=== PATIENT | male | born 1960 | race Caucasian/White ===

== ENCOUNTER 2022-05-04 23:22 | Inpatient (IN) ==
[2022-05-05] MEDS ORDERED: ONDANSETRON INJ 2 MG/ML 2 ML VIAL IV PRN (00:19)
[2022-05-05] MEDS ORDERED: HYDROmorphone INJ 0.5 MG/0.5 ML SYR IV PRN (00:19)
--- NOTE | 2022-05-05 00:21 | History & Physical Report ---
Date of Service May 05, 2022 Assessment & Plan (1) Diverticulitis of intestine with abscess: Plan: Diagnosed via OSH ([facility]) CT A/P. - admit directly to PCU - obtain serial labs including CBC/CMP/Mg/procalcitonin/lactate - obtain blood cultures - we will scan CT A/P into our system - start Zosyn - start maintenance IVFs with LR @150cc/hr - consult surgery - appreciate recs - maintain NPO pending surgical consult (2) Large bowel obstruction: Plan: Diagnosed via OSH ([facility]) CT A/P. ?secondary to recent prostate cx RTx with ?contribution from complicated diverticulitis. - obtain KUB - patient relatively comfortable at this time - will hold on NG tube - surgery consulted as stated above - NPO and maintenance IVFs as stated above - PRN pain regimen: Tylenol/Morphine 2mg/Dilaudid 0.25mg - PRN Zofran for N/V (3) Diarrhea: Plan: Acute exacerbation of chronic problem. Has dealt with daily diarrhea since onset of RTx this summer, but reports worsening of symptoms over last 4 days. Likely 2/2 to diverticulitis. - check c. diff and stool PCR - plan as above (4) Prostate cancer: Plan: Stage IIIA, s/p TURP in 09/2021 and Leuprolide/RTx as of 02/2022. Follows with our cancer center (Dr. Le). (5) Hypertension: Plan: Chronic, normotensive thus far. - continue home Lisinopril Plan FEN/GI: NPO, LR @150cc/hr DVT Prophylaxis: SCDs, hold chemoppx pending surgical evaluation Code Status: full code - *need to discuss with patient Disposition: PCU History of Present Illness Chief Complaint: direct admit for large bowel obstruction with complicated diverticulitis/abscess Primary Care Provider: Vinh Kilgore Salazar is a 61yo male with PMHx significant for prostate cancer (s/p TURP in 09/2021 and completion of Leuprolide/RTx in 02/2022), HTN and obesity who was transferred from [facility] as a direct admit for large bowel obstruction with complicated diverticulitis/abscess. Patient reports onset of RLQ colicky abdominal pain as well as nausea, NB/NB vomiting and diarrhea on 05/01. N/V resolved on 05/02 but diarrhea has been consistent with 6-7 BMs per day, without blood/mucus. Also has had persistent abdominal pain. Denies fever/chills, chest pain, SOB, urinary symptoms or rash. Patient has ~45 pack year smoking history and currently smokes 3/4 ppd. Denies alcohol/drug use. Lives with and is proficient in ADLs/iADLs. In OSH ED the patient was afebrile with HR in low 100s but overall hemodynamically stable on room air. Labs significant for WBC 18.88 (neutrophilic predominance and L shift)Lactate 2.0 --> 1.3, Na 130, K 2.7. CT A/P [facility] report showing likely sigmoid colon diverticulitis with abscess measuring 2.8cm in size. Also with large bowel obstructive pattern and transition point at si gmoid colon. Patient was given IV potassium repletion, 2L NSS boluses, and started on Vanco/Zosyn. Patient had blood cultures drawn at OSH as well. Was then transferred here to be evaluated by our general surgery service given complicated diverticulitis with large bowel obstruction. Of note all records were sent with the patient, in addition to disc with CT A/P. Allergies Allergy/AdvReac Type Severity Reaction Status Date / Time No Known Allergies Allergy Verified 02/27/22 11:17 Home Medications Medication Instructions Recorded Confirmed Type lisinopril 20 mg tablet 20 mg PO DAILY 09/11/21 02/27/22 History acetaminophen 500 mg tablet 1,000 mg PO Q6H PRN 10/30/21 02/27/22 History (Tylenol Extra Strength) lactobacillus combination no.4 3 3,000 mmu cells PO DAILY 10/30/21 02/27/22 History billion cell capsule (Probiotic) leuprolide (3 month) 22.5 mg (3 22.5 mg subcut ONCE Prostate 12/03/21 12/03/21 Rx month) subcutaneous syringe Cancer #1 ea (Tre) calcium carbonate 600 mg-vitamin 1 cap PO DAILY 01/20/22 02/27/22 History D3 10 mcg (400 unit) capsule cholecalciferol (vitamin D3) 50 50 mcg PO DAILY 01/20/22 02/27/22 History mcg (2,000 unit) capsule psyllium husk 3.4 gram/5.4 gram 1 tbsp PO DAILY 01/27/22 02/27/22 History oral powder (Metamucil) leuprolide (3 month) 22.5 mg (3 22.5 mg subcut ONCE Prostate 01/29/22 02/27/22 Rx month) subcutaneous syringe Cancer #1 ea (Tre) Past Med/Surg History Medical History (Updated 05/05/22 @ 02:16 by Ayden Roberts MD) Back pain Chickenpox Colon polyp Surgical History (Updated 10/30/21 @ 10:00 by Yolis Bazzi RN) H/O laminectomy (1986) History of prostate biopsy (09/18/21) Family History (Updated 10/30/21 @ 10:01 by Yolis Bazzi RN) Father Abdominal aortic aneurysm Prostate cancer unsure per patient Mother Parkinson disease Brother Heart disease Brother Hypertension Brother Hypertension Sister Cerebral aneurysm Grandfather (Maternal) Prostate cancer Son No problems noted. Son No problems noted. 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 NAD. Cooperative. HEENT: Atraumatic, normocephalic. Pulm: CTAB A&P. -wheezes, -rales, -rhonchi. Symmetrical chest rise. No increase work of breathing. No respiratory distress. Cardiac: RRR, -mrg. Radial pulses intact and symmetrical. Abdominal: soft, mildly distended mostly in RLQ, with moderate tenderness to palpation of RLQ. No rebound or guarding. NA BS x 4 Skin: warm, dry, no rash Supervising Physician Co-Signing Physician Notes I supervised Alden Roberts MD on this admission. I interviewed and examined the patient independently of him. The plan is as written in the note except for any following changes/exceptions: None 61yo M w/ hx of prostate cancer who presents with large bowel obstruction and diverticulitis vs. mass with 2.8 cm abscess. Doing well on exam overnight, minimal pain. Discussed with surgical attending. PA will see him overnight. For now, NPO, abx, labs, and IV fluids. Resident Activity Tracking Resident Involvement: Resident Care Provided Care Provided: Adult [facility]
[2022-05-05] MEDS ORDERED: PIPERACILLIN/TAZOBACTAM 4.5 GM in DEXTROSE 5% 100 ML IV ONE (01:00)
[2022-05-05] MEDS ORDERED: Patient's HEIGHT &/or WEIGHT Needed STA (02:12)
[2022-05-05 02:48] LABS: Hematocrit (blood only) 31.8 % (40.1-51.0); Mean Corpuscular Hemoglobin 31.1 pg (25.0-34.0); Mean Corpuscular Hgb Conc 34.6 g/dL (32.0-36.0); Mean Corpuscular Volume 89.8 fL (80.0-100.0); Mean Platelet Volume 8.9 fL (9.4-12.4); Platelet Count 437 K/uL (130-400); RDW Coefficient of Variation 13.2 % (11.5-14.5); RDW Standard Deviation 43.4 fL (36.4-46.3); Red Blood Count 3.54 M/uL (4.63-6.08); White Blood Count 16.56 K/ul (4.8-10.8)
--- NOTE | 2022-05-05 03:04 | Billing Data ---
Date of Service May 05, 2022 Coding Level of Care Code 10992 Initial Inpt Care Lvl 3
[2022-05-05 03:05] LABS: Alanine Aminotransferase 24 U/L (7-52); Albumin Globulin Ratio 1.2 (0.9-2); Albumin Level 3.5 gm/dl (3.4-5.0); Alkaline Phosphatase 75 U/L (34-104); Anion Gap 10 (3-11); Aspartate Aminotransferase 14 U/L (13-39); BUN Creatinine Ratio 19.4 (10-20); Bilirubin,Total 1.1 mg/dl (0.2-1.0); Blood Urea Nitrogen 12 mg/dl (6-23); Calcium 8.9 mg/dl (8.5-10.1); Carbon Dioxide 21 mmol/L (21-32); Chloride 101 mmol/L (98-107); Est GFR (African American) 122.4 ml/min; Est GFR (Non-African American) 105.6 ml/min; Glucose 110 mg/dl (70-99(Fasting)); Magnesium 1.7 mg/dl (1.7-2.4); Potassium 3.2 mmol/L (3.5-5.1); Sodium 132 mmol/L (136-145); Total Protein 6.5 gm/dl (6.0-8.3)
[2022-05-05 03:09] LABS: Basophils # (auto) 0.04 K/uL (0-0.2); Basophils % (auto) 0.2 %; Eosinophils # (auto) 0.03 K/uL (0-0.50); Eosinophils % (auto) 0.2 %; Immature Granulocytes # (auto) 0.07 K/uL (0.00-0.02); Immature Granulocytes % (auto) 0.4 %; Lymphocytes # (auto) 0.42 K/uL (1.2-3.4); Lymphocytes % (auto) 2.5 %; Monocytes # (auto) 0.95 K/uL (0.24-0.82); Monocytes % (auto) 5.7 %; Neutrophils # (auto) 15.05 K/uL (1.4-6.5); RBC Morphology Unremarkable
[2022-05-05] MEDS: MoRPHine SULFATE 2 MG/ML CARP IV PRN ×4 (03:18→19:52)
--- NOTE | 2022-05-05 03:38 | Surgery Consultation ---
Date of Consultation May 05, 2022 Assessment & Plan (1) Diverticulitis of intestine with abscess: Patient has been transferred from [facility] on the hospitalist service. We recommend proceeding as follows Implement n.p.o. status Provide IV fluid for hydration Continue broad-spectrum antibiotics. The patient is receiving Zosyn Follow serial labs Provide analgesics Provide antiemetics Discussed with the patient the nature of his problem. At the present time the patient does not appear to have an acute abdomen (peritoneal signs on physical exam are absent) and therefore conservative measures as outlined above will be our initial course of treatment. I did discuss with the patient that ideally we would treat this condition in a conservative manner without surgery as any emergency surgery would likely necessitate a colostomy. We will continue with the plan as outlined above following serial exams and serial labs. Consideration can be given to repeat abdominal imaging if patient fails to improve with conservative measures. Additional recommendations be forthcoming based on his clinical course as it unfolds As above. Patient continues to have suprapubic and left lower quadrant pain. This started last . Abdominal exam is tender but no peritonitis. We certainly are not out of the shultz regarding possible urgent intervention. For now keep him n.p.o. IV fluid and IV antibiotics. We will continue to monitor him closely. History of Present Illness Reason for Consultation: Diverticulitis with abscess Attending Physician: Bernabe Suero MD History of Present Illness This is a 61-year-old male who presented to the emergency department at [facility] secondary to abdominal pain for approximately 2 to 3 days. The patient at the time of my exam noted that the pain was greatest in the lower abdomen which appeared to be in both the left and right lower quadrants. He notes it is worse with movement and somewhat improved with lying still. He has had associated nausea and vomiting. He denies any fevers, shakes, or chills. The patient notes that his most recent bowel movement was today. He is passing some flatus. He notes that he did not have any blood in his stool. With his emesis earlier in the course of his illness he did not report any hematemesis. He no jaclyn that he has never had this problem before and did not seek medical attention immediately because he thought that he merely had a stomach bug. The patient does report having a colonoscopy in the past and to the best of his knowledge there is no significant pathology noted on the study. He does feel that his most recent colonoscopy was approximately 3 years ago. The patient notes that he has not had no prior abdominal surgeries but he does have a history of prostate cancer. He says for this cancer he did receive radiation treatments. At [facility] the patient did have labs and imaging. These records were reviewed. A CT scan of the abdomen and pelvis showed an abnormal appearance of the sigmoid colon. The segment of the colon was obscured by soft tissue like material with a lobulated appearance. Inflammatory changes were noted. Proximal to these changes the colon was dilated and filled with stool and air. No free air was noted. Just adjacent to the abnormal appearance of the sigmoid colon was a loculated collection measuring approximately 2.8 cm in size potentially felt to represent a small abscess. An EKG showed sinus rhythm without changes indicative of acute ischemia. At [facility] the patient also had labs which included a chemistry profile where his BUN and creatinine were noted to be normal. Sodium and potassium were 130 and 2.7 respectively. There is no elevation of patient's LFTs. Lactic acid level was 2.0 which was normal. CBC revealed white blood cell count was 18.8. Hemoglobin and hematocrit were 12.2 and 37.2. Platelet count was 508,000. A COVID test at [place] was negative. Since arrival to [facility] the patient has had labs repeated. His white blood cell count is 16.5. Hemoglobin and hematocrit are 11.0 and 31.8. Platelet count is 437,000. Chemistry profile shows sodium is 132 with a potassium of 3.2. BUN and creatinine are normal. His lactic acid is normal at 0.8. There is a slight elevation of his total bilirubin of 1.1 but his LFTs are otherwise not elevated. Procalcitonin level is 0.59 with is a slight elevation. Since arrival to [facility] the patient has been noted to be afebrile. His pulse ox is currently greater than 90% on room air. His respirations are nonlabored. He is not hypotensive however he is tachycardic with a heart rate in the 120s. At the time of my interview he was resting comfortably in bed in no distress. Allergies Allergy/AdvReac Type Severity Reaction Status Date / Time No Known Allergies Allergy Verified 02/27/22 11:17 Home Medications Medication Instructions Recorded Confirmed Type lisinopril 20 mg tablet 20 mg PO DAILY 09/11/21 02/27/22 History acetaminophen 500 mg tablet 1,000 mg PO Q6H PRN 10/30/21 02/27/22 History (Tylenol Extra Strength) lactobacillus combination no.4 3 3,000 mmu cells PO DAILY 10/30/21 02/27/22 History billion cell capsule (Probiotic) leuprolide (3 month) 22.5 mg (3 22.5 mg subcut ONCE Prostate 12/03/21 12/03/21 Rx month) subcutaneous syringe Cancer #1 ea (Elicaseyd) calcium carbonate 600 mg-vitamin 1 cap PO DAILY 01/20/22 02/27/22 History D3 10 mcg (400 unit) capsule cholecalciferol (vitamin D3) 50 50 mcg PO DAILY 01/20/22 02/27/22 History mcg (2,000 unit) capsule psyllium husk 3.4 gram/5.4 gram 1 tbsp PO DAILY 01/27/22 02/27/22 History oral powder (Metamucil) leuprolide (3 month) 22.5 mg (3 22.5 mg subcut ONCE Prostate 01/29/22 02/27/22 Rx month) subcutaneous syringe Cancer #1 ea (Tre) Patient History Medical History Back pain Chickenpox Colon polyp Surgical History H/O laminectomy (1986) History of prostate biopsy (09/18/21) Family History Father Abdominal aortic aneurysm Prostate cancer unsure per patient Mother Parkinson disease Brother Heart disease Brother Hypertension Brother Hypertension Sister Cerebral aneurysm Grandfather (Maternal) Prostate cancer Son No problems noted. Son No problems noted. Social History Smoking Status: Current every day smoker Tobacco Type: Cigarettes packs per day: 0.7; Cigarettes Per Day: 15; Second Hand Exposure: Yes; Do You Dip or Chew Tobacco: No; Tobacco Cessation Education Requested by Patient: No Hx Alcohol Use: No Hx Substance Use: No Preferred Language: Ethiopian Communication Ability: Effective Visual Impairment: No Limitations Hearing Ability: Normal Packaging Specialist Required: No Beliefs That Will Affect Care: None marital status: Current Living Situation: Spouse current occupational status: employed current occupation: Manufacturing How many Children do You have: 2 Other Information That Helps Us Care for You: No Feels Safe at Home: Yes Safety Concerns: Feels Safe At This Time Childhood Exposure to Second-Hand Smoke: Yes (parents smoked in home) caffeine: Yes (coffee) during the past year weight has: remained stable Dental Care, Regularly: Yes Assistive Devices: None Review of Systems Constitutional: no fever and no chills Eyes: no eye pain Ear, Nose, Mouth, Throat: no ear pain Respiratory: no cough and no dyspnea Cardiovascular: no chest pain Gastrointestinal: + abdominal pain, + nausea and + vomiting; no hematemesis, no diarrhea/loose stools and no blood in stools Genitourinary: no dysuria Musculoskeletal: no back pain Integumentary: no rash Neurologic: no localized weakness Physical Exam Constitutional: well developed and well nourished; no acute distress Eyes: no conjunctival abnormality ENMT: Ears: no hearing impairment and no external ear abnormality Mouth: no oropharynx abnormality Neck: trachea midline Respiratory: normal respiratory effort; no respiratory distress and no labored breathing Cardiovascular: Rate/Rhythm: regular rate and regular rhythm Vessels: dorsalis pedis pulses present and radial pulses present Gastrointestinal (Abdomen): Abdomen is mildly distended. There is pain noted with palpation in the lower abdomen which is greatest in the left lower quadrant. There is no rebound tenderness or guarding. Bowel sounds are hypoactive. Musculoskeletal: No calf tenderness. Feet are warm and nonmottled Skin: no rashes Neurologic: moves all extremities Psychiatric: A+Ox3, euthymic affect Results & Data ([facility]) Vital Signs (Past 12 Hours) Vital Signs Temp Pulse Resp BP Pulse Ox O2 Del Method 05/05/22 03:23 36.9 C 121 H 18 145/110 H 91 Room Air PG Care Time/CCT Total # of Minutes Spent Total Time Spent with Patient: Total time spent is greater than 50% in coordination of care (as documented) at patient's floor/unit and/or counseling patient: Coding Level of Care Code 52960 Inpt Consult Level 5 Diagnoses Diverticulitis of intestine with abscess K57.80
[2022-05-05] MEDS: LACTATED RINGER'S 1,000 ML IV SCH ×4 (03:41→20:58)
[2022-05-05] MEDS ORDERED: POTASSIUM CHLORIDE CRTAB 20 MEQ TABCR PO STA (04:22)
--- NOTE | 2022-05-05 07:06 | Hospitalist Progress Note ---
Date of Service May 05, 2022 Assessment & Plan (1) Diverticulitis of intestine with abscess: Plan: - diagnosed via [facility] CTAP - labs upon admission significant for WBC 16.56 w/ neutrophilic predominance, Hgb 11, Na 132, K 3.2, and procal 0.59 - blood cultures pending - KUB showed severe constipation w/ distended colon (colonic ileus vs. LBO) - continue Zosyn - continue maintenance IVFs with LR @150cc/hr - per surg; continue NPO, ABX, serial labs, analgesic/antiemetic PRN, prefer conservative management to surgical management at this time (2) Ileus due to infection: Plan: - LBO diagnosed via [facility] CTAP. Cause secondary to recent prostate cx radiation therapy vs contribution from complicated diverticulitis? - KUB showed severe constipation w/ distended colon (colonic ileus vs. LBO) - as LBO are not commonly seen as complication from diverticulitis, suspect colonic ileus - NPO and maintenance IVFs as above - PRN pain regimen: Tylenol/Morphine 2mg/Dilaudid 0.25mg - PRN Zofran for N/V - per surg as above - recommend colonoscopy 6-8 after d/c as outpatient, unless obstructive symptoms fail to resolve w/ infection tx, then may need colonoscopy as inpatient (3) Diarrhea: Plan: - Acute on chronic problem - has dealt with daily diarrhea since onset of radiation therapy this summer, but reports worsening of symptoms over last 4 days; likely 2/2 to diverticulitis - c. diff neg and stool PCR pos for EPEC - plan as above (4) Prostate cancer: Plan: - Stage IIIA, s/p TURP in 09/2021 and Leuprolide/radiation therapy as of 02/2022 - Follows with cancer center (Dr. Le) (5) Hypertension: Plan: - Chronic - continue home lisinopril 20 mg daily Plan FEN: NPO, LR @150cc/hr, 60 meq K DVT ppx: SCDs Code: full Dispo: PCU Admission and Anticipated Discharge Date Admission Date: May 05, 2022 Supervising Physician Co-Signing Physician Notes I personally examined the patient and verified all tsang points of history and exam, discussed case, and agree with decision making with Dr Smithbauer feeling about the same, but not worse Vitals noted, in general he is awake and alert pleasant no distress. HEENT normocephalic atraumatic mucous membranes moist. Breathing unlabored no accessory muscle use good effort. Abdomen soft nondistended mild tender no guarding rebound or rigidity Diverticulitis with abscessantibiotics, supportive care, serial exams, time. Appreciate surgical backup, hopefully will do well with conservative care Large bowel obstructionawaiting ability to review films, hopefully just ileus due to infection, discussed with patient is a bit atypical and we will definitely want to ensure symptomatic resolution prior to discharge, as well as follow-up colonoscopy within about 6 to 8 weeks after discharge if symptoms have resolved DVT prophylaxisLovenox given surgery being very unlikely Subjective Pt is a 61 yo male with PMH of prostate cancer (s/p TURP 09/2021 and le uprolide/radiation therapy 02/2022) and HTN presenting via transfer due to acute diverticulitis w/ LBO and 2.8 cm abscess. Pt sitting on the side of the bed when I talked with him. He still has some abdominal pain but better than it was. It is worse when he lays down. Pt endorses continued episodes of diarrhea w/o blood. He denies SOB, chest pain, and nausea/vomiting. Physical Exam Constitutional: NAD. Tachycardic. Eyes: no conjunctival abnormality Respiratory: CTA bilaterally. No rhonchi, wheezing, or crackles. Non labored breathing. Cardiovascular: Regular rhythm, tachycardic. No murmur noted. No LE edema. Gastrointestinal (Abdomen): Soft, tender throughout upon light palpation, +BS. Guarding present through all quadrants. No masses noted. Skin: no rashes, warm and dry Psychiatric: Alert. Mood and affect congruent. Results & Data Results & Data ([facility]) Vital Signs (Past 12 Hours) Vital Signs Temp Pulse Pulse Resp BP Pulse Ox O2 Del Method 05/05/22 02:30 Room Air 05/05/22 03:31 113 H 05/05/22 01:40 38.1 C H 122 H 18 147/102 H 92 Room Air 05/05/22 03:23 36.9 C 121 H 18 145/110 H 91 Room Air Resident Activity Tracking Resident Involvement: Resident Care Provided Care Provided: Adult [facility]
[2022-05-05] MEDS: lisinopril 20 MG TAB PO SCH (08:04)
[2022-05-05] MEDS: PIPERACILLIN/TAZOBACTAM 4.5 GM in DEXTROSE 5% 100 ML IV SCH ×2 (08:04→16:49)
[2022-05-05 09:30] LABS: Adenovirus F 40/41 PCR Not Detected (NotDetected); Astrovirus PCR Not Detected (NotDetected); Cryptosporidium PCR Not Detected (NotDetected); Cyclospora cayetanensis PCR Not Detected (NotDetected); Entamoeba histolytica PCR Not Detected (NotDetected); Enteroaggregative E.coli(EAEC) Not Detected (NotDetected); Enteropathogenic E.coli (EPEC) DETECTED (NotDetected); Enterotoxigenic E.coli (ETEC) Not Detected (NotDetected); Giardia lamblia PCR Not Detected (NotDetected); Norovirus GI/GII PCR Not Detected (NotDetected); Plesiomonas shigelloides PCR Not Detected (NotDetected); Rotavirus A PCR Not Detected (NotDetected); Salmonella PCR Not Detected (NotDetected); Sapovirus PCR Not Detected (NotDetected); Shiga-like Toxin E.coli (STEC) Not Detected (NotDetected); Shigella/Enteroinvasive E.coli Not Detected (NotDetected); Vibrio cholerae PCR Not Detected (NotDetected); Vibrio species PCR Not Detected (NotDetected); Yersinia enterocolitica PCR Not Detected (NotDetected)
[2022-05-05 09:34] LABS: Campylobacter PCR Not Detected (NotDetected)
--- NOTE | 2022-05-05 13:35 | XRay Report ---
KUB CLINICAL HISTORY: Large bowel obstruction. FINDINGS: 3 AP, portable, supine abdominal radiographs are correlated with abdominal CT dated 022. There is severe fecal retention seen in the right colon. The right colon is markedly distended, measuring up to 11 cm in diameter. There is milder distention of the left colon, with minimal gas pre sent in the sigmoid. There is only mild distention of the small bowel loops. No evidence of intraperi toneal free air is seen on the supine images. There are no abnormal abdominal calcifications. The ske letal structures are osteopenic but intact. There is moderate to advanced lumbosacral spondylosis and scoliosis. Metallic implants are noted in the prostate. IMPRESSION: Severe constipation and marked distention of the colon as above. Although this could repr esenting colonic ileus, a distal colonic obstruction is not excluded. Clinical correlation will be es sential. Electronically signed by: Sergio Petty M.D. 05/05/2022 1:33 PM
--- NOTE | 2022-05-05 18:46 | Billing Data ---
Date of Service May 05, 2022 Coding Level of Care Code 75736 Subseq Hosp Care Lvl 3
[2022-05-05] MEDS ORDERED: LACTATED RINGER'S 1,000 ML IV ONE (19:50)
[2022-05-06] MEDS: PIPERACILLIN/TAZOBACTAM 4.5 GM in DEXTROSE 5% 100 ML IV SCH ×4 (00:22→23:18)
[2022-05-06] MEDS: LACTATED RINGER'S 1,000 ML IV SCH ×5 (01:30→21:02)
[2022-05-06] MEDS: MoRPHine SULFATE 2 MG/ML CARP IV PRN ×5 (03:01→23:19)
[2022-05-06 06:29] LABS: Hematocrit (blood only) 30.4 % (40.1-51.0); Hemoglobin 10.4 g/dl (14.0-18.0); Mean Corpuscular Hemoglobin 30.6 pg (25.0-34.0); Mean Corpuscular Hgb Conc 34.2 g/dL (32.0-36.0); Mean Corpuscular Volume 89.4 fL (80.0-100.0); Mean Platelet Volume 9.1 fL (9.4-12.4); Platelet Count 351 K/uL (130-400); RDW Coefficient of Variation 13.3 % (11.5-14.5); RDW Standard Deviation 43.8 fL (36.4-46.3); White Blood Count 11.43 K/ul (4.8-10.8)
[2022-05-06 07:04] LABS: BUN Creatinine Ratio 22.6 (10-20); Calcium 8.8 mg/dl (8.5-10.1); Creatinine Clr Calc Pharmacy 161.6 ml/min; Est GFR (African American) 130.5 ml/min; Est GFR (Non-African American) 112.6 ml/min; Potassium 3.4 mmol/L (3.5-5.1)
[2022-05-06] MEDS ORDERED: POTASSIUM CHLORIDE CRTAB 20 MEQ TABCR PO ONE (07:24)
[2022-05-06] MEDS: lisinopril 20 MG TAB PO SCH (07:33)
--- NOTE | 2022-05-06 07:52 | Hospitalist Progress Note ---
Date of Service May 06, 2022 Assessment & Plan (1) Diverticulitis of intestine with abscess: Plan: - diagnosed via [facility] CTAP - labs upon admission significant for WBC 16.56 w/ neutrophilic predominance, Hgb 11, Na 132, K 3.2, and procal 0.59 - today, WBC trending down - KUB showed severe constipation w/ distended colon (colonic ileus vs. LBO) - blood cultures neg after 24 hr - continue zosyn- day 2 - continue maintenance IVFs with LR 200 mL/hr - per surg; continue NPO, ABX, serial exams, analgesic/antiemetic PRN, recommend repeat CT scan (2) Ileus due to infection: Plan: - LBO diagnosed via [facility] CTAP. Cause secondary to recent prostate cx radiation therapy vs contribution from complicated diverticulitis? - KUB showed severe constipation w/ distended colon (colonic ileus vs. LBO) - as LBO are not commonly seen as complication from diverticulitis, suspect colonic ileus - NPO and maintenance IVFs as above - PRN pain regimen: Tylenol/Morphine 2mg/Dilaudid 0.25mg - PRN Zofran for N/V - per surg as above - recommend colonoscopy 6-8 after d/c as outpatient, unless obstructive symptoms fail to resolve w/ infection tx, then may need colonoscopy as inpatient (3) Diarrhea: Plan: - Acute on chronic problem - has dealt with daily diarrhea since onset of radiation therapy this summer, but reports worsening of symptoms over last 4 days; likely 2/2 to diverticulitis - c. diff neg and stool PCR pos for EPEC - plan as above (4) Prostate cancer: Plan: - Stage IIIA, s/p TURP in 09/2021 and Leuprolide/radiation therapy as of 02/2022 - Follows with cancer center (Dr. Le) (5) Hypertension: Plan: - Chronic - continue home lisinopril 20 mg daily Plan FEN: NPO, LR 200 mL/hr, 40 meq K DVT ppx: lovenox 40 mg daily Code: full Dispo: PCU Admission and Anticipated Discharge Date Admission Date: May 05, 2022 Supervising Physician Co-Signing Physician Notes I personally examined the patient and verified all tsang points of history and exam, discussed case, and agree with decision making with Dr Mullen still feeling about the same, but not worse Vitals noted, in general he is awake and alert pleasant no distress. HEENT normocephalic atraumatic mucous membranes moist. Breathing unlabored no accessory muscle use good effort. Abdomen soft nondistended mild tender no guarding rebound or rigidity Diverticulitis with abscessantibiotics, supportive care, serial exams, time. Appreciate surgical backup, thus far doing well with conservative care. Anticipate repeat CT in about 2 days Large bowel obstructionawaiting ability to review films, hopefully just ileus due to infection, discussed with patient is a bit atypical and we will definitely want to ensure symptomatic resolution prior to discharge, as well as follow-up colonoscopy within about 6 to 8 weeks after discharge if symptoms have resolved, continue to follow clinically for now DVT prophylaxisLovenox, given that a need for emergent surgery is very unlikely Subjective Pt is a 61 yo male with PMH of prostate cancer (s/p TURP 09/2021 and leuprolide/radiation therapy 02/2022) and HTN presenting via transfer due to acute diverticulitis w/ LBO and 2.8 cm abscess. Overnight pt continued to be tachycardic. He was given 1 L bolus of NS and his maintenance was increased to 200 mL/hr. Overall, pt feeling slightly better than previously. He currently rates his pain 6-7/10 but he has not asked for his pain meds yet. He still notes diarrhea w/o blood. No new symptoms of chest pain, SOB, nausea/vomiting or leg pain. Physical Exam Constitutional: NAD. Vitals WNL. Eyes: no conjunctival abnormality Respiratory: CTA bilaterally. No rhonchi, wheezing, or crackles. Non labored breathing. Cardiovascular: Regular rhythm, tachycardic. No murmur noted. No LE edema. Gastrointestinal (Abdomen): Tenderness in all quadrants upon light palpation with more tenderness on of the right sided quadrants. Guarding present. Soft. +BS. No masses noted. Skin: no rashes, warm and dry Psychiatric: Alert. Mood and affect congruent. Results & Data Results & Data ([facility]) Vital Signs (Past 12 Hours) Vital Signs Temp Pulse Pulse Resp BP Pulse Ox Pulse Ox 05/06/22 07:11 36.9 C 118 H 20 143/94 H 91 05/06/22 02:52 36.4 C L 107 H 22 102/71 91 05/06/22 00:19 92 05/05/22 22:44 36.4 C L 108 H 20 103/79 92 05/05/22 20:15 117 H O2 Del Method O2 Del Method 05/06/22 07:11 Room Air 05/06/22 02:52 Room Air 05/06/22 00:19 Room Air 05/05/22 22:44 Room Air 05/05/22 20:15 Resident Activity Tracking Resident Involvement: Resident Care Provided Care Provided: Adult Hospital Medicine
--- NOTE | 2022-05-06 08:13 | Surgery Progress Note ---
Date of Service May 06, 2022 Assessment & Plan (1) Diverticulitis of intestine with abscess: Plan: Afebrile. WBC is decreasing. Pain slightly improved. Would continue n.p.o. and IV antibiotics. If he continues to improve I would recommend repeat CAT scan on . We will continue to follow while he is in the hospital. (2) Large bowel obstruction: (3) Obesity: (4) Hypertension: Admission and Anticipated Discharge Date Admission Date: May 05, 2022 Subjective Patient seen. Admits to some improvement in his symptoms although he still having lower abdominal pain. He had 1 bowel movement. Otherwise no new complaints. Physical Exam Constitutional: WD/WN, vitals as above no acute distress and not ill appearing Eyes: PERRL, conjunctivae normal, anicteric sclerae EOM intact bilaterally ENMT: external ear and nose normal, oropharynx normal Ears: no hearing impairment Neck: trachea midline, no thyromegaly Respiratory: normal respiratory effort; no respiratory distress and does not use accessory muscles Cardiovascular: Sinus tachycardia Gastrointestinal (Abdomen): Soft. Positive suprapubic and left lower quadrant tenderness. Voluntary guarding. Skin: no rashes, warm and dry Psychiatric: Orientation: alert, oriented x 3 and cooperative Results & Data ([facility]) Vital Signs (Past 12 Hours) Vital Signs Temp Pulse Pulse Resp BP Pulse Ox Pulse Ox 05/06/22 07:11 36.9 C 118 H 20 143/94 H 91 05/06/22 02:52 36.4 C L 107 H 22 102/71 91 05/06/22 00:19 92 05/05/22 22:44 36.4 C L 108 H 20 103/79 92 05/05/22 20:15 117 H O2 Del Method O2 Del Method 05/06/22 07:11 Room Air 05/06/22 02:52 Room Air 05/06/22 00:19 Room Air 05/05/22 22:44 Room Air 05/05/22 20:15 PG Care Time/CCT Total # of Minutes Spent Total Time Spent with Patient: Total time spent is greater than 50% in coordination of care (as documented) at patient's floor/unit and/or counseling patient: Coding Level of Care Code 89904 Subseq Hosp Care Lvl 3 Diagnoses Diverticulitis of intestine with abscess K57.80 Large bowel obstruction K56.609 Obesity E66.9 Hypertension I10
[2022-05-06] MEDS: ENOXAPARIN INJ 40 MG/0.4 ML SYR SQ SCH (08:29)
--- NOTE | 2022-05-06 18:01 | Billing Data ---
Date of Service May 06, 2022 Coding Level of Care Code 00748 Subseq Hosp Care Lvl 3
[2022-05-07] MEDS: LACTATED RINGER'S 1,000 ML IV SCH ×4 (01:34→15:08)
[2022-05-07] MEDS: MoRPHine SULFATE 2 MG/ML CARP IV PRN ×2 (06:03→23:13)
[2022-05-07 06:11] LABS: Basophils # (auto) 0.03 K/uL (0-0.2); Basophils % (auto) 0.3 %; Eosinophils # (auto) 0.08 K/uL (0-0.50); Eosinophils % (auto) 0.7 %; Hemoglobin 10.8 g/dl (14.0-18.0); Immature Granulocytes # (auto) 0.06 K/uL (0.00-0.02); Immature Granulocytes % (auto) 0.5 %; Lymphocytes # (auto) 0.44 K/uL (1.2-3.4); Lymphocytes % (auto) 3.8 %; Mean Corpuscular Hemoglobin 30.7 pg (25.0-34.0); Mean Corpuscular Hgb Conc 33.8 g/dL (32.0-36.0); Mean Corpuscular Volume 90.9 fL (80.0-100.0); Mean Platelet Volume 9.1 fL (9.4-12.4); Monocytes # (auto) 0.77 K/uL (0.24-0.82); Monocytes % (auto) 6.6 %; Neutrophils # (auto) 10.23 K/uL (1.4-6.5); Neutrophils % (auto) 88.1 %; Platelet Count 446 K/uL (130-400); RDW Coefficient of Variation 13.3 % (11.5-14.5); RDW Standard Deviation 44.7 fL (36.4-46.3); Red Blood Count 3.52 M/uL (4.63-6.08); White Blood Count 11.61 K/ul (4.8-10.8)
--- NOTE | 2022-05-07 06:18 | Electrocardiogram Report ---
Test Reason : Blood Pressure : / mmHG Vent. Rate : 117 BPM Atrial Rate : 117 BPM P-R Int : 168 ms QRS Dur : 084 ms QT Int : 336 ms P-R-T Axes : 000 005 012 degrees QTc Int : 469 ms Sinus tachycardia Nonspecific T wave abnormality Abnormal ECG No previous ECGs available Confirmed by Avinash Garcia ([id number]) on 05/07/2022 6:18:47 AM Referred By: Bernabe Suero Confirmed By:Avinash Garcia
[2022-05-07 06:34] LABS: BUN Creatinine Ratio 21.3 (10-20); Calcium 8.8 mg/dl (8.5-10.1); Creatinine Clr Calc Pharmacy 140.8 ml/min; Est GFR (African American) 123.2 ml/min; Est GFR (Non-African American) 106.3 ml/min; Potassium 3.2 mmol/L (3.5-5.1)
[2022-05-07] MEDS ORDERED: POTASSIUM CHLORIDE CRTAB 20 MEQ TABCR PO ONE (07:21)
--- NOTE | 2022-05-07 07:27 | Hospitalist Progress Note ---
Date of Service May 07, 2022 Assessment & Plan (1) Diverticulitis of intestine with abscess: Plan: - diagnosed via [facility] CTA - labs upon admission significant for WBC 16.56 w/ neutrophilic predominance, Hgb 11, Na 132, K 3.2, and procal 0.59 - today, WBC trending down/stablized - KUB showed severe constipation w/ distended colon (colonic ileus vs. LBO) - blood cultures neg after 48 hr - continue zosyn- day 3; can consider switch to ceftriaxone and metronidazole - stop maintenance IVFs d/t hypervolemia and diet advancement - per surg; clear liquids, ABX, serial exams, analgesic/antiemetic PRN, repeat CT scan tomorrow (2) Ileus due to infection: Plan: - LBO diagnosed via [facility] CTA. Cause secondary to recent prostate cx radiation therapy vs contribution from complicated diverticulitis? - KUB showed severe constipation w/ distended colon (colonic ileus vs. LBO) - as LBO are not commonly seen as complication from diverticulitis, suspect colonic ileus - NPO and maintenance IVFs as above - PRN pain regimen: Tylenol/Morphine 2mg/Dilaudid 0.25mg - PRN Zofran for N/V - per surg as above - recommend outpatient colonoscopy 6-8 after d/c (3) Diarrhea: Plan: - Acute on chronic problem - has dealt with daily diarrhea since onset of radiation therapy this summer, but reports worsening of symptoms over last 4 days; likely 2/2 to diverticulitis - c. diff neg and stool PCR pos for EPEC - plan as above (4) Prostate cancer: Plan: - Stage IIIA, s/p TURP in 09/2021 and Leuprolide/radiation therapy as of 02/2022 - Follows with cancer center (Dr. Le) (5) Hypertension: Plan: - Chronic - continue home lisinopril 20 mg daily Plan FEN: clear liquids, 60 meq K DVT ppx: lovenox 40 mg daily Code: full Dispo: PCU Admission and Anticipated Discharge Date Admission Date: May 05, 2022 Supervising Physician Co-Signing Physician Notes I personally examined the patient and verified all tsang points of history and exam, discussed case, and agree with decision making with Dr Smithbauer some diarrhea. tolerating a small amount of clears reasonably well Vitals noted, in general he is awake and alert pleasant no distress. HEENT normocephalic atraumatic mucous membranes moist. Breathing unlabored no accessory muscle use good effort. Abdomen soft nondistended mild tender no guarding rebound or rigidity but overall less than yesterday Diverticulitis with abscessantibiotics, supportive care, serial exams, time. Appreciate surgical backup, thus far doing well with conservative care. Anticipate repeat CT tomorrow Large bowel obstructionawaiting ability to review films, hopefully just ileus due to infection, discussed with patient is a bit atypical and we will definitely want to ensure symptomatic resolution prior to discharge, as well as follow-up colonoscopy within about 6 to 8 weeks after discharge if symptoms have resolved, continue to follow clinically for now - reassuring that his bowels are now moving DVT prophylaxisLovenox, given that a need for emergent surgery is very unlikely Subjective Pt is a 61 yo male with PMH of prostate cancer (s/p TURP 09/2021 and leuprolide/radiation therapy 02/2022) and HTN presenting via transfer due to acute diverticulitis w/ LBO and 2.8 cm abscess. Pt feeling alright today. He still has some right sided abdominal pain but he states the left sided pain has improved. He has experienced an increase in diarrhea with 7 episodes since midnight. He denies blood but states it is liquid and dark. Pt denies SOB but does endorse chest "congestion." Physical Exam Constitutional: NAD. Vitals WNL. Eyes: no conjunctival abnormality Respiratory: Slight wheezing heard in upper left lobe. Rhonchi heard in bilateral lung bases. Non labored breathing. Cardiovascular: Regular rhythm, tachycardic. No murmur noted. New bilateral LE edema. Pt wearing compression socks. Gastrointestinal (Abdomen): Soft, tender upon moderate palpation in RUQ. Guarding present throughout abdomen. No masses noted. Skin: no rashes, warm and dry Psychiatric: Alert. Mood and affect congruent. Results & Data Results & Data ([facility]) Vital Signs (Past 12 Hours) Vital Signs Temp Pulse Pulse Resp BP Pulse Ox O2 Del Method 05/07/22 04:13 36.6 C 103 H 16 130/81 92 Room Air 05/06/22 23:46 36.2 C L 119 H 16 124/90 92 Room Air 05/06/22 23:06 108 H 05/06/22 19:47 37.1 C 121 H 16 117/93 90 Room Air Resident Activity Tracking Resident Involvement: Resident Care Provided Care Provided: Adult Hospital Medicine
[2022-05-07] MEDS: POTASSIUM CHLORIDE / WTR 10 MEQ/100 ML PLCT IV SCH ×2 (08:12→09:21)
[2022-05-07] MEDS: PIPERACILLIN/TAZOBACTAM 4.5 GM in DEXTROSE 5% 100 ML IV SCH ×3 (08:12→23:13)
[2022-05-07] MEDS: ENOXAPARIN INJ 40 MG/0.4 ML SYR SQ SCH (08:20)
[2022-05-07] MEDS: lisinopril 20 MG TAB PO SCH (08:21)
--- NOTE | 2022-05-07 10:44 | Surgery Progress Note ---
Date of Service May 07, 2022 Assessment & Plan (1) Diverticulitis of intestine with abscess: Plan: Is he is getting better although it is slow progress. I will let him have some clear liquids today but I warned him and wanted to go very slow. He is afebrile. His WBC is improved from admission. Continue IV antibiotics. I would like to repeat his CT scan tomorrow. Kathya is covering for the holiday. (2) Obesity: Admission and Anticipated Discharge Date Admission Date: May 05, 2022 Subjective Patient seen. He continues to have some lower abdominal pain but is much improved since his admission. He has no new complaints. He would like to try something to drink Physical Exam Constitutional: WD/WN, vitals as above no acute distress and not ill appearing Eyes: PERRL, conjunctivae normal, anicteric sclerae EOM intact bilaterally ENMT: external ear and nose normal, oropharynx normal Ears: no hearing impairment Neck: trachea midline, no thyromegaly Respiratory: normal respiratory effort; no respiratory distress and does not use accessory muscles Gastrointestinal (Abdomen): Soft. Positive suprapubic left lower quadrant and right lower quadrant tenderness. This is improved since his admission. No peritonitis Skin: no rashes, warm and dry Psychiatric: Orientation: alert, oriented x 3 and cooperative Results & Data ([facility]) Vital Signs (Past 12 Hours) Vital Signs Temp Pulse Pulse Resp BP Pulse Ox O2 Del Method 05/07/22 08:00 Room Air 05/07/22 08:31 36.3 C L 115 H 16 139/86 91 Room Air 05/07/22 04:13 36.6 C 103 H 16 130/81 92 Room Air 05/06/22 23:46 36.2 C L 119 H 16 124/90 92 Room Air 05/06/22 23:06 108 H PG Care Time/CCT Total # of Minutes Spent Total Time Spent with Patient: Total time spent is greater than 50% in coordination of care (as documented) at patient's floor/unit and/or counseling patient: Coding Level of Care Code 91695 Subseq Hosp Care Lvl 3 Diagnoses Diverticulitis of intestine with abscess K57.80 Obesity E66.9
--- NOTE | 2022-05-07 19:33 | Billing Data ---
Date of Service May 07, 2022 Coding Level of Care Code 21978 Subseq Hosp Care Lvl 3
[2022-05-08 06:21] LABS: Basophils # (auto) 0.05 K/uL (0-0.2); Basophils % (auto) 0.5 %; Eosinophils # (auto) 0.09 K/uL (0-0.50); Eosinophils % (auto) 0.9 %; Hematocrit (blood only) 31.4 % (40.1-51.0); Hemoglobin 10.7 g/dl (14.0-18.0); Immature Granulocytes # (auto) 0.06 K/uL (0.00-0.02); Immature Granulocytes % (auto) 0.6 %; Lymphocytes # (auto) 0.37 K/uL (1.2-3.4); Lymphocytes % (auto) 3.9 %; Mean Corpuscular Hemoglobin 30.7 pg (25.0-34.0); Mean Corpuscular Hgb Conc 34.1 g/dL (32.0-36.0); Mean Platelet Volume 8.9 fL (9.4-12.4); Monocytes # (auto) 0.87 K/uL (0.24-0.82); Monocytes % (auto) 9.1 %; Neutrophils # (auto) 8.09 K/uL (1.4-6.5); Platelet Count 433 K/uL (130-400); RDW Coefficient of Variation 13.4 % (11.5-14.5); RDW Standard Deviation 44.2 fL (36.4-46.3); Red Blood Count 3.49 M/uL (4.63-6.08); White Blood Count 9.53 K/ul (4.8-10.8)
[2022-05-08 06:54] LABS: BUN Creatinine Ratio 25.5 (10-20); Calcium 8.4 mg/dl (8.5-10.1); Creatinine Clr Calc Pharmacy 190.5 ml/min; Est GFR (African American) 137.1 ml/min; Est GFR (Non-African American) 118.3 ml/min; Potassium 3.5 mmol/L (3.5-5.1)
--- NOTE | 2022-05-08 07:32 | Hospitalist Progress Note ---
Date of Service May 08, 2022 Assessment & Plan (1) Severe sepsis with septic shock: Plan: Severe sepsis 2/2 bowel perforation - 05/[address] scan showed colonic obstruction concerning for obstructing lesion, nodular collections in sigmoid colon concerning for small abscess vs. metastatic nodules, large volume of intraperitoneal free air - emergent exploratory laparotomy was performed which resulted in right hemicolectomy - no significant lesion found in LLQ - pt required significant pressors so pt was intubated and is now in the ICU - plan for washout tomorrow w/ abdominal closure - continue zosyn w/ addition of fluconazole - pt currently on phenylephrine for BP management Diverticulitis w/ abscess diagnosed via [facility] CTAP - labs upon admission significant for WBC 16.56 w/ neutrophilic predominance, Hgb 11, Na 132, K 3.2, and procal 0.59 - WBC trending down/stabilized - KUB showed severe constipation w/ distended colon (colonic ileus vs. LBO) - blood cultures neg after 48 hr - stop maintenance IVFs d/t hypervolemia and diet advancement - current management as above Diarrhea - Acute on chronic problem - has dealt with daily diarrhea since onset of radiation therapy this summer, but reports worsening of symptoms over last 4 days; likely 2/2 to diverticulitis - c. diff neg and stool PCR pos for EPEC - plan as above Prostate cancer - Stage IIIA, s/p TURP in 09/2021 and Leuprolide/radiation therapy as of 02/2022 - Follows with cancer center (Dr. Le) (2) Bowel perforation: (3) Diverticulitis of intestine with abscess: (4) Diarrhea: (5) Prostate cancer: (6) Hypertension: (7) Large bowel obstruction: Plan FEN: NPO, intubated, normosol 75 mL/hr DVT ppx: lovenox 40 mg daily Code: full Dispo: ICU Admission and Anticipated Discharge Date Admission Date: May 05, 2022 Supervising Physician Co-Signing Physician Notes I personally examined the patient and verified all tsang points of history and exam, discussed case, and agree with decision making with Dr. Mullen with the following additions/exceptions: S-Pt seen after surgery and was intubated, sedated, and paralyzed on the vent. Discussed his care with Surgery. Went for bowel resection and washout today after found ot have colon perforation on CT this AM. On pressors. O- Vitals reviewed Gen: [sedated, on vent, intubated] HEENT: ETT in place] CV: [RRR no mgr nl S1S2] Pulm: [CTAB no wcr] Abd: [Hypoactive BS, wound vac in place over open wound midline abdomen, Valle in palce draining dark yellow urine that is clear] Ext: [trace edema, 2+ DP pulses] Skin: [no rashes, warm/dry] Labs and CT images personally reviewed by me A/P-61 yo male here with acute diverticulitis, abscess vs sigmoid mass, and colon distension now with colon perforation s/p emergent colectomy. With sepsis and septic shock post-op. Washed out abdomen, on broad spectrum abx with diflucan, Zosyn. On pressors, intuabted -continue sedation , paralytics, vent management as per ICU -continue pressors and wean off as able to, continue IVFs -continue broad spectrum abx, follow cultures, for repeat washout and colostomy formation, abdominal closure tomorrow -Diarrhea ongoing with EPE. coli-on antibiotics Subjective Pt is a 61 yo male with PMH of prostate cancer (s/p TURP 09/2021 and leuprolide/radiation therapy 02/2022) and HTN presenting via transfer due to acute diverticulitis w/ LBO and 2.8 cm abscess. Pt stable this AM. He is still with right sided abdominal pain. His diarrhea has not let up throughout the night. He still denies chest pain and SOB. He is still having feelings of "chest congestion." He is scheduled for a repeat CT this morning but has not had this done yet. Review of Systems Review of Systems: All systems reviewed & are unremarkable except as noted in HPI & below Physical Exam Constitutional: NAD. Vitals WNL. Eyes: no conjunctival abnormality Respiratory: Wheezing in the left upper lobe, otherwise CTA. Non labored breathing. Cardiovascular: RRR. No murmur noted. Mild LE edema. Pt w/ compression socks on Gastrointestinal (Abdomen): Soft, tender upon palpation of RUQ. Guarding present throughout. No masses noted. Skin: no rashes, warm and dry Psychiatric: Alert. Mood and affect congruent. Results & Data Results & Data ([facility]) Vital Signs (Past 12 Hours) Vital Signs Temp Pulse Pulse Pulse Resp BP Pulse Ox 05/08/22 03:21 36.3 C L 114 H 22 110/89 93 05/07/22 23:15 105 H 05/07/22 23:09 36.8 C 110 H 18 119/80 94 05/07/22 20:00 05/07/22 20:09 124/94 05/07/22 19:32 36.7 C 108 H 18 125/102 H 93 O2 Del Method 05/08/22 03:21 Room Air 05/07/22 23:15 05/07/22 23:09 Room Air 05/07/22 20:00 Room Air 05/07/22 20:09 05/07/22 19:32 Room Air Resident Activity Tracking Resident Involvement: Resident Care Provided Care Provided: Adult Hospital Medicine
[2022-05-08] MEDS: lisinopril 20 MG TAB PO SCH (07:56)
[2022-05-08] MEDS: ENOXAPARIN INJ 40 MG/0.4 ML SYR SQ SCH (07:56)
[2022-05-08] MEDS: PIPERACILLIN/TAZOBACTAM 4.5 GM in DEXTROSE 5% 100 ML IV SCH ×2 (07:57→15:18)
[2022-05-08] MEDS: MoRPHine SULFATE 2 MG/ML CARP IV PRN (08:03)
[2022-05-08] MEDS ORDERED: OPTIRAY 350 100ml IV ONE (09:17)
--- NOTE | 2022-05-08 10:33 | Anesthesiology Consultation ---
Date of Service May 08, 2022 Assessment & Plan Chart Review Chart Review: Acceptable Risk for Surgery Consults Requested none ASA [id number] Proposed Anesthesia Anesthesia Type: General (rsi) Anesthesia Line Insertion: Arterial line (+/-) Risk / Benefits Reviewed With: PT / POA / Parent / Guardian, Accepts Plan and Informed Consent Obtained Additional Comments: zosyn 4.5gm give 05/08/22 0757 duoneb preop History Surgery Operation Date: 05/08/22 11:10 Proposed Procedures p Exploratory Laparotomy - Jace Suero MD Height/Weight Height: 5 ft 6 in Weight: 113.6 kg Allergies Allergy/AdvReac Type Severity Reaction Status Date / Time No Known Allergies Allergy Verified 02/27/22 11:17 Medications Home Medications Medication Instructions Recorded Confirmed Last Taken lisinopril 20 mg tablet 20 mg PO DAILY 09/11/21 02/27/22 Unknown acetaminophen 500 mg tablet 1,000 mg PO Q6H PRN 10/30/21 02/27/22 Unknown (Tylenol Extra Strength) lactobacillus combination no.4 3 3,000 mmu cells PO DAILY 10/30/21 02/27/22 Unknown billion cell capsule (Probiotic) leuprolide (3 month) 22.5 mg (3 22.5 mg subcut ONCE Prostate 12/03/21 12/03/21 Unknown month) subcutaneous syringe Cancer #1 ea (Eligard) calcium carbonate 600 mg-vitamin 1 cap PO DAILY 01/20/22 02/27/22 Unknown D3 10 mcg (400 unit) capsule cholecalciferol (vitamin D3) 50 50 mcg PO DAILY 01/20/22 02/27/22 Unknown mcg (2,000 unit) capsule psyllium husk 3.4 gram/5.4 gram 1 tbsp PO DAILY 01/27/22 02/27/22 Unknown oral powder (Metamucil) leuprolide (3 month) 22.5 mg (3 22.5 mg subcut ONCE Prostate 01/29/22 02/27/22 Unknown month) subcutaneous syringe Cancer #1 ea (Eligard) Active Medications Generic Name Dose Route Start Last Admin Trade Name Freq PRN Reason Stop Dose Admin Enoxaparin Sodium 40 mg 05/06/22 09:00 05/08/22 07:56 Enoxaparin Inj 40 Mg/0.4 Ml Syr SQ 06/05/22 08:59 40 mg QAM KETURAH Administration Piperacillin Sod/Tazobactam 120 mls @ 30 mls/hr 05/05/22 08:00 05/08/22 07:57 Sod 4.5 gm/ Dextrose IV 05/15/22 07:59 30 mls/hr Q8H KETURAH Administration Protocol Lisinopril 20 mg 05/05/22 09:00 05/08/22 07:56 Lisinopril 20 Mg Tab PO 06/04/22 08:59 20 mg QAM KETURAH Administration Morphine Sulfate 2 mg 05/05/22 00:19 05/08/22 08:03 Morphine Sulfate 2 Mg/Ml Carp IV 05/19/22 00:18 2 mg Q4H PRN Administration Moderate Pain NPO Date Last Intake of Fluids: 05/08/22 Time Last Intake of Fluids: 08:00 Date Last Intake of Solids: 05/02/22 Time Last Intake of Solids: 00:00 Past Medical History Medical History Back pain Chickenpox Colon polyp Diverticulitis of intestine with abscess Essential tremor Hypertension Large bowel obstruction Obesity Prostate cancer (09/18/21) s/p XRT Exercise / Class Metabolic Activity II 4-5 Yardwork/Stairs/Walk up hill Past Family History Family History Father Abdominal aortic aneurysm Prostate cancer unsure per patient Mother Parkinson disease Brother Heart disease Brother Hypertension Brother Hypertension Sister Cerebral aneurysm Grandfather (Maternal) Prostate cancer Son No problems noted. Son No problems noted. Past Surgical History Surgical History H/O laminectomy (1986) History of prostate biopsy (09/18/21) Past Anesthesia History No Hx of Anesthesia Complications and No Family Hx of Anesthesia Complications History of PONV No Hx of PONV and No Hx of Motion Sickness Social History Smoking Status: Current every day smoker tobacco type: cigarettes Smoking cigarettes per day: 15 Do You Dip or Chew Tobacco: No Hx Alcohol Use: No Hx Substance Use: No substance use type: does not use Physical Exam Vital Signs Last Vital Signs Temp 36.4 C L 05/08/22 11:17 Pulse 108 H 05/08/22 11:17 Resp 16 05/08/22 11:17 BP 100/70 05/08/22 11:17 Pulse Ox 94 05/08/22 11:17 O2 Del Method 05/08/22 11:17 Constitutional + morbidly obese ENMT Mouth: no TMJ abnormality Thyromental Distance: > or= 3.5 Finger Breadths Mallampati Class: III Neck normal visual inspection, trachea midline, + thick neck and + facial hair; neck extension not limited Respiratory + tachypneic and + audible wheezes Auscultation: + diminished lung sounds and + wheezes Cardiovascular Rate/Rhythm: regular rate and regular rhythm Heart Sounds: no murmur Musculoskeletal Spine: normal cervical ROM Extremities: full ROM of extremities Neurologic moves all extremities Psychiatric Orientation: alert and oriented x 3 Testing Laboratory Results 05/08/22 05:48 05/08/22 05:48 05/05/22 02:28 Aerobic Blood Culture - Preliminary Blood No growth in Aerobic bottle after 48 hours. Anaerobic Blood Culture - Preliminary No growth in Anaerobic bottle after 48 hours. 05/05/22 02:32 Aerobic Blood Culture - Preliminary Blood No growth in Aerobic bottle after 48 hours. Anaerobic Blood Culture - Preliminary No growth in Anaerobic bottle after 48 hours. Electrocardiogram Date: 05/05/22 Findings: + NSST changes and + ST @ (117bpm) Other Testing 05/08/22 CT abd/pelvis Lung bases: The heart is normal in size and without pericardial effusion. The coronary arteries are densely calcified. There is a small hiatal hernia. Segmental atelectasis is seen at both lung bases. There is no airspace consolidation typical for pneumonia. Trace left pleural effusion is noted. Liver: The contrast-enhanced liver is normal and size and contour. The liver demonstrates diffusely diminished attenuation indicating severe hepatic steatosis. There is no intrahepatic biliary ductal dilatation. The hepatic veins and portal veins are patent. Gallbladder: Unremarkable. Spleen: Normal in size and attenuation. Pancreas: Unremarkable. Adrenal glands: Unremarkable. Kidneys: The contrast enhanced kidneys demonstrate cortical atrophy and are without hydronephrosis. The kidneys enhance symmetrically. Scattered subcentimeter cortical hypodensities likely represent cysts but are too small for definitive characterization. Bilateral renal artery aneurysms measure up to 12 mm. Abdominal vasculature: There is mild atherosclerotic calcification of the abdominal aorta. A saccular aneurysm of the infrarenal abdominal aorta seen on image #244 measures up to 2.3 cm. Bowel: There is moderate diverticulosis of the sigmoid colon. Irregular wall thickening and focal narrowing is seen in the sigmoid on image #405. This measures at least 6 cm in length. The upstream colon is significantly distended and filled with stool, with the right colon measuring up to 8.8 cm in diameter. There is wall thickening and inflammation seen around the right colon, and the right colon is favored as a site of perforation. Residual enteric contrast is noted in the right colon. The small bowel loops are normal in caliber and fluid- filled. Mildly thick-walled loops of small bowel are seen in the lower abdomen o n image #351. There are several low-attenuation nodular foci versus tiny collections adjacent to the sigmoid colon. The largest measures 2.5 x 1.4 cm seen on image #389. Additional foci are seen on images of #389 and #394. The appendix is well-visualized and normal. Peritoneum: There is a large volume of intraperitoneal free air. There is a small volume of perisplenic and perihepatic ascites, as well as fluid in the paracolic gutters and upper pelvis. Lymphadenopathy: None. Pelvic viscera: The prostate gland is diminutive and heterogeneous with metallic implants in place. The bladder wall is thickened/trabeculated indicating chronic outlet obstruction. Skeletal structures: The skeletal structures are osteopenic. There is moderate to advanced lumbosacral spondylosis. No lytic or blastic lesions are seen. IMPRESSION: 1. Again seen is evidence of a colonic obstruction at the level of the sigmoid colon. Although this could be related to stricture or diverticular disease, the appearance is more concerning for an obstructing mass lesion. 2. There is a large volume of intraperitoneal free air which is new from 05/04/2022. This indicates visceral perforation, and the significantly distended and abnormal appearing right colon (possible stercoral colitis) is favored as the site of perforation. Given the underlying abnormality, the sigmoid is also a consideration. 3. Low-attenuation nodular foci/collections adjacent sigmoid colon comparison small abscesses from a sigmoid diverticulitis versus metastatic nodules if there is an underlying colonic neoplasm. 4. Mildly thick-walled loops of small bowel in the pelvis are nonspecific and this may be related to regional inflammation. The small bowel loops are normal in caliber and fluid filled. This may represent ileus. 5. Small volume abdominopelvic ascites. This has increased from previous. 6. Trace left pleural effusion. 7. 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 8. Bilateral renal artery aneurysms. 9. Additional findings as above.
--- NOTE | 2022-05-08 10:35 | CT Scan Report ---
CT SCAN OF THE ABDOMEN AND PELVIS WITH IV CONTRAST CLINICAL HISTORY: Follow-up diverticulitis. COMPARISON STUDY: Abdominal CT dated 05/04/2022. PET/CT dated 11/20/2021. TECHNIQUE: Following the IV administration of 85 cc of Optiray 320, CT scan of the abdomen and pelvi s is performed from the lung bases to the proximal femora. Images are reviewed in the axial, sagittal , and coronal planes. IV contrast was administered without complication. A dose lowering technique wa s utilized adhering to the principles of ALARA. The examination is compromised by motion artifact. CT DOSE: 1569.35 mGy.cm FINDINGS: Lung bases: The heart is normal in size and without pericardial effusion. The coronary arteries are d ensely calcified. There is a small hiatal hernia. Segmental atelectasis is seen at both lung bases. T here is no airspace consolidation typical for pneumonia. Trace left pleural effusion is noted. Liver: The contrast-enhanced liver is normal and size and contour. The liver demonstrates diffusely d iminished attenuation indicating severe hepatic steatosis. There is no intrahepatic biliary ductal di latation. The hepatic veins and portal veins are patent. Gallbladder: Unremarkable. Spleen: Normal in size and attenuation. Pancreas: Unremarkable. Adrenal glands: Unremarkable. Kidneys: The contrast enhanced kidneys demonstrate cortical atrophy and are without hydronephrosis. T he kidneys enhance symmetrically. Scattered subcentimeter cortical hypodensities likely represent cys ts but are too small for definitive characterization. Bilateral renal artery aneurysms measure up to 12 mm. Abdominal vasculature: There is mild atherosclerotic calcification of the abdominal aorta. A saccular aneurysm of the infrarenal abdominal aorta seen on image #244 measures up to 2.3 cm. Bowel: There is moderate diverticulosis of the sigmoid colon. Irregular wall thickening and focal jhony rowing is seen in the sigmoid on image #405. This measures at least 6 cm in length. The upstream colo n is significantly distended and filled with stool, with the right colon measuring up to 8.8 cm in di ameter. There is wall thickening and inflammation seen around the right colon, and the right colon is favored as a site of perforation. Residual enteric contrast is noted in the right colon. The small b owel loops are normal in caliber and fluid-filled. Mildly thick-walled loops of small bowel are seen in the lower abdomen on image #351. There are several low-attenuation nodular foci versus tiny collec tions adjacent to the sigmoid colon. The largest measures 2.5 x 1.4 cm seen on image #389. Additional foci are seen on images of #389 and #394. The appendix is well-visualized and normal. Peritoneum: There is a large volume of intraperitoneal free air. There is a small volume of perisplen ic and perihepatic ascites, as well as fluid in the paracolic gutters and upper pelvis. Lymphadenopathy: None. Pelvic viscera: The prostate gland is diminutive and heterogeneous with metallic implants in place. T he bladder wall is thickened/trabeculated indicating chronic outlet obstruction. Skeletal structures: The skeletal structures are osteopenic. There is moderate to advanced lumbosacra l spondylosis. No lytic or blastic lesions are seen. IMPRESSION: 1. Again seen is evidence of a colonic obstruction at the level of the sigmoid colon. Although this c ould be related to stricture or diverticular disease, the appearance is more concerning for an obstru cting mass lesion. 2. There is a large volume of intraperitoneal free air which is new from 05/04/2022. This indicates v isceral perforation, and the significantly distended and abnormal appearing right colon (possible iman rcoral colitis) is favored as the site of perforation. Given the underlying abnormality, the sigmoid is also a consideration. 3. Low-attenuation nodular foci/collections adjacent sigmoid colon comparison small abscesses from a sigmoid diverticulitis versus metastatic nodules if there is an underlying colonic neoplasm. 4. Mildly thick-walled loops of small bowel in the pelvis are nonspecific and this may be related to regional inflammation. The small bowel loops are normal in caliber and fluid filled. This may represe nt ileus. 5. Small volume abdominopelvic ascites. This has increased from previous. 6. Trace left pleural effusion. 7. 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 8. Bilateral renal artery aneurysms. 9. Additional findings as above. Findings were discussed with Dr. Suero from surgery at the time of interpretation. ACT 112: Negative or not required by law. Electronically signed by: Sergio Petty M.D. 05/08/2022 10:33 AM
[2022-05-08] MEDS ORDERED: ATROPINE SULFATE 0.1 MG/ML 10ML SYR IV PRN (10:53)
[2022-05-08] MEDS ORDERED: MEPERIDINE HCL 25 MG/ML CARP/VIAL IV PRN (10:53)
[2022-05-08] MEDS ORDERED: fentaNYL citrate 100 MCG/2 ML VIAL IV PRN ×2 (10:53→14:43)
[2022-05-08] MEDS ORDERED: ePHEDrine sulfate 50 MG/ML AMP IV PRN (10:53)
[2022-05-08] MEDS ORDERED: HYDROmorphone INJ 2 MG/ML SYR/VIAL IV PRN (10:53)
[2022-05-08] MEDS ORDERED: ONDANSETRON INJ 2 MG/ML 2 ML VIAL IV PRN (10:53)
[2022-05-08] MEDS ORDERED: PROPOFOL IV EMULSION 10 MG/ML 20 ML VIAL IV ONE (10:57)
[2022-05-08] MEDS ORDERED: DEXAMETHASONE SOD INJ 4 MG/ML VIAL ONE (10:57)
[2022-05-08] MEDS ORDERED: NEOSTIGMINE METHYLSULFATE 1 MG/ML 10ML VIAL ONE (10:57)
[2022-05-08] MEDS ORDERED: LIDOCAINE 2% 2 ML VIAL/AMP(20MG/ML) INFIL ONE (10:57)
[2022-05-08] MEDS ORDERED: GLYCOPYRROLATE 0.2 MG/ML VIAL ONE ×4 (10:57→10:58)
[2022-05-08] MEDS ORDERED: ONDANSETRON INJ 2 MG/ML 2 ML VIAL ONE (10:57)
[2022-05-08] MEDS ORDERED: SUCCINYLCHOLINE 100MG/5ML SYR IV ONE (10:58)
[2022-05-08] MEDS ORDERED: fentaNYL citrate 100 MCG/2 ML VIAL ONE ×2 (10:58→12:50)
[2022-05-08] MEDS ORDERED: MIDAZOLAM HCL 1 MG/ML 2ML VIAL ONE ×2 (10:58→14:15)
[2022-05-08] MEDS ORDERED: ROCURONIUM BROMIDE 10 MG/ML 5 ML VIAL IV ONE ×3 (11:00→13:58)
--- NOTE | 2022-05-08 11:09 | History & Physical Report ---
Date of Service May 08, 2022 Assessment & Plan (1) Large bowel obstruction: (2) Bowel perforation: Plan 61-year-old gentleman with large bowel obstruction and what appears to be a probable perforation of the right colon. I have discussed with him the need for urgent operation, exploratory laparotomy with washout, possible colon resection, probable ostomy formation. Risks and benefits of this were discussed with the patient. All his questions were answered, he is agreeable to proceed. We will take him to the operating room as soon as possible. Admission and Anticipated Discharge Date Admission Date: May 05, 2022 History of Present Illness Primary Care Provider: Mitzi Dutta, DO I went to see the patient on rounds today. He had just returned from CT scan. He states that after drinking all of the contrast, he has noted a tearing pain in his right side. States the pain is worse than prior. CT scan demonstrates large bowel distention, free bowel perforation, unclear the location of the perforation. Demonstration of what appears to be a sigmoid colon mass. Allergies Allergy/AdvReac Type Severity Reaction Status Date / Time No Known Allergies Allergy Verified 02/27/22 11:17 Home Medications Medication Instructions Recorded Confirmed Type lisinopril 20 mg tablet 20 mg PO DAILY 09/11/21 02/27/22 History acetaminophen 500 mg tablet 1,000 mg PO Q6H PRN 10/30/21 02/27/22 History (Tylenol Extra Strength) lactobacillus combination no.4 3 3,000 mmu cells PO DAILY 10/30/21 02/27/22 History billion cell capsule (Probiotic) leuprolide (3 month) 22.5 mg (3 22.5 mg subcut ONCE Prostate 12/03/21 12/03/21 Rx month) subcutaneous syringe Cancer #1 ea (Tre) calcium carbonate 600 mg-vitamin 1 cap PO DAILY 01/20/22 02/27/22 History D3 10 mcg (400 unit) capsule cholecalciferol (vitamin D3) 50 50 mcg PO DAILY 01/20/22 02/27/22 History mcg (2,000 unit) capsule psyllium husk 3.4 gram/5.4 gram 1 tbsp PO DAILY 01/27/22 02/27/22 History oral powder (Metamucil) leuprolide (3 month) 22.5 mg (3 22.5 mg subcut ONCE Prostate 01/29/22 02/27/22 Rx month) subcutaneous syringe Cancer #1 ea (Tre) Past Med/Surg History Medical History Back pain Chickenpox Colon polyp Diverticulitis of intestine with abscess Essential tremor Hypertension Large bowel obstruction Obesity Prostate cancer (09/18/21) s/p XRT Surgical History H/O laminectomy (1986) History of prostate biopsy (09/18/21) Family History Father Abdominal aortic aneurysm Prostate cancer unsure per patient Mother Parkinson disease Brother Heart disease Brother Hypertension Brother Hypertension Sister Cerebral aneurysm Grandfather (Maternal) Prostate cancer Son No problems noted. Son No problems noted. 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 Beliefs That Will Affect Care: None marital status: Current Living Situation: Spouse current occupational status: employed current occupation: Manufacturing How many Children do You have: 2 Other Information That Helps Us Care for You: No Feels Safe at Home: Yes Safety Concerns: Feels Safe At This Time Childhood Exposure to Second-Hand Smoke: Yes (parents smoked in home) caffeine: Yes (coffee) during the past year weight has: remained stable Dental Care, Regularly: Yes Assistive Devices: None Physical Exam Constitutional: WD/WN, vitals as above Neck: trachea midline, no thyromegaly Respiratory: normal respiratory effort, lungs clear to auscultation Cardiovascular: Rate/Rhythm: regular rhythm and + tachycardic Gastrointestinal (Abdomen): Inspection/Auscultation: abdomen normal to inspection and + abdomen distended Percussion/Palpation: + abdomen tender (RLQ) and + abdomen rigid; no guarding Musculoskeletal: no cyanosis or clubbing, extremities motor strength 5/5 Skin: no rashes, warm and dry Psychiatric: A+Ox3, euthymic affect Results & Data Results & Data ([facility]) Vital Signs (Past 12 Hours) Vital Signs Temp Pulse Pulse Pulse Resp BP Pulse Ox 05/08/22 07:56 05/08/22 07:54 36.5 C 113 H 128/99 94 05/08/22 03:21 36.3 C L 114 H 22 110/89 93 05/07/22 23:15 105 H 05/07/22 23:09 36.8 C 110 H 18 119/80 94 O2 Del Method 05/08/22 07:56 Room Air 05/08/22 07:54 Room Air 05/08/22 03:21 Room Air 05/07/22 23:15 05/07/22 23:09 Room Air Laboratory Results 05/08/22 05/08/22 Range/Units 05:48 05:48 WBC 9.53 (4.8-10.8) K/ul RBC 3.49 L (4.63-6.08) M/uL Hgb 10.7 L (14.0-18.0) g/dl Hct 31.4 L (40.1-51.0) % MCV 90.0 (80.0-100.0) fL MCH 30.7 (25.0-34.0) pg MCHC 34.1 (32.0-36.0) g/dL RDW Std Deviation 44.2 (36.4-46.3) fL RDW Coeff of Tani 13.4 (11.5-14.5) % Plt Count 433 H (130-400) K/uL MPV 8.9 L (9.4-12.4) fL Immature Gran % (Auto) 0.6 % Neut % (Auto) 85.0 % Lymph % (Auto) 3.9 % Catron % (Auto) 9.1 % Eos % (Auto) 0.9 % Baso % (Auto) 0.5 % Neut # (Auto) 8.09 H (1.4-6.5) K/uL Lymph # (Auto) 0.37 L (1.2-3.4) K/uL Catron # (Auto) 0.87 H (0.24-0.82) K/uL Eos # (Auto) 0.09 (0-0.50) K/uL Baso # (Auto) 0.05 (0-0.2) K/uL Immature Gran # (Auto) 0.06 H (0.00-0.02) K/uL Sodium 134 L (136-145) mmol/L Potassium 3.5 (3.5-5.1) mmol/L Chloride 99 (98-107) mmol/L Carbon Dioxide 25 (21-32) mmol/L Anion Gap 10 (3-11) BUN 12 (6-23) mg/dl Creatinine 0.47 L (0.6-1.4) mg/dl Est Cr Clr Drug Dosing 190.5 ml/min Est GFR ( Amer) 137.1 ml/min Est GFR (Non-Af Amer) 118.3 ml/min BUN/Creatinine Ratio 25.5 H (10-20) Glucose 90 (70-99(Fasting)) mg/dl Calcium 8.4 L (8.5-10.1) mg/dl Diagnostic Findings CT SCAN OF THE ABDOMEN AND PELVIS WITH IV CONTRAST CLINICAL HISTORY: Follow-up diverticulitis. COMPARISON STUDY: Abdominal CT dated 05/04/2022. PET/CT dated 11/20/2021. TECHNIQUE: Following the IV administration of 85 cc of Optiray 320, CT scan of the abdomen and pelvis is performed from the lung bases to the proximal femora. Images are reviewed in the axial, sagittal, and coronal planes. IV contrast was administered without complication. A dose lowering technique was utilized adhering to the principles of ALARA. The examination is compromised by motion artifact. CT DOSE: 1569.35 mGy.cm FINDINGS: Lung bases: The heart is normal in size and without pericardial effusion. The coronary arteries are densely calcified. There is a small hiatal hernia. Segmental atelectasis is seen at both lung bases. There is no airspace consolidation typical for pneumonia. Trace left pleural effusion is noted. Liver: The contrast-enhanced liver is normal and size and contour. The liver demonstrates diffusely diminished attenuation indicating severe hepatic steatosis. There is no intrahepatic biliary ductal dilatation. The hepatic veins and portal veins are patent. Gallbladder: Unremarkable. Spleen: Normal in size and attenuation. Pancreas: Unremarkable. Adrenal glands: Unremarkable. Kidneys: The contrast enhanced kidneys demonstrate cortical atrophy and are without hydronephrosis. The kidneys enhance symmetrically. Scattered subcen timeter cortical hypodensities likely represent cysts but are too small for definitive characterization. Bilateral renal artery aneurysms measure up to 12 mm. Abdominal vasculature: There is mild atherosclerotic calcification of the abdominal aorta. A saccular aneurysm of the infrarenal abdominal aorta seen on image #244 measures up to 2.3 cm. Bowel: There is moderate diverticulosis of the sigmoid colon. Irregular wall thickening and focal narrowing is seen in the sigmoid on image #405. This measures at least 6 cm in length. The upstream colon is significantly distended and filled with stool, with the right colon measuring up to 8.8 cm in diameter. There is wall thickening and inflammation seen around the right colon, and the right colon is favored as a site of perforation. Residual enteric contrast is noted in the right colon. The small bowel loops are normal in caliber and fluid- filled. Mildly thick-walled loops of small bowel are seen in the lower abdomen on image #351. There are several low-attenuation nodular foci versus tiny collections adjacent to the sigmoid colon. The largest measures 2.5 x 1.4 cm seen on image #389. Additional foci are seen on images of #389 and #394. The appendix is well-visualized and normal. Peritoneum: There is a large volume of intraperitoneal free air. There is a small volume of perisplenic and perihepatic ascites, as well as fluid in the pa racolic gutters and upper pelvis. Lymphadenopathy: None. Pelvic viscera: The prostate gland is diminutive and heterogeneous with metallic implants in place. The bladder wall is thickened/trabeculated indicating chronic outlet obstruction. Skeletal structures: The skeletal structures are osteopenic. There is moderate to advanced lumbosacral spondylosis. No lytic or blastic lesions are seen. IMPRESSION: 1. Again seen is evidence of a colonic obstruction at the level of the sigmoid colon. Although this could be related to stricture or diverticular disease, the appearance is more concerning for an obstructing mass lesion. 2. There is a large volume of intraperitoneal free air which is new from 05/04/2022. This indicates visceral perforation, and the significantly distended and abnormal appearing right colon (possible stercoral colitis) is favored as the site of perforation. Given the underlying abnormality, the sigmoid is also a consideration. 3. Low-attenuation nodular foci/collections adjacent sigmoid colon comparison small abscesses from a sigmoid diverticulitis versus metastatic nodules if there is an underlying colonic neoplasm. 4. Mildly thick-walled loops of small bowel in the pelvis are nonspecific and this may be related to regional inflammation. The small bowel loops are normal in caliber and fluid filled. This may represent ileus. 5. Small volume abdominopelvic ascites. This has increased from previous. 6. Trace left pleural effusion. 7. 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 8. Bilateral renal artery aneurysms. 9. Additional findings as above. Findings were discussed with Dr. Suero from surgery at the time of interpretation. Code Status & VTE Plan VTE Prophylaxis Plan VTE Prophylaxis will be ordered: Yes
[2022-05-08] MEDS ORDERED: ceFAZolin 330 MG/ML 1 GM VIAL ONE (11:12)
[2022-05-08] MEDS ORDERED: ALBUT/IPRATROP 3MG/0.5MG NEB 3 ML VIAL INH STA (11:42)
[2022-05-08] MEDS ORDERED: PHENYLEPHRINE HCL 10 MG/ML VIAL ONE (13:08)
[2022-05-08] MEDS ORDERED: ALBUMIN HUMAN 5% 12.5 GM/250 ML VIAL IV ONE (13:32)
[2022-05-08] MEDS ORDERED: STAT IV Infusion **Titration per Protocol STA ×4 (13:43→20:27)
[2022-05-08] MEDS ORDERED: PHENYLEPHRINE HCL 20 MG in DEXTROSE 5% 500 ML IV SCH (13:45)
[2022-05-08] MEDS ORDERED: PROPOFOL IV EMULSION 10 MG/ML 100 ML VIAL IV ONE (14:25)
--- NOTE | 2022-05-08 14:38 | Critical Care Consultation ---
Date of Consultation May 08, 2022 Assessment & Plan (1) Bowel perforation: (2) Obesity: (3) Severe sepsis with septic shock: (4) Anemia: (5) Hyponatremia: Plan Impression: 61-year-old male admitted from outside facility with diverticulitis now developing perforated viscus with benjamin stool in the peritoneal cavity requiring laparotomy washout and colon resection. He is in septic shock with need for pressors and an open abdomen. Recommendations: 1. Neurologic: The patient has an open abdomen. We will continue aggressive sedation with propofol, fentanyl and Versed. Continue neuromuscular blockade given open abdomen and septic shock. Plans for return to the OR for washout tomorrow at which point time we could consider extubation. 2. Cardiovascular: Severe sepsis with septic shock: Continue phenylephrine. If pressor needs increase, will transition to norepinephrine. Check random cortisol. The patient appears to be adequately resuscitated currently. Judicious additional fluids given the open abdomen. 3. Pulmonary: Continue mechanical ventilation. Await blood gas. Adjust vent accordingly 4. Renal: Renal function normal. ICU electrolyte replacement protocol. Continue to follow urine output 5. GI: N.p.o. PPI in place. OG tube with low intermittent suction. Plans to return to the OR tomorrow for abdominal washout. 6. Endocrine: Glycemic control per protocol. Await random cortisol 7. ID: Peritonitis secondary to perforated viscus. Continue Zosyn. We will add fluconazole for antifungal coverage. Trend white blood cell count, hemodynamics, and fever curve 8. Heme-onc: Mild anemia: No evidence for acute blood loss. Continue to follow for now. No indication for transfusion Patient is critically ill at this point time with significant possibility of clinical deterioration and or . A total of minutes was spent in e valuation management stabilization of this patient exclusive of procedures. No family immediately available. History of Present Illness Attending Physician: Tram Samuels MD History of Present Illness Asked by general surgery service and anesthesia to assist in evaluation management of this patient status post emergent laparotomy today for perforated viscus. History is obtained from discussion with anesthesia as well as the surgical team and evaluation of the electronic medical record. The patient is unable to provide any history as he is intubated on the ventilator and hemodynamically unstable. The patient is a 61-year-old male who was admitted to the facility 05/05/2022. He was transferred from [facility] for a large bowel obstruction with diverticulitis/abscess formation. The patient initially presented with right lower quadrant abdominal pain nausea and vomiting and diarrhea. He was tachycardic with leukocytosis at the outside facility and CT abdomen pelvis showed sigmoid diverticulitis with an abscess measuring 2.8 cm in size. There appeared to be a transition point in sigmoid colon as well. He was initiated on vancomycin and Zosyn and transferred here. He was evaluated by general surgery. He did not have peritoneal signs per their note on presentation and plan was to proceed with medical management. He was placed on antibiotics and had serial exams performed. Yesterday they noted the patient was making some progress. Plan was to repeat a CT scan today. The CT scan demonstrated free intraperitoneal air and was taken urgently to the OR. He had benjamin stool in the peritoneum with multiple sites of perforation in the right colon. He underwent a emergent hemicolectomy and was left open with plans to pursue a repeat washout tomorrow. During the case he became hypotensive requiring initiation of Esau-Synephrine. An arterial line had been placed by anesthesia. He is received narcotics and neuromuscular paralysis. No additional history is available. Allergies Allergy/AdvReac Type Severity Reaction Status Date / Time No Known Allergies Allergy Verified 02/27/22 11:17 Home Medications Medication Instructions Recorded Confirmed Type lisinopril 20 mg tablet 20 mg PO DAILY 09/11/21 02/27/22 History acetaminophen 500 mg tablet 1,000 mg PO Q6H PRN 10/30/21 02/27/22 History (Tylenol Extra Strength) lactobacillus combination no.4 3 3,000 mmu cells PO DAILY 10/30/21 02/27/22 History billion cell capsule (Probiotic) leuprolide (3 month) 22.5 mg (3 22.5 mg subcut ONCE Prostate 12/03/21 12/03/21 Rx month) subcutaneous syringe Cancer #1 ea (Tre) calcium carbonate 600 mg-vitamin 1 cap PO DAILY 01/20/22 02/27/22 History D3 10 mcg (400 unit) capsule cholecalciferol (vitamin D3) 50 50 mcg PO DAILY 01/20/22 02/27/22 History mcg (2,000 unit) capsule psyllium husk 3.4 gram/5.4 gram 1 tbsp PO DAILY 01/27/22 02/27/22 History oral powder (Metamucil) leuprolide (3 month) 22.5 mg (3 22.5 mg subcut ONCE Prostate 01/29/22 02/27/22 Rx month) subcutaneous syringe Cancer #1 ea (Tre) Patient History Medical History Back pain Chickenpox Colon polyp Diverticulitis of intestine with abscess Essential tremor Hypertension Large bowel obstruction Obesity Prostate cancer (09/18/21) s/p XRT Surgical History H/O laminectomy (1986) History of prostate biopsy (09/18/21) Family History Father Abdominal aortic aneurysm Prostate cancer unsure per patient Mother Parkinson disease Brother Heart disease Brother Hypertension Brother Hypertension Sister Cerebral aneurysm Grandfather (Maternal) Prostate cancer Son No problems noted. Son No problems noted. Social History Smoking Status: Current every day smoker Tobacco Type: Cigarettes packs per day: 0.7; Cigarettes Per Day: 15; Second Hand Exposure: Yes; Do You Dip or Chew Tobacco: No; Tobacco Cessation Education Requested by Patient: No Hx Alcohol Use: No Hx Substance Use: No Preferred Language: Iranian Communication Ability: Effective Visual Impairment: No Limitations Hearing Ability: Normal School Fundraising Director Required: No Beliefs That Will Affect Care: None marital status: Current Living Situation: Spouse current occupational status: employed current occupation: Manufacturing How many Children do You have: 2 Other Information That Helps Us Care for You: No Feels Safe at Home: Yes Safety Concerns: Feels Safe At This Time Childhood Exposure to Second-Hand Smoke: Yes (parents smoked in home) caffeine: Yes (coffee) during the past year weight has: remained stable Dental Care, Regularly: Yes Assistive Devices: None Review of Systems Review of Systems: Unobtainable due to endotracheal tube Physical Exam Constitutional: + morbidly obese and + mechanically ventilated Intubated and sedated Neck: trachea midline, no thyromegaly Respiratory: normal respiratory effort, lungs clear to auscultation Cardiovascular: RRR, no murmur, no edema Gastrointestinal (Abdomen): Open abdomen with wound VAC in place. Bowel sounds absent. Musculoskeletal: Extremities: extremities normal to inspection Skin: no rashes, warm and dry Neurologic: Sedated and paralyzed Lymphatic: no cervical lymphadenopathy Results & Data Results & Data ([place]) Vital Signs (Past 12 Hours) Vital Signs Temp Pulse Pulse Pulse Resp BP Pulse Ox 05/08/22 11:58 104 H 20 93 05/08/22 06:41 112 H 05/08/22 11:17 36.4 C L 108 H 16 100/70 94 05/08/22 07:56 05/08/22 07:54 36.5 C 113 H 128/99 94 05/08/22 03:21 36.3 C L 114 H 22 110/89 93 O2 Del Method 05/08/22 11:58 Room Air 05/08/22 06:41 05/08/22 11:17 Room Air 05/08/22 07:56 Room Air 05/08/22 07:54 Room Air 05/08/22 03:21 Room Air Critical Care Results & Data Vital Signs (Past 12 Hours) Vital Signs Temp Pulse Pulse Pulse Resp BP Pulse Ox 05/08/22 11:58 104 H 20 93 05/08/22 06:41 112 H 05/08/22 11:17 36.4 C L 108 H 16 100/70 94 05/08/22 07:56 05/08/22 07:54 36.5 C 113 H 128/99 94 05/08/22 03:21 36.3 C L 114 H 22 110/89 93 O2 Del Method 05/08/22 11:58 Room Air 05/08/22 06:41 05/08/22 11:17 Room Air 05/08/22 07:56 Room Air 05/08/22 07:54 Room Air 05/08/22 03:21 Room Air Lab & Micro Results (Past 24 Hours) RBC 3.49 M/uL (4.63-6.08) L 05/08/22 WBC 9.53 K/ul (4.8-10.8) 05/08/22 Hgb 10.7 g/dl (14.0-18.0) L 05/08/22 Hct 31.4 % (40.1-51.0) L 05/08/22 MCV 90.0 fL (80.0-100.0) 05/08/22 MCH 30.7 pg (25.0-34.0) 05/08/22 MCHC 34.1 g/dL (32.0-36.0) 05/08/22 RDW Standard Deviation 44.2 fL (36.4-46.3) 05/08/22 RDW Coefficient of Variation 13.4 % (11.5-14.5) 05/08/22 Plt Count 433 K/uL (130-400) H 05/08/22 MPV 8.9 fL (9.4-12.4) L 05/08/22 Neutrophils (%) (Auto) 85.0 % 05/08/22 Lymphocytes (%) (Auto) 3.9 % 05/08/22 Monocytes # (Auto) 0.87 K/uL (0.24-0.82) H 05/08/22 Eosinophils # (Auto) 0.09 K/uL (0-0.50) 05/08/22 Immature Granulocyte % (Auto) 0.6 % 05/08/22 Neutrophils # (Auto) 8.09 K/uL (1.4-6.5) H 05/08/22 Lymphocytes # (Auto) 0.37 K/uL (1.2-3.4) L 05/08/22 Monocytes # (Auto) 0.87 K/uL (0.24-0.82) H 05/08/22 Eosinophils # (Auto) 0.09 K/uL (0-0.50) 05/08/22 Basophils # (Auto) 0.05 K/uL (0-0.2) 05/08/22 Immature Granulocyte # (Auto) 0.06 K/uL (0.00-0.02) H 05/08 Na 134 mmol/L (136-145) L 05/08/22 K 3.5 mmol/L (3.5-5.1) 05/08/22 Cl 99 mmol/L (98-107) 05/08/22 CO2 25 mmol/L (21-32) 05/08/22 Anion Gap 10 (3-11) 05/08/22 BUN 12 mg/dl (6-23) 05/08/22 Creatinine 0.47 mg/dl (0.6-1.4) L 05/08/22 Estimated GFR ( Amer) 137.1 ml/min 05/08/22 Estimated GFR (Non-Af Amer) 118.3 ml/min 05/08/22 BUN/Creatinine Ratio 25.5 (10-20) H 05/08/22 Glu 90 mg/dl (70-99(Fasting)) 05/08/22 Ca 8.4 mg/dl (8.5-10.1) L 05/08/22 Calcium Level 8.4 mg/dl (8.5-10.1) L 05/08/22 05:48 Diagnostic Findings (Past 24 Hours) Abdomen/Pelvis CT 05/08/22 09:00 CT SCAN OF THE ABDOMEN AND PELVIS WITH IV CONTRAST CLINICAL HISTORY: Follow-up diverticulitis. COMPARISON STUDY: Abdominal CT dated 05/04/2022. PET/CT dated 11/20/2021. TECHNIQUE: Following the IV administration of 85 cc of Optiray 320, CT scan of the abdomen and pelvis is performed from the lung bases to the proximal femora. Images are reviewed in the axial, sagittal, and coronal planes. IV contrast was administered without complication. A dose lowering technique was utilized adhering to the principles of ALARA. The examination is compromised by motion artifact. CT DOSE: 1569.35 mGy.cm FINDINGS: Lung bases: The heart is normal in size and without pericardial effusion. The coronary arteries are densely calcified. There is a small hiatal hernia. Segmental atelectasis is seen at both lung bases. There is no airspace consolidation typical for pneumonia. Trace left pleural effusion is noted. Liver: The contrast-enhanced liver is normal and size and contour. The liver demonstrates diffusely diminished attenuation indicating severe hepatic steatosis. There is no intrahepatic biliary ductal dilatation. The hepatic veins and portal veins are patent. Gallbladder: Unremarkable. Spleen: Normal in size and attenuation. Pancreas: Unremarkable. Adrenal glands: Unremarkable. Kidneys: The contrast enhanced kidneys demonstrate cortical atrophy and are without hydronephrosis. The kidneys enhance symmetrically. Scattered subcentimeter cortical hypodensities likely represent cysts but are too small for definitive characterization. Bilateral renal artery aneurysms measure up to 12 mm. Abdominal vasculature: There is mild atherosclerotic calcification of the abdominal aorta. A saccular aneurysm of the infrarenal abdominal aorta seen on image #244 measures up to 2.3 cm. Bowel: There is moderate diverticulosis of the sigmoid colon. Irregular wall thickening and focal narrowing is seen in the sigmoid on image #405. This measures at least 6 cm in length. The upstream colon is significantly distended and filled with stool, with the right colon measuring up to 8.8 cm in diameter. There is wall thickening and inflammation seen around the right colon, and the right colon is favored as a site of perforation. Residual enteric contrast is noted in the right colon. The small bowel loops are normal in caliber and fluid- filled. Mildly thick-walled loops of small bowel are seen in the lower abdomen on image #351. There are several low-attenuation nodular foci versus tiny collections adjacent to the sigmoid colon. The largest measures 2.5 x 1.4 cm seen on image #389. Additional foci are seen on images of #389 and #394. The appendix is well-visualized and normal. Peritoneum: There is a large volume of intraperitoneal free air. There is a small volume of perisplenic and perihepatic ascites, as well as fluid in the paracolic gutters and upper pelvis. Lymphadenopathy: None. Pelvic viscera: The prostate gland is diminutive and heterogeneous with metallic implants in place. The bladder wall is thickened/trabeculated indicating chronic outlet obstruction. Skeletal structures: The skeletal structures are osteopenic. There is moderate to advanced lumbosacral spondylosis. No lytic or blastic lesions are seen. IMPRESSION: 1. Again seen is evidence of a colonic obstruction at the level of the sigmoid colon. Although this could be related to stricture or diverticular disease, the appearance is more concerning for an obstructing mass lesion. 2. There is a large volume of intraperitoneal free air which is new from 05/04/2022. This indicates visceral perforation, and the significantly distended and abnormal appearing right colon (possible stercoral colitis) is favored as the site of perforation. Given the underlying abnormality, the sigmoid is also a consideration. 3. Low-attenuation nodular foci/collections adjacent sigmoid colon comparison small abscesses from a sigmoid diverticulitis versus metastatic nodules if there is an underlying colonic neoplasm. 4. Mildly thick-walled loops of small bowel in the pelvis are nonspecific and this may be related to regional inflammation. The small bowel loops are normal in caliber and fluid filled. This may represent ileus. 5. Small volume abdominopelvic ascites. This has increased from previous. 6. Trace left pleural effusion. 7. 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 8. Bilateral renal artery aneurysms. 9. Additional findings as above. Findings were discussed with Dr. Suero from surgery at the time of interpretation. ACT 112: Negative or not required by law. Electronically signed by: Sergio Petty M.D. 05/08/2022 10:33 AM I & O Totals 24 Hours 05/07/22 05/08/22 05/09/22 06:59 06:59 06:59 Intake Total 5040.001 / 5040.001 2910.000 / 2910.000 120 / 120 Output Total Balance 5039.001 / 5039.001 2901.000 / 2901.000 120 / 120 Cumulative 05/04/22 thru 05/08/22 11:57 Intake Total 05967.834 Output Total 11 Balance 84528.834 RT Ventilator Mngmt (Last Documented) Ventilator Ordered Settings Respiratory Rate 20 05/08/22 11:58 Ventilator - PT Measurements Respiratory Rate 20 Coding Level of Care Code Critical Care 1st 30-74 mins Diagnoses Bowel perforation K63.1 Obesity E66.9 Severe sepsis with septic shock A41.9; R65.21 Anemia D64.9 Hyponatremia E87.1 Time Spent (min) 90
[2022-05-08] MEDS ORDERED: PROPOFOL BOLUS FROM BAG IV PRN (14:43)
[2022-05-08] MEDS ORDERED: STAT IV STA (14:43)
[2022-05-08] MEDS ORDERED: MIDAZOLAM HCL 1 MG/ML 2ML VIAL IV PRN (14:43)
[2022-05-08] MEDS ORDERED: fentaNYL BOLUS from BAG IV PRN (14:43)
[2022-05-08] MEDS: CISATRACURIUM BESYLATE 40 MG in DEXTROSE 5% 80 ML IV SCH ×3 (15:14→22:56)
[2022-05-08] MEDS: NOREPINEPHRINE/D5W 4 MG/250 ML PLCT IV SCH ×4 (15:14→22:57)
[2022-05-08] MEDS: fentaNYL citrate 2,500 MCG/250 ML BAG IV SCH (15:14)
[2022-05-08] MEDS: propofoL 1,000 MG/100 ML VIAL IV SCH ×2 (15:14→22:07)
--- NOTE | 2022-05-08 15:14 | Post Operative Brief Note ---
Immediate Post Op Note v1 Date of Surgery May 08, 2022 Pre & Post Diagnosis Operation Date: 05/08/22 11:10 Pre-Op Diagnosis: Large bowel obstruction, Bowel perforation Post-Op Diagnosis: Large bowel obstruction, Bowel perforation I identified the patient and participated in the time-out.: Yes Procedure Operation Date: 05/08/22 11:10 Actual Procedures p Exploratory Laparotomy, Bowel Resection(Not Applicable) - Jace Suero MD Surgeon Jace Suero MD Bursar None Estimated Blood Loss 50 Findings Consistent with Post-Op Diagnosis Large perforation of the right colon with significant soilage of the abdominal cavity with stool.
[2022-05-08] MEDS: ARTIFICIAL TEARS OP OINT 3.5 GM TUBE OP SCH ×3 (15:15→21:42)
[2022-05-08] MEDS: ICU Protocol for HYPERglycemia SCH ×2 (15:15→17:38)
[2022-05-08] MEDS: NORMOSOL-R 1,000 ML IV SCH (15:15)
--- NOTE | 2022-05-08 15:23 | Operative Report ---
Post Operative Report Pre & Post Diagnosis Operation Date: 05/08/22 11:10 Pre-Op Diagnosis: Large bowel obstruction, Bowel perforation Post-Op Diagnosis: Large bowel obstruction, Bowel perforation I identified the patient and participated in the time-out.: Yes Procedure Operation Date: 05/08/22 11:10 Actual Procedures p Exploratory Laparotomy, Bowel Resection(Not Applicable) - Jace Suero MD Surgeon Jace Suero MD Motor Vehicle Assembly Supervisor None Estimated Blood Loss 50 Findings Consistent with Post-Op Diagnosis Large perforation x2 in the right colon extending up to the hepatic flexure. Significant stool burden within the abdominal cavity. Specimens Right and transverse colon Drains ABThera placed Anesthesia Type General Complications No immediate complications Indications Perforated right colon Description of Procedure Patient was taken to the operating room, placed supine on the operating table. A timeout was performed, perioperative antibiotics were administered, SCD boots were placed. After adequate anesthesia and analgesia were obtained, a Valle catheter was placed, and an A - line was placed. He was prepped and draped in the normal sterile fashion. Midline incision was made and carried down to the level of the fascia. The fascia was entered to the level of the umbilicus and was extended to its fullest. There is a significant amount of murky fluid which was drained. Attention was turned to the right side. The right colon was quite distended, tense, and inflamed. Careful dissection was taken bluntly along the inner surface of the abdominal cavity. Laterally, an abscess cavity was entered, and a significant amount of stool was encountered in this location. The colon appeared to have split along one of the tenia in this location, the opening was approximately 4 cm long. The stool was suctioned. The decision was made to proceed with right colectomy. This was very tedious dissection as there was significant inflammation and scarring. The right colon was mobilized along the white line of Toldt up towards the hepatic flexure, and around the flexure. Care was taken to avoid any injury to the duodenum below the colon. It is again noted that all of the bowel was significantly inflamed. Site was selected on the terminal ileum and this was transected with a FILEMON stapler. Using the LigaSure device, the right colonic mesentery was taken down. The right colic artery was ligated with a suture ligature. A site was selected on the transverse colon distal to the perforation and severe inflammatory change. The colon was transected in this location with the FILEMON stapler. The remainder of the colonic mesentery was taken down with the LigaSure device. A branch of the middle colic artery was ligated. The colon was removed from the field and sent off for specimen. The abdomen was copiously irrigated and suctioned free. Hemostasis was checked and attended to. We turned our attention to the left lower quadrant, where there appeared to be a possible mass on the CT scan. The sigmoid colon was thickened, but there was no mass lesion or perforation in this location. At this point, in conference with anesthesia, the patient was requiring a significant burden of pressors, and was starting to become hypothermic. The decision was made to proceed with damage control operation. An ABThera device was brought onto the field and placed for suction dressing. The patient was transferred intubated and paralyzed to the ICU. Plan for second look, washout, ileostomy and mucous fistula creation, and abdominal closure in 24 to 48 hours. I attest to the content of the Intraoperative Record and any orders documented therein. Any exceptions are noted below.
--- NOTE | 2022-05-08 15:25 | Procedure Note ---
Procedure Note Date of Service May 08, 2022 Note CENTRAL LINE PROCEDURE NOTE: Procedure: Central Line Placement Provider: Jame Norris MD Indication: Central Drug Administration, Poor Venous Access, Multiple Lab Draws Necessary, etc. Anesthesia: 5 mL 1% lidocaine without epinephrine Site: Left subclavian Procedure was emergent. Patient unable to provide consent. He is intubated and in septic shock on pressors. No family immediately available c A time-out was completed verifying correct patient, procedure, site, positioning, and implants(s) or special equipment if applicable. Left neck and shoulder were cleaned using chlorhexidine and a sterile field established. Landmarks were easily identified. The superficial tissue was anesthetized using 5 mL of 1% lidocaine without epinephrine. After adequate anesthetization was achieved, the left subclavian vein was cannulated using an introducer needle on a syringe. Good venous blood return was maintained prior to removal of syringe from introducer needle. Using Seldinger Technique, a guide wire was advanced through the introducer needle without resistance. The introducer needle was removed. A small incision was made in penetrating fashion at the guide wire insertion site utilizing an 11 blade scalpel. The dilator was advanced to the vessel with some resistance. The dilator was exchanged for the triple lumen catheter which was advanced into the vessel with mild resistance. When the catheter was threaded to the hub, we were unable to aspirate from the distal port. It was withdrawn to about 15 cm. At that point time the proximal and distal ports both flushed and allen. I was unable to draw from the mid port. The catheter was sutured in place and a sterile dressing applied. Will await chest x-ray. Nursing was instructed to not use the medial port for now. Estimated blood loss: 5 mL Await chest x-ray. Coding CPT Codes Tubes, Drains, and Vasc Access - Tubes, Drains, and Vasc Access: [id number] Place catheter in vein superior or inferior vena cava ([id number]) [facility] [place] Procedure Codes (Charges) Tubes, Drains, and Vasc Access Procedure 1: Tubes, Drains, and Vasc Access: [id number] Place catheter in vein superior or inferior vena cava
[2022-05-08 15:41] LABS: iSTAT Art Bld Gas pCO2 Correct 42 mmHg (35-46); iSTAT Art Bld Gas pH Corrected 7.339 (7.35-7.45); iSTAT Arterial Blood Gas HCO3 23 meg/L (19-24); iSTAT Arterial Blood Gas pCO2 48 mmHg (35-46); iSTAT Arterial Blood Gas pO2 82 mmHg (80-95); iSTAT Arterial Blood Gas pO2 C 67; iSTAT Carbon Dioxide 25 mmol/L (24-31); iSTAT FiO2 60 %; iSTAT Hematocrit 34 % (42-52); iSTAT Hemoglobin 11.6 g/dl (14.0-18.0); iSTAT Potassium 3.7 mmol/L (3.3-5.0); iSTAT Site Art Line; iSTAT Sodium 134 mmol/L (135-144)
[2022-05-08 15:45] LABS: Albumin Globulin Ratio 1.3 (0.9-2); Albumin Level 2.5 gm/dl (3.4-5.0); Bilirubin,Total 1.2 mg/dl (0.2-1.0); Calcium 7.6 mg/dl (8.5-10.1); Creatinine Clr Calc Pharmacy 223.8 ml/min; Est GFR (African American) 146.5 ml/min; Est GFR (Non-African American) 126.4 ml/min; Potassium 3.9 mmol/L (3.5-5.1); Total Protein 4.5 gm/dl (6.0-8.3)
[2022-05-08] MEDS: FLUCONAZOLE 200 MG/100 ML BAG IV SCH ×2 (15:45→16:26)
--- NOTE | 2022-05-08 15:52 | XRay Report ---
SINGLE VIEW CHEST CLINICAL HISTORY: Intubation. FINDINGS: An AP, portable, semierect chest radiograph is obtained. The examination is degraded by por table technique and apical lordotic positioning. Correlation is made with today's abdominal CT scan. An endotracheal tube has been placed. The tip of the catheter projects approximately 4 cm above the c tobi. An enteric tube has been placed. The tip projects below the diaphragm over the proximal stomac h. A left subclavian central venous catheter is in place. The tip of the catheter projects over the l eft innominate vein. The cardiomediastinal silhouette is unremarkable. There are low lung volumes wit h bibasilar consolidation. Small pleural effusions are suspected. No pneumothorax is seen. The skelet al structures are osteopenic. The bony thorax is grossly intact. IMPRESSION: 1. Line and tube placement as above. No pneumothorax is seen post procedure. 2. Low lung volumes with dependent consolidation. This likely represents atelectasis and clinical cor relation will be required. 3. Suspect small pleural effusions ACT 112: Negative or not required by law. Electronically signed by: Sergio Petty M.D. 05/08/2022 3:50 PM
--- NOTE | 2022-05-08 16:02 | Anesthesiology Progress Note ---
Date of Service May 08, 2022 Anesthesia Post Procedure Vital Signs Vital Signs: Temp Pulse Pulse Pulse Resp BP BP 05/08/22 15:15 33.9 C L 96 H 30 H 142/51 H 05/08/22 15:05 33.8 C L 95 H 30 H 132/74 05/08/22 14:55 33.8 C L 101 H 18 127/76 05/08/22 14:45 33.7 C L 95 H 15 05/08/22 11:58 104 H 20 05/08/22 06:41 112 H 05/08/22 11:17 36.4 C L 108 H 16 100/70 05/08/22 07:56 05/08/22 07:54 36.5 C 113 H 128/99 05/08/22 03:21 36.3 C L 114 H 22 110/89 05/07/22 23:15 105 H 05/07/22 23:09 36.8 C 110 H 18 119/80 05/07/22 20:00 05/07/22 20:09 124/94 05/07/22 19:32 36.7 C 108 H 18 125/102 H Pulse Ox O2 Del Method FiO2 05/08/22 15:15 94 Mechanical Vent 60 05/08/22 15:05 95 Mechanical Vent 60 05/08/22 14:55 98 Mechanical Vent 60 05/08/22 14:45 98 Mechanical Vent 60 05/08/22 11:58 93 Room Air 05/08/22 06:41 05/08/22 11:17 94 Room Air 05/08/22 07:56 Room Air 05/08/22 07:54 94 Room Air 05/08/22 03:21 93 Room Air 05/07/22 23:15 05/07/22 23:09 94 Room Air 05/07/22 20:00 Room Air 05/07/22 20:09 05/07/22 19:32 93 Room Air Transfer of Care Handoff Completed per policy Notes Mental Status: see notes below Nausea / Vomiting: adequately controlled Pain: adequately controlled Airway Patency, RR, SpO2: stable & adequate BP & HR: stable & adequate Hydration State: stable & adequate Anesthetic Complications: no major complications apparent Notes: sedated/Vented to ICU with A line and phenylephrine gtt
[2022-05-08] MEDS: ICU ELECTROLYTE REPLACEMENT PROTOCOL SCH (16:30)
[2022-05-08] MEDS ORDERED: CISATRACURIUM BESYLATE IV SOLN 2 MG/ML 10 ML VIAL IV STA (18:16)
[2022-05-08] MEDS ORDERED: CISATRACURIUM BOLUS FROM BAG IV ONE ×2 (18:30→21:57)
--- NOTE | 2022-05-08 18:55 | Billing Data ---
Date of Service May 08, 2022 Coding Level of Care Code 20372 Subseq Hosp Care Lvl 3
[2022-05-08] MEDS ORDERED: CALCIUM CHLORIDE 10% 1,000 MG in DEXTROSE 5% 50 ML IV STA (20:42)
[2022-05-08] MEDS: VASOPRESSIN 20 UNITS in 0.9 % SODIUM CHLORIDE 100 ML IV SCH (20:43)
[2022-05-08] MEDS ORDERED: NORMOSOL-R 500 ML IV ONE (20:58)
[2022-05-08] MEDS ORDERED: NORMOSOL-R 250 ML IV ONE (20:58)
[2022-05-08] MEDS ORDERED: ALBUMIN 5% 250 ML IV ONE (21:00)
[2022-05-08 22:43] LABS: iSTAT Art Bld Gas pCO2 Correct 45 mmHg (35-46); iSTAT Art Bld Gas pH Corrected 7.319 (7.35-7.45); iSTAT Arterial Blood Gas HCO3 23 meg/L (19-24); iSTAT Arterial Blood Gas pCO2 44 mmHg (35-46); iSTAT Arterial Blood Gas pH 7.32 (7.35-7.45); iSTAT Arterial Blood Gas pO2 118 mmHg (80-95); iSTAT Arterial Blood Gas pO2 C 119; iSTAT Carbon Dioxide 24 mmol/L (24-31); iSTAT FiO2 60 %; iSTAT Hematocrit 34 % (42-52); iSTAT Hemoglobin 11.6 g/dl (14.0-18.0); iSTAT Potassium 3.8 mmol/L (3.3-5.0); iSTAT Site Art Line; iSTAT Sodium 133 mmol/L (135-144)
[2022-05-08 23:04] LABS: BUN Creatinine Ratio 20.6 (10-20); Calcium 7.9 mg/dl (8.5-10.1); Creatinine Clr Calc Pharmacy 142.1 ml/min; Est GFR (African American) 121.6 ml/min; Est GFR (Non-African American) 104.9 ml/min; Potassium 4.1 mmol/L (3.5-5.1)
[2022-05-09] MEDS: PIPERACILLIN/TAZOBACTAM 4.5 GM in DEXTROSE 5% 100 ML IV SCH ×4 (00:09→23:26)
[2022-05-09] MEDS: propofoL 1,000 MG/100 ML VIAL IV SCH ×5 (00:11→21:31)
--- NOTE | 2022-05-09 00:14 | Procedure Note ---
Procedure Note Date of Service May 09, 2022 Note Procedure: Arterial Line Placement with ultrasound guidance - modifier [address] arterial line. APC: Librado RODRIGUEZ ([facility]) Attending: Dr. NORRIS Indication: Monitoring on Pressors Anesthesia: x Lidocaine 1% Consent was not obtained as emergent in the setting of severe sepsis with vasopressor escalation. was updated prior to procedure for need. Left radial yaquelin previously in place failed. Allens test was performed to ensure adequate perfusion. Patients Left wrist was prepped and draped in the usual sterile fashion. Ultrasound guidance was used to aid needle placement. A 20g Arrow arterial line was introduced into the Left radial artery x 1 attempt, catheter was threaded without return of brisk blood, the catheter was backed out until blood was returning, wire was re-introduced and catheter threaded, remained without brisk blood flow, catheter removed noting clotting. Left side was aborted Right radial artery was evaluated. Vidal's test performed and scouted with ultrasound. Site was identified. Under direct ultrasound guidance Catheter was inserted into right radial artery, flash was noted in the chamber, the wire was advanced and catheter threaded, and the needle was removed. No return of blood noted, catheter was slowly withdrawn until blood flow noted, wire was threaded without resistance and catheter was threaded, remained with not blood flow from catheter. Attempts x2. Blood Loss: Minimal Complications: No immediate complications. Procedure aborted at this time Procedural Ultrasound Guidance: Procedure Date: Indication: Hemodynamic monitoring vasopressor use Attending: Dr. Norris Coding CPT Codes Tubes, Drains, and Vasc Access - Tubes, Drains, and Vasc Access: [id number] Insertion Catheter, Artery ([id number]) Tubes, Drains, and Vasc Access - Tubes, Drains, and Vasc Access: [id number] Ultrasound Guidance For Vascular ([id number]) [facility] [place] (Charges) Tubes, Drains, and Vasc Access Procedure 1: Tubes, Drains, and Vasc Access: [id number] Insertion Catheter, Artery Procedure 2: Tubes, Drains, and Vasc Access: [id number] Ultrasound Guidance For Vascular
[2022-05-09] MEDS ORDERED: CISATRACURIUM BOLUS FROM BAG IV ONE (00:31)
[2022-05-09] MEDS: CISATRACURIUM BESYLATE 40 MG in DEXTROSE 5% 80 ML IV SCH ×2 (00:34→02:51)
[2022-05-09] MEDS: Double Conc 32mcg/mL; 16mg in 500mL IV SCH ×4 (00:49→19:45)
[2022-05-09] MEDS: ARTIFICIAL TEARS OP OINT 3.5 GM TUBE OP SCH ×4 (02:06→11:45)
[2022-05-09] MEDS: CISATRACURIUM BESYLATE IV SCH ×6 (02:21→11:58)
[2022-05-09] MEDS: DEXTROSE 5% IV SCH ×6 (02:21→11:58)
[2022-05-09] MEDS: VASOPRESSIN 20 UNITS in 0.9 % SODIUM CHLORIDE 100 ML IV SCH ×3 (03:44→15:15)
[2022-05-09 04:58] LABS: Basophils % (auto) 0.7 %; Hematocrit (blood only) 35.2 % (40.1-51.0); Hemoglobin 11.7 g/dl (14.0-18.0); Immature Granulocytes # (auto) 0.23 K/uL (0.00-0.02); Immature Granulocytes % (auto) 1.5 %; Lymphocytes # (auto) 0.35 K/uL (1.2-3.4); Lymphocytes % (auto) 2.4 %; Mean Corpuscular Hemoglobin 30.7 pg (25.0-34.0); Mean Corpuscular Hgb Conc 33.2 g/dL (32.0-36.0); Mean Corpuscular Volume 92.4 fL (80.0-100.0); Mean Platelet Volume 8.9 fL (9.4-12.4); Monocytes # (auto) 0.69 K/uL (0.24-0.82); Monocytes % (auto) 4.6 %; Neutrophils % (auto) 90.8 %; Nucleated RBC # (auto) 0.02 K/uL (0-0); Nucleated RBC % (auto) 0.1 %; Platelet Count 417 K/uL (130-400); RDW Coefficient of Variation 13.9 % (11.5-14.5); RDW Standard Deviation 47.4 fL (36.4-46.3); Red Blood Count 3.81 M/uL (4.63-6.08); White Blood Count 14.87 K/ul (4.8-10.8)
[2022-05-09 05:06] LABS: Albumin Level 2.5 gm/dl (3.4-5.0); BUN Creatinine Ratio 16.9 (10-20); Bilirubin Direct 0.7 mg/dl (0-0.2); Bilirubin,Total 1.1 mg/dl (0.2-1.0); Calcium 7.8 mg/dl (8.5-10.1); Creatinine Clr Calc Pharmacy 100.6 ml/min; Est GFR (African American) 105.5 ml/min; Magnesium 1.7 mg/dl (1.7-2.4); Phosphorus 5.6 mg/dl (2.5-4.9); Potassium 4.2 mmol/L (3.5-5.1); Total Protein 4.4 gm/dl (6.0-8.3)
[2022-05-09] MEDS: ICU ELECTROLYTE REPLACEMENT PROTOCOL SCH ×2 (05:09→16:20)
[2022-05-09] MEDS: NORMOSOL-R 1,000 ML IV SCH ×2 (05:12→16:53)
[2022-05-09] MEDS: MAGNESIUM SULFATE / D5W 1 GM/100 ML BAG IV SCH ×4 (05:23→13:21)
[2022-05-09] MEDS: ICU Protocol for HYPERglycemia SCH ×3 (07:14→16:20)
--- NOTE | 2022-05-09 07:17 | Surgery Progress Note ---
Date of Service May 09, 2022 Assessment & Plan (1) Severe sepsis with septic shock: (2) Bowel perforation: Plan POD #1 status post exploratory laparotomy with right hemicolectomy. The bowel was left in discontinuity, ABThera open abdomen vacuum dressing was placed due to severe sepsis stemming from fecal peritonitis. Overnight he has been stable on the vent. He is intubated, sedated, paralyzed. He is requiring norepinephrine and vasopressin for blood pressure support. We are currently slowly weaning the norepinephrine. Vent settings have been stable. Airway pressures are normal. We will take him back to the operating room for a washout and possible ileostomy and mucous fistula creation with closure of the abdomen. If he has increasing pressor requirements during the surgery, we will leave him in discontinuity for another day. I have discussed all of this with his , who has agreed to the procedure and has signed consent. All of her questions have been answered. Admission and Anticipated Discharge Date Admission Date: May 05, 2022 Subjective POD #1 status post exploratory laparotomy, extended right hemicolectomy for isabela bernal right colon perforation and fecal peritonitis. ABThera was placed at the time of surgery, and he was left in discontinuity. Overnight, he was required pressors for blood pressure support. Currently he is on Levophed 0.26 and vasopressin 0.04. The pressor requirement is decreasing slowly. He is making adequate urine output and his creatinine is 0.8. He is intubated, sedated, and paralyzed. Physical Exam Physical Exam: Abdomen soft, distended, ABThera VAC dressing in place; suction canister with serosanguineous fluid Results & Data ([facility]) Vital Signs (Past 12 Hours) Vital Signs Temp Pulse Resp BP Pulse Ox O2 Del Method FiO2 05/09/22 06:30 36.3 C L 71 18 117/70 95 Mechanical Vent 60 05/09/22 06:15 36.4 C L 82 18 95/63 L 95 Mechanical Vent 60 05/09/22 06:00 36.4 C L 83 18 90/62 L 94 Mechanical Vent 60 05/09/22 05:45 36.4 C L 82 18 94/60 L 94 Mechanical Vent 60 05/09/22 05:30 36.4 C L 81 18 87/60 L 94 Mechanical Vent 60 05/09/22 05:15 36.4 C L 80 18 85/60 L 94 Mechanical Vent 60 05/09/22 05:00 36.4 C L 81 18 91/66 L 95 Mechanical Vent 60 05/09/22 04:45 36.3 C L 82 18 98/67 L 95 Mechanical Vent 60 05/09/22 04:30 36.4 C L 82 18 89/59 L 95 Mechanical Vent 60 05/09/22 04:15 36.4 C L 80 18 97/68 L 95 Mechanical Vent 60 05/09/22 04:00 36.4 C L 81 18 89/65 L 95 Mechanical Vent 60 05/09/22 04:00 60 05/09/22 03:45 36.4 C L 81 18 88/61 L 94 Mechanical Vent 60 05/09/22 03:30 36.4 C L 79 18 98/61 L 95 Mechanical Vent 60 05/09/22 03:15 36.4 C L 81 18 92/61 L 94 Mechanical Vent 60 05/09/22 03:17 85 18 94 60 05/09/22 03:00 36.4 C L 80 18 105/71 95 Mechanical Vent 60 05/09/22 02:45 36.4 C L 84 18 92/61 L 94 Mechanical Vent 60 05/09/22 02:30 36.4 C L 81 18 92/71 L 94 Mechanical Vent 60 05/09/22 02:15 36.5 C 86 18 87/58 L 94 Mechanical Vent 60 05/09/22 02:00 36.5 C 88 18 83/58 L 94 Mechanical Vent 60 05/09/22 01:45 36.6 C 89 18 82/57 L 94 Mechanical Vent 60 05/09/22 01:30 36.6 C 88 18 87/58 L 94 Mechanical Vent 60 05/09/22 01:15 36.7 C 89 18 90/61 L 94 Mechanical Vent 60 05/09/22 01:00 36.7 C 92 H 18 86/63 L 94 Mechanical Vent 60 05/09/22 00:45 36.8 C 93 H 18 98/65 L 94 Mechanical Vent 60 05/09/22 00:30 36.8 C 93 H 18 103/73 94 Mechanical Vent 60 05/09/22 00:15 36.8 C 89 18 99/68 L 95 Mechanical Vent 60 05/09/22 00:00 36.9 C 92 H 18 110/76 95 Mechanical Vent 60 05/08/22 23:45 36.9 C 92 H 18 120/89 95 Mechanical Vent 60 05/08/22 23:30 36.9 C 84 18 95 Mechanical Vent 60 05/08/22 23:15 37.0 C 86 18 108/75 95 Mechanical Vent 60 05/09/22 00:00 60 05/08/22 23:32 91 H 20 94 60 05/08/22 23:00 37.0 C 86 18 111/79 95 Mechanical Vent 60 05/08/22 22:45 37.1 C 86 18 98/68 L 95 Mechanical Vent 60 05/08/22 22:30 37.2 C 94 H 21 98/68 L 95 Mechanical Vent 60 05/08/22 22:15 37.3 C 94 H 18 86/58 L 95 Mechanical Vent 60 05/08/22 22:00 37.3 C 94 H 18 87/54 L 94 Mechanical Vent 60 05/08/22 21:45 37.3 C 94 H 18 94 Mechanical Vent 60 05/08/22 21:30 37.3 C 91 H 18 94 Mechanical Vent 60 05/08/22 21:15 37.3 C 86 18 95/60 L 95 Mechanical Vent 60 05/08/22 21:00 37.4 C 89 18 81/55 L 94 Mechanical Vent 60 05/08/22 20:45 37.4 C 94 H 18 82/51 L 92 Mechanical Vent 60 05/08/22 20:30 37.5 C 95 H 18 77/47 L 93 Mechanical Vent 60 05/08/22 20:15 37.4 C 101 H 18 84/49 L 91 Mechanical Vent 60 05/08/22 20:00 37.4 C 109 H 18 105/69 94 Mechanical Vent 60 05/08/22 19:48 99 H 18 94 Mechanical Vent 60 05/08/22 19:45 101 H 18 92 Mechanical Vent 60 05/08/22 19:30 98 H 18 93 Mechanical Vent 60 05/08/22 19:15 96 H 16 93 Mechanical Vent 60 05/08/22 19:18 91 H 18 93 60 05/08/22 20:00 Mechanical Vent 60 05/08/22 20:00 60
--- NOTE | 2022-05-09 07:40 | Hospitalist Progress Note ---
Date of Service May 09, 2022 Assessment & Plan (1) Severe sepsis with septic shock: Plan: Severe sepsis 2/2 bowel perforation - 05/[address] scan showed colonic obstruction concerning for obstructing lesion, nodular collections in sigmoid colon concerning for small abscess vs. metastatic nodules, large volume of intraperitoneal free air - 05/08 emergent exploratory laparotomy was performed which resulted in right hemicolectomy - 05/09 pt went for abdominal washout and ileostomy which went well - WBC increased to 14.87 today - continue zosyn (day 6) and fluconazole (day 2) - pt currently on norepinephrine and vasopressin for BP management, continue to wean as able - current vent settings: FiO2 85%, RR 24, PEEP 14; management per ICU Diverticulitis w/ abscess - diagnosed via [facility] CTAP - labs upon admission significant for WBC 16.56 w/ neutrophilic predominance, Hgb 11, Na 132, K 3.2, and procal 0.59 - WBC increased to 14.87; most likely as a stress response - KUB showed severe constipation w/ distended colon (colonic ileus vs. LBO) - original blood cultures from 05/05 neg after 48 hr - current management as above Hyponatremia - mild, mostly mid 130s - today, 131 - continue to monitor Anemia - 09/2021 Hgb 15.0 - upon admission, 11.0 - today, 11.7 - continue to monitor Diarrhea - Acute on chronic problem - has dealt with daily diarrhea since onset of radiation therapy this summer, but reports worsening of symptoms over last 4 days; likely 2/2 to diverticulitis - c. diff neg and stool PCR pos for EPEC - plan as above Prostate cancer - Stage IIIA, s/p TURP in 09/2021 and Leuprolide/radiation therapy as of 02/2022 - Follows with cancer center (Dr. Le) HTN - d/t septic shock and current situation as described above, home lisinopril on hold (2) Bowel perforation: (3) Diverticulitis of intestine with abscess: (4) Diarrhea: (5) Prostate cancer: (6) Hypertension: (7) Large bowel obstruction: Plan FEN: NPO, intubated, normosol 75 mL/hr DVT ppx: lovenox 40 mg daily Code: full Dispo: ICU Admission and Anticipated Discharge Date Admission Date: May 05, 2022 Supervising Physician Co-Signing Physician Notes I personally examined the patient and verified all tsang points of history and exam, discussed case, and agree with decision making with Dr. Mullen with the following additions/exceptions: S-vasopressors titrated up overnight and vasopressin was added onto the Levophed and phenylephrine. Went for repeat surgical abdominal washout with colostomy formation and closure of abdominal wound. Patient seen later in the day postoperatively and appeared comfortable, on paralytics and sedation, remains intubated. O- Vitals reviewed Gen: [sedated, on vent, intubated] HEENT: ETT in place] CV: [RRR no mgr nl S1S2, left subclavian central catheter in place, left dorsalis pedis arterial line in place] Pulm: [CTAB no wcr] Abd: [Hypoactive BS, colostomy in place RLQ with brown liquid stool, dressing in place, Valle in place draining light yellow urine that is clear] Ext: [trace edema, 2+ DP pulses] Skin: [no rashes, warm/dry] Labs reviewed A/P-61 yo male here with acute diverticulitis, abscess vs sigmoid mass, and colon distension now with colon perforation s/p emergent colectomy. Now s/p repeat abdominal washout with colostomy formation and closure of abd wound With sepsis and septic shock post-op. -continue on broad spectrum abx with diflucan, Zosyn. On pressors, intubated -continue sedation , paralytics, vent management as per ICU -continue pressors and wean off as able to, continue IVFs -continue broad spectrum abx, follow cultures, surgery post-op management -Diarrhea ongoing with EPE. coli-on antibiotics Keeping NPO while on pressors Subjective Pt is a 61 yo male with PMH of prostate cancer (s/p TURP 09/2021 and leuprolide/radiation therapy 02/2022) and HTN presenting via transfer due to acute diverticulitis w/ LBO and 2.8 cm abscess. On repeat CT scan, pt found to have bowel perforation and is now s/p right hemicolectomy. Pt intubated and sedated in ICU. Overnight, pt requiring more vasopressors (vasopressin, norepinephrine, and phenylephrine) than previous. Pt went to OR today for abdominal washout and ileostomy placement. A new arterial line was also placed in the right foot. Review of Systems Review of Systems: Unobtainable due to endotracheal tube and Unobtainable due to reduced consciousness Physical Exam Constitutional: NAD. Mechanical ventilation and sedation. Eyes: no conjunctival abnormality Respiratory: CTA bilaterally. No rhonchi, wheezing, or crackles. Cardiovascular: RRR. No murmur noted. No LE edema. Skin: no rashes, warm and dry Results & Data Results & Data ([facility]) Vital Signs (Past 12 Hours) Vital Signs Temp Pulse Resp BP Pulse Ox O2 Del Method FiO2 05/09/22 06:30 36.3 C L 71 18 117/70 95 Mechanical Vent 60 05/09/22 06:15 36.4 C L 82 18 95/63 L 95 Mechanical Vent 60 05/09/22 06:00 36.4 C L 83 18 90/62 L 94 Mechanical Vent 60 05/09/22 05:45 36.4 C L 82 18 94/60 L 94 Mechanical Vent 60 05/09/22 05:30 36.4 C L 81 18 87/60 L 94 Mechanical Vent 60 05/09/22 05:15 36.4 C L 80 18 85/60 L 94 Mechanical Vent 60 05/09/22 05:00 36.4 C L 81 18 91/66 L 95 Mechanical Vent 60 05/09/22 04:45 36.3 C L 82 18 98/67 L 95 Mechanical Vent 60 05/09/22 04:30 36.4 C L 82 18 89/59 L 95 Mechanical Vent 60 05/09/22 04:15 36.4 C L 80 18 97/68 L 95 Mechanical Vent 60 05/09/22 04:00 36.4 C L 81 18 89/65 L 95 Mechanical Vent 60 05/09/22 04:00 60 05/09/22 03:45 36.4 C L 81 18 88/61 L 94 Mechanical Vent 60 05/09/22 03:30 36.4 C L 79 18 98/61 L 95 Mechanical Vent 60 05/09/22 03:15 36.4 C L 81 18 92/61 L 94 Mechanical Vent 60 05/09/22 03:17 85 18 94 60 05/09/22 03:00 36.4 C L 80 18 105/71 95 Mechanical Vent 60 05/09/22 02:45 36.4 C L 84 18 92/61 L 94 Mechanical Vent 60 05/09/22 02:30 36.4 C L 81 18 92/71 L 94 Mechanical Vent 60 05/09/22 02:15 36.5 C 86 18 87/58 L 94 Mechanical Vent 60 05/09/22 02:00 36.5 C 88 18 83/58 L 94 Mechanical Vent 60 05/09/22 01:45 36.6 C 89 18 82/57 L 94 Mechanical Vent 60 05/09/22 01:30 36.6 C 88 18 87/58 L 94 Mechanical Vent 60 05/09/22 01:15 36.7 C 89 18 90/61 L 94 Mechanical Vent 60 05/09/22 01:00 36.7 C 92 H 18 86/63 L 94 Mechanical Vent 60 05/09/22 00:45 36.8 C 93 H 18 98/65 L 94 Mechanical Vent 60 05/09/22 00:30 36.8 C 93 H 18 103/73 94 Mechanical Vent 60 05/09/22 00:15 36.8 C 89 18 99/68 L 95 Mechanical Vent 60 05/09/22 00:00 36.9 C 92 H 18 110/76 95 Mechanical Vent 60 05/08/22 23:45 36.9 C 92 H 18 120/89 95 Mechanical Vent 60 05/08/22 23:30 36.9 C 84 18 95 Mechanical Vent 60 05/08/22 23:15 37.0 C 86 18 108/75 95 Mechanical Vent 60 05/09/22 00:00 60 05/08/22 23:32 91 H 20 94 60 05/08/22 23:00 37.0 C 86 18 111/79 95 Mechanical Vent 60 05/08/22 22:45 37.1 C 86 18 98/68 L 95 Mechanical Vent 60 05/08/22 22:30 37.2 C 94 H 21 98/68 L 95 Mechanical Vent 60 05/08/22 22:15 37.3 C 94 H 18 86/58 L 95 Mechanical Vent 60 05/08/22 22:00 37.3 C 94 H 18 87/54 L 94 Mechanical Vent 60 05/08/22 21:45 37.3 C 94 H 18 94 Mechanical Vent 60 05/08/22 21:30 37.3 C 91 H 18 94 Mechanical Vent 60 05/08/22 21:15 37.3 C 86 18 95/60 L 95 Mechanical Vent 60 05/08/22 21:00 37.4 C 89 18 81/55 L 94 Mechanical Vent 60 05/08/22 20:45 37.4 C 94 H 18 82/51 L 92 Mechanical Vent 60 05/08/22 20:30 37.5 C 95 H 18 77/47 L 93 Mechanical Vent 60 05/08/22 20:15 37.4 C 101 H 18 84/49 L 91 Mechanical Vent 60 05/08/22 20:00 37.4 C 109 H 18 105/69 94 Mechanical Vent 60 05/08/22 19:48 99 H 18 94 Mechanical Vent 60 05/08/22 19:45 101 H 18 92 Mechanical Vent 60 05/08/22 20:00 Mechanical Vent 60 05/08/22 20:00 60 Resident Activity Tracking Resident Involvement: Resident Care Provided Care Provided: Adult [facility] Medicine
[2022-05-09] MEDS ORDERED: MIDAZOLAM HCL 1 MG/ML 2ML VIAL ONE (08:07)
[2022-05-09] MEDS ORDERED: ROCURONIUM BROMIDE 10 MG/ML 5 ML VIAL IV ONE ×4 (08:07→11:03)
--- NOTE | 2022-05-09 09:28 | XRay Report ---
XR chest 1V portable CLINICAL HISTORY: while intubated, evaluate ETT and pulmonary status TECHNIQUE: Single frontal radiograph of the chest was obtained. Comparison: Comparison is made to chest radiograph 05/08/2022 FINDINGS: Lines and tubes are stable. Cardiomegaly is noted. Atelectasis versus scarring is seen in the left mi dlung. There is a small left pleural effusion. IMPRESSION: Small left pleural effusion. No new airspace opacities. ACT 112: Negative or not required by law. Electronically signed by: Akil Villasenor M.D. 05/09/2022 9:27 AM
--- NOTE | 2022-05-09 11:06 | Post Operative Brief Note ---
Immediate Post Op Note v1 Date of Surgery May 09, 2022 Pre & Post Diagnosis Operation Date: 05/08/22 11:10 Pre-Op Diagnosis: Large bowel obstruction, Bowel perforation Post-Op Diagnosis: Large bowel obstruction, Bowel perforation Operation Date: 05/09/22 07:00 Pre-Op Diagnosis: Feculant Peritonitis Post-Op Diagnosis: Feculant Peritonitis I identified the patient and participated in the time-out.: Yes Procedure Operation Date: 05/08/22 11:10 Actual Procedures p Exploratory Laparotomy, Bowel Resection(Not Applicable) - Jace Suero MD Operation Date: 05/09/22 07:00 Actual Procedures p Exploratory Laparotomy, Abdominal Washout and Closure with Ileostomy Creation, Mucous Fistula(Not Applicable) - Jace Suero MD Surgeon Jace Suero MD Deployment Specialist MALCOLM Johnston assisted with tissue retraction, camera op, closure Estimated Blood Loss 10 Findings Consistent with Post-Op Diagnosis Drains Valle Catheter, Candelario-Kincaid Drain and [place] Drain Anesthesia Type General
--- NOTE | 2022-05-09 11:13 | Operative Report ---
Post Operative Report Pre & Post Diagnosis Operation Date: 05/08/22 11:10 Pre-Op Diagnosis: Large bowel obstruction, Bowel perforation Post-Op Diagnosis: Large bowel obstruction, Bowel perforation Operation Date: 05/09/22 07:00 Pre-Op Diagnosis: Feculant Peritonitis Post-Op Diagnosis: Feculant Peritonitis I identified the patient and participated in the time-out.: Yes Procedure Operation Date: 05/08/22 11:10 Actual Procedures p Exploratory Laparotomy, Bowel Resection(Not Applicable) - Jace Suero MD Operation Date: 05/09/22 07:00 Actual Procedures p Exploratory Laparotomy, Abdominal Washout and Closure with Ileostomy Creation, Mucous Fistula(Not Applicable) - Jace Suero MD Surgeon Jace Suero MD Administrative Analyst MALCOLM Johnston assisted with tissue retraction, camera op, closure Estimated Blood Loss 10 Findings Consistent with Post-Op Diagnosis Moderate purulent/feculent fluid throughout the abdomen; small area of necrotic omentum; all bowel viable with no evidence of ischemia at the ileal or transverse colon staple lines Specimens Omentum Drains 19 English round YENY drain x2 Anesthesia Type General Complications No immediate complications Description of Procedure The patient was taken from the ICU to the operating room and was placed on the operative table. A timeout was performed, and general anesthesia was induced. Valle catheter, SCD boots were already in place. He is already on antibiotics. He came from the ICU intubated. The abdomen was prepped and draped in the normal sterile fashion. The ABThera dressing was removed, and the abdomen was explored. Moderate adhesions were broken up with gentle blunt finger dissection. There is a moderate amount of purulent/feculent fluid within the abdominal cavity. This was suctioned. The abdomen was in total irrigated with 8 L of normal saline and Ancef solution. There was an area of omentum that was necrotic, and this was removed with the LigaSure device. The bowel at the staple lines on the ileum and transverse colon were inspected and noted to have good blood supply. Given the patient's hemodynamic status, as well as the findings in the abdomen, the decision was made to proceed with ostomy creation and abdominal closure. 2 drains were placed on either side of the abdomen. The right drain was placed through separate stab incision and placed in the right paracolic gutter. The left drain was looped into the pelvis. They were both 19 English round YENY drains. Incision was made on the right lower quadrant and was carried down to the level of the fascia. The fascia was incised with a cruciate incision, and the terminal ileum was brought out through this incision. A second incision was made in the right upper quadrant in a similar fashion. Again the fascia was incised in a cruciate fashion, and the end of the transverse colon was brought up through this incision. The bowel was secured to the fascia with 3-0 silk suture. We then proceeded with abdominal closure. The fascia was closed with a running #1 PDS suture. This was reinforced with retention bars of #1 nylon suture. We then turned our attention to the ileostomy. This was matured in a Coby fashion with 3-0 Vicryl suture. In a similar fashion, the mucous fistula was created in the upper incision with 3-0 Vicryl suture. Dressings and ostomy appliances were applied. He tolerated the procedure without complication, and was transferred back to the intensive care unit intubated in guarded condition. All instrument, needle, and sponge counts were correct at the end of the case. My fws faculty assistant was necessary throughout the procedure for tissue retraction, possible camera operation, and closure of the wounds. I understand that section 1842(b)(7)(D) of the Social Security act generally prohibits Medicare physician fee schedule payment for the services of assistants at surgery in teaching hospitals when qualified residents are available to furnish such services. I certify that the services for which payment is claimed were medically necessary and that no qualified resident was available to perform the services. I further understand that these services are subject to postpayment review by the Medicare carrier. I attest to the content of the Intraoperative Record and any orders documented therein. Any exceptions are noted below.
--- NOTE | 2022-05-09 11:24 | Critical Care Progress Note ---
Date of Service May 09, 2022 Assessment & Plan (1) Bowel perforation: (2) Obesity: (3) Severe sepsis with septic shock: (4) Anemia: (5) Hyponatremia: Plan Impression: 61-year-old male admitted from outside facility with diverticulitis now developing perforated viscus with benjamin stool in the peritoneal cavity requiring laparotomy washout and colon resection. He is in septic shock with need for pressors and an open abdomen. 24-hour events: The patient was taken for emergent surgery yesterday. He had a colonic resection return to the ICU intubated sedated on pressors with an open belly. He became more septic overnight requiring initiation of additional vasopressor agents. His vent settings were stable. He was taken back to the OR today for abdominal washout closure and ileostomy placement which he tolerated well. He returns to the ICU with improving hemodynamics and vasopressin has been weaned off. The patient did lose his arterial line last night. Multiple attempts were made to replace it. It was also attempted to be replaced in the OR without success. Recommendations: 1. Neurologic: Discontinue neuromuscular blockade. Continue sedation with propofol and as needed fentanyl. Patient is hemodynamically unstable so does not qualify for vent liberation as of yet. 2. Cardiovascular: Severe sepsis with septic shock: Now on norepinephrine and vasopressin. Wean as tolerated. Random cortisol was normal. Arterial line was replaced in the right foot 3. Pulmonary: Continue mechanical ventilation. Increased respiratory rate for elevated CO2. Now with significant acute lung injury. PF ratio 131. Increased PEEP to 14 and titrate based on [facility] protocol. Peak and plateau pressures are acceptable. Decrease tidal volume to 6 cc/kg ideal body weight (400 mL) and augment respiratory rate to 24. Follow-up blood gas. Patient likely has sleep disordered breathing and when extubated, use of noninvasive positive pressure ventilation (CPAP or BiPAP) may be beneficial. Outpatient polysomnography may also be warranted. 4. Renal: Renal function normal. ICU electrolyte replacement protocol. Continue to follow urine output. Blood gas this morning showed metabolic and re spiratory acidosis. Replace calcium 5. GI: N.p.o. PPI in place. OG tube with low intermittent suction. Abdomen now closed. Follow drain output. No sign of abdominal compartment syndrome 6. Endocrine: Glycemic control per protocol. Random cortisol was normal. 7. ID: Peritonitis secondary to perforated viscus. Day #6 Zosyn. Day #2 fluconazole White count up today. Remains afebrile. Procalcitonin yesterday elevated at 0.63 8. Heme-onc: Mild anemia: Stable. Continue to follow for now. No indication for transfusion Patient is critically ill at this point time with significant possibility of clinical deterioration and or . A total of 65 minutes was spent in evaluation management stabilization of this patient exclusive of procedures. Discussed with bedside critical care nurse as well as spouse at bedside. Admission and Anticipated Discharge Date Admission Date: May 05, 2022 Subjective Patient is intubated sedated and paralyzed. Review of Systems Review of Systems: Unobtainable due to endotracheal tube Physical Exam Constitutional: + morbidly obese and + mechanically ventilated Neck: trachea midline, no thyromegaly Respiratory: normal respiratory effort, lungs clear to auscultation Cardiovascular: RRR, no murmur, no edema Musculoskeletal: Extremities: extremities normal to inspection Skin: no rashes, warm and dry Lymphatic: no cervical lymphadenopathy Results & Data Results & Data ([facility]) Vital Signs (Past 12 Hours) Vital Signs Temp Pulse Resp BP Pulse Ox O2 Del Method FiO2 05/09/22 11:10 57 L 18 92 05/09/22 11:05 18 92 05/09/22 11:00 63 18 87 L 05/09/22 11:00 170/90 H 05/09/22 10:55 67 18 89 L 05/09/22 10:53 88 18 172/126 H 89 L Mechanical Vent 100 05/09/22 10:50 82 18 90 60 05/09/22 07:37 128/96 05/09/22 07:30 35.9 C L 80 18 94 05/09/22 07:30 98/63 L 05/09/22 07:16 102/64 05/09/22 07:16 36.1 C L 83 16 93 05/09/22 07:00 36.1 C L 81 18 94 05/09/22 07:00 94/58 L 05/09/22 06:46 36.1 C L 82 16 94 05/09/22 06:46 93/59 L 05/09/22 07:45 60 05/09/22 07:45 Mechanical Vent 05/09/22 06:30 36.3 C L 71 18 117/70 95 Mechanical Vent 60 05/09/22 06:15 36.4 C L 82 18 95/63 L 95 Mechanical Vent 60 05/09/22 06:00 36.4 C L 83 18 90/62 L 94 Mechanical Vent 60 05/09/22 05:45 36.4 C L 82 18 94/60 L 94 Mechanical Vent 60 05/09/22 05:30 36.4 C L 81 18 87/60 L 94 Mechanical Vent 60 05/09/22 05:15 36.4 C L 80 18 85/60 L 94 Mechanical Vent 60 05/09/22 05:00 36.4 C L 81 18 91/66 L 95 Mechanical Vent 60 05/09/22 04:45 36.3 C L 82 18 98/67 L 95 Mechanical Vent 60 05/09/22 04:30 36.4 C L 82 18 89/59 L 95 Mechanical Vent 60 05/09/22 04:15 36.4 C L 80 18 97/68 L 95 Mechanical Vent 60 05/09/22 04:00 36.4 C L 81 18 89/65 L 95 Mechanical Vent 60 05/09/22 04:00 60 05/09/22 03:45 36.4 C L 81 18 88/61 L 94 Mechanical Vent 60 05/09/22 03:30 36.4 C L 79 18 98/61 L 95 Mechanical Vent 60 05/09/22 03:15 36.4 C L 81 18 92/61 L 94 Mechanical Vent 60 05/09/22 03:17 85 18 94 60 05/09/22 03:00 36.4 C L 80 18 105/71 95 Mechanical Vent 60 05/09/22 02:45 36.4 C L 84 18 92/61 L 94 Mechanical Vent 60 05/09/22 02:30 36.4 C L 81 18 92/71 L 94 Mechanical Vent 60 05/09/22 02:15 36.5 C 86 18 87/58 L 94 Mechanical Vent 60 05/09/22 02:00 36.5 C 88 18 83/58 L 94 Mechanical Vent 60 05/09/22 01:45 36.6 C 89 18 82/57 L 94 Mechanical Vent 60 05/09/22 01:30 36.6 C 88 18 87/58 L 94 Mechanical Vent 60 05/09/22 01:15 36.7 C 89 18 90/61 L 94 Mechanical Vent 60 05/09/22 01:00 36.7 C 92 H 18 86/63 L 94 Mechanical Vent 60 05/09/22 00:45 36.8 C 93 H 18 98/65 L 94 Mechanical Vent 60 05/09/22 00:30 36.8 C 93 H 18 103/73 94 Mechanical Vent 60 05/09/22 00:15 36.8 C 89 18 99/68 L 95 Mechanical Vent 60 05/09/22 00:00 36.9 C 92 H 18 110/76 95 Mechanical Vent 60 05/08/22 23:45 36.9 C 92 H 18 120/89 95 Mechanical Vent 60 05/08/22 23:30 36.9 C 84 18 95 Mechanical Vent 60 05/08/22 23:15 37.0 C 86 18 108/75 95 Mechanical Vent 60 05/09/22 00:00 60 05/08/22 23:32 91 H 20 94 60 Critical Care Results & Data Vital Signs (Past 12 Hours) Vital Signs Temp Pulse Resp BP Pulse Ox O2 Del Method FiO2 05/09/22 11:10 57 L 18 92 05/09/22 11:05 18 92 05/09/22 11:00 63 18 87 L 05/09/22 11:00 170/90 H 05/09/22 10:55 67 18 89 L 05/09/22 10:53 88 18 172/126 H 89 L Mechanical Vent 100 05/09/22 10:50 82 18 90 60 05/09/22 07:37 128/96 05/09/22 07:30 35.9 C L 80 18 94 05/09/22 07:30 98/63 L 05/09/22 07:16 102/64 05/09/22 07:16 36.1 C L 83 16 93 05/09/22 07:00 36.1 C L 81 18 94 05/09/22 07:00 94/58 L 05/09/22 06:46 36.1 C L 82 16 94 05/09/22 06:46 93/59 L 05/09/22 07:45 60 05/09/22 07:45 Mechanical Vent 05/09/22 06:30 36.3 C L 71 18 117/70 95 Mechanical Vent 60 05/09/22 06:15 36.4 C L 82 18 95/63 L 95 Mechanical Vent 60 05/09/22 06:00 36.4 C L 83 18 90/62 L 94 Mechanical Vent 60 05/09/22 05:45 36.4 C L 82 18 94/60 L 94 Mechanical Vent 60 05/09/22 05:30 36.4 C L 81 18 87/60 L 94 Mechanical Vent 60 05/09/22 05:15 36.4 C L 80 18 85/60 L 94 Mechanical Vent 60 05/09/22 05:00 36.4 C L 81 18 91/66 L 95 Mechanical Vent 60 05/09/22 04:45 36.3 C L 82 18 98/67 L 95 Mechanical Vent 60 05/09/22 04:30 36.4 C L 82 18 89/59 L 95 Mechanical Vent 60 05/09/22 04:15 36.4 C L 80 18 97/68 L 95 Mechanical Vent 60 05/09/22 04:00 36.4 C L 81 18 89/65 L 95 Mechanical Vent 60 05/09/22 04:00 60 05/09/22 03:45 36.4 C L 81 18 88/61 L 94 Mechanical Vent 60 05/09/22 03:30 36.4 C L 79 18 98/61 L 95 Mechanical Vent 60 05/09/22 03:15 36.4 C L 81 18 92/61 L 94 Mechanical Vent 60 05/09/22 03:17 85 18 94 60 05/09/22 03:00 36.4 C L 80 18 105/71 95 Mechanical Vent 60 05/09/22 02:45 36.4 C L 84 18 92/61 L 94 Mechanical Vent 60 05/09/22 02:30 36.4 C L 81 18 92/71 L 94 Mechanical Vent 60 05/09/22 02:15 36.5 C 86 18 87/58 L 94 Mechanical Vent 60 05/09/22 02:00 36.5 C 88 18 83/58 L 94 Mechanical Vent 60 05/09/22 01:45 36.6 C 89 18 82/57 L 94 Mechanical Vent 60 05/09/22 01:30 36.6 C 88 18 87/58 L 94 Mechanical Vent 60 05/09/22 01:15 36.7 C 89 18 90/61 L 94 Mechanical Vent 60 05/09/22 01:00 36.7 C 92 H 18 86/63 L 94 Mechanical Vent 60 05/09/22 00:45 36.8 C 93 H 18 98/65 L 94 Mechanical Vent 60 05/09/22 00:30 36.8 C 93 H 18 103/73 94 Mechanical Vent 60 05/09/22 00:15 36.8 C 89 18 99/68 L 95 Mechanical Vent 60 05/09/22 00:00 36.9 C 92 H 18 110/76 95 Mechanical Vent 60 05/08/22 23:45 36.9 C 92 H 18 120/89 95 Mechanical Vent 60 05/08/22 23:30 36.9 C 84 18 95 Mechanical Vent 60 05/09/22 00:00 60 05/08/22 23:32 91 H 20 94 60 Lab & Micro Results (Past 24 Hours) RBC 3.81 M/uL (4.63-6.08) L 05/09/22 WBC 14.87 K/ul (4.8-10.8) H 05/09/22 Hgb 11.7 g/dl (14.0-18.0) L 05/09/22 Hct 35.2 % (40.1-51.0) L 05/09/22 MCV 92.4 fL (80.0-100.0) 05/09/22 MCH 30.7 pg (25.0-34.0) 05/09/22 MCHC 33.2 g/dL (32.0-36.0) 05/09/22 RDW Standard Deviation 47.4 fL (36.4-46.3) H 05/09/22 RDW Coefficient of Variation 13.9 % (11.5-14.5) 05/09/22 Plt Count 417 K/uL (130-400) H 05/09/22 MPV 8.9 fL (9.4-12.4) L 05/09/22 Nucleated Red Blood Cells % (auto) 0.1 % 05/09 Nucleated RBC Absolute Count (auto) 0.02 K/uL (0-0) H 04/16 11/03 Neutrophils (%) (Auto) 90.8 % 05/09/22 Lymphocytes (%) (Auto) 2.4 % 05/09/22 Monocytes # (Auto) 0.69 K/uL (0.24-0.82) 05/09/22 Eosinophils # (Auto) 0.00 K/uL (0-0.50) 05/09/22 Immature Granulocyte % (Auto) 1.5 % 05/09/22 Neutrophils # (Auto) 13.50 K/uL (1.4-6.5) H 05/09/22 Lymphocytes # (Auto) 0.35 K/uL (1.2-3.4) L 05/09/22 Monocytes # (Auto) 0.69 K/uL (0.24-0.82) 05/09/22 Eosinophils # (Auto) 0.00 K/uL (0-0.50) 05/09/22 Basophils # (Auto) 0.10 K/uL (0-0.2) 05/09/22 Immature Granulocyte # (Auto) 0.23 K/uL (0.00-0.02) H 05/09 Na 131 mmol/L (136-145) L 05/09/22 K 4.2 mmol/L (3.5-5.1) 05/09/22 Cl 99 mmol/L (98-107) 05/09/22 CO2 24 mmol/L (21-32) 05/09/22 Anion Gap 8 (3-11) 05/09/22 BUN 15 mg/dl (6-23) 05/09/22 Creatinine 0.89 mg/dl (0.6-1.4) 05/09/22 Estimated GFR ( Amer) 105.5 ml/min 05/09/22 Estimated GFR (Non-Af Amer) 91.0 ml/min 05/09/22 BUN/Creatinine Ratio 16.9 (10-20) 05/09/22 Glu 177 mg/dl (70-99(Fasting)) H 05/09/22 Ca 7.8 mg/dl (8.5-10.1) L 05/09/22 Phosphorus Level 5.6 mg/dl (2.5-4.9) H 05/09/22 Total Bilirubin 1.1 mg/dl (0.2-1.0) H 05/09/22 Direct Bilirubin 0.7 mg/dl (0-0.2) H 05/09/22 AST 15 U/L (13-39) 05/09/22 ALT 20 U/L (7-52) 05/09/22 Alkaline Phosphatase 56 U/L (34-104) 05/09/22 TP 4.4 gm/dl (6.0-8.3) L 05/09/22 Albumin 2.5 gm/dl (3.4-5.0) L 05/09/22 Globulin 2.0 gm/dl (2.5-4.0) L 05/08/22 Albumin/Globulin Ratio 1.3 (0.9-2) 05/08/22 Mg 1.7 mg/dl (1.7-2.4) 05/09/22 04:18 Calcium Level 7.8 mg/dl (8.5-10.1) L 05/09/22 04:18 Vidal Test NA 05/08/22 22:30 Diagnostic Findings (Past 24 Hours) Chest X-Ray 05/08/22 15:24 SINGLE VIEW CHEST CLINICAL HISTORY: Intubation. FINDINGS: An AP, portable, semierect chest radiograph is obtained. The examination is degraded by portable technique and apical lordotic positioning. Correlation is made with today's abdominal CT scan. An endotracheal tube has been placed. The tip of the catheter projects approximately 4 cm above the flynn. An enteric tube has been placed. The tip projects below the diaphragm over the proximal stomach. A left subclavian central venous catheter is in place. The tip of the catheter projects over the left innominate vein. The cardiomediastinal silhouette is unremarkable. There are low lung volumes with bibasilar consolidation. Small pleural effusions are suspected. No pneumothorax is seen. The skeletal structures are osteopenic. The bony thorax is grossly intact. IMPRESSION: 1. Line and tube placement as above. No pneumothorax is seen post procedure. 2. Low lung volumes with dependent consolidation. This likely represents atelectasis and clinical correlation will be required. 3. Suspect small pleural effusions ACT 112: Negative or not required by law. Electronically signed by: Sergio Petty M.D. 05/08/2022 3:50 PM Chest X-Ray 05/09/22 05:00 XR chest 1V portable CLINICAL HISTORY: while intubated, evaluate ETT and pulmonary status TECHNIQUE: Single frontal radiograph of the chest was obtained. Comparison: Comparison is made to chest radiograph 05/08/2022 FINDINGS: Lines and tubes are stable. Cardiomegaly is noted. Atelectasis versus scarring is seen in the left midlung. There is a small left pleural effusion. IMPRESSION: Small left pleural effusion. No new airspace opacities. ACT 112: Negative or not required by law. Electronically signed by: Akil Villasenor M.D. 05/09/2022 9:27 AM I & O Totals 24 Hours 05/08/22 05/09/22 05/10/22 06:59 06:59 06:59 Intake Total 2910.000 / 2910.000 8678.818 / 8678.818 788.747 / 788.747 Output Total 2195 / 2195 30 / 30 Balance 2901.000 / 2901.000 6483.818 / 6483.818 758.747 / 758.747 Cumulative 05/04/22 23:20 thru 05/09/22 09:48 Intake Total 87869.399 Output Total 2236 Balance 75988.399 RT Ventilator Mngmt (Last Documented) Ventilator Ordered Settings Ventilator Support Mode Assist Control 05/09/22 10:50 Respiratory Rate 18 05/09/22 11:10 Ventilator Tidal Volume 450 05/09/22 10:50 Setting Minute Ventilation 8.1 05/09/22 10:50 Positive End Expiratory 5 05/09/22 10:50 Pressure Fraction of Inspired Oxygen 100 05/09/22 10:53 Peak Inspiratory Flow 36 05/08/22 14:45 Machine Comment Increased to 70% post-op 05/09/22 10:50 Ventilator - PT Measurements Respiratory Rate 18 Exhaled Tidal Volume 450 Minute Ventilation 8.1 Peak Inspiratory Airway 19 Pressure Plateau Pressure 16 Respiratory Cycle Inspiratory: 1:2.3 Expiratory Ratio Inspiratory Phase Time 0.80 End-Tidal CO2 33 Static Lung Compliance 40.91 Dynamic Lung Compliance 32.14 Normal Static Lung Compliance 47.00 Patient Measurements Comment Patient prepared for OR at this time, Coding Level of Care Code Critical Care 1st 30-74 mins Diagnoses Bowel perforation K63.1 Obesity E66.9 Severe sepsis with septic shock A41.9; R65.21 Anemia D64.9 Hyponatremia E87.1 Time Spent (min) 65
--- NOTE | 2022-05-09 11:42 | Anesthesiology Progress Note ---
Date of Service May 09, 2022 Anesthesia Post Procedure Vital Signs Vital Signs: Temp Pulse Pulse Pulse Resp BP BP 05/09/22 11:25 35.6 C L 90 18 05/09/22 11:20 35.6 C L 84 18 05/09/22 11:20 100/65 05/09/22 11:15 74 18 05/09/22 11:15 168/93 H 05/09/22 11:14 71 18 05/09/22 11:14 173/101 H 05/09/22 11:11 58 L 21 186/89 H 05/09/22 11:11 186/89 H 05/09/22 11:10 57 L 18 05/09/22 11:05 18 05/09/22 11:00 63 18 05/09/22 11:00 170/90 H 05/09/22 10:55 67 18 05/09/22 10:53 88 18 172/126 H 05/09/22 10:50 82 18 05/09/22 07:37 128/96 05/09/22 07:30 35.9 C L 80 18 05/09/22 07:30 98/63 L 05/09/22 07:16 102/64 05/09/22 07:16 36.1 C L 83 16 05/09/22 07:00 36.1 C L 81 18 05/09/22 07:00 94/58 L 05/09/22 06:46 36.1 C L 82 16 05/09/22 06:46 93/59 L 05/09/22 07:45 05/09/22 07:45 05/09/22 06:30 36.3 C L 71 18 117/70 05/09/22 06:15 36.4 C L 82 18 95/63 L 05/09/22 06:00 36.4 C L 83 18 90/62 L 05/09/22 05:45 36.4 C L 82 18 94/60 L 05/09/22 05:30 36.4 C L 81 18 87/60 L 05/09/22 05:15 36.4 C L 80 18 85/60 L 05/09/22 05:00 36.4 C L 81 18 91/66 L 05/09/22 04:45 36.3 C L 82 18 98/67 L 05/09/22 04:30 36.4 C L 82 18 89/59 L 05/09/22 04:15 36.4 C L 80 18 97/68 L 05/09/22 04:00 36.4 C L 81 18 89/65 L 05/09/22 04:00 05/09/22 03:45 36.4 C L 81 18 88/61 L 05/09/22 03:30 36.4 C L 79 18 98/61 L 05/09/22 03:15 36.4 C L 81 18 92/61 L 05/09/22 03:17 85 18 05/09/22 03:00 36.4 C L 80 18 105/71 05/09/22 02:45 36.4 C L 84 18 92/61 L 05/09/22 02:30 36.4 C L 81 18 92/71 L 05/09/22 02:15 36.5 C 86 18 87/58 L 05/09/22 02:00 36.5 C 88 18 83/58 L 05/09/22 01:45 36.6 C 89 18 82/57 L 05/09/22 01:30 36.6 C 88 18 87/58 L 05/09/22 01:15 36.7 C 89 18 90/61 L 05/09/22 01:00 36.7 C 92 H 18 86/63 L 05/09/22 00:45 36.8 C 93 H 18 98/65 L 05/09/22 00:30 36.8 C 93 H 18 103/73 05/09/22 00:15 36.8 C 89 18 99/68 L 05/09/22 00:00 36.9 C 92 H 18 110/76 05/08/22 23:45 36.9 C 92 H 18 120/89 05/08/22 23:30 36.9 C 84 18 05/08/22 23:15 37.0 C 86 18 108/75 05/09/22 00:00 05/08/22 23:32 91 H 20 05/08/22 23:00 37.0 C 86 18 111/79 05/08/22 22:45 37.1 C 86 18 98/68 L 05/08/22 22:30 37.2 C 94 H 21 98/68 L 05/08/22 22:15 37.3 C 94 H 18 86/58 L 05/08/22 22:00 37.3 C 94 H 18 87/54 L 05/08/22 21:45 37.3 C 94 H 18 05/08/22 21:30 37.3 C 91 H 18 05/08/22 21:15 37.3 C 86 18 95/60 L 05/08/22 21:00 37.4 C 89 18 81/55 L 05/08/22 20:45 37.4 C 94 H 18 82/51 L 05/08/22 20:30 37.5 C 95 H 18 77/47 L 05/08/22 20:15 37.4 C 101 H 18 84/49 L 05/08/22 20:00 37.4 C 109 H 18 105/69 05/08/22 19:48 99 H 18 05/08/22 19:45 101 H 18 05/08/22 19:30 98 H 18 05/08/22 19:15 96 H 16 05/08/22 19:00 88 18 115/74 05/08/22 19:18 91 H 18 05/08/22 20:00 05/08/22 20:00 05/08/22 18:00 35.0 C L 88 16 05/08/22 18:00 120/76 05/08/22 17:50 34.9 C L 85 18 05/08/22 17:40 34.8 C L 83 18 05/08/22 17:30 34.7 C L 85 16 05/08/22 17:00 34.5 C L 90 16 05/08/22 17:00 113/73 05/08/22 16:30 34.3 C L 86 16 05/08/22 16:01 100/80 05/08/22 16:01 34.1 C L 87 18 05/08/22 16:00 34.1 C L 87 16 05/08/22 15:30 34.0 C L 101 H 16 05/08/22 15:30 132/91 05/08/22 15:00 33.8 C L 101 H 18 05/08/22 14:45 89 17 05/08/22 16:00 05/08/22 16:00 05/08/22 14:45 100 H 19 05/08/22 15:15 33.9 C L 96 H 30 H 142/51 H 05/08/22 15:05 33.8 C L 95 H 30 H 132/74 05/08/22 14:55 33.8 C L 101 H 18 127/76 05/08/22 14:45 33.7 C L 95 H 15 05/08/22 11:58 104 H 20 Pulse Ox O2 Del Method FiO2 05/09/22 11:25 93 05/09/22 11:20 95 05/09/22 11:20 05/09/22 11:15 94 05/09/22 11:15 05/09/22 11:14 93 05/09/22 11:14 05/09/22 11:11 92 Mechanical Vent 100 05/09/22 11:11 05/09/22 11:10 92 05/09/22 11:05 92 05/09/22 11:00 87 L 05/09/22 11:00 05/09/22 10:55 89 L 05/09/22 10:53 89 L Mechanical Vent 100 05/09/22 10:50 90 60 05/09/22 07:37 05/09/22 07:30 94 05/09/22 07:30 05/09/22 07:16 05/09/22 07:16 93 05/09/22 07:00 94 05/09/22 07:00 05/09/22 06:46 94 05/09/22 06:46 05/09/22 07:45 60 05/09/22 07:45 Mechanical Vent 05/09/22 06:30 95 Mechanical Vent 60 05/09/22 06:15 95 Mechanical Vent 60 05/09/22 06:00 94 Mechanical Vent 60 05/09/22 05:45 94 Mechanical Vent 60 05/09/22 05:30 94 Mechanical Vent 60 05/09/22 05:15 94 Mechanical Vent 60 05/09/22 05:00 95 Mechanical Vent 60 05/09/22 04:45 95 Mechanical Vent 60 05/09/22 04:30 95 Mechanical Vent 60 05/09/22 04:15 95 Mechanical Vent 60 05/09/22 04:00 95 Mechanical Vent 60 05/09/22 04:00 60 05/09/22 03:45 94 Mechanical Vent 60 05/09/22 03:30 95 Mechanical Vent 60 05/09/22 03:15 94 Mechanical Vent 60 05/09/22 03:17 94 60 05/09/22 03:00 95 Mechanical Vent 60 05/09/22 02:45 94 Mechanical Vent 60 05/09/22 02:30 94 Mechanical Vent 60 05/09/22 02:15 94 Mechanical Vent 60 05/09/22 02:00 94 Mechanical Vent 60 05/09/22 01:45 94 Mechanical Vent 60 05/09/22 01:30 94 Mechanical Vent 60 05/09/22 01:15 94 Mechanical Vent 60 05/09/22 01:00 94 Mechanical Vent 60 05/09/22 00:45 94 Mechanical Vent 60 05/09/22 00:30 94 Mechanical Vent 60 05/09/22 00:15 95 Mechanical Vent 60 05/09/22 00:00 95 Mechanical Vent 60 05/08/22 23:45 95 Mechanical Vent 60 05/08/22 23:30 95 Mechanical Vent 60 05/08/22 23:15 95 Mechanical Vent 60 05/09/22 00:00 60 05/08/22 23:32 94 60 05/08/22 23:00 95 Mechanical Vent 60 05/08/22 22:45 95 Mechanical Vent 60 05/08/22 22:30 95 Mechanical Vent 60 05/08/22 22:15 95 Mechanical Vent 60 05/08/22 22:00 94 Mechanical Vent 60 05/08/22 21:45 94 Mechanical Vent 60 05/08/22 21:30 94 Mechanical Vent 60 05/08/22 21:15 95 Mechanical Vent 60 05/08/22 21:00 94 Mechanical Vent 60 05/08/22 20:45 92 Mechanical Vent 60 05/08/22 20:30 93 Mechanical Vent 60 05/08/22 20:15 91 Mechanical Vent 60 05/08/22 20:00 94 Mechanical Vent 60 05/08/22 19:48 94 Mechanical Vent 60 05/08/22 19:45 92 Mechanical Vent 60 05/08/22 19:30 93 Mechanical Vent 60 05/08/22 19:15 93 Mechanical Vent 60 05/08/22 19:00 93 Mechanical Vent 60 05/08/22 19:18 93 60 05/08/22 20:00 Mechanical Vent 60 05/08/22 20:00 60 05/08/22 18:00 93 05/08/22 18:00 05/08/22 17:50 93 05/08/22 17:40 92 05/08/22 17:30 93 05/08/22 17:00 93 05/08/22 17:00 05/08/22 16:30 96 05/08/22 16:01 05/08/22 16:01 05/08/22 16:00 95 05/08/22 15:30 94 05/08/22 15:30 05/08/22 15:00 96 05/08/22 14:45 05/08/22 16:00 Mechanical Vent 60 05/08/22 16:00 60 05/08/22 14:45 95 60 05/08/22 15:15 94 Mechanical Vent 60 05/08/22 15:05 95 Mechanical Vent 60 05/08/22 14:55 98 Mechanical Vent 60 05/08/22 14:45 98 Mechanical Vent 60 05/08/22 11:58 93 Room Air Transfer of Care Handoff Completed per policy Notes Mental Status: see notes below Nausea / Vomiting: adequately controlled Pain: adequately controlled Airway Patency, RR, SpO2: stable & adequate BP & HR: stable & adequate Hydration State: stable & adequate Anesthetic Complications: no major complications apparent Notes: sedated/Vented to ICU with vaso and norepi
--- NOTE | 2022-05-09 12:53 | Procedure Note ---
Procedure Note Date of Service May 09, 2022 Note ARTERIAL LINE PROCEDURE NOTE: Procedure: Arterial Line Placement Provider: Jame Norris MD Indication: Monitoring on Pressors Anesthesia: None Verbal consent was obtained from the patient's at the bedside. The patient is intubated sedated and on the ventilator and unable to provide consent A time-out was completed verifying correct patient, procedure, site, positioning, and implant(s) or special equipment if applicable. Patient had undergone multiple attempts in the bilateral radial arteries as well as a right femoral attempt. All of these were unsuccessful. Decision was then made to proceed with a dorsalis pedis right arterial line placement. Patient's right foot was prepped and draped in the usual sterile fashion. Ultrasound guidance was used to aid needle placement. A 20g Arrow arterial line was introduced into the right dorsalis pedis artery. Catheter was threaded, and the needle was removed with appropriate blood return. Good waveform was observed. The patient tolerated the procedure well. Biopatch was applied and the line was secured using a Tegaderm and silk tape. Blood Loss: Minimal Complications: None Coding CPT Codes Tubes, Drains, and Vasc Access - Tubes, Drains, and Vasc Access: [id number] Insertion Catheter, Artery ([id number]) [facility] Procedure Codes (Charges) Tubes, Drains, and Vasc Access Procedure 1: Tubes, Drains, and Vasc Access: [id number] Insertion Catheter, Artery
[2022-05-09] MEDS: ENOXAPARIN INJ 40 MG/0.4 ML SYR SQ SCH (13:20)
[2022-05-09 14:31] LABS: Base Excess ABG -3.8 mEq/L (-9-1.8); HCO3 ABG 23 mmol/L (19-24); Oxygen Saturation ABG 96.5 % (90-95); PCO2 ABG 48 mmHg (35-46); PO2 ABG 75 mmHg (80-95); pH ABG 7.29 (7.35-7.45)
[2022-05-09 14:47] LABS: Allen Test Pos (Pos)
[2022-05-09] MEDS: FLUCONAZOLE 200 MG/100 ML BAG IV SCH ×2 (15:19→16:38)
[2022-05-09] MEDS: fentaNYL citrate 2,500 MCG/250 ML BAG IV SCH (15:37)
[2022-05-09] MEDS ORDERED: GLUCAGON FOR INJ 1 MG VIAL SQ PRN (15:55)
[2022-05-09] MEDS ORDERED: DEXTROSE 50% 50 ML SYRINGE IV PRN (15:55)
[2022-05-09] MEDS: INSULIN ASPART PER UNIT SC SCH (16:39)
--- NOTE | 2022-05-09 18:57 | Billing Data ---
Date of Service May 09, 2022 Coding Level of Care Code 52876 Initial Inpt Care Lvl 3
[2022-05-10] MEDS: INSULIN ASPART PER UNIT SC SCH ×4 (00:16→15:47)
[2022-05-10] MEDS: VASOPRESSIN 20 UNITS in 0.9 % SODIUM CHLORIDE 100 ML IV SCH ×4 (00:29→17:36)
[2022-05-10 03:39] LABS: Hemoglobin 9.3 g/dl (14.0-18.0); Mean Corpuscular Hemoglobin 31.2 pg (25.0-34.0); Mean Corpuscular Hgb Conc 34.4 g/dL (32.0-36.0); Mean Corpuscular Volume 90.6 fL (80.0-100.0); Mean Platelet Volume 9.6 fL (9.4-12.4); Nucleated RBC # (auto) 0.04 K/uL (0-0); Nucleated RBC % (auto) 0.2 %; Platelet Count 325 K/uL (130-400); RDW Standard Deviation 46.4 fL (36.4-46.3); Red Blood Count 2.98 M/uL (4.63-6.08); White Blood Count 17.41 K/ul (4.8-10.8)
[2022-05-10 04:01] LABS: iSTAT Art Bld Gas pCO2 Correct 38 mmHg (35-46); iSTAT Art Bld Gas pH Corrected 7.392 (7.35-7.45); iSTAT Arterial Blood Gas HCO3 23 meg/L (19-24); iSTAT Arterial Blood Gas pCO2 37 mmHg (35-46); iSTAT Arterial Blood Gas pO2 60 mmHg (80-95); iSTAT Arterial Blood Gas pO2 C 62; iSTAT Carbon Dioxide 24 mmol/L (24-31); iSTAT FiO2 60 %; iSTAT Hematocrit 28 % (42-52); iSTAT Hemoglobin 9.5 g/dl (14.0-18.0); iSTAT Potassium 3.5 mmol/L (3.3-5.0); iSTAT Site Art Line; iSTAT Sodium 130 mmol/L (135-144)
[2022-05-10 04:05] LABS: Alanine Aminotransferase 11 U/L (7-52); Albumin Level 1.8 gm/dl (3.4-5.0); Alkaline Phosphatase 46 U/L (34-104); Anion Gap 6 (3-11); Aspartate Aminotransferase 13 U/L (13-39); BUN Creatinine Ratio 26.3 (10-20); Bilirubin,Total 0.9 mg/dl (0.2-1.0); Blood Urea Nitrogen 15 mg/dl (6-23); Calcium 6.1 mg/dl (8.5-10.1); Carbon Dioxide 21 mmol/L (21-32); Chloride 103 mmol/L (98-107); Creatinine Clr Calc Pharmacy 161.6 ml/min; Est GFR (African American) 126.7 ml/min; Est GFR (Non-African American) 109.3 ml/min; Glucose 142 mg/dl (70-99(Fasting)); Magnesium 2.1 mg/dl (1.7-2.4); Phosphorus 2.8 mg/dl (2.5-4.9); Potassium 3.6 mmol/L (3.5-5.1); Sodium 130 mmol/L (136-145); Total Protein 3.5 gm/dl (6.0-8.3)
[2022-05-10 04:06] LABS: Basophils # (auto) 0.09 K/uL (0-0.2); Basophils % (auto) 0.5 %; Echinocytes 2+; Eosinophils # (auto) 0.04 K/uL (0-0.50); Eosinophils % (auto) 0.2 %; Immature Granulocytes % (auto) 2.9 %; Lymphocytes # (auto) 0.44 K/uL (1.2-3.4); Lymphocytes % (auto) 2.5 %; Monocytes # (auto) 0.95 K/uL (0.24-0.82); Monocytes % (auto) 5.5 %; Neutrophils # (auto) 15.39 K/uL (1.4-6.5); Neutrophils % (auto) 88.4 %; Polychromasia 1+; Toxic Vacuolation 1+
[2022-05-10] MEDS: propofoL 1,000 MG/100 ML VIAL IV SCH ×5 (04:12→21:33)
[2022-05-10] MEDS: ICU ELECTROLYTE REPLACEMENT PROTOCOL SCH ×2 (05:05→15:47)
[2022-05-10] MEDS: Double Conc 32mcg/mL; 16mg in 500mL IV SCH ×5 (05:09→19:01)
[2022-05-10] MEDS: POTASSIUM CHLORIDE / WTR 20 MEQ/100 ML PLCT IV SCH ×2 (05:38→07:48)
[2022-05-10] MEDS: NORMOSOL-R 1,000 ML IV SCH (05:41)
[2022-05-10] MEDS ORDERED: STAT IV STA (06:07)
[2022-05-10] MEDS ORDERED: CALCIUM GLUCONATE 10% 2,000 MG in DEXTROSE 5% 50 ML IV ONE (06:15)
--- NOTE | 2022-05-10 06:53 | XRay Report ---
SINGLE VIEW CHEST CLINICAL HISTORY: Intubation. FINDINGS: An AP, portable, upright chest radiograph is compared to study dated 05/09/2022. Number degraded A left subclavian central venous catheter, endotracheal tube, and an enteric tube are unchanged in position. The heart is top normal for projection. There is mild pulmonary vascular mary estion. There are low lung volumes. There are layering pleural effusions, left larger than right with dependent consolidation there No pneumothorax is seen. The bony thorax is grossly intact. IMPRESSION: 1. Stable lines and tubes. 2. There is mild fluid overload/pulmonary vascular congestion. 3. Layering pleural effusions, left larger than right with dependent consolidation. ACT 112: Negative or not required by law. Electronically signed by: Sergio Petty M.D. 05/10/2022 6:51 AM
--- NOTE | 2022-05-10 07:04 | Hospitalist Progress Note ---
Date of Service May 10, 2022 Assessment & Plan (1) Severe sepsis with septic shock: Plan: Severe sepsis 2/2 bowel perforation - 05/[address] scan showed colonic obstruction concerning for obstructing lesion, nodular collections in sigmoid colon concerning for small abscess vs. metastatic nodules, large volume of intraperitoneal free air - 05/08 emergent exploratory laparotomy was performed which resulted in right hemicolectomy - 05/09 pt went for abdominal washout and ileostomy which went well - WBC increased to 17.41 today - continue zosyn (day 7) and fluconazole (day 3) - pt currently on norepinephrine and vasopressin for BP management, continue to wean as able - vent settings: management per ICU Diverticulitis w/ abscess - diagnosed via [facility] CTAP - labs upon admission significant for WBC 16.56 w/ neutrophilic predominance, Hgb 11, Na 132, K 3.2, and procal 0.59 - WBC increased to 17.41, still afebrile; most likely as a stress response - KUB showed severe constipation w/ distended colon (colonic ileus vs. LBO) - original blood cultures from 05/05 neg after 48 hr - current management as above Hyponatremia - mild, mostly mid 130s - today, 131 - continue to monitor Anemia - 09/2021 Hgb 15.0 - upon admission, 11.0 - today, 9.3 - continue to monitor Diarrhea - Acute on chronic problem - has dealt with daily diarrhea since onset of radiation therapy this summer, but reports worsening of symptoms over last 4 days; likely 2/2 to diverticulitis - c. diff neg and stool PCR pos for EPEC - plan as above Prostate cancer - Stage IIIA, s/p TURP in 09/2021 and Leuprolide/radiation therapy as of 02/2022 - Follows with cancer center (Dr. Le) HTN - d/t septic shock and current situation as described above, home lisinopril on hold (2) Bowel perforation: (3) Diverticulitis of intestine with abscess: (4) Diarrhea: (5) Prostate cancer: (6) Hypertension: (7) Large bowel obstruction: Plan FEN: NPO, intubated, normosol 75 mL/hr DVT ppx: lovenox 40 mg daily Code: full Dispo: ICU Admission and Anticipated Discharge Date Admission Date: May 05, 2022 Supervising Physician Co-Signing Physician Notes I personally examined the patient and verified all tsang points of history and exam, discussed case, and agree with decision making with Dr Lucas No meaningful HPI review of systems. Intubated on ventilator. Vitals noted, in general he is sedated on the ventilator. Appears to be resting comfortably with normal chest rise and fall. No rashes pallor or icterus. A/P-61 yo male here with acute diverticulitis, abscess vs sigmoid mass, and colon distension now with colon perforation s/p emergent colectomy. Now s/p repeat abdominal washout with colostomy formation and closure of abd wound With sepsis and septic shock post-op. -continue on broad spectrum abx with diflucan, Zosyn. On pressors, intubated -continue sedation , paralytics, vent management as per ICU -continue pressors and wean off as able to, continue IVFs -continue broad spectrum abx, follow cultures, surgery post-op management -Diarrhea ongoing with EPE. coli-on antibiotics -Otherwise as above, appreciate ICU management Rina Kilgore is a 61 y/o male who presents with PMH of prostate cancer (s/p TURP 09/2021 and leuprolide/radiation therapy 02/2022) and HTN presenting via transfer due to acute diverticulitis w/ LBO and 2.8 cm abscess. On repeat CT scan, pt found to have bowel perforation and is now s/p right hemicolectomy. Patient underwent abdominal washout and ileostomy placement on 05/09. Pt intubated and sedated in ICU. Pt on two vasopressors (vasopressin, norepinephrine). Today subclavian line was removed and a new right internal jugular line was placed. Review of Systems Review of Systems: Unobtainable due to endotracheal tube and Unobtainable due to reduced consciousness Physical Exam Constitutional: + mechanically ventilated sedated Respiratory: normal respiratory effort, lungs clear to auscultation Cardiovascular: RRR, no murmur, no edema Gastrointestinal (Abdomen): ileostomy in place Results & Data Results & Data ([facility]) Vital Signs (Past 12 Hours) Vital Signs Temp Pulse Resp BP Pulse Ox O2 Del Method FiO2 05/10/22 04:00 37.5 C 74 26 H 05/10/22 04:00 104/60 05/10/22 03:30 108/72 05/10/22 03:30 37.5 C 77 26 H 05/10/22 03:00 37.5 C 73 26 H 05/10/22 03:00 93/68 L 05/10/22 02:48 132/78 05/10/22 02:48 37.5 C 77 26 H 93 05/10/22 04:00 60 05/10/22 02:30 37.5 C 75 26 H 05/10/22 02:30 96/63 L 05/10/22 02:00 37.5 C 75 26 H 05/10/22 02:00 110/63 05/10/22 01:30 37.5 C 72 26 H 91 05/10/22 01:30 96/63 L 05/10/22 01:00 37.5 C 77 26 H 91 05/10/22 01:00 95/58 L 05/10/22 02:20 77 26 H 92 60 05/10/22 00:30 89/58 L 05/10/22 00:30 37.5 C 80 26 H 90 05/10/22 00:00 37.5 C 84 26 H 84 L 05/10/22 00:00 93/57 L 05/09/22 23:30 100/58 L 05/09/22 23:30 37.5 C 82 28 H 91 05/09/22 23:00 37.5 C 78 23 96 05/09/22 23:00 98/57 L 05/09/22 22:33 37.5 C 78 23 96 05/09/22 22:33 126/91 05/09/22 22:30 97/57 L 05/09/22 22:30 37.5 C 78 23 96 05/10/22 00:00 80 05/10/22 00:05 60 05/09/22 23:11 79 26 H 97 50 05/09/22 22:00 37.5 C 77 23 98 05/09/22 22:00 97/59 L 05/09/22 21:30 99/60 L 05/09/22 21:30 37.5 C 77 23 96 05/09/22 21:00 37.4 C 78 23 92 05/09/22 21:00 103/61 05/09/22 20:30 90/59 L 05/09/22 20:30 37.4 C 80 23 97 05/09/22 20:22 77 26 H 94 60 05/09/22 20:06 37.3 C 78 23 98 05/09/22 20:00 37.3 C 79 23 93 05/09/22 20:00 93/60 L 05/09/22 20:00 Mechanical Vent 05/09/22 20:00 60 Resident Activity Tracking Resident Involvement: Resident Care Provided Care Provided: Adult Hospital Medicine
[2022-05-10] MEDS: PIPERACILLIN/TAZOBACTAM 4.5 GM in DEXTROSE 5% 100 ML IV SCH ×3 (07:48→23:19)
[2022-05-10] MEDS: ENOXAPARIN INJ 40 MG/0.4 ML SYR SQ SCH (08:02)
[2022-05-10] MEDS ORDERED: CALCIUM CHLORIDE 10% 1,000 MG in DEXTROSE 5% 50 ML IV ONE (10:15)
[2022-05-10] MEDS: ALBUMIN 25% 100 mL 25 GM/100 ML VIAL IV SCH ×2 (10:22→11:20)
[2022-05-10] MEDS: fentaNYL citrate 2,500 MCG/250 ML BAG IV SCH ×3 (10:22→11:54)
--- NOTE | 2022-05-10 10:35 | Procedure Note ---
Procedure Note Date of Service May 10, 2022 Note CENTRAL LINE PROCEDURE NOTE: Procedure: Central Line Placement Provider: Jame Norris MD Indication: Central Drug Administration, Poor Venous Access, Multiple Lab Draws Necessary, etc. Anesthesia: 5 cc lidocaine 1% Site: Left internal jugular Procedure was emergent. No family immediately available. The patient was intubated sedated and on vasoactive medications with previous central line having infiltrated. Was urgently required A time-out was completed verifying correct patient, procedure, site, positioning, and implants(s) or special equipment if applicable. Patients left neck was cleansed and draped in the typical sterile fashion using Chloraprep. The Internal Jugular Vein and Carotid Artery were identified using ultrasound. The superficial tissue was anesthetized using 5 mL of 1% lidocaine without epinephrine under direct visualization with the ultrasound. After adequate anesthetization was achieved, the Internal Jugular vein was cannulated under direct ultrasound guidance using an introducer needle on a syringe. Good venous blood return was maintained prior to removal of syringe from introducer needle. Using Seldinger Technique, a guide wire was advanced through the introducer needle without resistance. The introducer needle was removed and ultrasound images were obtained of the guide wire within the Internal Jugular Vein and saved to the patients medical record. A small incision was made in penetrating fashion at the guide wire insertion site utilizing an 11 blade scalpel. The dilator was advanced to the vessel without resistance. The dilator was exchanged for the triple lumen catheter which was advanced into the vessel without resistance. The guide wire was removed intact from the catheter without issue. Claves were placed on each catheter tip with confirmation of good blood flow fro m each lumen. Each port was easily flushed with sterile saline. The catheter was placed at the hub and sutured in place. BioPatch was applied to the catheter and a sterile Tegaderm dressing was applied over the catheter with careful attention to sterility. Patient tolerated procedure well. No immediate complications were met. Post procedure x-ray pending Coding CPT Codes Tubes, Drains, and Vasc Access - Tubes, Drains, and Vasc Access: [id number] Place catheter in vein superior or inferior vena cava ([id number]) Tubes, Drains, and Vasc Access - Tubes, Drains, and Vasc Access: [id number] Ultrasound Guidance For Vascular ([id number]) [facility] [place] Procedure Codes (Charges) Tubes, Drains, and Vasc Access Procedure 1: Tubes, Drains, and Vasc Access: [id number] Place catheter in vein superior or inferior vena cava Procedure 2: Tubes, Drains, and Vasc Access: [id number] Ultrasound Guidance For Vascular
--- NOTE | 2022-05-10 10:44 | Critical Care Progress Note ---
Date of Service May 10, 2022 Assessment & Plan (1) Bowel perforation: (2) Obesity: (3) Severe sepsis with septic shock: (4) Anemia: (5) Hyponatremia: Plan Impression: 61-year-old male admitted from outside facility with diverticulitis now developing perforated viscus with benjamin stool in the peritoneal cavity requiring laparotomy washout and colon resection. He is in septic shock with need for pressors and an open abdomen. 24-hour events: Patient remains in severe septic shock on pressors. It appears that his subclavian central line may have migrated out and pressors may have extravasated. Recommendations: 1. Neurologic: Discontinue neuromuscular blockade. Continue sedation with propofol and as needed fentanyl. Patient is hemodynamically unstable so does not qualify for vent liberation as of yet. 2. Cardiovascular: Severe sepsis with septic shock: Continue norepinephrine and vasopressin. Wean as tolerated. Random cortisol was normal. Albumin support and replace calcium. The subclavian line appears to have migrated out with infiltration/extravasation of pressors. Initiate topical nitroglycerin per protocol. The subclavian line was removed and a new right internal jugular line was placed. There appears to be potentially a stenosis as the line was deflected out of the superior vena cava up into the brachiocephalic vein on the right. The line is acceptable to use. 3. Pulmonary: Continue mechanical ventilation. Current vent settings assist- control 26/400/10/0 0.6. P/F ratio 100. Plateau pressures acceptable at 20. Compliance remains poor. Chest x-ray demonstrated probable left-sided effusion. Hold on thoracentesis for now unless suspicion for infection or compromised respiratory status. Patient likely has sleep disordered breathing and when extubated, use of noninvasive positive pressure ventilation (CPAP or BiPAP) may be beneficial. Outpatient polysomnography may also be warranted. 4. Renal: Renal function normal. ICU electrolyte replacement protocol. Continue to follow urine output. Blood gases acceptable 5. GI: N.p.o. PPI in place. OG tube with low intermittent suction. Abdomen now closed. Follow drain output. No sign of abdominal compartment syndrome. No significant output from the ostomy. Given high-dose pressors and ileus, will hold on initiation of nutritional support. If bowel function fails to resume in the next 3 to 5 days, may consider parenteral nutrition 6. Endocrine: Glycemic control per protocol. Random cortisol was normal. 7. ID: Peritonitis secondary to perforated viscus. Day #12/26 Zosyn. Day #08/22 fluconazole White count up today. Remains afebrile. 8. Heme-onc: Mild anemia: Stable. Continue to follow for now. No indication for transfusion Patient is critically ill at this point time with significant possibility of clinical deterioration and or . A total of 50 minutes was spent in evaluation management stabilization of this patient exclusive of procedures. Discussed with bedside critical care nurse at bedside. Admission and Anticipated Discharge Date Admission Date: May 05, 2022 Subjective Intubated sedated Review of Systems Review of Systems: Unobtainable due to endotracheal tube Physical Exam Constitutional: + morbidly obese and + mechanically ventilated Neck: trachea midline, no thyromegaly There is an ecchymotic dusky region superior to the central venous catheter in the subclavian position likely secondary to extravasation. Does not massimo appropriately Respiratory: normal respiratory effort, lungs clear to auscultation Cardiovascular: RRR, no murmur, no edema Musculoskeletal: Extremities: extremities normal to inspection Skin: no rashes, warm and dry Lymphatic: no cervical lymphadenopathy Results & Data Results & Data ([facility]) Vital Signs (Past 12 Hours) Vital Signs Temp Pulse Resp BP Pulse Ox O2 Del Method FiO2 05/10/22 08:50 75 26 H 91 60 05/10/22 08:30 99/66 L 05/10/22 08:30 37.4 C 77 27 H 91 05/10/22 08:00 37.4 C 80 28 H 92 Mechanical Vent 60 05/10/22 08:00 60 05/10/22 08:00 Mechanical Vent 60 05/10/22 07:30 94/66 L 05/10/22 07:30 37.3 C 75 05/10/22 07:00 37.3 C 71 23 05/10/22 07:00 93/66 L 05/10/22 06:30 108/55 L 05/10/22 06:30 37.3 C 73 24 05/10/22 06:00 37.4 C 75 28 H 05/10/22 06:00 103/58 L 05/10/22 04:00 37.5 C 74 26 H 05/10/22 04:00 104/60 05/10/22 03:30 108/72 05/10/22 03:30 37.5 C 77 26 H 05/10/22 03:00 37.5 C 73 26 H 05/10/22 03:00 93/68 L 05/10/22 02:48 132/78 05/10/22 02:48 37.5 C 77 26 H 93 05/10/22 04:00 60 05/10/22 02:30 37.5 C 75 26 H 05/10/22 02:30 96/63 L 05/10/22 02:00 37.5 C 75 26 H 05/10/22 02:00 110/63 05/10/22 01:30 37.5 C 72 26 H 91 05/10/22 01:30 96/63 L 05/10/22 01:00 37.5 C 77 26 H 91 05/10/22 01:00 95/58 L 05/10/22 02:20 77 26 H 92 60 05/10/22 00:30 89/58 L 05/10/22 00:30 37.5 C 80 26 H 90 05/10/22 00:00 37.5 C 84 26 H 84 L 05/10/22 00:00 93/57 L 05/09/22 23:30 100/58 L 05/09/22 23:30 37.5 C 82 28 H 91 05/09/22 23:00 37.5 C 78 23 96 05/09/22 23:00 98/57 L 05/10/22 00:00 80 05/10/22 00:05 60 05/09/22 23:11 79 26 H 97 50 Critical Care Results & Data Vital Signs (Past 12 Hours) Vital Signs Temp Pulse Resp BP Pulse Ox O2 Del Method FiO2 05/10/22 08:50 75 26 H 91 60 05/10/22 08:30 99/66 L 05/10/22 08:30 37.4 C 77 27 H 91 05/10/22 08:00 37.4 C 80 28 H 92 Mechanical Vent 60 05/10/22 08:00 60 05/10/22 08:00 Mechanical Vent 60 05/10/22 07:30 94/66 L 05/10/22 07:30 37.3 C 75 05/10/22 07:00 37.3 C 71 23 05/10/22 07:00 93/66 L 05/10/22 06:30 108/55 L 05/10/22 06:30 37.3 C 73 24 05/10/22 06:00 37.4 C 75 28 H 05/10/22 06:00 103/58 L 05/10/22 04:00 37.5 C 74 26 H 05/10/22 04:00 104/60 05/10/22 03:30 108/72 05/10/22 03:30 37.5 C 77 26 H 05/10/22 03:00 37.5 C 73 26 H 05/10/22 03:00 93/68 L 05/10/22 02:48 132/78 05/10/22 02:48 37.5 C 77 26 H 93 05/10/22 04:00 60 05/10/22 02:30 37.5 C 75 26 H 05/10/22 02:30 96/63 L 05/10/22 02:00 37.5 C 75 26 H 05/10/22 02:00 110/63 05/10/22 01:30 37.5 C 72 26 H 91 05/10/22 01:30 96/63 L 05/10/22 01:00 37.5 C 77 26 H 91 05/10/22 01:00 95/58 L 05/10/22 02:20 77 26 H 92 60 05/10/22 00:30 89/58 L 05/10/22 00:30 37.5 C 80 26 H 90 05/10/22 00:00 37.5 C 84 26 H 84 L 05/10/22 00:00 93/57 L 05/09/22 23:30 100/58 L 05/09/22 23:30 37.5 C 82 28 H 91 05/09/22 23:00 37.5 C 78 23 96 05/09/22 23:00 98/57 L 05/10/22 00:00 80 05/10/22 00:05 60 05/09/22 23:11 79 26 H 97 50 Lab & Micro Results (Past 24 Hours) RBC 2.98 M/uL (4.63-6.08) L 05/10/22 WBC 17.41 K/ul (4.8-10.8) H 05/10/22 Hgb 9.3 g/dl (14.0-18.0) L 05/10/22 Hct 27.0 % (40.1-51.0) L 05/10/22 MCV 90.6 fL (80.0-100.0) 05/10/22 MCH 31.2 pg (25.0-34.0) 05/10/22 MCHC 34.4 g/dL (32.0-36.0) 05/10/22 RDW Standard Deviation 46.4 fL (36.4-46.3) H 05/10/22 RDW Coefficient of Variation 14.0 % (11.5-14.5) 05/10/22 Plt Count 325 K/uL (130-400) 05/10/22 MPV 9.6 fL (9.4-12.4) 05/10/22 Nucleated Red Blood Cells % (auto) 0.2 % 05/10 Nucleated RBC Absolute Count (auto) 0.04 K/uL (0-0) H 04/16 12/04 Neutrophils (%) (Auto) 88.4 % 05/10/22 Lymphocytes (%) (Auto) 2.5 % 05/10/22 Monocytes # (Auto) 0.95 K/uL (0.24-0.82) H 05/10/22 Eosinophils # (Auto) 0.04 K/uL (0-0.50) 05/10/22 Immature Granulocyte % (Auto) 2.9 % 05/10/22 Neutrophils # (Auto) 15.39 K/uL (1.4-6.5) H 05/10/22 Lymphocytes # (Auto) 0.44 K/uL (1.2-3.4) L 05/10/22 Monocytes # (Auto) 0.95 K/uL (0.24-0.82) H 05/10/22 Eosinophils # (Auto) 0.04 K/uL (0-0.50) 05/10/22 Basophils # (Auto) 0.09 K/uL (0-0.2) 05/10/22 Immature Granulocyte # (Auto) 0.50 K/uL (0.00-0.02) H 05/10 Polychromasia 1+ 05/10/22 Echinocytes 2+ 05/10/22 Toxic Vacuolation 1+ 05/10/22 Na 130 mmol/L (136-145) L 05/10/22 K 3.6 mmol/L (3.5-5.1) 05/10/22 Cl 103 mmol/L (98-107) 05/10/22 CO2 21 mmol/L (21-32) 05/10/22 Anion Gap 6 (3-11) 05/10/22 BUN 15 mg/dl (6-23) 05/10/22 Creatinine 0.57 mg/dl (0.6-1.4) L 05/10/22 Estimated GFR ( Amer) 126.7 ml/min 05/10/22 Estimated GFR (Non-Af Amer) 109.3 ml/min 05/10/22 BUN/Creatinine Ratio 26.3 (10-20) H 05/10/22 Glu 142 mg/dl (70-99(Fasting)) H 05/10/22 Ca 6.1 mg/dl (8.5-10.1) L 05/10/22 Phosphorus Level 2.8 mg/dl (2.5-4.9) 05/10/22 Total Bilirubin 0.9 mg/dl (0.2-1.0) 05/10/22 Direct Bilirubin TNP 05/10/22 AST 13 U/L (13-39) 05/10/22 ALT 11 U/L (7-52) 05/10/22 Alkaline Phosphatase 46 U/L (34-104) 05/10/22 TP 3.5 gm/dl (6.0-8.3) L 05/10/22 Albumin 1.8 gm/dl (3.4-5.0) L 05/10/22 Mg 2.1 mg/dl (1.7-2.4) 05/10/22 03:29 Calcium Level 6.1 mg/dl (8.5-10.1) L 05/10/22 03:29 Arterial Blood pH 7.29 (7.35-7.45) L 05/09/22 14:16 Arterial Blood Partial Pressure CO2 48 mmHg (35-46) H 05/09/22 14:16 Arterial Blood Partial Pressure O2 75 mmHg (80-95) L 05/09/22 1 4:16 Arterial Blood HCO3 23 mmol/L (19-24) 05/09/22 14:16 Arterial Blood Base Excess -3.8 mEq/L (-9-1.8) 05/09/22 14:16 Arterial Blood Oxygen Saturation 96.5 % (90-95) H 05/09/22 14:1 6 Blood Gas Oxygen Given 85% 05/09/22 14:16 Vidal Test NA 05/10/22 03:47 Microbiology 05/05/22 02:32 Aerobic Blood Culture - Final Blood No growth in Aerobic bottle after 5 days. Anaerobic Blood Culture - Final No growth in Anaerobic bottle after 5 days. 05/05/22 02:28 Aerobic Blood Culture - Final Blood No growth in Aerobic bottle after 5 days. Anaerobic Blood Culture - Final No growth in Anaerobic bottle after 5 days. Diagnostic Findings (Past 24 Hours) Chest X-Ray 05/10/22 05:00 SINGLE VIEW CHEST CLINICAL HISTORY: Intubation. FINDINGS: An AP, portable, upright chest radiograph is compared to study dated 05/09/2022. Number degraded A left subclavian central venous catheter, endotracheal tube, and an enteric tube are unchanged in position. The heart is top normal for projection. There is mild pulmonary vascular congestion. There are low lung volumes. There are layering pleural effusions, left larger than right with dependent consolidation there No pneumothorax is seen. The bony thorax is grossly intact. IMPRESSION: 1. Stable lines and tubes. 2. There is mild fluid overload/pulmonary vascular congestion. 3. Layering pleural effusions, left larger than right with dependent consolidation. ACT 112: Negative or not required by law. Electronically signed by: Sergio Petty M.D. 05/10/2022 6:51 AM I & O Totals 24 Hours 05/09/22 05/10/22 05/11/22 06:59 06:59 06:59 Intake Total 8678.818 / 8678.818 5771.047 / 5771.047 651.200 / 651.200 Output Total 2195 / 2195 1655 / 1655 100 / 100 Balance 6483.818 / 6483.818 4116.047 / 4116.047 551.200 / 551.200 Cumulative 05/04/22 23:20 thru 05/10/22 09:23 Intake Total 55045.899 Output Total 3961 Balance 29146.899 RT Ventilator Mngmt (Last Documented) Ventilator Ordered Settings Ventilator Support Mode Assist Control 05/10/22 08:50 Respiratory Rate 26 05/10/22 08:50 Ventilator Tidal Volume 400 05/10/22 08:50 Setting Minute Ventilation 10.4 05/10/22 08:50 Positive End Expiratory 10 05/10/22 08:50 Pressure Fraction of Inspired Oxygen 60 05/10/22 08:50 Peak Inspiratory Flow 36 05/08/22 14:45 Machine Comment increased by nursing due to low 05/10/22 02:20 SpO2 into the mid eighties Ventilator - PT Measurements Respiratory Rate 26 Exhaled Tidal Volume 401 Minute Ventilation 10.4 Peak Inspiratory Airway 21 Pressure Plateau Pressure 20 Respiratory Cycle Inspiratory: 1:1.3 Expiratory Ratio Inspiratory Phase Time 1.0 End-Tidal CO2 29 Static Lung Compliance 40.10 Dynamic Lung Compliance 36.45 Normal Static Lung Compliance 48.00 Patient Measurements Comment Changes made post-ABG by [employer] Net Coding Level of Care Code Critical Care 1st 30-74 mins Diagnoses Bowel perforation K63.1 Obesity E66.9 Severe sepsis with septic shock A41.9; R65.21 Anemia D64.9 Hyponatremia E87.1
--- NOTE | 2022-05-10 10:45 | XRay Report ---
SINGLE VIEW CHEST CLINICAL HISTORY: Respiratory failure. FINDINGS: 2 AP, portable, supine chest radiographs are compared to study performed earlier the same d ay 05/10/2022. The examination is degraded by portable technique and patient rotation. A left subclav naheed central venous catheter has been removed. A left internal jugular central venous catheter has bee n placed. The tip crosses midline and projects over the right subclavian vein. The endotracheal and e nteric tubes are unchanged in position. The heart is top normal for projection. There is mild pulmona ry vascular congestion. There are low lung volumes. There are layering pleural effusions, left larger than right with dependent consolidation there No pneumothorax is seen. The bony thorax is grossly in tact. IMPRESSION: 1. A left internal jugular central venous catheter has been placed. The tip of the catheter crosses m idline and projects over the right subclavian vein. Repositioning is indicated. 2. The left subclavian central venous catheter has been removed. 3. There is mild fluid overload/pulmonary vascular congestion. 4. Layering pleural effusions, left larger than right with dependent consolidation. ACT 112: Negative or not required by law. Electronically signed by: Sergio Petty M.D. 05/10/2022 10:43 AM
[2022-05-10] MEDS: NITROGLYCERIN 2% OINTMENT 30GM TUBE EXT SCH ×2 (10:55→15:53)
--- NOTE | 2022-05-10 12:56 | Surgery Progress Note ---
Date of Service May 10, 2022 Assessment & Plan (1) Bowel perforation: Plan: POD#1 exlap with ileostomy and MF -on pressors -intubated -stable -making urine -labs OK Admission and Anticipated Discharge Date Admission Date: May 05, 2022 Subjective intubated and sedated Review of Systems Constitutional: no fever Physical Exam Constitutional: WD/WN, vitals as above Neck: trachea midline Respiratory: Auscultation: + diminished lung sounds Cardiovascular: Rate/Rhythm: + tachycardic Gastrointestinal (Abdomen): Inspection/Auscultation: abdomen normal to inspection, + abdomen distended and normal bowel sounds Percussion/Palpation: abdomen soft ileostomy beginning to work mucous fistula OK Musculoskeletal: Head/Neck/Chest: normocephalic and head atraumatic Results & Data ([facility]) Vital Signs (Past 12 Hours) Vital Signs Temp Pulse Resp BP Pulse Ox O2 Del Method FiO2 05/10/22 11:31 60 05/10/22 11:00 37.4 C 77 26 H 91 05/10/22 10:00 37.5 C 73 26 H 91 05/10/22 10:00 99/70 L 05/10/22 09:30 37.4 C 74 26 H 91 05/10/22 09:30 94/61 L 05/10/22 09:00 37.4 C 74 26 H 92 05/10/22 09:00 90/69 L 05/10/22 08:50 75 26 H 91 60 05/10/22 08:30 99/66 L 05/10/22 08:30 37.4 C 77 27 H 91 05/10/22 08:00 37.4 C 80 28 H 92 Mechanical Vent 60 05/10/22 08:00 60 05/10/22 08:00 Mechanical Vent 60 05/10/22 07:30 94/66 L 05/10/22 07:30 37.3 C 75 05/10/22 07:00 37.3 C 71 23 05/10/22 07:00 93/66 L 05/10/22 06:30 108/55 L 05/10/22 06:30 37.3 C 73 24 05/10/22 06:00 37.4 C 75 28 H 05/10/22 06:00 103/58 L 05/10/22 04:00 37.5 C 74 26 H 05/10/22 04:00 104/60 05/10/22 03:30 108/72 05/10/22 03:30 37.5 C 77 26 H 05/10/22 03:00 37.5 C 73 26 H 05/10/22 03:00 93/68 L 05/10/22 02:48 132/78 05/10/22 02:48 37.5 C 77 26 H 93 05/10/22 04:00 60 05/10/22 02:30 37.5 C 75 26 H 05/10/22 02:30 96/63 L 05/10/22 02:00 37.5 C 75 26 H 05/10/22 02:00 110/63 05/10/22 01:30 37.5 C 72 26 H 91 05/10/22 01:30 96/63 L 05/10/22 01:00 37.5 C 77 26 H 91 05/10/22 01:00 95/58 L 05/10/22 02:20 77 26 H 92 60
[2022-05-10] MEDS: FLUCONAZOLE 200 MG/100 ML BAG IV SCH ×2 (15:47→17:35)
--- NOTE | 2022-05-10 18:12 | Billing Data ---
Date of Service May 10, 2022 Coding Level of Care Code 59916 Subseq Hosp Care Lvl 1
[2022-05-11] MEDS: INSULIN ASPART PER UNIT SC SCH ×4 (00:04→15:59)
[2022-05-11] MEDS: fentaNYL citrate 2,500 MCG/250 ML BAG IV SCH ×2 (01:31→15:59)
[2022-05-11] MEDS: VASOPRESSIN 20 UNITS in 0.9 % SODIUM CHLORIDE 100 ML IV SCH ×3 (01:34→15:42)
[2022-05-11] MEDS: propofoL 1,000 MG/100 ML VIAL IV SCH ×4 (03:00→20:13)
[2022-05-11 04:57] LABS: Hematocrit (blood only) 21.9 % (40.1-51.0); Hemoglobin 7.5 g/dl (14.0-18.0); Mean Corpuscular Hemoglobin 30.7 pg (25.0-34.0); Mean Corpuscular Hgb Conc 34.2 g/dL (32.0-36.0); Mean Corpuscular Volume 89.8 fL (80.0-100.0); Mean Platelet Volume 9.3 fL (9.4-12.4); Nucleated RBC # (auto) 0.03 K/uL (0-0); Nucleated RBC % (auto) 0.3 %; Platelet Count 229 K/uL (130-400); RDW Coefficient of Variation 14.1 % (11.5-14.5); RDW Standard Deviation 46.1 fL (36.4-46.3); Red Blood Count 2.44 M/uL (4.63-6.08); White Blood Count 11.61 K/ul (4.8-10.8)
[2022-05-11 04:58] LABS: Basophils # (auto) 0.03 K/uL (0-0.2); Basophils % (auto) 0.3 %; Eosinophils # (auto) 0.04 K/uL (0-0.50); Eosinophils % (auto) 0.3 %; Immature Granulocytes # (auto) 0.56 K/uL (0.00-0.02); Immature Granulocytes % (auto) 4.8 %; Lymphocytes # (auto) 0.33 K/uL (1.2-3.4); Lymphocytes % (auto) 2.8 %; Monocytes # (auto) 0.53 K/uL (0.24-0.82); Monocytes % (auto) 4.6 %; Neutrophils # (auto) 10.12 K/uL (1.4-6.5); Neutrophils % (auto) 87.2 %; Toxic Granulation 1+
[2022-05-11 05:00] LABS: Albumin Level 2.4 gm/dl (3.4-5.0); BUN Creatinine Ratio 30.9 (10-20); Bilirubin,Total 1.4 mg/dl (0.2-1.0); Calcium 7.7 mg/dl (8.5-10.1); Creatinine Clr Calc Pharmacy 167.5 ml/min; Est GFR (African American) 128.5 ml/min; Est GFR (Non-African American) 110.9 ml/min; Magnesium 2.1 mg/dl (1.7-2.4); Potassium 3.6 mmol/L (3.5-5.1); Total Protein 4.5 gm/dl (6.0-8.3)
[2022-05-11] MEDS ORDERED: SODIUM PHOSPHATE 3 MMOL/1 ML INFUSION IV STA (05:35)
[2022-05-11] MEDS ORDERED: SODIUM PHOSPHATE 15 MMOL in SODIUM CHLORIDE 0.9% 250 ML IV ONE (06:00)
[2022-05-11] MEDS: POTASSIUM CHLORIDE / WTR 20 MEQ/100 ML PLCT IV SCH ×2 (06:00→07:47)
[2022-05-11 06:31] LABS: iSTAT Arterial Blood Gas HCO3 27 meg/L (19-24); iSTAT Arterial Blood Gas pCO2 41 mmHg (35-46); iSTAT Arterial Blood Gas pH 7.43 (7.35-7.45); iSTAT Arterial Blood Gas pO2 63 mmHg (80-95); iSTAT Carbon Dioxide 28 mmol/L (24-31); iSTAT FiO2 60 %; iSTAT Site Art Line
--- NOTE | 2022-05-11 06:52 | Hospitalist Progress Note ---
Date of Service May 11, 2022 Assessment & Plan (1) Severe sepsis with septic shock: Plan: Severe sepsis 2/2 bowel perforation - 05/[address] scan showed colonic obstruction concerning for obstructing lesion, nodular collections in sigmoid colon concerning for small abscess vs. metastatic nodules, large volume of intraperitoneal free air - 05/08 emergent exploratory laparotomy was performed which resulted in right hemicolectomy - 05/09 pt went for abdominal washout and ileostomy which went well - WBC 11.61 today - continue zosyn (day 8) and fluconazole (day 4) - pt currently on norepinephrine for BP management, continue to wean as able - vent settings: management per ICU Diverticulitis w/ abscess - diagnosed via [facility] CTAP - labs upon admission significant for WBC 16.56 w/ neutrophilic predominance, Hgb 11, Na 132, K 3.2, and procal 0.59 - WBC increased to 17.41, still afebrile; most likely as a stress response - KUB showed severe constipation w/ distended colon (colonic ileus vs. LBO) - original blood cultures from 05/05 neg after 48 hr - current management as above Hyponatremia - mild, mostly mid 130s - today, 127 - continue to monitor Anemia - 09/2021 Hgb 15.0 - upon admission, 11.0 - today, 7.5 - continue to monitor Diarrhea - Acute on chronic problem - has dealt with daily diarrhea since onset of radiation therapy this summer, but reports worsening of symptoms over last 4 days; likely 2/2 to diverticulitis - c. diff neg and stool PCR pos for EPEC - plan as above Prostate cancer - Stage IIIA, s/p TURP in 09/2021 and Leuprolide/radiation therapy as of 02/2022 - Follows with cancer center (Dr. Le) HTN - d/t septic shock and current situation as described above, home lisinopril on hold (2) Bowel perforation: (3) Diverticulitis of intestine with abscess: (4) Diarrhea: (5) Prostate cancer: (6) Hypertension: (7) Large bowel obstruction: Plan FEN: NPO, intubated, normosol 75 mL/hr DVT ppx: lovenox 40 mg daily Code: full Dispo: ICU Admission and Anticipated Discharge Date Admission Date: May 05, 2022 Supervising Physician Co-Signing Physician Notes I personally examined the patient and verified all tsang points of history and exam, discussed case, and agree with decision making with Dr Lucas No meaningful HPI review of systems. Still intubated on ventilator. Vitals noted, in general he is sedated on the ventilator. Appears to be resting comfortably with normal chest rise and fall. No rashes pallor or icterus. A/P-61 yo male here with acute diverticulitis, abscess vs sigmoid mass, and colon distension now with colon perforation s/p emergent colectomy. Now s/p repeat abdominal washout with colostomy formation and closure of abd wound With sepsis and septic shock post-op. -continue on broad spectrum abx with diflucan, Zosyn. On pressors, intubated -continue sedation , paralytics, vent management as per ICU -continue critical care management -continue broad spectrum abx, follow cultures, surgery post-op management -Diarrhea ongoing with EPE. coli-on antibiotics -Otherwise as above, appreciate ICU management Subjective Jame is a 61 y/o male who presents with PMH of prostate cancer (s/p TURP 09/2021 and leuprolide/radiation therapy 02/2022) and HTN presenting via transfer due to acute diverticulitis w/ LBO and 2.8 cm abscess. On repeat CT scan, pt found to have bowel perforation and is now s/p right hemicolectomy. Patient underwent abdominal washout and ileostomy placement on 05/09. Pt seen and examined at bedside, is intubated and sedated in ICU. Per ICU, patient currently decreasing norepinephrine and off vasopressin now. Review of Systems Review of Systems: Unobtainable due to endotracheal tube and Unobtainable due to reduced consciousness Physical Exam Constitutional: + mechanically ventilated Respiratory: normal respiratory effort, lungs clear to auscultation Cardiovascular: RRR, no murmur, no edema Gastrointestinal (Abdomen): bandages covering surgical incision site, ostomy in place Skin: no rashes, warm and dry Results & Data Results & Data ([facility]) Vital Signs (Past 12 Hours) Vital Signs Temp Pulse Resp BP Pulse Ox O2 Del Method FiO2 05/11/22 04:00 36.2 C L 86 26 H 91 05/11/22 04:00 93/62 L 05/11/22 03:30 36.3 C L 86 26 H 91 05/11/22 03:30 89/60 L 05/11/22 03:00 36.4 C L 86 26 H 91 05/11/22 03:00 88/55 L 05/11/22 02:30 36.5 C 85 26 H 92 05/11/22 02:30 83/54 L 05/11/22 04:03 36.9 C 05/11/22 03:05 85 26 H 91 70 05/11/22 02:00 85 28 H 89 L 05/11/22 02:00 84/54 L 05/11/22 01:32 93 H 26 H 81 L 05/11/22 01:32 104/58 L 05/11/22 01:00 81 26 H 91 05/11/22 01:00 91/55 L 05/11/22 00:00 80 26 H 90 05/11/22 00:00 104/65 05/10/22 23:30 84 26 H 90 05/10/22 23:30 106/65 05/10/22 23:10 84 26 H 91 55 05/10/22 23:33 88 05/10/22 23:00 85 26 H 91 05/10/22 22:00 77 26 H 91 05/10/22 21:33 122/68 05/10/22 21:33 85 26 H 91 05/10/22 22:55 37.4 C 05/10/22 21:00 69 26 H 91 05/10/22 20:00 75 26 H 92 05/10/22 20:00 118/72 05/10/22 19:00 71 26 H 89 L 05/10/22 20:00 60 05/10/22 19:52 67 27 H 92 60 05/10/22 19:37 36.9 C 05/10/22 19:13 Mechanical Vent 60 Resident Activity Tracking Resident Involvement: Resident Care Provided Care Provided: Adult [facility]
[2022-05-11] MEDS: ICU ELECTROLYTE REPLACEMENT PROTOCOL SCH ×2 (06:55→15:45)
[2022-05-11] MEDS ORDERED: POTASSIUM CHLORIDE / WTR 20 MEQ/100 ML PLCT IV ONE (07:30)
[2022-05-11] MEDS: PIPERACILLIN/TAZOBACTAM 4.5 GM in DEXTROSE 5% 100 ML IV SCH ×2 (08:53→15:41)
[2022-05-11] MEDS: Double Conc 32mcg/mL; 16mg in 500mL IV SCH ×2 (08:53→20:36)
[2022-05-11] MEDS: PANTOprazole 40 MG in SYRINGE 0 ML IV SCH ×2 (08:55→20:14)
[2022-05-11] MEDS: ENOXAPARIN INJ 40 MG/0.4 ML SYR SQ SCH (09:12)
--- NOTE | 2022-05-11 09:19 | XRay Report ---
XR chest 1V portable HISTORY: 61 years-old Male while intubated eval line and tube/pulm stauts acute respiratory failure COMPARISON: Chest radiograph 05/10/2022 TECHNIQUE: AP view of the chest FINDINGS: Cardiac silhouette is enlarged. Endotracheal tube overlies the midline, 3.5 cm superior to the flynn . Enteric tube courses into the stomach. Left IJ central venous catheter is noted with distal tip crop specialist ssing the midline projected superiorly over the region of the right subclavian vein. Mild right hemid iaphragmatic elevation with right basilar opacities and small layering pleural effusions. Pulmonary v ascular congestion. IMPRESSION: 1. Lines and tubes as above with unchanged positioning of the left IJ central venous catheter with th e distal tip in the expected location of the right subclavian vein. 2. Cardiomegaly with pulmonary vascular congestion. 3. Small pleural effusions with bibasilar opacities. ACT 112: Negative or not required by law. The above report was generated using voice recognition software. It may contain grammatical, syntax o r spelling errors. Electronically signed by: Olaf Koo M.D. 05/11/2022 9:17 AM
--- NOTE | 2022-05-11 10:00 | Critical Care Progress Note ---
Date of Service May 11, 2022 Assessment & Plan (1) Bowel perforation: (2) Obesity: (3) Severe sepsis with septic shock: (4) Anemia: (5) Hyponatremia: Plan Impression: 61-year-old male admitted from outside facility with diverticulitis now developing perforated viscus with benjamin stool in the peritoneal cavity requiring laparotomy washout and colon resection. He is in septic shock with need for pressors and an open abdomen. 24-hour events: Central line replaced. Received topical nitro for possible pressor extravasation. Able to wean pressors significantly. Oxygenation improved. Recommendations: 1. Neurologic: Currently sedated with propofol and as needed fentanyl. Sedation break to assess neurologically but not ready for ventilator liberation as of yet. Check triglycerides 2. Cardiovascular: Severe sepsis with septic shock: Coming down on norepinephrine and vasopressin now off. Random cortisol was normal. 3. Pulmonary: Continue mechanical ventilation. Current vent settings assist-co ntrol 26/400/10/0.5. P/F ratio 126, improved from yesterday. Plateau pressures acceptable at 20. Compliance remains poor. Chest x-ray demonstrated probable left-sided effusion. Attempt diuresis. May consider thoracentesis in the future if effusion increases in size. Try and get I's and O's on the negative side. Patient likely has sleep disordered breathing and when extubated, use of noninvasive positive pressure ventilation (CPAP or BiPAP) may be beneficial. Outpatient polysomnography may also be warranted. 4. Renal: Renal function normal. ICU electrolyte replacement protocol. Con tinue to follow urine output. Blood gases acceptable. Hyponatremic this morning. Continue to follow. Continue replace calcium. 5. GI: Is having ostomy input at this point time. We will consult nutrition for initiation of trophic tube feeds. 6. Endocrine: Glycemic control per protocol. Random cortisol was normal. 7. ID: Peritonitis secondary to perforated viscus. Day #01/26 Zosyn. Day #09/22 fluconazole White count up today. Remains afebrile. 8. Heme-onc: Slight decrease in hemoglobin hematocrit this morning. No signs of bleeding. Continue to follow. Okay to continue DVT prophylaxis at this point time. Patient is critically ill at this point time with significant possibility of clinical deterioration and or . A total of 45 minutes was spent in evaluation management stabilization of this patient exclusive of procedures. Discussed with bedside critical care nurse at bedside.. Family not yet available Admission and Anticipated Discharge Date Admission Date: May 05, 2022 Subjective Intubated and sedated Review of Systems Review of Systems: Unobtainable due to endotracheal tube Physical Exam Constitutional: + morbidly obese and + mechanically ventilated Neck: trachea midline, no thyromegaly Respiratory: normal respiratory effort, lungs clear to auscultation Cardiovascular: RRR, no murmur, no edema Musculoskeletal: Extremities: extremities normal to inspection Skin: no rashes, warm and dry Lymphatic: no cervical lymphadenopathy Results & Data Results & Data ([place]) Vital Signs (Past 12 Hours) Vital Signs Temp Pulse Resp BP Pulse Ox FiO2 05/11/22 07:55 82 26 H 91 60 05/11/22 04:00 36.2 C L 86 26 H 91 05/11/22 04:00 93/62 L 05/11/22 03:30 36.3 C L 86 26 H 91 05/11/22 03:30 89/60 L 05/11/22 03:00 36.4 C L 86 26 H 91 05/11/22 03:00 88/55 L 05/11/22 02:30 36.5 C 85 26 H 92 05/11/22 02:30 83/54 L 05/11/22 04:03 36.9 C 05/11/22 03:05 85 26 H 91 70 05/11/22 02:00 85 28 H 89 L 05/11/22 02:00 84/54 L 05/11/22 01:32 93 H 26 H 81 L 05/11/22 01:32 104/58 L 05/11/22 01:00 81 26 H 91 05/11/22 01:00 91/55 L 05/11/22 00:00 80 26 H 90 05/11/22 00:00 104/65 05/10/22 23:30 84 26 H 90 05/10/22 23:30 106/65 05/10/22 23:10 84 26 H 91 55 05/10/22 23:33 88 05/10/22 23:00 85 26 H 91 05/10/22 22:00 77 26 H 91 05/10/22 22:55 37.4 C Critical Care Results & Data Vital Signs (Past 12 Hours) Vital Signs Temp Pulse Resp BP Pulse Ox FiO2 05/11/22 07:55 82 26 H 91 60 05/11/22 04:00 36.2 C L 86 26 H 91 05/11/22 04:00 93/62 L 05/11/22 03:30 36.3 C L 86 26 H 91 05/11/22 03:30 89/60 L 05/11/22 03:00 36.4 C L 86 26 H 91 05/11/22 03:00 88/55 L 05/11/22 02:30 36.5 C 85 26 H 92 05/11/22 02:30 83/54 L 05/11/22 04:03 36.9 C 05/11/22 03:05 85 26 H 91 70 05/11/22 02:00 85 28 H 89 L 05/11/22 02:00 84/54 L 05/11/22 01:32 93 H 26 H 81 L 05/11/22 01:32 104/58 L 05/11/22 01:00 81 26 H 91 05/11/22 01:00 91/55 L 05/11/22 00:00 80 26 H 90 05/11/22 00:00 104/65 05/10/22 23:30 84 26 H 90 05/10/22 23:30 106/65 05/10/22 23:10 84 26 H 91 55 05/10/22 23:33 88 05/10/22 23:00 85 26 H 91 05/10/22 22:00 77 26 H 91 05/10/22 22:55 37.4 C Lab & Micro Results (Past 24 Hours) RBC 2.44 M/uL (4.63-6.08) L 05/11/22 WBC 11.61 K/ul (4.8-10.8) H 05/11/22 Hgb 7.5 g/dl (14.0-18.0) L 05/11/22 Hct 21.9 % (40.1-51.0) L 05/11/22 MCV 89.8 fL (80.0-100.0) 05/11/22 MCH 30.7 pg (25.0-34.0) 05/11/22 MCHC 34.2 g/dL (32.0-36.0) 05/11/22 RDW Standard Deviation 46.1 fL (36.4-46.3) 05/11/22 RDW Coefficient of Variation 14.1 % (11.5-14.5) 05/11/22 Plt Count 229 K/uL (130-400) 05/11/22 MPV 9.3 fL (9.4-12.4) L 05/11/22 Nucleated Red Blood Cells % (auto) 0.3 % 05/11 Nucleated RBC Absolute Count (auto) 0.03 K/uL (0-0) H 04/16 01/03 Neutrophils (%) (Auto) 87.2 % 05/11/22 Lymphocytes (%) (Auto) 2.8 % 05/11/22 Monocytes # (Auto) 0.53 K/uL (0.24-0.82) 05/11/22 Eosinophils # (Auto) 0.04 K/uL (0-0.50) 05/11/22 Immature Granulocyte % (Auto) 4.8 % 05/11/22 Neutrophils # (Auto) 10.12 K/uL (1.4-6.5) H 05/11/22 Lymphocytes # (Auto) 0.33 K/uL (1.2-3.4) L 05/11/22 Monocytes # (Auto) 0.53 K/uL (0.24-0.82) 05/11/22 Eosinophils # (Auto) 0.04 K/uL (0-0.50) 05/11/22 Basophils # (Auto) 0.03 K/uL (0-0.2) 05/11/22 Immature Granulocyte # (Auto) 0.56 K/uL (0.00-0.02) H 05/11 Toxic Granulation 1+ 05/11/22 Na 127 mmol/L (136-145) L 05/11/22 K 3.6 mmol/L (3.5-5.1) 05/11/22 Cl 95 mmol/L (98-107) L 05/11/22 CO2 27 mmol/L (21-32) 05/11/22 Anion Gap 5 (3-11) 05/11/22 BUN 17 mg/dl (6-23) 05/11/22 Creatinine 0.55 mg/dl (0.6-1.4) L 05/11/22 Estimated GFR ( Amer) 128.5 ml/min 05/11/22 Estimated GFR (Non-Af Amer) 110.9 ml/min 05/11/22 BUN/Creatinine Ratio 30.9 (10-20) H 05/11/22 Glu 108 mg/dl (70-99(Fasting)) H 05/11/22 Ca 7.7 mg/dl (8.5-10.1) L 05/11/22 Phosphorus Level 2.0 mg/dl (2.5-4.9) L 05/11/22 Total Bilirubin 1.4 mg/dl (0.2-1.0) H 05/11/22 Direct Bilirubin 1.0 mg/dl (0-0.2) H 05/11/22 AST 12 U/L (13-39) L 05/11/22 ALT 9 U/L (7-52) 05/11/22 Alkaline Phosphatase 56 U/L (34-104) 05/11/22 TP 4.5 gm/dl (6.0-8.3) L 05/11/22 Albumin 2.4 gm/dl (3.4-5.0) L 05/11/22 Mg 2.1 mg/dl (1.7-2.4) 05/11/22 04:21 Calcium Level 7.7 mg/dl (8.5-10.1) L 05/11/22 04:21 Vidal Test NA 05/11/22 06:15 Microbiology 05/05/22 02:32 Aerobic Blood Culture - Final Blood No growth in Aerobic bottle after 5 days. Anaerobic Blood Culture - Final No growth in Anaerobic bottle after 5 days. 05/05/22 02:28 Aerobic Blood Culture - Final Blood No growth in Aerobic bottle after 5 days. Anaerobic Blood Culture - Final No growth in Anaerobic bottle after 5 days. Diagnostic Findings (Past 24 Hours) Chest X-Ray 05/10/22 10:19 SINGLE VIEW CHEST CLINICAL HISTORY: Respiratory failure. FINDINGS: 2 AP, portable, supine chest radiographs are compared to study performed earlier the same day 05/10/2022. The examination is degraded by portable technique and patient rotation. A left subclavian central venous catheter has been removed. A left internal jugular central venous catheter has been placed. The tip crosses midline and projects over the right subclavian vein. The endotracheal and enteric tubes are unchanged in position. The heart is top normal for projection. There is mild pulmonary vascular congestion. There are low lung volumes. There are layering pleural effusions, left larger than right with dependent consolidation there No pneumothorax is seen. The bony thorax is grossly intact. IMPRESSION: 1. A left internal jugular central venous catheter has been placed. The tip of the catheter crosses midline and projects over the right subclavian vein. Repositioning is indicated. 2. The left subclavian central venous catheter has been removed. 3. There is mild fluid overload/pulmonary vascular congestion. 4. Layering pleural effusions, left larger than right with dependent c onsolidation. ACT 112: Negative or not required by law. Electronically signed by: Sergio Petty M.D. 05/10/2022 10:43 AM Chest X-Ray 05/11/22 07:15 XR chest 1V portable HISTORY: 61 years-old Male while intubated eval line and tube/pulm stauts acute respiratory failure COMPARISON: Chest radiograph 05/10/2022 TECHNIQUE: AP view of the chest FINDINGS: Cardiac silhouette is enlarged. Endotracheal tube overlies the midline, 3.5 cm superior to the flynn. Enteric tube courses into the stomach. Left IJ central venous catheter is noted with distal tip crossing the midline projected superiorly over the region of the right subclavian vein. Mild right hemidiaphragmatic elevation with right basilar opacities and small layering pleural effusions. Pulmonary vascular congestion. IMPRESSION: 1. Lines and tubes as above with unchanged positioning of the left IJ central venous catheter with the distal tip in the expected location of the right subclavian vein. 2. Cardiomegaly with pulmonary vascular congestion. 3. Small pleural effusions with bibasilar opacities. ACT 112: Negative or not required by law. The above report was generated using voice recognition software. It may contain grammatical, syntax or spelling errors. Electronically signed by: Olaf Koo M.D. 05/11/2022 9:17 AM I & O Totals 24 Hours 05/10/22 05/11/22 05/12/22 06:59 06:59 06:59 Intake Total 5771.047 / 5771.047 3649.388 / 3649.388 199.733 / 199.733 Output Total 1655 / 1655 2322 / 2322 Balance 4116.047 / 4116.047 1327.388 / 1327.388 199.733 / 199.733 Cumulative 05/04/22 23:20 thru 05/11/22 08:52 Intake Total 17434.820 Output Total 6183 Balance 57277.820 RT Ventilator Mngmt (Last Documented) Ventilator Ordered Settings Ventilator Support Mode Assist Control 05/11/22 07 :55 Respiratory Rate 26 05/11/22 07:55 Ventilator Tidal Volume 40 05/11/22 07:55 Setting Minute Ventilation 10.4 05/11/22 07:55 Positive End Expiratory 1 05/11/22 07:55 Pressure Fraction of Inspired Oxygen 60 05/11/22 07:55 Peak Inspiratory Flow 36 05/08/22 14:45 Machine Comment found on above settings by RN for 05/11/22 03:05 desat Ventilator - PT Measurements Respiratory Rate 26 Exhaled Tidal Volume 400 Minute Ventilation 10.4 Peak Inspiratory Airway 25 Pressure Plateau Pressure 22 Respiratory Cycle Inspiratory: 1:1.3 Expiratory Ratio Inspiratory Phase Time 1 End-Tidal CO2 30 Static Lung Compliance 19.05 Dynamic Lung Compliance 16.67 Normal Static Lung Compliance 45.00 Patient Measurements Comment Changes made post-ABG by [employer] Net Coding Level of Care Code Critical Care 1st 30-74 mins Diagnoses Bowel perforation K63.1 Obesity E66.9 Severe sepsis with septic shock A41.9; R65.21 Anemia D64.9 Hyponatremia E87.1
[2022-05-11] MEDS ORDERED: CALCIUM CHLORIDE 10% 1,000 MG in DEXTROSE 5% 50 ML IV ONE (10:15)
[2022-05-11] MEDS: FUROSEMIDE INJ 20 MG/2 ML VIAL IV SCH (10:40)
[2022-05-11] MEDS ORDERED: TUBE FEEDING WATER FLUSH GT SCH (12:00)
--- NOTE | 2022-05-11 13:14 | Surgery Progress Note ---
Date of Service May 11, 2022 Assessment & Plan (1) Bowel perforation: Plan: management per ICU team agree with nutrition guarded condition Admission and Anticipated Discharge Date Admission Date: May 05, 2022 Subjective pressors almost weaned still intubated Review of Systems Constitutional: no fever Physical Exam Constitutional: + mechanically ventilated Respiratory: Auscultation: + diminished lung sounds Cardiovascular: Rate/Rhythm: + tachycardic Gastrointestinal (Abdomen): Inspection/Auscultation: + abdomen distended and normal bowel sounds Percussion/Palpation: + abdomen tender ostomy working mucous fistula a little purple but viable passing residual stool via rectum Results & Data ([facility]) Vital Signs (Past 12 Hours) Vital Signs Temp Pulse Resp BP Pulse Ox O2 Del Method FiO2 05/11/22 12:00 92 H 26 H 94 05/11/22 12:00 84/51 L 05/11/22 11:00 91 H 26 H 93 05/11/22 11:00 91/55 L 05/11/22 10:00 86 26 H 95 05/11/22 10:00 104/64 05/11/22 09:21 89/59 L 05/11/22 09:21 79 26 H 93 05/11/22 09:00 78 26 H 94 05/11/22 09:00 87/63 L 05/11/22 08:30 80 26 H 93 05/11/22 08:30 84/60 L 05/11/22 08:00 81 26 H 89 L 05/11/22 08:00 86/56 L 05/11/22 07:30 116/74 05/11/22 07:30 91 H 23 91 05/11/22 07:28 87 26 H 90 05/11/22 07:28 90/57 L 05/11/22 07:00 81 26 H 91 05/11/22 07:00 88/58 L 05/11/22 12:00 50 05/11/22 08:00 36.5 C 05/11/22 08:00 60 05/11/22 08:00 Mechanical Vent 60 05/11/22 11:21 93 H 26 H 93 50 05/11/22 07:55 82 26 H 91 60 05/11/22 04:00 36.2 C L 86 26 H 91 05/11/22 04:00 93/62 L 05/11/22 03:30 36.3 C L 86 26 H 91 05/11/22 03:30 89/60 L 05/11/22 03:00 36.4 C L 86 26 H 91 05/11/22 03:00 88/55 L 05/11/22 02:30 36.5 C 85 26 H 92 05/11/22 02:30 83/54 L 05/11/22 04:03 36.9 C 05/11/22 03:05 85 26 H 91 70 05/11/22 02:00 85 28 H 89 L 05/11/22 02:00 84/54 L 05/11/22 01:32 93 H 26 H 81 L 05/11/22 01:32 104/58 L
[2022-05-11] MEDS: TUBE FEEDING WATER FLUSH GT SCH ×3 (14:02→20:13)
[2022-05-11] MEDS: PEPTAMEN 1.5 CAL 1,000 ML BAG NG SCH (14:02)
[2022-05-11] MEDS: FLUCONAZOLE 200 MG/100 ML BAG IV SCH ×2 (15:21→17:21)
[2022-05-11] MEDS ORDERED: STAT IV Infusion **Titration per Protocol STA (17:02)
[2022-05-11] MEDS ORDERED: PROPOFOL BOLUS FROM BAG IV PRN (17:02)
--- NOTE | 2022-05-11 18:19 | Billing Data ---
Date of Service May 11, 2022 Coding Level of Care Code 92848 Subseq Hosp Care Lvl 1
[2022-05-12] MEDS: PIPERACILLIN/TAZOBACTAM 4.5 GM in DEXTROSE 5% 100 ML IV SCH ×3 (00:20→15:45)
[2022-05-12] MEDS: INSULIN ASPART PER UNIT SC SCH ×4 (00:26→15:46)
--- NOTE | 2022-05-12 01:32 | Procedure Note ---
Procedure Note Date of Service May 12, 2022 Note Procedure: Arterial Line Placement with direct ultrasound visualization Date: APC: Librado RODRIGUEZ ([facility] Attending: Dr. Norris Indication: Monitoring on Pressors, failure of pedal arterial line, Blood sampling Ventilator management Anesthesia: x Lidocaine 1% Consent implied as emergent with vasopressor use and shock Allens test was performed to ensure adequate perfusion. Patients RIGHT wrist was prepped and draped in the usual sterile fashion. Ultrasound guidance was used to aid needle placement. A 20g Arrow arterial line was introduced into the Right Radial artery with return of brisk pulsatile blood, the wire was advanced without resistance. The catheter was then threaded, and the needle was removed with appropriate blood return. Good waveform was observed. The patient tolerated the procedure well. Line was secured with suture. A sterile dressing was applied Blood Loss: Minimal Complications: None Attempts x2 Procedural Ultrasound Guidance: Direct Ultrasound guidance used to geomagnetist vessel and direct visualization Procedure Date: Indication: Arterial line placement Artery Identified: YES Complications: NONE Patient tolerated procedure: WELL Coding CPT Codes Tubes, Drains, and Vasc Access - Tubes, Drains, and Vasc Access: [id number] Insertion Catheter, Artery ([id number]) Tubes, Drains, and Vasc Access - Tubes, Drains, and Vasc Access: [id number] Ultrasound Guidance For Vascular ([id number]) [facility] [place] Procedure Codes (Charges) Tubes, Drains, and Vasc Access Procedure 1: Tubes, Drains, and Vasc Access: [id number] Insertion Catheter, Artery Procedure 2: Tubes, Drains, and Vasc Access: [id number] Ultrasound Guidance For Vascular
[2022-05-12] MEDS: propofoL 1,000 MG/100 ML VIAL IV SCH ×3 (02:00→15:47)
[2022-05-12] MEDS: VASOPRESSIN 20 UNITS in 0.9 % SODIUM CHLORIDE 100 ML IV SCH ×2 (02:48→07:56)
[2022-05-12] MEDS: TUBE FEEDING WATER FLUSH GT SCH ×6 (02:51→20:38)
[2022-05-12] MEDS: Double Conc 32mcg/mL; 16mg in 500mL IV SCH (03:17)
[2022-05-12 04:37] LABS: Hematocrit (blood only) 21.4 % (40.1-51.0); Hemoglobin 7.2 g/dl (14.0-18.0); Mean Corpuscular Hemoglobin 30.9 pg (25.0-34.0); Mean Corpuscular Hgb Conc 33.6 g/dL (32.0-36.0); Mean Corpuscular Volume 91.8 fL (80.0-100.0); Mean Platelet Volume 9.2 fL (9.4-12.4); Nucleated RBC # (auto) 0.03 K/uL (0-0); Nucleated RBC % (auto) 0.3 %; Platelet Count 185 K/uL (130-400); RDW Coefficient of Variation 14.5 % (11.5-14.5); RDW Standard Deviation 48.4 fL (36.4-46.3); Red Blood Count 2.33 M/uL (4.63-6.08); White Blood Count 10.93 K/ul (4.8-10.8)
[2022-05-12 04:59] LABS: Basophils # (auto) 0.03 K/uL (0-0.2); Basophils % (auto) 0.3 %; Eosinophils # (auto) 0.03 K/uL (0-0.50); Eosinophils % (auto) 0.3 %; Hypochromasia Present; Immature Granulocytes # (auto) 0.69 K/uL (0.00-0.02); Immature Granulocytes % (auto) 6.3 %; Lymphocytes # (auto) 0.25 K/uL (1.2-3.4); Lymphocytes % (auto) 2.3 %; Monocytes # (auto) 0.37 K/uL (0.24-0.82); Monocytes % (auto) 3.4 %; Neutrophils # (auto) 9.56 K/uL (1.4-6.5); Neutrophils % (auto) 87.4 %; Polychromasia 1+
[2022-05-12 05:16] LABS: Albumin Level 2.2 gm/dl (3.4-5.0); BUN Creatinine Ratio 23.5 (10-20); Bilirubin Direct 1.1 mg/dl (0-0.2); Bilirubin,Total 1.6 mg/dl (0.2-1.0); Calcium 8.1 mg/dl (8.5-10.1); Creatinine Clr Calc Pharmacy 180.6 ml/min; Est GFR (African American) 132.6 ml/min; Est GFR (Non-African American) 114.4 ml/min; Potassium 3.2 mmol/L (3.5-5.1); Total Protein 4.3 gm/dl (6.0-8.3)
[2022-05-12] MEDS ORDERED: POTASSIUM CHLORIDE 20 MEQ/15 ML UDC PO STA (06:03)
[2022-05-12] MEDS ORDERED: Nursing to Pharmacy Communication SCH (06:15)
[2022-05-12 06:27] LABS: Magnesium 2.1 mg/dl (1.7-2.4); Phosphorus 2.4 mg/dl (2.5-4.9)
[2022-05-12] MEDS: ICU ELECTROLYTE REPLACEMENT PROTOCOL SCH ×2 (06:33→15:46)
[2022-05-12] MEDS ORDERED: SODIUM PHOSPHATE 3 MMOL/1 ML INFUSION IV STA (06:35)
[2022-05-12] MEDS: fentaNYL citrate 2,500 MCG/250 ML BAG IV SCH ×6 (06:38→20:43)
[2022-05-12] MEDS: POTASSIUM CHLORIDE 20 MEQ/15 ML UDC NG SCH ×2 (06:39→11:09)
[2022-05-12 06:44] LABS: iSTAT Allen Test Fail; iSTAT Arterial Blood Gas HCO3 28 meg/L (19-24); iSTAT Arterial Blood Gas pCO2 38 mmHg (35-46); iSTAT Arterial Blood Gas pH 7.47 (7.35-7.45); iSTAT Arterial Blood Gas pO2 41 mmHg (80-95); iSTAT Carbon Dioxide 29 mmol/L (24-31); iSTAT FiO2 40 %; iSTAT Site R Brachial
[2022-05-12] MEDS ORDERED: SODIUM PHOSPHATE 9 MMOL in SODIUM CHLORIDE 0.9% 250 ML IV ONE (07:00)
--- NOTE | 2022-05-12 07:45 | Critical Care Progress Note ---
Date of Service May 12, 2022 Assessment & Plan (1) Bowel perforation: (2) Obesity: (3) Severe sepsis with septic shock: (4) Anemia: (5) Hyponatremia: Plan Impression: 61-year-old male admitted from outside facility with diverticulitis now developing perforated viscus with benjamin stool in the peritoneal cavity requiring laparotomy washout and colon resection. He is in septic shock with need for pressors and an open abdomen. 24-hour events: Has been off vasopressors. Minimal ventilator support Recommendations: Neurologic: CAM ICU: Negative Sedated with propofol and fentanyl Cardiovascular: -- S/p septic shock Has been off vasopressor support Continue to monitor MAP Random cortisol was normal. Pulmonary: -- VDRF Continue with vent support Daily SBT trials Renal: Monitor BUNs/creatinine ICU electrolyte replacement protocol. GI: --Elevated T bili Could be secondary to antibiotic Zosyn Continue to monitor Continue with tube feeds Endocrine: Glycemic control per protocol. Random cortisol was normal. ID: -- Peritonitis secondary to perforated viscus. Complete the course of Zosyn for total of 10 days Continue with Diflucan for total of 7 days Heme-onc: -- Normocytic anemia Gradual drop in hemoglobin Continue monitor H&H Transfuse if hemoglobin is less than 7 --Prophylaxis VTE: Lovenox on hold GI: Pantoprazole twice daily Lines: Left IJ Diet: Tube feeds Plan: In/out: -4.5 L, urine output 6630, +21 L since coming to the hospital AB.47/58/4 1 on PEEP of 5, 40%. I think this is VBG/mixed venous rather than ABG Hypokalemia and hypomagnesemia being replaced Continue with Zosyn for total of 10 days. Patient has been on Diflucan prophylactically given the patient had significant GI surgery. There has been no fungal culture obtained. Would complete the course of Diflucan for 7 days and then discontinue it. T bili is going up a little bit could be from Zosyn. Continue to monitor Case was discussed with patient's was at bedside. I will give a trial of pressure support later today. Continue to wean off sedation as much as possible. I have personally spent 44 minutes of critical care time in the direct management of this patient. This is a life/limb threatening event. This includes time spent evaluating patient, direct bedside care, chart review, placing orders, interpretation of diagnostic studies, discussion with consultants, patient, and family members, as well as other required patient management activities. This time is exclusive of all separately billable procedures, and teaching time and separate from and in addition to any other critical care service time. Please note the above document was generated using voice recognition software. It may contain grammatical, syntax or spelling errors. Admission and Anticipated Discharge Date Admission Date: May 05, 2022 Subjective Patient seen and examined at bedside. No acute distress, no adverse events ove rnight. Patient was on 150 of fentanyl, 25 propofol at time of examination He did open his eyes but did not follow any commands Has been afebrile. Was on minimal vent settings at the time of examination Review of Systems Review of Systems: All systems reviewed & are unremarkable except as noted in Subjective Physical Exam Physical Exam: Constitutional: No acute distress HEENT: EOMI, PERRLA Respiratory system: Decreased air entry bilaterally, no wheeze, rhonchi, positive crackles bilateral lower lobes CVS: S1-S2 positive, no murmurs or gallops Abdomen: Soft, nontender, nondistended, positive bowel sounds x4, positive colostomy Extremities: +2 pulses bilaterally radialis/ dorsalis pedis, no cyanosis, +1 pitting edema bilaterally Neuro: Awake alert oriented x3 Psych: Normal mood and affect G/U: Positive Valle Skin: no rashes, warm and dry Lymphatic: no cervical or axillary lymphadenopathy Results & Data Results & Data ([facility]) Vital Signs (Past 12 Hours) Vital Signs Temp Pulse Resp BP Pulse Ox O2 Del Method FiO2 05/12/22 06:00 92 H 26 H 93 05/12/22 06:00 105/62 05/12/22 05:54 92 H 26 H 05/12/22 05:54 105/63 05/12/22 05:00 86 20 96 05/12/22 05:00 86/48 L 05/12/22 04:00 90/51 L 05/12/22 04:00 36.6 C 05/12/22 04:00 84 26 H 90/51 L 95 Mechanical Vent 05/12/22 04:00 40 05/12/22 02:55 81 26 H 94 40 05/12/22 03:00 82 26 H 96 05/12/22 03:00 91/54 L 05/12/22 02:00 82 23 93 05/12/22 02:00 86/49 L 05/12/22 01:00 80 26 H 93 05/12/22 01:00 95/54 L 05/12/22 00:00 81 7 L 93 05/12/22 00:00 98/53 L 05/11/22 23:58 97/56 L 05/11/22 23:58 83 20 93 05/11/22 23:52 100/53 L 05/11/22 23:52 82 26 H 92 05/11/22 23:00 82 26 H 94 05/11/22 23:00 99/53 L 05/11/22 22:00 76 18 93 05/11/22 22:00 93/49 L 05/11/22 21:40 92/52 L 05/11/22 21:40 73 26 H 94 05/11/22 21:00 75 15 94 05/11/22 21:00 90/53 L 05/11/22 20:50 80 23 94 05/11/22 20:50 93/52 L 05/12/22 00:00 40 05/12/22 00:00 81 05/11/22 22:42 85 26 H 93 40 05/11/22 20:00 40 05/11/22 20:00 84 26 H 95 05/11/22 20:00 94/48 L Laboratory Results 05/12/22 04:14 05/12/22 04:14 Coding Level of Care Code Critical Care 1st 30-74 mins Diagnoses Bowel perforation K63.1 Obesity E66.9 Severe sepsis with septic shock A41.9; R65.21 Anemia D64.9 Hyponatremia E87.1 Time Spent (min) 44
[2022-05-12] MEDS: ENOXAPARIN INJ 40 MG/0.4 ML SYR SQ SCH (07:55)
[2022-05-12] MEDS: PANTOprazole 40 MG in SYRINGE 0 ML IV SCH ×2 (07:56→20:38)
[2022-05-12] MEDS: FUROSEMIDE INJ 20 MG/2 ML VIAL IV SCH (07:56)
--- NOTE | 2022-05-12 08:06 | Hospitalist Progress Note ---
Date of Service May 12, 2022 Assessment & Plan (1) Severe sepsis with septic shock: Plan: Severe sepsis 2/2 bowel perforation - 05/[address] scan showed colonic obstruction concerning for obstructing lesion, nodular collections in sigmoid colon concerning for small abscess vs. metastatic nodules, large volume of intraperitoneal free air - 05/08 emergent exploratory laparotomy was performed which resulted in right hemicolectomy - 05/09 pt went for abdominal washout and ileostomy which went well - WBC 10.93 today - continue zosyn (day 8) of a total of 10 and fluconazole (day 4) for a total of 7 days - pt is off of vasopressors - vent settings: management per ICU Diverticulitis w/ abscess - diagnosed via [facility] CTAP - labs upon admission significant for WBC 16.56 w/ neutrophilic predominance - KUB showed severe constipation w/ distended colon (colonic ileus vs. LBO) - original blood cultures from 05/05 neg after 48 hr - current management as above Hyponatremia - mild, mostly mid 130s - today, 139 - continue to monitor Anemia - 09/2021 Hgb 15.0 - upon admission, 11.0 - today, 7.2 - continue to monitor Diarrhea - Acute on chronic problem - has dealt with daily diarrhea since onset of radiation therapy this summer, but reports worsening of symptoms over last 4 days; likely 2/2 to diverticulitis - c. diff neg and stool PCR pos for EPEC - plan as above Prostate cancer - Stage IIIA, s/p TURP in 09/2021 and Leuprolide/radiation therapy as of 02/2022 - Follows with cancer center (Dr. Le) HTN - d/t septic shock and current situation as described above, home lisinopril on hold (2) Bowel perforation: (3) Diverticulitis of intestine with abscess: (4) Diarrhea: (5) Prostate cancer: (6) Hypertension: (7) Large bowel obstruction: Plan FEN: NPO, intubated, normosol 75 mL/hr DVT ppx: lovenox 40 mg daily Code: full Dispo: ICU Admission and Anticipated Discharge Date Admission Date: May 05, 2022 Supervising Physician Co-Signing Physician Notes Attending attestation Pt seen and examined in concert with Dr. Berumen. In agreement with the documented findings as noted in the resident documentation with any exceptions or additions as noted here. Patient endeavoring to interact as sedation weans but remains confused, unable to follow commands consistently. On examination, S1/S2 tachy no MCG. Rhonchi c/w ventilation. Stoma in place, +ve bowel sounds, no significant TTP VS, nursing notes, intensive care notes reviewed. Severe sepsis in the setting of bowel perforation 2/2 diverticulitis w/ abscess s/p surgical repair - ICU, on vent support, pressor support - weaning pressure support as tolerated and sedation today. Continue IV abx for likely prolonged course. Pain control with fentanyl, morphine. Titrate based on response, agitation. Follow up cultures. Trend CBC. Acute on chronic anemia - likely ACD with blood loss postoperative - trend daily, transfuse at 7. Electrolyte abnormalities - Hyponatremia resolved, Hypokalemia to be managed per ICU protocol. Else see resident documentation as noted. Rina Kilgore is a 61 y/o male who presents with PMH of prostate cancer (s/p TURP 09/2021 and leuprolide/radiation therapy 02/2022) and HTN presenting via transfer due to acute diverticulitis w/ LBO and 2.8 cm abscess. On repeat CT scan, pt found to have bowel perforation and is now s/p right hemicolectomy. Patient underwent abdominal washout and ileostomy placement on 05/09. Pt seen and examined at bedside, is intubated in ICU. Alert and response. Per ICU, off vasopressors, minimal ventilator support. Review of Systems Review of Systems: As per HPI Physical Exam Constitutional: + mechanically ventilated Respiratory: normal respiratory effort, lungs clear to auscultation Cardiovascular: RRR, no murmur, no edema Gastrointestinal (Abdomen): bandages covering surgical incision site, ostomy in place Skin: no rashes, warm and dry Results & Data Results & Data ([facility]) Vital Signs (Past 12 Hours) Vital Signs Temp Pulse Resp BP Pulse Ox O2 Del Method FiO2 05/12/22 06:00 92 H 26 H 93 05/12/22 06:00 105/62 05/12/22 05:54 92 H 26 H 05/12/22 05:54 105/63 05/12/22 05:00 86 20 96 05/12/22 05:00 86/48 L 05/12/22 04:00 90/51 L 05/12/22 04:00 36.6 C 05/12/22 04:00 84 26 H 90/51 L 95 Mechanical Vent 05/12/22 04:00 40 05/12/22 02:55 81 26 H 94 40 05/12/22 03:00 82 26 H 96 05/12/22 03:00 91/54 L 05/12/22 02:00 82 23 93 05/12/22 02:00 86/49 L 05/12/22 01:00 80 26 H 93 05/12/22 01:00 95/54 L 05/12/22 00:00 81 7 L 93 05/12/22 00:00 98/53 L 05/11/22 23:58 97/56 L 05/11/22 23:58 83 20 93 05/11/22 23:52 100/53 L 05/11/22 23:52 82 26 H 92 05/11/22 23:00 82 26 H 94 05/11/22 23:00 99/53 L 05/11/22 22:00 76 18 93 05/11/22 22:00 93/49 L 05/11/22 21:40 92/52 L 05/11/22 21:40 73 26 H 94 05/11/22 21:00 75 15 94 05/11/22 21:00 90/53 L 05/11/22 20:50 80 23 94 05/11/22 20:50 93/52 L 05/12/22 00:00 40 05/12/22 00:00 81 05/11/22 22:42 85 26 H 93 40 Resident Activity Tracking Resident Involvement: Resident Care Provided Care Provided: Adult Hospital Medicine
--- NOTE | 2022-05-12 10:27 | XRay Report ---
XR chest 1V portable CLINICAL HISTORY: Evaluate lines and tubes. Pulmonary status. COMPARISON STUDY: Chest radiograph May 11, 2022. FINDINGS: Tip of endotracheal tube is 1.7 cm above the flynn. Tip of nasogastric tube is at least wi thin the body of the stomach. The tip of the left internal jugular central line is unchanged in posit ion and projects over the expected location of the right subclavian vein. There is no pneumothorax. S mall bilateral pleural effusions with bibasilar opacities persist. Lung volumes are diminished. This is unchanged. Cardiomediastinal silhouette is stable. Pulmonary vascular congestion is unchanged. IMPRESSION: 1. Satisfactory positioning of the endotracheal tube. Unchanged position of the left internal jugular central line with tip projecting over the right subclavian vein. 2. No change in appearance of the chest. Small bilateral pleural effusions with associated bibasilar opacities. Pulmonary vascular congestion. ACT 112: Negative or not required by law. Electronically signed by: Cody Da Silva M.D. 05/12/2022 10:25 AM
[2022-05-12] MEDS: PEPTAMEN 1.5 CAL 1,000 ML BAG NG SCH (11:05)
[2022-05-12 12:42] LABS: Hematocrit (blood only) 22.6 % (40.1-51.0); Hemoglobin 7.4 g/dl (14.0-18.0)
[2022-05-12] MEDS: FLUCONAZOLE 200 MG/100 ML BAG IV SCH ×2 (15:45→17:00)
--- NOTE | 2022-05-12 15:58 | Surgery Progress Note ---
Date of Service May 12, 2022 Assessment & Plan (1) Bowel perforation: Plan: POD#4 exploratory laparotomy with washout and right hemicolectomy POD#3 exploratory laparotomy, washout, ileostomy and mucus fistula creation possible off vent tomorrow continue tube feeds guarded condition Admission and Anticipated Discharge Date Admission Date: May 05, 2022 Subjective POD#4 exploratory laparotomy with washout and right hemicolectomy POD#3 exploratory laparotomy, washout, ileostomy and mucus fistula creation mechanical ventilation - now on CPAP off pressors diuresing with lasix no fevers Physical Exam Constitutional: WD/WN, vitals as above + mechanically ventilated Neck: trachea midline Cardiovascular: Rate/Rhythm: + tachycardic Gastrointestinal (Abdomen): Inspection/Auscultation: + abdomen distended Percussion/Palpation: + abdomen tender and abdomen soft Results & Data ([facility]) Vital Signs (Past 12 Hours) Vital Signs Temp Pulse Resp BP Pulse Ox O2 Del Method FiO2 05/12/22 15:00 102 H 14 93 05/12/22 15:00 110/62 05/12/22 14:00 99 H 12 94 05/12/22 14:00 107/66 05/12/22 13:53 111/69 05/12/22 13:53 99 H 12 94 05/12/22 13:00 96 H 12 111/69 95 05/12/22 12:00 89 21 105/63 91 05/12/22 11:30 90 20 94 05/12/22 11:30 104/63 05/12/22 11:00 90 21 93 05/12/22 11:00 97/61 L 05/12/22 12:00 36.9 C 05/12/22 12:00 40 05/12/22 11:35 90 23 93 40 05/12/22 10:00 91 H 19 94 05/12/22 10:00 104/59 L 05/12/22 09:30 105/64 05/12/22 09:30 87 22 96 05/12/22 08:00 36.9 C 05/12/22 08:00 40 05/12/22 08:00 Mechanical Vent 40 05/12/22 09:00 89 20 96 05/12/22 09:00 108/67 05/12/22 08:30 103/68 05/12/22 08:30 84 26 H 96 05/12/22 08:06 87 26 H 97 05/12/22 08:06 100/59 L 05/12/22 08:00 85 26 H 96 05/12/22 08:00 88/62 L 05/12/22 07:00 92 H 26 H 91 05/12/22 07:50 85 26 H 96 40 05/12/22 06:00 92 H 26 H 93 05/12/22 06:00 105/62 05/12/22 05:54 92 H 26 H 05/12/22 05:54 105/63 05/12/22 05:00 86 20 96 05/12/22 05:00 86/48 L 05/12/22 04:00 90/51 L 05/12/22 04:00 36.6 C 05/12/22 04:00 84 26 H 90/51 L 95 Mechanical Vent 05/12/22 04:00 40
--- NOTE | 2022-05-12 16:25 | Electrocardiogram Report ---
Test Reason : Blood Pressure : / mmHG Vent. Rate : 088 BPM Atrial Rate : 088 BPM P-R Int : 154 ms QRS Dur : 092 ms QT Int : 362 ms P-R-T Axes : 027 018 011 degrees QTc Int : 438 ms Normal sinus rhythm Low voltage QRS Nonspecific T wave abnormality Abnormal ECG When compared with ECG of 05-MAY-2022 02:17, No significant change was found Confirmed by Nas Martinez ([id number]) on 05/12/2022 4:25:22 PM Referred By: Bernabe Suero Confirmed By:Gumaro Martinez
[2022-05-13] MEDS: INSULIN ASPART PER UNIT SC SCH ×5 (00:41→23:14)
[2022-05-13] MEDS: PIPERACILLIN/TAZOBACTAM 4.5 GM in DEXTROSE 5% 100 ML IV SCH ×4 (00:41→23:10)
[2022-05-13] MEDS: propofoL 1,000 MG/100 ML VIAL IV SCH ×2 (00:42→10:49)
[2022-05-13] MEDS: TUBE FEEDING WATER FLUSH GT SCH ×3 (00:42→08:27)
[2022-05-13 04:18] LABS: Hematocrit (blood only) 21.4 % (40.1-51.0); Hemoglobin 7.2 g/dl (14.0-18.0); Mean Corpuscular Hemoglobin 30.5 pg (25.0-34.0); Mean Corpuscular Hgb Conc 33.6 g/dL (32.0-36.0); Mean Corpuscular Volume 90.7 fL (80.0-100.0); Mean Platelet Volume 9.5 fL (9.4-12.4); Nucleated RBC # (auto) 0.02 K/uL (0-0); Nucleated RBC % (auto) 0.2 %; Platelet Count 185 K/uL (130-400); RDW Coefficient of Variation 14.8 % (11.5-14.5); RDW Standard Deviation 48.7 fL (36.4-46.3); Red Blood Count 2.36 M/uL (4.63-6.08); White Blood Count 11.08 K/ul (4.8-10.8)
[2022-05-13 04:59] LABS: Albumin Level 2.1 gm/dl (3.4-5.0); BUN Creatinine Ratio 22.9 (10-20); Bilirubin Direct 1.1 mg/dl (0-0.2); Bilirubin,Total 1.6 mg/dl (0.2-1.0); Calcium 7.7 mg/dl (8.5-10.1); Creatinine Clr Calc Pharmacy 188.1 ml/min; Est GFR (African American) 135.9 ml/min; Est GFR (Non-African American) 117.3 ml/min; Potassium 3.2 mmol/L (3.5-5.1); Total Protein 4.5 gm/dl (6.0-8.3)
[2022-05-13] MEDS: ICU ELECTROLYTE REPLACEMENT PROTOCOL SCH ×2 (05:33→17:20)
[2022-05-13] MEDS: POTASSIUM CHLORIDE 20 MEQ/15 ML UDC NG SCH ×2 (05:35→08:32)
--- NOTE | 2022-05-13 06:42 | Hospitalist Progress Note ---
Date of Service May 13, 2022 Assessment & Plan (1) Severe sepsis with septic shock: Plan: Severe sepsis 2/2 bowel perforation - 05/[address] scan showed colonic obstruction concerning for obstructing lesion, nodular collections in sigmoid colon concerning for small abscess vs. metastatic nodules, large volume of intraperitoneal free air - 05/08 emergent exploratory laparotomy was performed which resulted in right hemicolectomy - 05/09 pt went for abdominal washout and ileostomy which went well - WBC 11.08 today - continue zosyn (day 9) of a total of 10 and fluconazole (day 5) for a total of 7 days - pt is off of vasopressors - was extubated this morning and on 3L NC this afternoon with SPO2 in the mid 90s Diverticulitis w/ abscess - diagnosed via [facility] CTA - labs upon admission significant for WBC 16.56 w/ neutrophilic predominance - KUB showed severe constipation w/ distended colon (colonic ileus vs. LBO) - original blood cultures from 05/05 neg after 48 hr - current management as above Hyponatremia - mild, mostly mid 130s - today, 142 - resolved Anemia - 09/2021 Hgb 15.0 - upon admission, 11.0 - today, 7.2; stable from yesterday - continue to monitor, transfuse below 7 Diarrhea - Acute on chronic problem - has dealt with daily diarrhea since onset of radiation therapy this summer, but reports worsening of symptoms over last 4 days; likely 2/2 to diverticulitis - c. diff neg and stool PCR pos for EPEC - plan as above Prostate cancer - Stage IIIA, s/p TURP in 09/2021 and Leuprolide/radiation therapy as of 02/2022 - Follows with cancer center (Dr. Le) HTN - d/t septic shock and current situation as described above, home lisinopril on hold (2) Bowel perforation: (3) Diverticulitis of intestine with abscess: (4) Diarrhea: (5) Prostate cancer: (6) Hypertension: (7) Large bowel obstruction: Plan FEN: NPO, intubated, normosol 75 mL/hr DVT ppx: lovenox 40 mg daily Code: full Dispo: ICU Admission and Anticipated Discharge Date Admission Date: May 05, 2022 Supervising Physician Co-Signing Physician Notes Attending attestation Pt seen and examined in concert with Dr. Berumen. In agreement with the documented findings as noted in the resident documentation with any exceptions or additions as noted here. Patient resting in bed off ventilation and with minimal somnolence. Reports pain well controlled at present, no significant distress w/ breathing. On examination, S1/S2 tachy no MCG. No appreciable adventitious sounds. Stoma in place, +ve bowel sounds, no significant TTP VS, nursing notes, intensive care notes reviewed. Severe sepsis in the setting of bowel perforation 2/2 diverticulitis w/ abscess s/p surgical repair - ICU - Continue IV abx therapy. Pain control with fentanyl, morphine. Follow up cultures. Trend CBC. Acute on chronic anemia - likely ACD with blood loss postoperative - trend jae ly, transfuse at 7. Electrolyte abnormalities - Hyponatremia resolved, Hypokalemia to be managed per ICU protocol. Else see resident documentation as noted. Rina Kilgore is a 61 y/o male who presents with PMH of prostate cancer (s/p TURP 09/2021 and leuprolide/radiation therapy 02/2022) and HTN presenting via transfer due to acute diverticulitis w/ LBO and 2.8 cm abscess. On repeat CT scan, pt found to have bowel perforation and is now s/p right hemicolectomy. Patient underwent abdominal washout and ileostomy placement on 05/09. Pt seen and examined at bedside. Alert and response, able to talk. States his pain is well managed. Was extubated this morning. Review of Systems Review of Systems: As per HPI Physical Exam Constitutional: well developed; not ill appearing Respiratory: normal respiratory effort, lungs clear to auscultation Cardiovascular: RRR, no murmur, no edema Gastrointestinal (Abdomen): Inspection/Auscultation: normal bowel sounds osteomy in place Skin: no rashes, warm and dry Results & Data Results & Data ([facility]) Vital Signs (Past 12 Hours) Vital Signs Temp Pulse Resp BP Pulse Ox O2 Del Method FiO2 05/13/22 04:00 92 H 20 95 05/13/22 04:00 101/61 05/13/22 03:00 92 H 21 95 05/13/22 03:00 102/62 05/13/22 02:00 89 20 96 05/13/22 02:00 106/66 05/13/22 04:00 40 05/13/22 03:23 94 H 24 96 40 05/13/22 01:00 95 H 20 95 05/13/22 01:00 97/63 L 05/13/22 00:00 97 H 19 95 05/13/22 00:00 37 C 104/65 05/12/22 23:01 126/82 05/12/22 23:01 114 H 21 89 L 05/12/22 23:00 125 H 15 86 L 05/12/22 22:00 97 H 20 93 05/12/22 22:00 112/64 05/12/22 21:00 95 H 20 94 05/12/22 21:00 101/62 05/12/22 20:00 94 H 21 95 05/12/22 20:00 37.1 C 109/65 05/12/22 19:00 93 H 19 95 05/12/22 19:00 105/61 05/12/22 23:20 94 H 23 96 40 05/13/22 00:00 40 05/12/22 20:01 93 H 22 96 40 05/12/22 20:00 Mechanical Vent 05/12/22 20:00 40
--- NOTE | 2022-05-13 07:37 | Surgery Progress Note ---
Date of Service May 13, 2022 Assessment & Plan (1) Bowel perforation: Plan: POD#5 exploratory laparotomy with washout and right hemicolectomy POD#4 exploratory laparotomy, washout, ileostomy and mucus fistula creation will attempt to remove from ventilator today continue tube feeds management per ICU team Admission and Anticipated Discharge Date Admission Date: May 05, 2022 Subjective off pressors minimal vent settings tube feeds at 30 per hour ostomy working YENY drains serous drainage Physical Exam Physical Exam: no acute distress, mechanically ventilated abdomen slightly distended, incision without erythema, nicky and Kodi drain in place; retention bars in place ostomy pink and viable, liquid in ostomy bag; mucous fistula viable YENY drains with minimal serous output Results & Data ([facility]) Vital Signs (Past 12 Hours) Vital Signs Temp Pulse Resp BP Pulse Ox O2 Del Method FiO2 05/13/22 07:18 111 H 24 93 40 05/13/22 04:00 92 H 20 95 05/13/22 04:00 101/61 05/13/22 03:00 92 H 21 95 05/13/22 03:00 102/62 05/13/22 02:00 89 20 96 05/13/22 02:00 106/66 05/13/22 04:00 40 05/13/22 03:23 94 H 24 96 40 05/13/22 01:00 95 H 20 95 05/13/22 01:00 97/63 L 05/13/22 00:00 97 H 19 95 05/13/22 00:00 37 C 104/65 05/12/22 23:01 126/82 05/12/22 23:01 114 H 21 89 L 05/12/22 23:00 125 H 15 86 L 05/12/22 22:00 97 H 20 93 05/12/22 22:00 112/64 05/12/22 21:00 95 H 20 94 05/12/22 21:00 101/62 05/12/22 20:00 94 H 21 95 05/12/22 20:00 37.1 C 109/65 05/12/22 23:20 94 H 23 96 40 05/13/22 00:00 40 05/12/22 20:01 93 H 22 96 40 05/12/22 20:00 Mechanical Vent 05/12/22 20:00 40
[2022-05-13] MEDS: POTASSIUM CHLORIDE / WTR 20 MEQ/100 ML PLCT IV SCH ×2 (08:29→10:38)
[2022-05-13] MEDS: ENOXAPARIN INJ 40 MG/0.4 ML SYR SQ SCH (08:30)
[2022-05-13] MEDS: PANTOprazole 40 MG in SYRINGE 0 ML IV SCH ×2 (08:30→19:43)
[2022-05-13] MEDS: FUROSEMIDE INJ 20 MG/2 ML VIAL IV SCH (08:31)
[2022-05-13 08:38] LABS: Basophils # (auto) 0.03 K/uL (0-0.2); Basophils % (auto) 0.3 %; Dohle Bodies 1+; Eosinophils % (auto) 0.9 %; Hypochromasia Present; Immature Granulocytes # (auto) 0.76 K/uL (0.00-0.02); Immature Granulocytes % (auto) 6.9 %; Lymphocytes # (auto) 0.35 K/uL (1.2-3.4); Lymphocytes % (auto) 3.2 %; Monocytes # (auto) 0.42 K/uL (0.24-0.82); Monocytes % (auto) 3.8 %; Neutrophils # (auto) 9.42 K/uL (1.4-6.5); Neutrophils % (auto) 84.9 %; Target Cells 1+; Toxic Granulation 1+
--- NOTE | 2022-05-13 09:02 | XRay Report ---
XR chest 1V portable HISTORY: 61 years-old Male while intubated eval line and tube/pulm stauts acute respiratory failure COMPARISON: Chest radiograph 05/12/2022 TECHNIQUE: Semierect AP view of the chest FINDINGS: Endotracheal tube overlies the midline, 2.6 cm superior to the flynn. Unchanged positioning of the l eft internal jugular central venous catheter with distal tip projected over the right subclavian vein . Enteric tube distal tip overlies the mid gastric body. Lungs are mildly hypoinflated. No pneumothorax. Pulmonary vascular congestion with mild interstitial coarsening. Small pleural effusions with persistent bibasilar consolidation. Degenerative changes of the shoulders and spine. IMPRESSION: 1. Lines and tubes as above. 2. Cardiomegaly with vascular congestion and interstitial coarsening suggestive of pulmonary edema. 3. Unchanged small pleural effusions with persistent bibasilar densities. ACT 112: Negative or not required by law. The above report was generated using voice recognition software. It may contain grammatical, syntax o r spelling errors. Electronically signed by: Olaf Koo M.D. 05/13/2022 9:00 AM
--- NOTE | 2022-05-13 09:30 | Critical Care Progress Note ---
Date of Service May 13, 2022 Assessment & Plan (1) Bowel perforation: (2) Obesity: (3) Severe sepsis with septic shock: (4) Anemia: (5) Hyponatremia: Plan Impression: 61-year-old male admitted from outside facility with diverticulitis now developing perforated viscus with benjamin stool in the peritoneal cavity requiring laparotomy washout and colon resection. He is in septic shock with need for pressors and an open abdomen. Recommendations: Neurologic: CAM ICU: Negative Sedated with propofol and fentanyl Cardiovascular: -- S/p septic shock Has been off vasopressor support Continue to monitor MAP Random cortisol was normal. Pulmonary: -- VDRF Continue with vent support Daily SBT trials Renal: Monitor BUNs/creatinine ICU electrolyte replacement protocol. GI: --Elevated T bili Could be secondary to antibiotic Zosyn Continue to monitor Continue with tube feeds Endocrine: Glycemic control per protocol. Random cortisol was normal. ID: -- Peritonitis secondary to perforated viscus. Complete the course of Zosyn for total of 10 days Continue with Diflucan for total of 7 days Heme-onc: -- Normocytic anemia Gradual drop in hemoglobin Continue monitor H&H Transfuse if hemoglobin is less than 7 --Prophylaxis VTE: Lovenox GI: Pantoprazole twice daily Lines: Left IJ, positive Valle Diet: Tube feeds Plan: In/out: - 4 L, urine output 6.2 L, +17 L since coming to the hospital Hypokalemia being replaced H&H has been stable. Continue to monitor. Transfuse if it is less than 7 Continue with Zosyn for a total of 10 days Complete the course of Diflucan for total 7 days. Trial of extubation to BiPAP today I have personally spent 38 minutes of critical care time in the direct management of this patient. This is a life/limb threatening event. This includes time spent evaluating patient, direct bedside care, chart review, placing orders, interpretation of diagnostic studies, discussion with consultants, patient, and family members, as well as other required patient management activities. This time is exclusive of all separately billable procedures, and teaching time and separate from and in addition to any other critical care service time. Please note the above document was generated using voice recognition software. It may contain grammatical, syntax or spelling errors. Admission and Anticipated Discharge Date Admission Date: May 05, 2022 Subjective Patient seen and examined at bedside. No acute distress, no adverse events overnight. Patient was on pressure support 5/5 the time of examination with respiratory rate 21 and tidal volumes in the 700s. He was following commands. Complain of mild headache No nausea or vomiting No chest pain Review of Systems Review of Systems: All systems reviewed & are unremarkable except as noted in Subjective Physical Exam Physical Exam: Constitutional: No acute distress HEENT: EOMI, PERRLA Respiratory system: Decreased air entry bilaterally, no wheeze, rhonchi, positive crackles bilateral lower lobes CVS: S1-S2 positive, no murmurs or gallops Abdomen: Soft, nontender, nondistended, positive bowel sounds x4, positive colostomy Extremities: +2 pulses bilaterally radialis/ dorsalis pedis, no cyanosis, +1 pit ting edema bilaterally Neuro: Awake alert oriented x3 Psych: Normal mood and affect G/U: Positive Valle Skin: no rashes, warm and dry Lymphatic: no cervical or axillary lymphadenopathy Results & Data Results & Data ([facility]) Vital Signs (Past 12 Hours) Vital Signs Temp Pulse Resp BP Pulse Ox FiO2 05/13/22 08:09 110 H 22 94 30 05/13/22 07:18 111 H 24 93 40 05/13/22 04:00 92 H 20 95 05/13/22 04:00 101/61 05/13/22 03:00 92 H 21 95 05/13/22 03:00 102/62 05/13/22 02:00 89 20 96 05/13/22 02:00 106/66 05/13/22 04:00 40 05/13/22 03:23 94 H 24 96 40 05/13/22 01:00 95 H 20 95 05/13/22 01:00 97/63 L 05/13/22 00:00 97 H 19 95 05/13/22 00:00 37 C 104/65 05/12/22 23:01 126/82 05/12/22 23:01 114 H 21 89 L 05/12/22 23:00 125 H 15 86 L 05/12/22 22:00 97 H 20 93 05/12/22 22:00 112/64 05/12/22 23:20 94 H 23 96 40 05/13/22 00:00 40 Laboratory Results 05/13/22 04:02 05/13/22 04:02 Coding Level of Care Code Critical Care 1st 30-74 mins Diagnoses Bowel perforation K63.1 Obesity E66.9 Severe sepsis with septic shock A41.9; R65.21 Anemia D64.9 Hyponatremia E87.1 Time Spent (min) 38
[2022-05-13] MEDS: D5W AND 1/2NSS 1,000 ML IV SCH ×2 (10:40→23:13)
[2022-05-13 15:26] LABS: BUN Creatinine Ratio 20.4 (10-20); Calcium 7.8 mg/dl (8.5-10.1); Creatinine Clr Calc Pharmacy 182.6 ml/min; Est GFR (African American) 134.8 ml/min; Est GFR (Non-African American) 116.3 ml/min; Magnesium 1.8 mg/dl (1.7-2.4); Phosphorus 2.9 mg/dl (2.5-4.9); Potassium 3.4 mmol/L (3.5-5.1)
[2022-05-13] MEDS: FLUCONAZOLE 200 MG/100 ML BAG IV SCH ×2 (17:19→18:06)
[2022-05-13] MEDS: MAGNESIUM SULFATE / D5W 1 GM/100 ML BAG IV SCH ×2 (17:20→19:41)
[2022-05-13] MEDS: POTASSIUM CHLORIDE / WTR 10 MEQ/100 ML PLCT IV SCH ×3 (17:20→19:41)
[2022-05-13] MEDS ORDERED: ICU ELECTROLYTE REPLACEMENT PROTOCOL SCH (18:00)
[2022-05-14] MEDS: ICU ELECTROLYTE REPLACEMENT PROTOCOL SCH ×2 (04:54→18:06)
[2022-05-14] MEDS ORDERED: POTASSIUM CHLORIDE / WTR 10 MEQ/100 ML PLCT IV SCH (05:00)
[2022-05-14] MEDS ORDERED: MAGNESIUM SULFATE / D5W 1 GM/100 ML BAG IV SCH (05:00)
[2022-05-14 05:15] LABS: Hematocrit (blood only) 21.7 % (40.1-51.0); Hemoglobin 7.4 g/dl (14.0-18.0); Mean Corpuscular Hemoglobin 30.1 pg (25.0-34.0); Mean Corpuscular Hgb Conc 34.1 g/dL (32.0-36.0); Mean Corpuscular Volume 88.2 fL (80.0-100.0); Nucleated RBC # (auto) 0.03 K/uL (0-0); Nucleated RBC % (auto) 0.3 %; Platelet Count 226 K/uL (130-400); RDW Coefficient of Variation 14.7 % (11.5-14.5); RDW Standard Deviation 47.7 fL (36.4-46.3); Red Blood Count 2.46 M/uL (4.63-6.08); White Blood Count 9.89 K/ul (4.8-10.8)
[2022-05-14 05:38] LABS: Albumin Level 2.2 gm/dl (3.4-5.0); BUN Creatinine Ratio 21.7 (10-20); Bilirubin Direct 0.9 mg/dl (0-0.2); Bilirubin,Total 1.5 mg/dl (0.2-1.0); Calcium 7.5 mg/dl (8.5-10.1); Creatinine Clr Calc Pharmacy 194.5 ml/min; Est GFR (African American) 138.3 ml/min; Est GFR (Non-African American) 119.4 ml/min; Phosphorus 2.6 mg/dl (2.5-4.9); Potassium 3.2 mmol/L (3.5-5.1); Total Protein 4.7 gm/dl (6.0-8.3)
[2022-05-14 05:53] LABS: Basophils # (auto) 0.04 K/uL (0-0.2); Basophils % (auto) 0.4 %; Eosinophils # (auto) 0.09 K/uL (0-0.50); Eosinophils % (auto) 0.9 %; Immature Granulocytes % (auto) 8.1 %; Lymphocytes # (auto) 0.31 K/uL (1.2-3.4); Lymphocytes % (auto) 3.1 %; Monocytes # (auto) 0.49 K/uL (0.24-0.82); Neutrophils # (auto) 8.16 K/uL (1.4-6.5); Neutrophils % (auto) 82.5 %; RBC Morphology Unremarkable
[2022-05-14] MEDS: INSULIN ASPART PER UNIT SC SCH ×3 (05:59→18:08)
[2022-05-14] MEDS: MAGNESIUM SULFATE / D5W 1 GM/100 ML BAG IV SCH ×2 (06:24→07:39)
[2022-05-14] MEDS: POTASSIUM CHLORIDE / WTR 10 MEQ/100 ML PLCT IV SCH ×4 (06:24→10:32)
--- NOTE | 2022-05-14 07:01 | Hospitalist Progress Note ---
Date of Service May 14, 2022 Assessment & Plan (1) Severe sepsis with septic shock: Plan: Severe sepsis 2/2 bowel perforation - 05/[address] scan showed colonic obstruction concerning for obstructing lesion, nodular collections in sigmoid colon concerning for small abscess vs. metastatic nodules, large volume of intraperitoneal free air - 05/08 emergent exploratory laparotomy was performed which resulted in right hemicolectomy - 05/09 pt went for abdominal washout and ileostomy which went well - WBC 11.08 today - continue zosyn (day 9) of a total of 10 and fluconazole (day 5) for a total of 7 days - pt is off of vasopressors - was extubated this morning and currently stable on bipap Diverticulitis w/ abscess - diagnosed via [facility] CTAP - labs upon admission significant for WBC 16.56 w/ neutrophilic predominance - KUB showed severe constipation w/ distended colon (colonic ileus vs. LBO) - original blood cultures from 05/05 neg after 48 hr - current management as above Hyponatremia - mild, mostly mid 130s - today, 142 - resolved Anemia - 09/2021 Hgb 15.0 - upon admission, 11.0 - today, 7.2; stable from yesterday - continue to monitor, transfuse below 7 Diarrhea - Acute on chronic problem - has dealt with daily diarrhea since onset of radiation therapy this summer, but reports worsening of symptoms over last 4 days; likely 2/2 to diverticulitis - c. diff neg and stool PCR pos for EPEC - plan as above Prostate cancer - Stage IIIA, s/p TURP in 09/2021 and Leuprolide/radiation therapy as of 02/2022 - Follows with cancer center (Dr. Le) HTN - d/t septic shock and current situation as described above, home lisinopril on hold (2) Bowel perforation: (3) Diverticulitis of intestine with abscess: (4) Diarrhea: (5) Prostate cancer: (6) Hypertension: (7) Large bowel obstruction: Plan FEN: NPO, intubated, normosol 75 mL/hr DVT ppx: lovenox 40 mg daily Code: full Dispo: ICU Admission and Anticipated Discharge Date Admission Date: May 05, 2022 Supervising Physician Co-Signing Physician Notes Attending attestation Pt seen and examined in concert with Dr. Berumen. In agreement with the documented findings as noted in the resident documentation with any exceptions or additions as noted here. Ongoing aching abdominal pain well controlled on present medication regimen. Tolerating BIPAP without complaint. On examination, S1/S2 tachy no MCG. Diffuse rhonchi on bipap. Stoma in place, +ve bowel sounds, no significant TTP VS, nursing notes, intensive care notes reviewed. Severe sepsis in the setting of bowel perforation 2/2 diverticulitis w/ abscess s/p surgical repair - ICU - Continue IV abx therapy. Pain control with fentanyl, IV morphine. Trend CBC. Acute on chronic anemia - likely ACD with blood loss postoperative - trend daily, transfuse at 7. Electrolyte abnormalities - Hyponatremia resolved, Hypokalemia to be managed per ICU protocol. Else see resident documentation as noted. Rina Kilgore is a 61 y/o male who presents with PMH of prostate cancer (s/p TURP 09/2021 and leuprolide/radiation therapy 02/2022) and HTN presenting via transfer due to acute diverticulitis w/ LBO and 2.8 cm abscess. On repeat CT scan, pt found to have bowel perforation and is now s/p right hemicolectomy. Patient underwent abdominal washout and ileostomy placement on 05/09. Pt seen at bedside, Alert, responsive and communicative. States he is in any pain. Review of Systems Review of Systems: As per HPI Physical Exam 2 Constitutional: well developed and + mechanically ventilated; not ill appearing Respiratory: normal respiratory effort, lungs clear to auscultation Cardiovascular: RRR, no murmur, no edema Gastrointestinal (Abdomen): Inspection/Auscultation: normal bowel sounds Skin: no rashes, warm and dry Results & Data Results & Data ([facility]) Vital Signs (Past 12 Hours) Vital Signs Pulse Resp BP Pulse Ox O2 Del Method O2 Flow Rate FiO2 05/14/22 06:00 97 H 23 91 05/14/22 06:00 136/85 05/14/22 05:00 97 H 22 93 05/14/22 05:00 127/82 05/14/22 04:00 97 H 21 93 05/14/22 04:00 134/86 05/14/22 03:00 99 H 22 93 05/14/22 03:00 129/86 05/14/22 02:00 99 H 22 92 05/14/22 02:00 132/81 05/14/22 01:00 102 H 23 92 05/14/22 01:00 127/84 05/14/22 00:00 103 H 22 92 05/14/22 00:00 142/83 H 05/14/22 03:40 93 H 23 96 30 05/13/22 23:22 102 H 24 91 30 05/13/22 23:00 102 H 25 H 91 05/13/22 23:00 126/79 05/13/22 22:00 102 H 26 H 91 05/13/22 22:00 122/78 05/13/22 21:00 103 H 24 90 05/13/22 21:00 133/79 05/13/22 20:00 101 H 23 91 05/13/22 20:00 124/78 05/13/22 19:00 100 H 21 91 05/13/22 19:00 124/82 05/13/22 20:00 Nasal Cannula 3
--- NOTE | 2022-05-14 08:24 | XRay Report ---
XR chest 1V portable HISTORY: Status post extubation. while intubated eval line and tube/pulm stauts COMPARISON: Chest 05/13/2022. FINDINGS: There are low lung volumes. No pneumothorax. The heart remains mildly enlarged. Bibasilar d ensities/small bilateral pleural effusions persist. Interval improvement in the pulmonary vascular co ngestions. The lines and tubes appeared removed. IMPRESSION: 1. Interval removal of the lines/tubes. 2. Interval improvement in the pulmonary vascular congestion. 3. Small bilateral pleural effusions/densities persist. ACT 112: Negative or not required by law. Electronically signed by: Austin Rodriguez M.D. 05/14/2022 8:22 AM
[2022-05-14] MEDS: PIPERACILLIN/TAZOBACTAM 4.5 GM in DEXTROSE 5% 100 ML IV SCH ×2 (08:29→15:47)
[2022-05-14] MEDS: ENOXAPARIN INJ 40 MG/0.4 ML SYR SQ SCH (08:30)
[2022-05-14] MEDS: FUROSEMIDE INJ 20 MG/2 ML VIAL IV SCH (08:30)
--- NOTE | 2022-05-14 09:16 | Critical Care Progress Note ---
Date of Service May 14, 2022 Assessment & Plan (1) Bowel perforation: (2) Obesity: (3) Severe sepsis with septic shock: (4) Anemia: (5) Hyponatremia: Plan Impression: 61-year-old male admitted from outside facility with diverticulitis now developing perforated viscus with benjamin stool in the peritoneal cavity requiring laparotomy washout and colon resection. He is in septic shock with need for pressors and an open abdomen. Recommendations: Neurologic: CAM ICU: Negative Cardiovascular: -- S/p septic shock Has been off vasopressor support Continue to monitor MAP Random cortisol was normal. Pulmonary: -- S/p VDRF Continue with vent support Extubated 05/13/2022 --Acute hypoxic respiratory failure Multifactorial Bilateral dependent atelectasis Pulmonary vascular congestion Renal: Monitor BUNs/creatinine ICU electrolyte replacement protocol. GI: --Elevated T bili --> trending down Could be secondary to antibiotic Zosyn Continue to monitor Continue with tube feeds Endocrine: Glycemic control per protocol. Random cortisol was normal. ID: -- Peritonitis secondary to perforated viscus. Complete the course of Zosyn for total of 10 days Continue with Diflucan for total of 7 days Heme-onc: -- Normocytic anemia Gradual drop in hemoglobin Continue monitor H&H Transfuse if hemoglobin is less than 7 --Prophylaxis VTE: Lovenox GI: Pantoprazole twice daily Lines: Peripheral Diet: N.p.o. Plan: In/out: - 2.2 L, urine output 3.2 L, +15 L since coming to the hospital Hypokalemia being replaced H&H has been stable. Continue to monitor. Transfuse if it is less than 7 Continue with Zosyn for a total of 10 days Complete the course of Diflucan for total 7 days. Patient will need aggressive suctioning Incentive spirometry to be added today PT OT along with swallow eval Patient hemodynamically stable to be downgrade to medical floor Please note the above document was generated using voice recognition software. It may contain grammatical, syntax or spelling errors.Any formal questions or concerns about the content, text or information contained within the body of this dictation should be directly addressed to the provider for clarification. Admission and Anticipated Discharge Date Admission Date: May 05, 2022 Subjective Patient seen and examined at bedside. No acute distress, no adverse events overnight Patient tolerated BiPAP overnight Denies any headache today No nausea or vomiting Does complain of mild chest discomfort. He does have cough but is not able to bring it up Review of Systems Review of Systems: All systems reviewed & are unremarkable except as noted in Subjective Physical Exam Physical Exam: Constitutional: No acute distress HEENT: EOMI, PERRLA Respiratory system: Decreased air entry bilaterally, no wheeze, rhonchi, positive crackles bilateral lower lobes CVS: S1-S2 positive, no murmurs or gallops Abdomen: Soft, nontender, nondistended, positive bowel sounds x4, positive colostomy Extremities: +2 pulses bilaterally radialis/ dorsalis pedis, no cyanosis, +1 pitting edema bilaterally Neuro: Awake alert oriented x3 Psych: Normal mood and affect G/U: Positive Valle Skin: no rashes, warm and dry Lymphatic: no cervical or axillary lymphadenopathy Results & Data Results & Data ([facility]) Vital Signs (Past 12 Hours) Vital Signs Pulse Resp BP Pulse Ox FiO2 05/14/22 06:00 97 H 23 91 05/14/22 06:00 136/85 05/14/22 05:00 97 H 22 93 05/14/22 05:00 127/82 05/14/22 04:00 97 H 21 93 05/14/22 04:00 134/86 05/14/22 03:00 99 H 22 93 05/14/22 03:00 129/86 05/14/22 02:00 99 H 22 92 05/14/22 02:00 132/81 05/14/22 01:00 102 H 23 92 05/14/22 01:00 127/84 05/14/22 00:00 103 H 22 92 05/14/22 00:00 142/83 H 05/14/22 03:40 93 H 23 96 30 05/13/22 23:22 102 H 24 91 30 05/13/22 23:00 102 H 25 H 91 05/13/22 23:00 126/79 05/13/22 22:00 102 H 26 H 91 05/13/22 22:00 122/78 Laboratory Results 05/14/22 04:41 05/14/22 04:41 Coding Level of Care Code 58844 Subseq Hosp Care Lvl 3 Diagnoses Bowel perforation K63.1 Obesity E66.9 Severe sepsis with septic shock A41.9; R65.21 Anemia D64.9 Hyponatremia E87.1
--- NOTE | 2022-05-14 10:05 | Surgery Progress Note ---
Date of Service May 14, 2022 Assessment & Plan (1) Bowel perforation: Plan: POD#6 exploratory laparotomy with washout and right hemicolectomy POD#5 exploratory laparotomy, washout, ileostomy and mucus fistula creation off ventilator possible OOB to chair continue abx; continue drains other management per ICU team Admission and Anticipated Discharge Date Admission Date: May 05, 2022 Subjective Patient seen and examined at bedside. No acute distress, no adverse events overnight Patient tolerated BiPAP overnight some pain no nausea/vomiting Physical Exam Physical Exam: no acute distress, on BIPAP abdomen slightly distended, incision without erythema, nicky and [place] drain in place; retention bars in place ostomy pink and viable, liquid in ostomy bag; mucous fistula viable YENY drains with minimal serous output Results & Data ([facility]) Vital Signs (Past 12 Hours) Vital Signs Pulse Resp BP Pulse Ox FiO2 05/14/22 06:00 97 H 23 91 05/14/22 06:00 136/85 05/14/22 05:00 97 H 22 93 05/14/22 05:00 127/82 05/14/22 04:00 97 H 21 93 05/14/22 04:00 134/86 05/14/22 03:00 99 H 22 93 05/14/22 03:00 129/86 05/14/22 02:00 99 H 22 92 05/14/22 02:00 132/81 05/14/22 01:00 102 H 23 92 05/14/22 01:00 127/84 05/14/22 00:00 103 H 22 92 05/14/22 00:00 142/83 H 05/14/22 03:40 93 H 23 96 30 05/13/22 23:22 102 H 24 91 30 05/13/22 23:00 102 H 25 H 91 05/13/22 23:00 126/79
[2022-05-14] MEDS: PANTOprazole 40 MG in SYRINGE 0 ML IV SCH ×2 (10:31→20:40)
[2022-05-14 10:57] LABS: iSTAT Allen Test Pass; iSTAT Art Bld Gas pCO2 Correct 32 mmHg (35-46); iSTAT Arterial Blood Gas HCO3 28 meg/L (19-24); iSTAT Arterial Blood Gas pCO2 33 mmHg (35-46); iSTAT Arterial Blood Gas pH 7.54 (7.35-7.45); iSTAT Arterial Blood Gas pO2 67 mmHg (80-95); iSTAT Arterial Blood Gas pO2 C 67; iSTAT Carbon Dioxide 29 mmol/L (24-31); iSTAT Hematocrit 20 % (42-52); iSTAT Hemoglobin 6.8 g/dl (14.0-18.0); iSTAT Potassium 3.2 mmol/L (3.3-5.0); iSTAT Site R Radial; iSTAT Sodium 136 mmol/L (135-144)
[2022-05-14] MEDS: POTASSIUM CHLORIDE 40 MEQ in D5W AND 1/2NSS 1,000 ML IV SCH (11:04)
[2022-05-14] MEDS ORDERED: POTASSIUM PHOSPHATE 30 MMOL in SODIUM CHLORIDE 0.9% 500 ML IV ONE (11:30)
[2022-05-14] MEDS: FLUCONAZOLE 200 MG/100 ML BAG IV SCH ×2 (15:48→18:04)
[2022-05-15] MEDS: PIPERACILLIN/TAZOBACTAM 4.5 GM in DEXTROSE 5% 100 ML IV SCH
[2022-05-15] MEDS: POTASSIUM CHLORIDE 40 MEQ in D5W AND 1/2NSS 1,000 ML IV SCH (00:16)
[2022-05-15 05:47] LABS: BUN Creatinine Ratio 21.3 (10-20); Calcium 7.6 mg/dl (8.5-10.1); Creatinine Clr Calc Pharmacy 191.3 ml/min; Est GFR (African American) 137.1 ml/min; Est GFR (Non-African American) 118.3 ml/min; Phosphorus 2.6 mg/dl (2.5-4.9); Potassium 3.5 mmol/L (3.5-5.1)
[2022-05-15] MEDS: ICU ELECTROLYTE REPLACEMENT PROTOCOL SCH (05:56)
[2022-05-15] MEDS: INSULIN ASPART PER UNIT SC SCH ×5 (06:00→20:59)
[2022-05-15 06:13] LABS: Hematocrit (blood only) 22.4 % (40.1-51.0); Hemoglobin 7.7 g/dl (14.0-18.0); Mean Corpuscular Hemoglobin 30.2 pg (25.0-34.0); Mean Corpuscular Hgb Conc 34.4 g/dL (32.0-36.0); Mean Corpuscular Volume 87.8 fL (80.0-100.0); Nucleated RBC # (auto) 0.02 K/uL (0-0); Nucleated RBC % (auto) 0.2 %; Platelet Count 314 K/uL (130-400); RDW Coefficient of Variation 14.8 % (11.5-14.5); RDW Standard Deviation 47.8 fL (36.4-46.3); Red Blood Count 2.55 M/uL (4.63-6.08); White Blood Count 10.03 K/ul (4.8-10.8)
[2022-05-15] MEDS: MAGNESIUM SULFATE / D5W 1 GM/100 ML BAG IV SCH ×2 (06:14→09:02)
[2022-05-15] MEDS: POTASSIUM CHLORIDE / WTR 10 MEQ/100 ML PLCT IV SCH ×4 (06:14→10:11)
--- NOTE | 2022-05-15 06:45 | Hospitalist Progress Note ---
Date of Service May 15, 2022 Assessment & Plan (1) Severe sepsis with septic shock: Plan: Severe sepsis 2/2 bowel perforation - 05/[address] scan showed colonic obstruction concerning for obstructing lesion, nodular collections in sigmoid colon concerning for small abscess vs. metastatic nodules, large volume of intraperitoneal free air - 05/08 emergent exploratory laparotomy was performed which resulted in right hemicolectomy - 05/09 pt went for abdominal washout and ileostomy which went well - completed 10 day dose of Zosyn, and 7 day course of Diflucan Diverticulitis w/ abscess - diagnosed via [facility] CTAP - labs upon admission significant for WBC 16.56 w/ neutrophilic predominance - KUB showed severe constipation w/ distended colon (colonic ileus vs. LBO) - original blood cultures from 05/05 neg after 48 hr - current management as above - currently stable on 3L NC, has been able to get out of bed and sit in cahir - consider d/c ritter if able to tolerate - up 14L since admission, lasix 40mg po daily Hyponatremia - mild, mostly mid 130s - today, 142 - resolved Hypokalemia - K= 3.5 - continuing to trend and replete Anemia - 09/2021 Hgb 15.0 - upon admission, 11.0 - today, 7.7; stable from yesterday - continue to monitor, transfuse below 7 Diarrhea - Acute on chronic problem - has dealt with daily diarrhea since onset of radiation therapy this summer, but reports worsening of symptoms over last 4 days; likely 2/2 to diverticulitis - c. diff neg and stool PCR pos for EPEC - plan as above Prostate cancer - Stage IIIA, s/p TURP in 09/2021 and Leuprolide/radiation therapy as of 02/2022 - Follows with cancer center (Dr. Le) HTN - d/t septic shock and current situation as described above, home lisinopril on hold (2) Bowel perforation: (3) Diverticulitis of intestine with abscess: (4) Diarrhea: (5) Prostate cancer: (6) Hypertension: (7) Large bowel obstruction: Plan DVT ppx: lovenox 40 mg daily Code: full Admission and Anticipated Discharge Date Admission Date: May 05, 2022 Supervising Physician Co-Signing Physician Notes Attending attestation Pt seen and examined in concert with Dr. Berumen. In agreement with the documented findings as noted in the resident documentation with any exceptions or additions as noted here. Aching abdominal pain well controlled on present medication regimen. Shortness of breath is well controlled on 2-3L O2, had occasional BIPAP w/ sleep. On examination, S1/S2 tachy no MCG. Decreased breath sounds throughout without adventitious sounds. Stoma in place, +ve bowel sounds, no significant TTP VS, nursing notes, labs reviewed. Severe sepsis in the setting of bowel perforation 2/2 diverticulitis w/ abscess s/p surgical repair - telemetry boarding in ICU - Completed Abx therapy, last day of antifungal therapy. Pain control with APAP, IV morphine PRN and doing well. Acute on chronic anemia - likely ACD with blood loss postoperative - trend daily, transfuse at 7. Electrolyte abnormalities - Hyponatremia resolved, Hypokalemia repleted, trend B MP Else see resident documentation as noted. Rina Kilgore is a 61 y/o male who presents with PMH of prostate cancer (s/p TURP 09/2021 and leuprolide/radiation therapy 02/2022) and HTN presenting via transfer due to acute diverticulitis w/ LBO and 2.8 cm abscess. On repeat CT scan, pt found to have bowel perforation and is now s/p right hemicolectomy. Patient underwent abdominal washout and ileostomy placement on 05/09. Pt doing well today. Alert and responsive without any complaints. States his pain is well controlled. Was able to sit in chair this afternoon. Review of Systems Review of Systems: As per HPI Physical Exam Constitutional: well developed; not ill appearing Respiratory: normal respiratory effort, lungs clear to auscultation Cardiovascular: RRR, no murmur, no edema Gastrointestinal (Abdomen): Inspection/Auscultation: normal bowel sounds ostomy in place Skin: no rashes, warm and dry Results & Data Results & Data ([facility]) Vital Signs (Past 12 Hours) Vital Signs Temp Pulse Resp BP Pulse Ox O2 Del Method O2 Flow Rate 05/15/22 04:00 36.9 C 05/15/22 00:00 36.9 C 05/15/22 04:00 92 H 24 94 05/15/22 04:00 139/97 05/15/22 03:00 96 H 27 H 94 05/15/22 03:00 150/101 H 05/15/22 02:00 89 23 94 05/15/22 02:00 138/96 05/15/22 01:00 93 H 24 94 05/15/22 01:00 146/99 H 05/15/22 00:00 93 H 23 94 05/15/22 00:00 146/99 H 05/14/22 23:00 94 H 25 H 93 05/14/22 23:00 146/101 H 05/14/22 22:00 90 23 93 05/14/22 22:00 144/95 H 05/15/22 02:57 91 H 25 H 95 05/15/22 00:00 89 05/14/22 22:57 94 H 21 90 05/14/22 20:00 Nasal Cannula 3 05/14/22 21:00 90 24 93 05/14/22 21:00 146/93 H 05/14/22 20:00 92 H 24 93 05/14/22 20:00 142/93 H 05/14/22 19:00 91 H 28 H 94 05/14/22 19:00 142/93 H 05/14/22 20:00 36.8 C FiO2 05/15/22 04:00 05/15/22 00:00 05/15/22 04:00 05/15/22 04:00 05/15/22 03:00 05/15/22 03:00 05/15/22 02:00 05/15/22 02:00 05/15/22 01:00 05/15/22 01:00 05/15/22 00:00 05/15/22 00:00 05/14/22 23:00 05/14/22 23:00 05/14/22 22:00 05/14/22 22:00 05/15/22 02:57 30 05/15/22 00:00 05/14/22 22:57 30 05/14/22 20:00 05/14/22 21:00 05/14/22 21:00 05/14/22 20:00 05/14/22 20:00 05/14/22 19:00 05/14/22 19:00 05/14/22 20:00 Resident Activity Tracking Resident Involvement: Resident Care Provided Care Provided: Adult Hospital Medicine
[2022-05-15 07:10] LABS: Basophils # (auto) 0.05 K/uL (0-0.2); Basophils % (auto) 0.5 %; Eosinophils # (auto) 0.08 K/uL (0-0.50); Eosinophils % (auto) 0.8 %; Lymphocytes # (auto) 0.37 K/uL (1.2-3.4); Lymphocytes % (auto) 3.7 %; Monocytes # (auto) 0.51 K/uL (0.24-0.82); Monocytes % (auto) 5.1 %; Neutrophils # (auto) 8.32 K/uL (1.4-6.5); Neutrophils % (auto) 82.9 %; RBC Morphology Unremarkable
--- NOTE | 2022-05-15 08:50 | Surgery Progress Note ---
Date of Service May 15, 2022 Assessment & Plan (1) Bowel perforation: Plan: POD#7 exploratory laparotomy with washout and right hemicolectomy POD#6 exploratory laparotomy, washout, ileostomy and mucus fistula creation OOB to chair; PT/OT continue abx; continue drains advance diet as tolerated Admission and Anticipated Discharge Date Admission Date: May 05, 2022 Subjective doing fairly well this morning. Denies nausea vomiting. Denies fevers. Pain is adequately controlled. Physical Exam Physical Exam: no acute distress, on NC; A&Ox3 abdomen slightly distended, incision without erythema, nicky and Kodi drain in place; retention bars in place ostomy pink and viable, liquid in ostomy bag; mucous fistula viable YENY drains with minimal serous output Results & Data ([facility]) Vital Signs (Past 12 Hours) Vital Signs Temp Pulse Resp BP Pulse Ox FiO2 05/15/22 04:00 36.9 C 05/15/22 00:00 36.9 C 05/15/22 04:00 92 H 24 94 05/15/22 04:00 139/97 05/15/22 03:00 96 H 27 H 94 05/15/22 03:00 150/101 H 05/15/22 02:00 89 23 94 05/15/22 02:00 138/96 05/15/22 01:00 93 H 24 94 05/15/22 01:00 146/99 H 05/15/22 00:00 93 H 23 94 05/15/22 00:00 146/99 H 05/14/22 23:00 94 H 25 H 93 05/14/22 23:00 146/101 H 05/14/22 22:00 90 23 93 05/14/22 22:00 144/95 H 05/15/22 02:57 91 H 25 H 95 30 05/15/22 00:00 89 05/14/22 22:57 94 H 21 90 30 05/14/22 21:00 90 24 93 05/14/22 21:00 146/93 H Laboratory Results 05/15/22 05/15/22 05/14/22 Range/Units 04:35 04:35 23:53 WBC 10.03 (4.8-10.8) K/ul RBC 2.55 L (4.63-6.08) M/uL Hgb 7.7 L (14.0-18.0) g/dl POC Hgb (14.0-18.0) g/dl Hct 22.4 L (40.1-51.0) % POC Hct (42-52) % MCV 87.8 (80.0-100.0) fL MCH 30.2 (25.0-34.0) pg MCHC 34.4 (32.0-36.0) g/dL RDW Std Deviation 47.8 H (36.4-46.3) fL RDW Coeff of Tani 14.8 H (11.5-14.5) % Plt Count 314 (130-400) K/uL MPV 10.0 (9.4-12.4) fL Immature Gran % (Auto) 7.0 % Neut % (Auto) 82.9 % Lymph % (Auto) 3.7 % Panola % (Auto) 5.1 % Eos % (Auto) 0.8 % Baso % (Auto) 0.5 % Neut # (Auto) 8.32 H (1.4-6.5) K/uL Lymph # (Auto) 0.37 L (1.2-3.4) K/uL Panola # (Auto) 0.51 (0.24-0.82) K/uL Eos # (Auto) 0.08 (0-0.50) K/uL Baso # (Auto) 0.05 (0-0.2) K/uL Immature Gran # (Auto) 0.70 H (0.00-0.02) K/uL Absolute Nucleated RBC 0.02 H (0-0) K/uL Nucleated RBC % (auto) 0.2 % RBC Morphology Unremarkable Sample Site POC pH (7.35-7.45) POC pCO2 (35-46) mmHg POC pO2 (80-95) mmHg POC HCO3 (19-24) alonzo/L POC Total CO2 (24-31) mmol/L POC Base Excess (-9-1.8) alonzo/L ABG pH (Temp Correct) (7.35-7.45) ABG pCO2 (Temp Corrct (35-46) mmHg POC ABG pO2 at Pt Temp POC ABG O2 Sat (90-95) % Vidal Test O2 Delivery Device POC Sodium (135-144) mmol/L Sodium 138 (136-145) mmol/L POC Potassium (3.3-5.0) mmol/L Potassium 3.5 (3.5-5.1) mmol/L Chloride 106 (98-107) mmol/L Carbon Dioxide 25 (21-32) mmol/L Anion Gap 7 (3-11) BUN 10 (6-23) mg/dl Creatinine 0.47 L (0.6-1.4) mg/dl Est Cr Clr Drug Dosing 191.3 ml/min Est GFR ( Amer) 137.1 ml/min Est GFR (Non-Af Amer) 118.3 ml/min BUN/Creatinine Ratio 21.3 H (10-20) Glucose 107 H (70-99(Fasting)) mg/dl POC Glucose 116 H (70-99) mg/dl Calcium 7.6 L (8.5-10.1) mg/dl Phosphorus 2.6 (2.5-4.9) mg/dl Magnesium 2.0 (1.7-2.4) mg/dl 05/14/22 05/14/22 05/14/22 Range/Units 18:07 11:28 10:42 WBC (4.8-10.8) K/ul RBC (4.63-6.08) M/uL Hgb (14.0-18.0) g/dl POC Hgb 6.8 L* (14.0-18.0) g/dl Hct (40.1-51.0) % POC Hct 20 L* (42-52) % MCV (80.0-100.0) fL MCH (25.0-34.0) pg MCHC (32.0-36.0) g/dL RDW Std Deviation (36.4-46.3) fL RDW Coeff of Tani (11.5-14.5) % Plt Count (130-400) K/uL MPV (9.4-12.4) fL Immature Gran % (Auto) % Neut % (Auto) % Lymph % (Auto) % Panola % (Auto) % Eos % (Auto) % Baso % (Auto) % Neut # (Auto) (1.4-6.5) K/uL Lymph # (Auto) (1.2-3.4) K/uL Panola # (Auto) (0.24-0.82) K/uL Eos # (Auto) (0-0.50) K/uL Baso # (Auto) (0-0.2) K/uL Immature Gran # (Auto) (0.00-0.02) K/uL Absolute Nucleated RBC (0-0) K/uL Nucleated RBC % (auto) % RBC Morphology Sample Site R Radial POC pH 7.54 H* (7.35-7.45) POC pCO2 33 L (35-46) mmHg POC pO2 67 L (80-95) mmHg POC HCO3 28 H (19-24) alonzo/L POC Total CO2 29 (24-31) mmol/L POC Base Excess 5.0 H (-9-1.8) alonzo/L ABG pH (Temp Correct) 7.540 H* (7.35-7.45) ABG pCO2 (Temp Corrct 32 L (35-46) mmHg POC ABG pO2 at Pt Temp 67 POC ABG O2 Sat 95.0 (90-95) % Vidal Test Pass O2 Delivery Device Cannula POC Sodium 136 (135-144) mmol/L Sodium (136-145) mmol/L POC Potassium 3.2 L (3.3-5.0) mmol/L Potassium (3.5-5.1) mmol/L Chloride (98-107) mmol/L Carbon Dioxide (21-32) mmol/L Anion Gap (3-11) BUN (6-23) mg/dl Creatinine (0.6-1.4) mg/dl Est Cr Clr Drug Dosing ml/min Est GFR ( Amer) ml/min Est GFR (Non-Af Amer) ml/min BUN/Creatinine Ratio (10-20) Glucose (70-99(Fasting)) mg/dl POC Glucose 122 H 124 H (70-99) mg/dl Calcium (8.5-10.1) mg/dl Phosphorus (2.5-4.9) mg/dl Magnesium (1.7-2.4) mg/dl
[2022-05-15] MEDS: ENOXAPARIN INJ 40 MG/0.4 ML SYR SQ SCH (09:04)
[2022-05-15] MEDS: PANTOprazole 40 MG in SYRINGE 0 ML IV SCH (09:04)
[2022-05-15] MEDS: FUROSEMIDE INJ 20 MG/2 ML VIAL IV SCH (09:04)
--- NOTE | 2022-05-15 09:21 | Critical Care Progress Note ---
Date of Service May 15, 2022 Assessment & Plan (1) Bowel perforation: (2) Obesity: (3) Severe sepsis with septic shock: (4) Anemia: (5) Hyponatremia: Plan Impression: 61-year-old male admitted from outside facility with diverticulitis now developing perforated viscus with benjamin stool in the peritoneal cavity requiring laparotomy washout and colon resection. He is in septic shock with need for pressors and an open abdomen. Recommendations: Neurologic: CAM ICU: Negative Cardiovascular: -- S/p septic shock Has been off vasopressor support Continue to monitor MAP Random cortisol was normal. Pulmonary: -- S/p VDRF Continue with vent support Extubated 05/13/2022 --Acute hypoxic respiratory failure Multifactorial Bilateral dependent atelectasis Pulmonary vascular congestion Renal: Monitor BUNs/creatinine ICU electrolyte replacement protocol. GI: --Elevated T bili --> trending down Could be secondary to antibiotic Zosyn Continue to monitor Continue with tube feeds Endocrine: Glycemic control per protocol. Random cortisol was normal. ID: -- Peritonitis secondary to perforated viscus. Complete the course of Zosyn for total of 10 days Completed Diflucan for total of 7 days Heme-onc: -- Normocytic anemia Gradual drop in hemoglobin Continue monitor H&H Transfuse if hemoglobin is less than 7 --Prophylaxis VTE: Lovenox GI: Pantoprazole twice daily --> changed to once a day 05/15/22 Lines: Peripheral Diet: N.p.o. Plan: In/out: -324 mL, urine output 2775, +14 L since coming to the hospital Hypokalemia being replaced Recommend patient to be on BiPAP nightly and as needed shortness of breath Out of bed to chair PT OT Can discontinue Valle later today Can DC IV fluids if the patient is able to tolerate diet Patient hemodynamically stable to be downgrade to medical floor Please note the above document was generated using voice recognition software. It may contain grammatical, syntax or spelling errors.Any formal questions or concerns about the content, text or information contained within the body of this dictation should be directly addressed to the provider for clarification. Admission and Anticipated Discharge Date Admission Date: May 05, 2022 Subjective Patient seen and examined at bedside. No acute distress, no adverse events overnight. Patient was nasal cannula saturating 93% Was more alert today compared to yesterday Answering all questions appropriately. Denied any headache, no nausea, no vomiting He did a swallow eval and passed the swallow eval today. Denies any headache No abdominal pain Review of Systems Review of Systems: All systems reviewed & are unremarkable except as noted in Subjective Physical Exam Physical Exam: Constitutional: No acute distress HEENT: EOMI, PERRLA Respiratory system: Decreased air entry bilaterally, no wheeze, rhonchi, positive crackles bilateral lower lobes CVS: S1-S2 positive, no murmurs or gallops Abdomen: Soft, nontender, nondistended, positive bowel sounds x4, positive colostomy Extremities: +2 pulses bilaterally radialis/ dorsalis pedis, no cyanosis, +1 pitting edema bilaterally Neuro: Awake alert oriented x3 Psych: Normal mood and affect G/U: Positive Valle Skin: no rashes, warm and dry Lymphatic: no cervical or axillary lymphadenopathy Results & Data Results & Data ([facility]) Vital Signs (Past 12 Hours) Vital Signs Temp Pulse Resp BP Pulse Ox FiO2 05/15/22 04:00 36.9 C 05/15/22 00:00 36.9 C 05/15/22 04:00 92 H 24 94 05/15/22 04:00 139/97 05/15/22 03:00 96 H 27 H 94 05/15/22 03:00 150/101 H 05/15/22 02:00 89 23 94 05/15/22 02:00 138/96 05/15/22 01:00 93 H 24 94 05/15/22 01:00 146/99 H 05/15/22 00:00 93 H 23 94 05/15/22 00:00 146/99 H 05/14/22 23:00 94 H 25 H 93 05/14/22 23:00 146/101 H 05/14/22 22:00 90 23 93 05/14/22 22:00 144/95 H 05/15/22 02:57 91 H 25 H 95 30 05/15/22 00:00 89 05/14/22 22:57 94 H 21 90 30 Laboratory Results 05/15/22 04:35 05/15/22 04:35 Coding Level of Care Code 72927 Subseq Hosp Care Lvl 3 Diagnoses Bowel perforation K63.1 Obesity E66.9 Severe sepsis with septic shock A41.9; R65.21 Anemia D64.9 Hyponatremia E87.1
[2022-05-16 05:23] LABS: Basophils # (auto) 0.03 K/uL (0-0.2); Basophils % (auto) 0.3 %; Eosinophils # (auto) 0.05 K/uL (0-0.50); Eosinophils % (auto) 0.5 %; Hematocrit (blood only) 22.5 % (40.1-51.0); Hemoglobin 7.6 g/dl (14.0-18.0); Immature Granulocytes # (auto) 0.47 K/uL (0.00-0.02); Immature Granulocytes % (auto) 4.4 %; Lymphocytes # (auto) 0.39 K/uL (1.2-3.4); Lymphocytes % (auto) 3.7 %; Mean Corpuscular Hemoglobin 30.3 pg (25.0-34.0); Mean Corpuscular Hgb Conc 33.8 g/dL (32.0-36.0); Mean Corpuscular Volume 89.6 fL (80.0-100.0); Mean Platelet Volume 9.9 fL (9.4-12.4); Monocytes # (auto) 0.52 K/uL (0.24-0.82); Monocytes % (auto) 4.9 %; Neutrophils # (auto) 9.17 K/uL (1.4-6.5); Neutrophils % (auto) 86.2 %; Nucleated RBC # (auto) 0.02 K/uL (0-0); Nucleated RBC % (auto) 0.2 %; Platelet Count 354 K/uL (130-400); RDW Coefficient of Variation 14.6 % (11.5-14.5); RDW Standard Deviation 47.8 fL (36.4-46.3); Red Blood Count 2.51 M/uL (4.63-6.08); White Blood Count 10.63 K/ul (4.8-10.8)
[2022-05-16 05:39] LABS: Calcium 7.7 mg/dl (8.5-10.1); Creatinine Clr Calc Pharmacy 208.3 ml/min; Est GFR (African American) 140.9 ml/min; Est GFR (Non-African American) 121.6 ml/min; Phosphorus 2.8 mg/dl (2.5-4.9); Potassium 3.2 mmol/L (3.5-5.1)
--- NOTE | 2022-05-16 06:54 | Hospitalist Progress Note ---
Date of Service May 16, 2022 Assessment & Plan (1) Severe sepsis with septic shock: Plan: Severe sepsis 2/2 bowel perforation - CT scan showed colonic obstruction concerning for obstructing lesion, nodular collections in sigmoid colon concerning for small abscess vs. metastatic nodules, large volume of intraperitoneal free air - emergent exploratory laparotomy was performed which resulted in right hemicolectomy; post op day 8 - The next day pt went for abdominal washout and ileostomy; post-op day 7 - Was mechanically ventilated for 5 days and needed vasopressor support; has since been able to ween off both - completed 10 day dose of Zosyn, and 7 day course of Diflucan - currently stable on room air. Will switch BiPap order to prn overnight, as pt has been having a lot of trouble sleeping. Could try oxygen supplementation if SPO2 drops overnight, prior to starting BiPap. - consider d/c ritter if able to tolerate in the next day or 2, PT/OT Diverticulitis w/ abscess - diagnosed via [facility] CT[facility] - labs upon admission significant for WBC 16.56 w/ neutrophilic predominance on admission-> leukocytosis has since resolved - KUB showed severe constipation w/ distended colon (colonic ileus vs. LBO) - original blood cultures from 05/05 neg after 48 hr - current management as above; completed course of antibiotics Increased Volume Status - up 14L since admission, lasix 40mg po daily Hyponatremia - mild, mostly mid 130s - today, 142 - resolved Hypokalemia - K= 3.2 05/16; replated - continuing to trend and replete Anemia - 09/2021 Hgb 15.0 - upon admission, 11.0 - today, 7.6; stable from yesterday - continue to monitor, transfuse below 7 Prostate cancer - Stage IIIA, s/p TURP in 09/2021 and Leuprolide/radiation therapy as of 02/2022 - Follows with cancer center (Dr. Le) HTN - d/t septic shock and current situation as described above, home lisinopril on hold - Blood pressures have been elevated over the past day; could consider restarting once hemodynamically stable (2) Bowel perforation: (3) Diverticulitis of intestine with abscess: (4) Diarrhea: (5) Prostate cancer: (6) Hypertension: (7) Large bowel obstruction: Plan DVT ppx: lovenox 40 mg daily Code: full Admission and Anticipated Discharge Date Admission Date: May 05, 2022 Supervising Physician Co-Signing Physician Notes Attending Attestation I also saw the patient with the resident physician and confirmed tsang portion of the history and physical examination. Agree with the impression and plan as noted in resident documentation and as summarized below. Exam 139/97, 85, 18, 36.6, 96% on nasal cannula 2 L/min He is pleasant alert. No complaints at the time of our exam Heart regular rate and rhythm Lungs clear in the apices, nonlabored respirations Stoma in place, looks to be leaking however Data White blood cell count 10.63, hemoglobin 7.6, platelet count 354 Sodium 139, potassium 3.2, BUN 11, creatinine 0.44 Impression and plan Severe sepsis in the setting of bowel perforation 2/2 diverticulitis w/ abscess s/p surgical repair Will have nursing/ostomy team evaluate his site Respiratory status improving, will hold off on BiPAP this evening and see how he does on room air Surgical consult appreciated Will leave Ritter in for today, if resolve the ostomy site issues, consider pulling Ritter tomorrow Acute on chronic anemia likely ACD with blood loss postoperative Trend Electrolyte abnormalities Replete potassium Trend BMP Additional per resident documentation Rina Kilgore is a 61 y/o male who presents with PMH of prostate cancer (s/p TURP 09/2021 and leuprolide/radiation therapy 02/2022) and HTN presenting via transfer due to acute diverticulitis w/ LBO and 2.8 cm abscess. On repeat CT scan, pt found to have bowel perforation and is now s/p right hemicolectomy. Patient underwent abdominal washout and ileostomy placement on 05/09. Pt doing well today. Alert and responsive without any complaints. States his pain is well controlled. Has been able to get up with PT/OT Review of Systems Review of Systems: As per HPI Physical Exam Constitutional: well developed; not ill appearing ENMT: external ear and nose normal, oropharynx normal Neck: trachea midline, no thyromegaly Respiratory: normal respiratory effort, lungs clear to auscultation Cardiovascular: RRR, no murmur, no edema Gastrointestinal (Abdomen): normal bowel sounds, soft, nontender, no hepatosplenomegaly Inspection/Auscultation: normal bowel sounds osteomy in place Skin: no rashes, warm and dry Results & Data Results & Data ([facility]) Vital Signs (Past 12 Hours) Vital Signs Temp Pulse Resp BP Pulse Ox O2 Del Method O2 Flow Rate 05/16/22 04:01 161/85 H 05/16/22 04:01 90 30 H 93 05/16/22 04:00 96 H 35 H 93 05/16/22 02:00 85 27 H 94 05/16/22 00:00 85 25 H 94 05/16/22 00:00 134/87 05/16/22 00:00 84 05/15/22 23:00 37 C 85 24 149/100 H 96 05/15/22 22:00 86 24 97 05/15/22 21:26 90 24 95 05/15/22 21:00 97 H 27 H 95 05/15/22 20:29 36.9 C 149/100 H 05/15/22 20:29 110 H 30 H 95 05/15/22 20:00 111 H 28 H 94 05/15/22 19:00 109 H 28 H 93 05/15/22 20:00 Nasal Cannula 2 FiO2 05/16/22 04:01 05/16/22 04:01 05/16/22 04:00 05/16/22 02:00 05/16/22 00:00 05/16/22 00:00 05/16/22 00:00 05/15/22 23:00 05/15/22 22:00 05/15/22 21:26 30 05/15/22 21:00 05/15/22 20:29 05/15/22 20:29 05/15/22 20:00 05/15/22 19:00 05/15/22 20:00 Resident Activity Tracking Resident Involvement: Resident Care Provided Care Provided: Adult Hospital Medicine
[2022-05-16 07:06] LABS: RBC Morphology Unremarkable
[2022-05-16] MEDS: INSULIN ASPART PER UNIT SC SCH ×4 (08:13→20:51)
--- NOTE | 2022-05-16 09:22 | Surgery Progress Note ---
Date of Service May 16, 2022 Assessment & Plan (1) Bowel perforation: Plan: POD#8 exploratory laparotomy with washout and right hemicolectomy POD#7 exploratory laparotomy, washout, ileostomy and mucus fistula creation OOB to chair; PT/OT we will remove Harpster drain as well as left YENY drain advanced diet as tolerated Admission and Anticipated Discharge Date Admission Date: May 05, 2022 Subjective feeling well this am; Tolerating clear liquid diet; no nausea vomiting; no fevers overnight Physical Exam Physical Exam: no acute distress, on NC; A&Ox3 abdomen slightly distended, incision without erythema, nicky and Kodi drain in place; retention bars in place ostomy pink and viable, liquid in ostomy bag; mucous fistula viable YENY drains with minimal serous output Results & Data ([facility]) Vital Signs (Past 12 Hours) Vital Signs Temp Pulse Resp BP Pulse Ox FiO2 05/16/22 04:01 161/85 H 05/16/22 04:01 90 30 H 93 05/16/22 04:00 96 H 35 H 93 05/16/22 02:00 85 27 H 94 05/16/22 00:00 85 25 H 94 05/16/22 00:00 134/87 05/16/22 00:00 84 05/15/22 23:00 37 C 85 24 149/100 H 96 05/15/22 22:00 86 24 97 05/15/22 21:26 90 24 95 30
[2022-05-16] MEDS: PANTOprazole 40 MG TAB PO SCH (09:59)
[2022-05-16] MEDS: FUROSEMIDE 40 MG TAB PO SCH (09:59)
[2022-05-16] MEDS: ENOXAPARIN INJ 40 MG/0.4 ML SYR SQ SCH (09:59)
[2022-05-16] MEDS ORDERED: POTASSIUM CHLORIDE CRTAB 20 MEQ TABCR PO ONE (11:16)
[2022-05-16] MEDS ORDERED: oxyCODONE/ACETAMINOPHEN 5mg/325mg TAB PO PRN (14:22)
[2022-05-16] MEDS: oxyCODONE/ACETAMINOPHEN 5mg/325mg TAB PO PRN (20:10)
[2022-05-17] MEDS: oxyCODONE/ACETAMINOPHEN 5mg/325mg TAB PO PRN ×3 (00:54→20:37)
[2022-05-17 06:10] LABS: Basophils # (auto) 0.03 K/uL (0-0.2); Basophils % (auto) 0.2 %; Eosinophils # (auto) 0.03 K/uL (0-0.50); Eosinophils % (auto) 0.2 %; Hematocrit (blood only) 23.2 % (40.1-51.0); Hemoglobin 7.8 g/dl (14.0-18.0); Immature Granulocytes # (auto) 0.26 K/uL (0.00-0.02); Lymphocytes # (auto) 0.42 K/uL (1.2-3.4); Lymphocytes % (auto) 3.3 %; Mean Corpuscular Hemoglobin 29.9 pg (25.0-34.0); Mean Corpuscular Hgb Conc 33.6 g/dL (32.0-36.0); Mean Corpuscular Volume 88.9 fL (80.0-100.0); Mean Platelet Volume 9.8 fL (9.4-12.4); Monocytes # (auto) 0.57 K/uL (0.24-0.82); Monocytes % (auto) 4.4 %; Neutrophils # (auto) 11.51 K/uL (1.4-6.5); Neutrophils % (auto) 89.9 %; Nucleated RBC # (auto) 0.02 K/uL (0-0); Nucleated RBC % (auto) 0.2 %; Platelet Count 428 K/uL (130-400); RDW Coefficient of Variation 14.8 % (11.5-14.5); RDW Standard Deviation 47.7 fL (36.4-46.3); Red Blood Count 2.61 M/uL (4.63-6.08); White Blood Count 12.82 K/ul (4.8-10.8)
[2022-05-17 06:34] LABS: BUN Creatinine Ratio 21.3 (10-20); Calcium 7.8 mg/dl (8.5-10.1); Creatinine Clr Calc Pharmacy 181.6 ml/min; Est GFR (African American) 137.1 ml/min; Est GFR (Non-African American) 118.3 ml/min; Magnesium 1.9 mg/dl (1.7-2.4); Phosphorus 2.9 mg/dl (2.5-4.9)
[2022-05-17] MEDS ORDERED: POTASSIUM CHLORIDE CRTAB 20 MEQ TABCR PO STA (06:50)
[2022-05-17 06:52] LABS: RBC Morphology Unremarkable
--- NOTE | 2022-05-17 06:52 | Hospitalist Progress Note ---
Date of Service May 17, 2022 Assessment & Plan (1) Severe sepsis with septic shock: Plan: SVT s/p adenosine conversion to SR - SVT this afternoon with rate in 170s/180s convert to sinus rhythm with 1 6mg dose adenosine - He was asymptomatic and hemodynamically stable during the episode - Received 5mg Lopressor, and will be started on 25mg metoprolol tartrate BID - K= 3.1 on stat labs, repleted; will check again at 20:00 - CXR: with prominence of pulmonary vasculature - Repeat EKG in morning; may have had some lateral ischemia on EKG taken during SVT run-> consider cardiology consult Severe sepsis 2/2 bowel perforation - CT scan showed colonic obstruction concerning for obstructing lesion, nodular collections in sigmoid colon concerning for small abscess vs. metastatic nodules, large volume of intraperitoneal free air - emergent exploratory laparotomy was performed which resulted in right hemicolectomy; post op day 8 - The next day pt went for abdominal washout and ileostomy; post-op day 7 - Was mechanically ventilated for 5 days and needed vasopressor support; has since been able to ween off both - completed 10 day dose of Zosyn, and 7 day course of Diflucan - currently stable on room air. Will switch BiPap order to prn overnight, as pt has been having a lot of trouble sleeping. Could try oxygen supplementation if SPO2 drops overnight, prior to starting BiPap. - consider d/c ritter if able to tolerate in the next day or 2, PT/OT Diverticulitis w/ abscess - diagnosed via [facility] CTAP - labs upon admission significant for WBC 16.56 w/ neutrophilic predominance on admission-> leukocytosis has since resolved - KUB showed severe constipation w/ distended colon (colonic ileus vs. LBO) - original blood cultures from 05/05 neg after 48 hr - current management as above; completed course of antibiotics Increased Volume Status - will continue Lasix 20mg po daily - Negative 2000ml over the past 24 hours Hyponatremia - mild, mostly mid 130s - today, 142 - resolved Hypokalemia - Continues to be hypokalemic - Will add 20meq BID standing Anemia - 09/2021 Hgb 15.0 - upon admission, 11.0 - today, 7.6; stable from yesterday - continue to monitor, transfuse below 7 Prostate cancer - Stage IIIA, s/p TURP in 09/2021 and Leuprolide/radiation therapy as of 02/2022 - Follows with cancer center (Dr. Le) HTN - d/t septic shock and current situation as described above, home lisinopril on hold - Blood pressures have been elevated over the past day; could consider restarting once hemodynamically stable (2) Bowel perforation: (3) Diverticulitis of intestine with abscess: (4) Diarrhea: (5) Prostate cancer: (6) Hypertension: (7) Large bowel obstruction: (8) SVT (supraventricular tachycardia): Plan DVT ppx: lovenox 40 mg daily Code: full Admission and Anticipated Discharge Date Admission Date: May 05, 2022 Supervising Physician Co-Signing Physician Notes Attending Attestation I also saw the patient with the resident physician and confirmed tsang portion of the history and physical examination. Agree with the impression and plan as noted in resident documentation and as summarized below. This morning, the patient is without complaints. He slept overnight without the BiPAP -nasal oxygen at 2 L/min-without hypoxia. Gross afternoon, he did flip into SVT -at the time, he was presently asymptomatic. No chest pain or shortness of breath and did not seem bothered by his fast heart rate. He was hemodynamically stable with blood pressures greater than 100 systolic. He was given adenosine 6 mg IV push with conversion to a sinus tachycardia around 100-110 bpm. He was then medicated with 6 mg IV metoprolol x1, and Toprol tartrate 25 mg p.o. Stat labs ordered for BMP; portable chest x-ray. Exam 102/88, 111, 18, 36.6, 92% nasal cannula 2 L/min (post adenosine) He has no complaints. He is alert. Heart regular rate and rhythm Lungs clear in the apices, nonlabored respirations Data WBC 12.2, hemoglobin 7.8 Sodium 136, potassium 3.1, BUN 10, creatinine 0.57 Impression and plan Supraventricular tachycardia, status post adenosine conversion to sinus rhythm Metoprolol 6 mg IV x1, the Toprol tartrate 25 mg p.o. twice daily Replete potassium and recheck BMP this evening Repeat EKG in a.m. He may have had some rate related lateral ischemia during his episode of SVT Beta-hayden as noted above Consider cardiology consultation Severe sepsis in the setting of bowel perforation 2/2 diverticulitis w/ abscess s/p surgical repair 7 did well overnight without BiPAP Surgical consult appreciated Will leave Ritter in for today, if resolve the ostomy site issues, consider pulling Ritter tomorrow Acute on chronic anemia likely ACD with blood loss postoperative Trend Electrolyte abnormalities Replete potassium Trend BMP Additional per resident documentation Rina Kilgore is a 61 y/o male who presents with PMH of prostate cancer (s/p TURP 09/2021 and leuprolide/radiation therapy 02/2022) and HTN presenting via tra nsfer due to acute diverticulitis w/ LBO and 2.8 cm abscess. On repeat CT scan, pt found to have bowel perforation and is now s/p right hemicolectomy. Patient underwent abdominal washout and ileostomy placement on 05/09. Pt seen at bedside this morning and doing well. Appetite is good, good ostomy output. No complainants this morning, says his pain is well controlled. Good SPO2 overnight without BiPAP. Review of Systems Review of Systems: As per HPI Physical Exam Constitutional: well developed; not ill appearing ENMT: external ear and nose normal, oropharynx normal Neck: trachea midline, no thyromegaly Respiratory: normal respiratory effort, lungs clear to auscultation Cardiovascular: RRR, no murmur, no edema Gastrointestinal (Abdomen): normal bowel sounds, soft, nontender, no hepatosplenomegaly Inspection/Auscultation: normal bowel sounds Ostomy in place; clean and dry Skin: erythema left shoulder Results & Data Results & Data ([facility]) Vital Signs (Past 12 Hours) Vital Signs Temp Pulse Pulse Resp BP BP Pulse Ox 05/17/22 04:29 37 C 90 28 H 121/92 95 05/16/22 20:00 05/17/22 00:00 90 05/16/22 23:26 36.8 C 86 29 H 150/93 H 92 05/16/22 19:56 37.1 C 96 H 20 144/83 H 93 O2 Del Method O2 Flow Rate 05/17/22 04:29 Nasal Cannula 2 05/16/22 20:00 Nasal Cannula 2 05/17/22 00:00 05/16/22 23:26 Room Air 05/16/22 19:56 Nasal Cannula 2 Resident Activity Tracking Resident Involvement: Resident Care Provided Care Provided: Adult [facility] Medicine
[2022-05-17] MEDS: INSULIN ASPART PER UNIT SC SCH ×4 (08:20→20:39)
[2022-05-17] MEDS: FUROSEMIDE 40 MG TAB PO SCH (08:22)
[2022-05-17] MEDS: PANTOprazole 40 MG TAB PO SCH (08:22)
--- NOTE | 2022-05-17 10:13 | Surgery Progress Note ---
Date of Service May 17, 2022 Assessment & Plan (1) Bowel perforation: Plan: slow progress con't diet and ambulation Present on Admission?: Yes Admission and Anticipated Discharge Date Admission Date: May 05, 2022 Subjective POD # 8 ex lap with ileostomy and mucous fistula taking po well some ambulation ostomy working Review of Systems Constitutional: no fever and no chills Respiratory: no cough and no dyspnea Cardiovascular: no chest pain Gastrointestinal: + abdominal pain; no nausea and no vomiting Genitourinary: no dysuria Physical Exam Constitutional: WD/WN, vitals as above Neck: trachea midline Respiratory: normal respiratory effort, lungs clear to auscultation Cardiovascular: RRR, no murmur, no edema Gastrointestinal (Abdomen): Inspection/Auscultation: normal bowel sounds; abdomen not distended Percussion/Palpation: + abdomen tender (mild) and abdomen soft; no guarding and abdomen not rigid ostomy pink janae working MF with some grayish slough but viable at this point Musculoskeletal: Head/Neck/Chest: normocephalic and head atraumatic Results & Data ([facility]) Vital Signs (Past 12 Hours) Vital Signs Temp Pulse Pulse Resp BP BP Pulse Ox 05/17/22 09:47 05/17/22 08:00 94 H 05/17/22 07:46 37 C 95 H 20 142/99 H 95 05/17/22 04:29 37 C 90 28 H 121/92 95 05/17/22 00:00 90 05/16/22 23:26 36.8 C 86 29 H 150/93 H 92 O2 Del Method O2 Flow Rate 05/17/22 09:47 Nasal Cannula 2 05/17/22 08:00 05/17/22 07:46 Nasal Cannula 2 05/17/22 04:29 Nasal Cannula 2 05/17/22 00:00 05/16/22 23:26 Room Air
[2022-05-17] MEDS: ENOXAPARIN INJ 40 MG/0.4 ML SYR SQ SCH (10:18)
[2022-05-17] MEDS ORDERED: ADENOSINE IV SOLN 3 MG/ML 2 ML VIAL IV ONE (13:02)
[2022-05-17] MEDS ORDERED: METOPROLOL TARTRATE 1 MG/ML VIAL IV ONE (13:02)
[2022-05-17] MEDS ORDERED: METOPROLOL TARTRATE 1 MG/ML VIAL IV STA (13:13)
[2022-05-17] MEDS ORDERED: METOPROLOL TARTRATE 25 MG TAB PO ONE (13:20)
[2022-05-17] MEDS ORDERED: POTASSIUM CHLORIDE CRTAB 20 MEQ TABCR PO ONE (13:30)
[2022-05-17 13:53] LABS: BUN Creatinine Ratio 17.5 (10-20); Creatinine Clr Calc Pharmacy 149.7 ml/min; Est GFR (African American) 126.7 ml/min; Est GFR (Non-African American) 109.3 ml/min; Potassium 3.1 mmol/L (3.5-5.1)
--- NOTE | 2022-05-17 14:16 | XRay Report ---
SINGLE VIEW CHEST CLINICAL HISTORY: Fluid overload. FINDINGS: An AP, portable, upright chest radiograph is compared to study dated 05/14/2022. The cardio mediastinal silhouette is top normal for projection. There is prominence of the pulmonary vasculature . There are low lung volumes with bibasilar atelectasis. No large pleural effusion or pneumothorax is seen. The bony thorax is grossly intact. IMPRESSION: 1. There is prominence of the pulmonary vasculature which could represent fluid overload. 2. Low lung volumes and bibasilar atelectasis. ACT 112: Negative or not required by law. Electronically signed by: Sergio Petty M.D. 05/17/2022 2:14 PM
[2022-05-17] MEDS: POTASSIUM CHLORIDE / WTR 10 MEQ/100 ML PLCT IV SCH ×4 (14:47→17:58)
--- NOTE | 2022-05-17 14:54 | Electrocardiogram Report ---
Test Reason : Blood Pressure : / mmHG Vent. Rate : 172 BPM Atrial Rate : 055 BPM P-R Int : 000 ms QRS Dur : 084 ms QT Int : 286 ms P-R-T Axes : 000 018 058 degrees QTc Int : 483 ms Poor data quality, interpretation may be adversely affected Supraventricular tachycardia Marked ST abnormality, possible lateral subendocardial injury Abnormal ECG When compared with ECG of 12-MAY-2022 11:20, Significant changes have occurred Confirmed by Quentin Bell ([id number]) on 05/17/2022 2:54:37 PM Referred By: Bernabe Suero Confirmed By:Quentin Bell
--- NOTE | 2022-05-17 14:57 | Electrocardiogram Report ---
Test Reason : Blood Pressure : / mmHG Vent. Rate : 114 BPM Atrial Rate : 114 BPM P-R Int : 136 ms QRS Dur : 086 ms QT Int : 334 ms P-R-T Axes : 018 011 029 degrees QTc Int : 460 ms Sinus tachycardia Otherwise normal ECG When compared with ECG of 17-MAY-2022 12:55, (unconfirmed) Vent. rate has decreased BY [address] no longer depressed in Anterolateral leads Nonspecific T wave abnormality, improved in Inferior leads Confirmed by Quentin Bell ([id number]) on 05/17/2022 2:57:02 PM Referred By: Bernabe Suero Confirmed By:Quentin Bell
[2022-05-17] MEDS ORDERED: POTASSIUM CHLORIDE CRTAB 20 MEQ TABCR PO SCH (18:30)
[2022-05-17 20:32] LABS: BUN Creatinine Ratio 23.8 (10-20); Calcium 7.9 mg/dl (8.5-10.1); Creatinine Clr Calc Pharmacy 203.2 ml/min; Est GFR (African American) 143.6 ml/min; Est GFR (Non-African American) 123.9 ml/min; Potassium 3.5 mmol/L (3.5-5.1)
[2022-05-17] MEDS: METOPROLOL TARTRATE 25 MG TAB PO SCH (20:36)
[2022-05-18] MEDS: oxyCODONE/ACETAMINOPHEN 5mg/325mg TAB PO PRN ×2 (02:11→05:45)
--- NOTE | 2022-05-18 06:44 | Hospitalist Progress Note ---
Date of Service May 18, 2022 Assessment & Plan (1) Severe sepsis with septic shock: Plan: SVT s/p adenosine conversion to SR - SVT this afternoon with rate in 170s/180s convert to sinus rhythm with 1 6mg dose adenosine. No further episodes on telemetry. - He was asymptomatic and hemodynamically stable during the episode - Received 5mg Lopressor, and will be started on 25mg metoprolol tartrate BID; will increased to 50mg BID - CXR: with prominence of pulmonary vasculature - Repeat EKG in morning; NSR with HR= 84, no signs of ischemia - some lateral ischemia on EKG taken during SVT run->will consult cardiology - Lipid panel with ASCVD= 12-16%; total cholesterol= 141, LDL= 87, LDL= 87 Severe sepsis 2/2 bowel perforation - CT scan showed colonic obstruction concerning for obstructing lesion, nodular collections in sigmoid colon concerning for small abscess vs. metastatic nodules, large volume of intraperitoneal free air - emergent exploratory laparotomy was performed which resulted in right hemicolectomy; post op day 8 - The next day pt went for abdominal washout and ileostomy; post-op day 7 - Was mechanically ventilated for 5 days and needed vasopressor support; has since been able to ween off both - completed 10 day dose of Zosyn, and 7 day course of Diflucan - currently stable on room air. Doing well overnight without Bipap - consider d/c ritter if able to tolerate this afternoon, PT/OT Diverticulitis w/ abscess - diagnosed via [facility] CTAP - labs upon admission significant for WBC 16.56 w/ neutrophilic predominance on admission-> leukocytosis has since resolved - KUB showed severe constipation w/ distended colon (colonic ileus vs. LBO) - original blood cultures from 05/05 neg after 48 hr - current management as above; completed course of antibiotics Increased Volume Status - will continue Lasix 20mg po daily - Negative 1800mL over the past 24 hours Hyponatremia - resolved Hypokalemia - Continues to be hypokalemic - Will add 20meq BID standing = K= 3.0, this morning -> repleted Anemia - 09/2021 Hgb 15.0 - upon admission, 11.0 - toda= 7.9; stable from yesterday - continue to monitor, transfuse below 7 Prostate cancer - Stage IIIA, s/p TURP in 09/2021 and Leuprolide/radiation therapy as of 02/2022 - Follows with cancer center (Dr. Le) HTN - d/t septic shock and current situation as described above, home lisinopril on hold - Blood pressures have been elevated over the past day; could consider restarting once hemodynamically stable (2) Bowel perforation: (3) Diverticulitis of intestine with abscess: (4) Diarrhea: (5) Prostate cancer: (6) Hypertension: (7) Large bowel obstruction: (8) SVT (supraventricular tachycardia): Plan DVT ppx: lovenox 40 mg daily Code: full Admission and Anticipated Discharge Date Admission Date: May 05, 2022 Supervising Physician Co-Signing Physician Notes Attending Attestation I also saw the patient with the resident physician and confirmed tsang portion of the history and physical examination. I agree with the impression and plan as noted in resident documentation and as summarized below. There is some reported confusion earlier today, but upon my examination midmorning he was alert and oriented. He had no complaints. As noted previously, he did have an episode of SVT yesterday which broke with adenosine 6 mg IV push. He has had no recurrent tachydysrhythmias since then. He is tolerating beta-hayden without any bradycardia nor hypotension. During his run of SVT, he did have some lateral ST depression. We talked today about his pre-illness exertional level; it sounds as if he was able to do a fair amount of exertion (mowing grass, brushing sidewalk, pharmacy order entry technician) without chest pain or shortness of breath. Does not sound as if he had any previous cardiac work-up. Exam 144/77, 94, 18, 36.7, 96% room air He has no complaints. He is alert. Heart regular rate and rhythm Lungs clear in the apices, nonlabored respirations Data WBC 12.58, hemoglobin 7.9, platelet count 503 Sodium 138, potassium 3.0, BUN 9, creatinine 0.42 Lipid profile shows triglycerides 175, cholesterol 141, LDL 87, HDL 19 Impression and plan Supraventricular tachycardia, status post adenosine conversion to sinus rhythm Increase Toprol tartrate to 50 mg p.o. twice daily Replete potassium He may have had some rate related lateral ischemia during his episode of SVT Beta-hayden as noted above Consider cardiology consultation Lipid profile as noted above, I suspect they are falsely depressed secondary to his acute illness I think he is nearing euvolemia, so will decrease Lasix to 20 mg p.o. daily Severe sepsis in the setting of bowel perforation 2/2 diverticulitis w/ abscess s/p surgical repair He did well overnight without BiPAP Surgical consult appreciated Consider pulling Ritter later this afternoon Acute on chronic anemia Low but stable Trend Electrolyte abnormalities Replete potassium Trend BMP Additional per resident documentation Rina Kilgore is a 61 y/o male who presents with PMH of prostate cancer (s/p TURP 09/2021 and leuprolide/radiation therapy 02/2022) and HTN presenting via transfer due to acute diverticulitis w/ LBO and 2.8 cm abscess. On repeat CT scan, pt found to have bowel perforation and is now s/p right hemicolectomy. Patient underwent abdominal washout and ileostomy placement on 05/09. Pt seen at bedside this morning and doing well. Was a little confused this morning and overnight per nursing. Mentation was been improving throughout the day. Good ostomy output. No complainants this morning, says his pain is well controlled. Review of Systems Review of Systems: As per HPI Physical Exam Physical Exam: Constitutional: well-appearing, no acute distress HEENT: NCAT, no conjunctival injection CV: regular rhythm, no murmur appreciated, extremities well-perfused, no LE edema Resp: CTABL, no wheezes/rales/rhonchi appreciated, no increased work of breathing GI: soft, nondistended, nontender, BS normoactive, ostomy in place MSK: no gross deformities appreciated Skin: warm, dry, no rash appreciated Neuro: alert, oriented, no focal neurologic deficit appreciated Results & Data Results & Data ([facility]) Vital Signs (Past 12 Hours) Vital Signs Temp Pulse Pulse Resp BP Pulse Ox O2 Del Method 05/17/22 20:00 Nasal Cannula 05/18/22 00:00 83 05/18/22 03:47 36.6 C 86 18 140/94 94 Nasal Cannula 05/17/22 23:04 36.6 C 79 18 134/84 97 Nasal Cannula 05/17/22 19:35 36.9 C 89 18 125/86 97 Nasal Cannula O2 Flow Rate 05/17/22 20:00 2 05/18/22 00:00 05/18/22 03:47 2 05/17/22 23:04 2 05/17/22 19:35 2
[2022-05-18 07:19] LABS: Basophils # (auto) 0.05 K/uL (0-0.2); Basophils % (auto) 0.4 %; Eosinophils # (auto) 0.07 K/uL (0-0.50); Eosinophils % (auto) 0.6 %; Hemoglobin 7.9 g/dl (14.0-18.0); Immature Granulocytes # (auto) 0.17 K/uL (0.00-0.02); Immature Granulocytes % (auto) 1.4 %; Lymphocytes # (auto) 0.46 K/uL (1.2-3.4); Lymphocytes % (auto) 3.7 %; Mean Corpuscular Hemoglobin 29.7 pg (25.0-34.0); Mean Corpuscular Hgb Conc 32.9 g/dL (32.0-36.0); Mean Corpuscular Volume 90.2 fL (80.0-100.0); Mean Platelet Volume 9.6 fL (9.4-12.4); Monocytes # (auto) 0.51 K/uL (0.24-0.82); Monocytes % (auto) 4.1 %; Neutrophils # (auto) 11.32 K/uL (1.4-6.5); Neutrophils % (auto) 89.8 %; Platelet Count 503 K/uL (130-400); RDW Coefficient of Variation 15.1 % (11.5-14.5); RDW Standard Deviation 49.3 fL (36.4-46.3); Red Blood Count 2.66 M/uL (4.63-6.08); White Blood Count 12.58 K/ul (4.8-10.8)
[2022-05-18 07:51] LABS: BUN Creatinine Ratio 21.4 (10-20); Chol HDL Ratio 7.4 (0-5); Creatinine Clr Calc Pharmacy 201.4 ml/min; Est GFR (African American) 143.6 ml/min; Est GFR (Non-African American) 123.9 ml/min; Magnesium 1.8 mg/dl (1.7-2.4); Phosphorus 2.4 mg/dl (2.5-4.9)
--- NOTE | 2022-05-18 07:51 | Surgery Progress Note ---
Date of Service May 18, 2022 Assessment & Plan (1) Diverticulitis of intestine with abscess: Plan: slow progress taking liquids well ambulate Admission and Anticipated Discharge Date Admission Date: May 05, 2022 Subjective sleepy no complaints ostomy working Review of Systems Constitutional: no fever and no chills Respiratory: no dyspnea Cardiovascular: no chest pain Gastrointestinal: + abdominal pain; no nausea and no vomiting Genitourinary: no dysuria Integumentary: no rash Neurologic: + generalized weakness; no localized weakness Psychiatric: no behavioral changes Physical Exam Constitutional: WD/WN, vitals as above Eyes: PERRL, conjunctivae normal, anicteric sclerae ENMT: external ear and nose normal, oropharynx normal Neck: trachea midline Respiratory: normal respiratory effort, lungs clear to auscultation Cardiovascular: RRR, no murmur, no edema Gastrointestinal (Abdomen): Inspection/Auscultation: abdomen normal to inspection and normal bowel sounds; abdomen not distended Percussion/Palpation: abdomen soft; abdomen nontender, no guarding and abdomen not rigid ostomy pink and patent MF sloughing but viable Musculoskeletal: Head/Neck/Chest: normocephalic and head atraumatic Results & Data ([facility]) Vital Signs (Past 12 Hours) Vital Signs Temp Pulse Pulse Resp BP Pulse Ox O2 Del Method 05/18/22 07:39 36.6 C 85 18 144/87 H 98 Nasal Cannula 05/17/22 20:00 Nasal Cannula 05/18/22 00:00 83 05/18/22 03:47 36.6 C 86 18 140/94 94 Nasal Cannula 05/17/22 23:04 36.6 C 79 18 134/84 97 Nasal Cannula O2 Flow Rate 05/18/22 07:39 2 05/17/22 20:00 2 05/18/22 00:00 05/18/22 03:47 2 05/17/22 23:04 2
[2022-05-18 07:56] LABS: Polychromasia 1+
[2022-05-18] MEDS: INSULIN ASPART PER UNIT SC SCH ×4 (08:25→20:09)
[2022-05-18] MEDS: ENOXAPARIN INJ 40 MG/0.4 ML SYR SQ SCH (08:33)
[2022-05-18] MEDS: POTASSIUM CHLORIDE CRTAB 20 MEQ TABCR PO SCH ×2 (08:34→20:08)
[2022-05-18] MEDS: METOPROLOL TARTRATE 25 MG TAB PO SCH (08:34)
[2022-05-18] MEDS: FUROSEMIDE 20 MG TAB PO SCH (08:34)
[2022-05-18] MEDS: PANTOprazole 40 MG TAB PO SCH (08:34)
--- NOTE | 2022-05-18 11:24 | Electrocardiogram Report ---
Test Reason : Blood Pressure : / mmHG Vent. Rate : 084 BPM Atrial Rate : 084 BPM P-R Int : 158 ms QRS Dur : 086 ms QT Int : 380 ms P-R-T Axes : 058 030 043 degrees QTc Int : 449 ms Normal sinus rhythm Normal ECG When compared with ECG of 17-MAY-2022 13:13, No significant change was found Confirmed by Quentin Bell ([id number]) on 05/18/2022 11:23:52 AM Referred By: Bernabe Suero Confirmed By:Quentin Bell
[2022-05-18] MEDS ORDERED: POTASSIUM CHLORIDE CRTAB 20 MEQ TABCR PO ONE (14:05)
[2022-05-18] MEDS: METOPROLOL TARTRATE 50 MG TAB PO SCH (20:07)
--- NOTE | 2022-05-19 06:45 | Hospitalist Progress Note ---
Date of Service May 19, 2022 Assessment & Plan (1) Severe sepsis with septic shock: Plan: SVT s/p adenosine conversion to SR - SVT this afternoon with rate in 170s/180s convert to sinus rhythm with 1 6mg dose adenosine. No further episodes on telemetry. - He was asymptomatic and hemodynamically stable during the episode - Received 5mg Lopressor, and will be started on 25mg metoprolol tartrate BID; will increased to 50mg BID - CXR: with prominence of pulmonary vasculature - Repeat EKG in morning; NSR with HR= 84, no signs of ischemia - some lateral ischemia on EKG taken during SVT run->will consult cardiology - Lipid panel with ASCVD= 12-16%; total cholesterol= 141, LDL= 87, LDL= 87 Severe sepsis 2/2 bowel perforation - CT scan showed colonic obstruction concerning for obstructing lesion, nodular collections in sigmoid colon concerning for small abscess vs. metastatic nodules, large volume of intraperitoneal free air - emergent exploratory laparotomy was performed which resulted in right hemicolectomy; post op day 8 - The next day pt went for abdominal washout and ileostomy; post-op day 7 - Was mechanically ventilated for 5 days and needed vasopressor support; has since been able to ween off both - completed 10 day dose of Zosyn, and 7 day course of Diflucan - Surgery following; can advance diet to full liquids and remove YENY drain - currently stable on room air - plan to remove ritter today, PT/OT -> plan for SNF pending placement Diverticulitis w/ abscess - diagnosed via [facility] CTAP - labs upon admission significant for WBC 16.56 w/ neutrophilic predominance on admission-> leukocytosis has since resolved - KUB showed severe constipation w/ distended colon (colonic ileus vs. LBO) - original blood cultures from 05/05 neg after 48 hr - current management as above; completed course of antibiotics Increased Volume Status - will continue Lasix 20mg po daily; not on lasix on home and euvolemic on exam will d/c - Negative 2350mL over the past 24 hours Hyponatremia - resolved Hypokalemia - Continues to be hypokalemic - Will add 20meq BID standing = K= 3.0, this morning -> repleted Anemia - 09/2021 Hgb 15.0 - upon admission, 11.0 - today= 7.6; stable from yesterday - continue to monitor, transfuse below 7 Prostate cancer - Stage IIIA, s/p TURP in 09/2021 and Leuprolide/radiation therapy as of 02/2022 - Follows with cancer center (Dr. Le) HTN - d/t septic shock and current situation as described above, home lisinopril on hold - Blood pressures have been elevated over the past day; could consider restarting once hemodynamically stable (2) Bowel perforation: (3) Diverticulitis of intestine with abscess: (4) Diarrhea: (5) Prostate cancer: (6) Hypertension: (7) Large bowel obstruction: (8) SVT (supraventricular tachycardia): Plan DVT ppx: lovenox 40 mg daily Code: full Admission and Anticipated Discharge Date Admission Date: May 05, 2022 Supervising Physician Co-Signing Physician Notes I personally examined the patient and verified all tsang points of history and exam, discussed case, and agree with decision making with Dr Berumen. Feeling okay overall. notes he is a bit confused. She seems fairly familiar with delirium. Plan for dispo to rehab Vitals noted, in general he is awake pleasant no distress. HEENT normocephalic atraumatic mucous membranes moist. Breathing unlabored no accessory muscle use good effort. Skin shows no rashes no pallor or icterus. Neuro without focal deficits. Supraventricular tachycardia, status post adenosine conversion to sinus rhythm Replace potassium, continue beta-hayden. Appreciate cardiology inputagree stress as an outpatient makes a lot of sense. Stable at the present time Severe sepsis in the setting of bowel perforation 2/2 diverticulitis w/ abscess s/p surgical repair Showing good progress of improvement Acute on chronic anemia Low but stable Trend periodically Electrolyte abnormalities Replete potassium ongoing Trend BMP periodically Additional per resident documentation Rina Kilgore is a 61 y/o male who presents with PMH of prostate cancer (s/p TURP 09/2021 and leuprolide/radiation therapy 02/2022) and HTN presenting via transfer due to acute diverticulitis w/ LBO and 2.8 cm abscess. On repeat CT scan, pt found to have bowel perforation and is now s/p right hemicolectomy. Patient underwent abdominal washout and ileostomy placement. He is doing well this morning. Alert and orientated. No complaints. States he was able to get up and sit in the chair for a period yesterday, but has not been able to get up and walk around much. Denies chest pain, dyspnea, abdominal pain. Continues to have good output from ostomy. Still has ritter in place. Review of Systems Review of Systems: As per HPI Physical Exam Physical Exam: Constitutional: well-appearing, no acute distress HEENT: NCAT, no conjunctival injection CV: regular rhythm, no murmur appreciated, extremities well-perfused, no LE edema Resp: CTABL, no wheezes/rales/rhonchi appreciated, no increased work of breathing GI: soft, nondistended, nontender, BS normoactive, ostomy in place MSK: no gross deformities appreciated Skin: warm, dry, no rash appreciated Neuro: alert, oriented, no focal neurologic deficit appreciated Results & Data Results & Data ([facility]) Vital Signs (Past 12 Hours) Vital Signs Temp Pulse Pulse Resp BP Pulse Ox O2 Del Method 05/19/22 03:14 36.8 C 78 18 129/88 93 Room Air 05/19/22 00:55 88 05/18/22 23:53 92 H 05/18/22 22:54 36.7 C 80 18 136/90 93 Room Air 05/18/22 20:42 Room Air 05/18/22 19:52 37.0 C 93 H 18 143/94 H 93 Room Air Resident Activity Tracking Resident Involvement: Resident Care Provided Care Provided: Adult Hospital Medicine
[2022-05-19 06:54] LABS: Basophils # (auto) 0.04 K/uL (0-0.2); Basophils % (auto) 0.4 %; Eosinophils # (auto) 0.09 K/uL (0-0.50); Eosinophils % (auto) 0.8 %; Hematocrit (blood only) 22.6 % (40.1-51.0); Hemoglobin 7.6 g/dl (14.0-18.0); Immature Granulocytes # (auto) 0.12 K/uL (0.00-0.02); Immature Granulocytes % (auto) 1.1 %; Lymphocytes # (auto) 0.49 K/uL (1.2-3.4); Lymphocytes % (auto) 4.4 %; Mean Corpuscular Hemoglobin 29.9 pg (25.0-34.0); Mean Corpuscular Hgb Conc 33.6 g/dL (32.0-36.0); Mean Platelet Volume 9.7 fL (9.4-12.4); Monocytes # (auto) 0.51 K/uL (0.24-0.82); Monocytes % (auto) 4.6 %; Neutrophils # (auto) 9.79 K/uL (1.4-6.5); Neutrophils % (auto) 88.7 %; Platelet Count 496 K/uL (130-400); Red Blood Count 2.54 M/uL (4.63-6.08); White Blood Count 11.04 K/ul (4.8-10.8)
[2022-05-19 07:17] LABS: Anion Gap 5 (3-11); BUN Creatinine Ratio 23.5 (10-20); Blood Urea Nitrogen 8 mg/dl (6-23); Carbon Dioxide 27 mmol/L (21-32); Chloride 106 mmol/L (98-107); Creatinine Clr Calc Pharmacy 247.7 ml/min; Est GFR (African American) > 150.0 ml/min; Est GFR (Non-African American) 135.2 ml/min; Glucose 91 mg/dl (70-99(Fasting)); Magnesium 1.8 mg/dl (1.7-2.4); Phosphorus 2.7 mg/dl (2.5-4.9); Sodium 138 mmol/L (136-145)
[2022-05-19 07:25] LABS: RBC Morphology Unremarkable
--- NOTE | 2022-05-19 08:46 | Surgery Progress Note ---
Date of Service May 19, 2022 Assessment & Plan (1) Diverticulitis of intestine with abscess: Plan: slow progress taking liquids well Advance diet to full liquids Remove YENY drain ambulate Admission and Anticipated Discharge Date Admission Date: May 05, 2022 Subjective Doing well. Tolerating clear liquids. Denies pain. Ostomy working. No nausea or vomiting. Physical Exam Physical Exam: no acute distress, on NC; A&Ox3 abdomen slightly distended, incision without erythema, nicky in place; retention bars in place ostomy pink and viable, liquid in ostomy bag; mucous fistula viable YENY drain with minimal serous output Results & Data ([facility]) Vital Signs (Past 12 Hours) Vital Signs Temp Pulse Pulse Resp BP BP Pulse Ox 05/19/22 08:00 36.8 C 91 H 18 161/90 H 96 05/19/22 03:14 36.8 C 78 18 129/88 93 05/19/22 00:55 88 05/18/22 23:53 92 H 05/18/22 22:54 36.7 C 80 18 136/90 93 O2 Del Method 05/19/22 08:00 Room Air 05/19/22 03:14 Room Air 05/19/22 00:55 05/18/22 23:53 05/18/22 22:54 Room Air Laboratory Results 05/19/22 05/19/22 05/19/22 Range/Units 07:25 06:01 06:01 WBC 11.04 H (4.8-10.8) K/ul RBC 2.54 L (4.63-6.08) M/uL Hgb 7.6 L (14.0-18.0) g/dl Hct 22.6 L (40.1-51.0) % MCV 89.0 (80.0-100.0) fL MCH 29.9 (25.0-34.0) pg MCHC 33.6 (32.0-36.0) g/dL RDW Std Deviation 49.0 H (36.4-46.3) fL RDW Coeff of Tani 15.0 H (11.5-14.5) % Plt Count 496 H (130-400) K/uL MPV 9.7 (9.4-12.4) fL Immature Gran % (Auto) 1.1 % Neut % (Auto) 88.7 % Lymph % (Auto) 4.4 % Sharkey % (Auto) 4.6 % Eos % (Auto) 0.8 % Baso % (Auto) 0.4 % Neut # (Auto) 9.79 H (1.4-6.5) K/uL Lymph # (Auto) 0.49 L (1.2-3.4) K/uL Sharkey # (Auto) 0.51 (0.24-0.82) K/uL Eos # (Auto) 0.09 (0-0.50) K/uL Baso # (Auto) 0.04 (0-0.2) K/uL Immature Gran # (Auto) 0.12 H (0.00-0.02) K/uL RBC Morphology Unremarkable Sodium 138 (136-145) mmol/L Potassium 3.0 L (3.5-5.1) mmol/L Chloride 106 (98-107) mmol/L Carbon Dioxide 27 (21-32) mmol/L Anion Gap 5 (3-11) BUN 8 (6-23) mg/dl Creatinine 0.34 L (0.6-1.4) mg/dl Est Cr Clr Drug Dosing 247.7 ml/min Est GFR ( Amer) > 150.0 ml/min Est GFR (Non-Af Amer) 135.2 ml/min BUN/Creatinine Ratio 23.5 H (10-20) Glucose 91 (70-99(Fasting)) mg/dl POC Glucose 93 (70-99) mg/dl Calcium 8.0 L (8.5-10.1) mg/dl Phosphorus 2.7 (2.5-4.9) mg/dl Magnesium 1.8 (1.7-2.4) mg/dl 05/18/22 05/18/22 05/18/22 Range/Units 20:00 16:24 11:24 WBC (4.8-10.8) K/ul RBC (4.63-6.08) M/uL Hgb (14.0-18.0) g/dl Hct (40.1-51.0) % MCV (80.0-100.0) fL MCH (25.0-34.0) pg MCHC (32.0-36.0) g/dL RDW Std Deviation (36.4-46.3) fL RDW Coeff of Tani (11.5-14.5) % Plt Count (130-400) K/uL MPV (9.4-12.4) fL Immature Gran % (Auto) % Neut % (Auto) % Lymph % (Auto) % Sharkey % (Auto) % Eos % (Auto) % Baso % (Auto) % Neut # (Auto) (1.4-6.5) K/uL Lymph # (Auto) (1.2-3.4) K/uL Sharkey # (Auto) (0.24-0.82) K/uL Eos # (Auto) (0-0.50) K/uL Baso # (Auto) (0-0.2) K/uL Immature Gran # (Auto) (0.00-0.02) K/uL RBC Morphology Sodium (136-145) mmol/L Potassium (3.5-5.1) mmol/L Chloride (98-107) mmol/L Carbon Dioxide (21-32) mmol/L Anion Gap (3-11) BUN (6-23) mg/dl Creatinine (0.6-1.4) mg/dl Est Cr Clr Drug Dosing ml/min Est GFR ( Amer) ml/min Est GFR (Non-Af Amer) ml/min BUN/Creatinine Ratio (10-20) Glucose (70-99(Fasting)) mg/dl POC Glucose 126 H 107 H 96 (70-99) mg/dl Calcium (8.5-10.1) mg/dl Phosphorus (2.5-4.9) mg/dl Magnesium (1.7-2.4) mg/dl
[2022-05-19] MEDS: FUROSEMIDE 20 MG TAB PO SCH (09:13)
[2022-05-19] MEDS: PANTOprazole 40 MG TAB PO SCH (09:13)
[2022-05-19] MEDS: METOPROLOL TARTRATE 50 MG TAB PO SCH ×2 (09:13→20:13)
[2022-05-19] MEDS: POTASSIUM CHLORIDE / WTR 10 MEQ/100 ML PLCT IV SCH ×4 (09:13→13:20)
[2022-05-19] MEDS: ENOXAPARIN INJ 40 MG/0.4 ML SYR SQ SCH (09:14)
[2022-05-19] MEDS: POTASSIUM CHLORIDE CRTAB 20 MEQ TABCR PO SCH ×2 (09:30→20:13)
[2022-05-19] MEDS: INSULIN ASPART PER UNIT SC SCH ×4 (09:51→20:44)
--- NOTE | 2022-05-19 12:31 | Cardiology Consultation ---
Date of Consultation May 19, 2022 Assessment & Plan (1) SVT (supraventricular tachycardia): -no prior history according to the patient's report. -arrhythmia was completely asymptomatic according to the patient. -broke easily with 1 dose of intravenous adenosine. -lateral ST depression noted on ECG during the event. -he has never experienced exertional angina pectoris. -realizing his family history of early coronary disease, consider an outpatient stress test. (2) Hypertension: -adequate control on current regimen. History of Present Illness Attending Physician: Juliocesar Summers DO History of Present Illness Mr. Lincoln is a 61-year-old male admitted on May 05 with a diverticular abscess and large bowel obstruction. The patient has had a stormy course since that time. However, he did develop an episode supraventricular tachycardia on May 17, therefore, this consultation was ordered. The patient was in his usual state of health until the day of presentation. He was seen in the emergency room at [facility] and transferred to our institution with a diverticular abscess and large bowel obstruction. Unfortunately, he perforated his bowel on May 08 and required an urgent bowel resection. He was taken back to the operating room the following day for an abdominal washout, closure, and placement of an ileostomy. He required a prolonged stay in the ICU because of sepsis and required intravenous pressors and a ventilator. He was eventually transferred to the telemetry unit. On the 17 of May, he developed an episode of an SVT which successfully converted to sinus rhythm with the use of adenosine 6 mg IV. The patient was asymptomatic during that episode. He has never had a diagnosis of a paroxysmal SVT. He has never had a cardiac event. When healthy, the patient is vigorous on daily basis both at and work. He has never experienced exertional chest pain or limiting dyspnea. He further denies syncope, presyncope, PND, orthopnea, palpitations, lower extremity edema, and claudication. Currently, patient is resting comfortably in bed without complaints. Past medical and surgical history 1. Hypertension 2. Essential tremor 3. Colonic polyps 4. Prostate carcinoma-September 2021 5. TURP-September 2021 6. Radiation therapy 7. Lumbar laminectomy Social history and lives with his in [place]. Works at the [employer]. Smokes 3/4 pack of cigarettes daily No alcohol Family history Father at 63 from the abdominal aneurysm Mother at 60 from a carcinoma A brother at 54 from an PA Review of systems A 10 review systems was undertaken and negative except that described above. Allergies Allergy/AdvReac Type Severity Reaction Status Date / Time No Known Allergies Allergy Verified 02/27/22 11:17 Home Medications Medication Instructions Recorded Confirmed Type lisinopril 20 mg tablet 20 mg PO DAILY 09/11/21 02/27/22 History acetaminophen 500 mg tablet 1,000 mg PO Q6H PRN 10/30/21 02/27/22 History (Tylenol Extra Strength) lactobacillus combination no.4 3 3,000 mmu cells PO DAILY 10/30/21 02/27/22 History billion cell capsule (Probiotic) leuprolide (3 month) 22.5 mg (3 22.5 mg subcut ONCE Prostate 12/03/21 12/03/21 Rx month) subcutaneous syringe Cancer #1 ea (Eligard) calcium carbonate 600 mg-vitamin 1 cap PO DAILY 01/20/22 02/27/22 History D3 10 mcg (400 unit) capsule cholecalciferol (vitamin D3) 50 50 mcg PO DAILY 01/20/22 02/27/22 History mcg (2,000 unit) capsule psyllium husk 3.4 gram/5.4 gram 1 tbsp PO DAILY 01/27/22 02/27/22 History oral powder (Metamucil) leuprolide (3 month) 22.5 mg (3 22.5 mg subcut ONCE Prostate 01/29/22 02/27/22 Rx month) subcutaneous syringe Cancer #1 ea (Eligard) Patient History Medical History Back pain Chickenpox Colon polyp Diverticulitis of intestine with abscess Essential tremor Hypertension Large bowel obstruction Obesity Prostate cancer (09/18/21) s/p XRT Surgical History H/O laminectomy (1986) History of prostate biopsy (09/18/21) Family History Father Abdominal aortic aneurysm Prostate cancer unsure per patient Mother Parkinson disease Brother Heart disease Brother Hypertension Brother Hypertension Sister Cerebral aneurysm Grandfather (Maternal) Prostate cancer Son No problems noted. Son No problems noted. Social History Smoking Status: Current every day smoker Tobacco Type: Cigarettes packs per day: 0.7; Cigarettes Per Day: 15; Second Hand Exposure: Yes; Do You Dip or Chew Tobacco: No; Tobacco Cessation Education Requested by Patient: No Hx Alcohol Use: No Hx Substance Use: No Preferred Language: Ecuadorean Communication Ability: Effective Visual Impairment: No Limitations Hearing Ability: Normal General Purchasing Agent Required: No Beliefs That Will Affect Care: None marital status: Current Living Situation: Spouse current occupational status: employed current occupation: Manufacturing How many Children do You have: 2 Other Information That Helps Us Care for You: No Feels Safe at Home: Yes Safety Concerns: Feels Safe At This Time Childhood Exposure to Second-Hand Smoke: Yes (parents smoked in home) caffeine: Yes (coffee) during the past year weight has: remained stable Dental Care, Regularly: Yes Assistive Devices: None Physical Exam Physical Exam: In general this is a mildly obese white male in no acute distress. HEENT exam is negative. Neck is supple with full carotid upstrokes. No carotid bruits. Jugular is pressure is flat 90. There is no thyromegaly. Cardiovascular exam reveals a regular rhythm with normal S1-S2. Heart sounds are distant. No obvious murmurs. Lungs are clear without rales, rhonchi or wheezes. Abdomen is soft. Extremities reveal intact radial artery pulses bilaterally. There is no peripheral edema. Results & Data ([facility]) Vital Signs (Past 12 Hours) Vital Signs Temp Pulse Pulse Resp BP BP BP 05/19/22 11:14 36.8 C 105 H 18 126/84 05/19/22 08:00 05/19/22 08:00 83 05/19/22 08:00 36.8 C 91 H 18 161/90 H 05/19/22 03:14 36.8 C 78 18 129/88 05/19/22 00:55 88 Pulse Ox O2 Del Method 05/19/22 11:14 95 Room Air 05/19/22 08:00 Room Air 05/19/22 08:00 05/19/22 08:00 96 Room Air 05/19/22 03:14 93 Room Air 05/19/22 00:55 Laboratory Results CBC notes hemoglobin of 7.6, hematocrit 22.6, white count 11.04, and platelet count [id number]. Electrolytes note a sodium of 138, potassium 3.0, chloride 106, bicarb 27, BUN 8, creatinine 0.34, magnesium 1.8, phosphorus 2.7, and calcium low at 8.0. Diagnostic Findings EKG on May 18 notes sinus rhythm without abnormalities. EKG on May 17 noted an SVT at 170 beats per minute. There was evidence of lateral ST depression. PG Care Time/CCT Total # of Minutes Spent Total Time Spent with Patient: Total time spent is greater than 50% in coordination of care (as documented) at patient's floor/unit and/or counseling patient: Coding Level of Care Code 65762 Office/OBS Consult Lvl 4 Diagnoses SVT (supraventricular tachycardia) I47.1 Hypertension I10
[2022-05-19] MEDS: ACETAMINOPHEN 500 MG TAB PO PRN (18:13)
--- NOTE | 2022-05-19 18:55 | Billing Data ---
Date of Service May 19, 2022 Coding Level of Care Code 21782 Subseq Hosp Care Lvl 3
--- NOTE | 2022-05-20 06:39 | Hospitalist Progress Note ---
Date of Service May 20, 2022 Assessment & Plan (1) Severe sepsis with septic shock: Plan: SVT s/p adenosine conversion to SR - SVT 05/18 with rate in 170s/180s convert to sinus rhythm with 1 6mg dose adenosine. No further episodes on telemetry. - He was asymptomatic and hemodynamically stable during the episode - Continue metoprolol tartrate 50mg BID - Repeat EKG morning after event; NSR with HR= 84, no signs of ischemia - some lateral ischemia on EKG taken during SVT run->cardiology recommend f/u and possible stress test as OP - Lipid panel with ASCVD= 12-16%; total cholesterol= 141, LDL= 87, LDL= 87 -> consider stating statin and repeat lipid panel after acute illness Severe sepsis 2/2 bowel perforation - CT scan showed colonic obstruction concerning for obstructing lesion, nodular collections in sigmoid colon concerning for small abscess vs. metastatic nodules, large volume of intraperitoneal free air - emergent exploratory laparotomy was performed which resulted in right hemicolectomy; post op day 8 - The next day pt went for abdominal washout and ileostomy; post-op day 7 - Was mechanically ventilated for 5 days and needed vasopressor support; has since been able to ween off both - completed 10 day dose of Zosyn, and 7 day course of Diflucan - Surgery following; can advance diet to full liquids; YENY drain removed yesterday - currently stable on room air -PT/OT -> plan for SNF pending placement; medical stable waiting for bed Diverticulitis w/ abscess - diagnosed via [facility] CTAP - labs upon admission significant for WBC 16.56 w/ neutrophilic predominance on admission-> leukocytosis has since resolved - KUB showed severe constipation w/ distended colon (colonic ileus vs. LBO) - original blood cultures from 05/05 neg after 48 hr - current management as above; completed course of antibiotics Hyponatremia - resolved Hypokalemia - Continues to be hypokalemic - Continue 20meq BID standing = K= 3.1, this morning -> repleted Anemia - 09/2021 Hgb 15.0 - upon admission, 11.0 - continues to remain stable between 7.5-8 Prostate cancer - Stage IIIA, s/p TURP in 09/2021 and Leuprolide/radiation therapy as of 02/2022 - Follows with cancer center (Dr. Le) HTN - d/t septic shock and current situation as described above, home lisinopril on hold - Blood pressures have been elevated over the past day; could consider restarting once hemodynamically stable (2) Bowel perforation: (3) Diverticulitis of intestine with abscess: (4) Diarrhea: (5) Prostate cancer: (6) Hypertension: (7) Large bowel obstruction: (8) SVT (supraventricular tachycardia): Plan DVT ppx: lovenox 40 mg daily Code: full Admission and Anticipated Discharge Date Admission Date: May 05, 2022 Supervising Physician Co-Signing Physician Notes I personally examined the patient and verified all tsang points of history and exam, discussed case, and agree with decision making with Dr Berumen. Feeling okay overall. no significant abdominal pain. no trouble breathing. Vitals noted, in general he is awake pleasant no distress. HEENT normocephalic atraumatic mucous membranes moist. Breathing unlabored no accessory muscle use good effort. Skin shows no rashes no pallor or icterus. Neuro without focal deficits. Supraventricular tachycardia, status post adenosine conversion to sinus rhythm Replace potassium, continue beta-hayden. Appreciate cardiology inputanup schneidertanvir as an outpatient in near future; currently stable Severe sepsis in the setting of bowel perforation 2/2 diverticulitis w/ abscess s/p surgical repair Showing good progress/improvement Acute on chronic anemia Low but stable Trend periodically Electrolyte abnormalities continue to replete K Trend BMP periodically Additional per resident documentation Rina Kilgore is a 61 y/o male who presents with PMH of prostate cancer (s/p TURP 09/2021 and leuprolide/radiation therapy 02/2022) and HTN presenting via transfer due to acute diverticulitis w/ LBO and 2.8 cm abscess. On repeat CT scan, pt found to have bowel perforation and is now s/p right hemicolectomy. Patient underwent abdominal washout and ileostomy placement. Doing well today without complaints. Denies abdominal pain. chest pain, dyspnea, cough. Had Valle catheter and surgical drain removed yesterday. Review of Systems Review of Systems: As per HPI Physical Exam Physical Exam: Constitutional: well-appearing, no acute distress HEENT: NCAT, no conjunctival injection CV: regular rhythm, no murmur appreciated, extremities well-perfused, no LE edema Resp: CTABL, no wheezes/rales/rhonchi appreciated, no increased work of breathing GI: soft, nondistended, nontender, BS normoactive, ostomy in place MSK: no gross deformities appreciated Skin: warm, dry, no rash appreciated Neuro: alert, oriented, no focal neurologic deficit appreciated Results & Data Results & Data ([facility]) Vital Signs (Past 12 Hours) Vital Signs Temp Pulse Pulse Resp BP BP Pulse Ox 05/20/22 03:07 36.7 C 84 18 139/90 96 05/20/22 00:00 82 05/19/22 23:24 36.7 C 83 18 142/97 H 96 05/19/22 21:54 05/19/22 19:16 36.9 C 81 18 125/93 94 O2 Del Method 05/20/22 03:07 Room Air 05/20/22 00:00 05/19/22 23:24 Room Air 05/19/22 21:54 Room Air 05/19/22 19:16 Room Air Resident Activity Tracking Resident Involvement: Resident Care Provided Care Provided: Adult Hospital Medicine
[2022-05-20 08:07] LABS: Hematocrit (blood only) 24.1 % (40.1-51.0); Mean Corpuscular Hemoglobin 29.6 pg (25.0-34.0); Mean Corpuscular Hgb Conc 33.2 g/dL (32.0-36.0); Mean Corpuscular Volume 89.3 fL (80.0-100.0); Mean Platelet Volume 9.3 fL (9.4-12.4); Platelet Count 486 K/uL (130-400); RDW Coefficient of Variation 14.8 % (11.5-14.5); RDW Standard Deviation 47.8 fL (36.4-46.3); White Blood Count 11.14 K/ul (4.8-10.8)
[2022-05-20 08:28] LABS: Anion Gap 8 (3-11); BUN Creatinine Ratio 24.3 (10-20); Basophils # (auto) 0.04 K/uL (0-0.2); Basophils % (auto) 0.4 %; Blood Urea Nitrogen 9 mg/dl (6-23); Calcium 8.3 mg/dl (8.5-10.1); Carbon Dioxide 25 mmol/L (21-32); Chloride 104 mmol/L (98-107); Creatinine Clr Calc Pharmacy 227.4 ml/min; Eosinophils # (auto) 0.07 K/uL (0-0.50); Eosinophils % (auto) 0.6 %; Est GFR (African American) > 150.0 ml/min; Est GFR (Non-African American) 130.5 ml/min; Glucose 88 mg/dl (70-99(Fasting)); Immature Granulocytes % (auto) 0.9 %; Lymphocytes # (auto) 0.47 K/uL (1.2-3.4); Lymphocytes % (auto) 4.2 %; Magnesium 1.8 mg/dl (1.7-2.4); Monocytes # (auto) 0.41 K/uL (0.24-0.82); Monocytes % (auto) 3.7 %; Neutrophils # (auto) 10.05 K/uL (1.4-6.5); Neutrophils % (auto) 90.2 %; Phosphorus 2.9 mg/dl (2.5-4.9); Potassium 3.1 mmol/L (3.5-5.1); Sodium 137 mmol/L (136-145)
[2022-05-20] MEDS: INSULIN ASPART PER UNIT SC SCH ×4 (08:51→21:05)
[2022-05-20] MEDS: ENOXAPARIN INJ 40 MG/0.4 ML SYR SQ SCH (08:51)
[2022-05-20] MEDS: PANTOprazole 40 MG TAB PO SCH (08:52)
[2022-05-20] MEDS: METOPROLOL TARTRATE 50 MG TAB PO SCH ×2 (08:52→21:38)
[2022-05-20] MEDS: POTASSIUM CHLORIDE CRTAB 20 MEQ TABCR PO SCH ×2 (08:55→21:38)
[2022-05-20] MEDS ORDERED: POTASSIUM CHLORIDE CRTAB 20 MEQ TABCR PO ONE (09:15)
--- NOTE | 2022-05-20 09:24 | Surgery Progress Note ---
Date of Service May 20, 2022 Assessment & Plan (1) Diverticulitis of intestine with abscess: Plan: POD # 12 s/p ex lap , right colon resection with washout POD # 11 s/p abdominal washout with ileostomy and mucous fistula formation -afebrile, vss - leukocytosis stable at 11k - no postop pain - ostomy functioning - urinary incontinence since ritter removed yesterday Plan: Okay to advance diet as tolerated to soft diet pain management as needed continue current medical management continue PT/OT while inpatient case management on board potassium being replaced will remove nicky today, keep retention bars/suture in place. If wound opens , may need wound vac Discussed with Dr. Suero who agrees with above. Admission and Anticipated Discharge Date Admission Date: May 05, 2022 Subjective Feeling good not having any pain, not requiring any pain medication tolerating full liquids would like crackers and peanut butter urinating but having incontinence, no burning ostomy working Physical Exam Constitutional: comfortable and + overweight; no acute distress and not ill appearing sitting up in chair Neck: normal visual inspection and trachea midline Respiratory: normal respiratory effort; no respiratory distress and no labored breathing Gastrointestinal (Abdomen): Inspection/Auscultation: abdomen normal to inspection and + abdominal surgical incision (clean/dry/intact with retention bars intact, nicky present); abdomen not distended Percussion/Palpation: abdomen soft; abdomen nontender, no guarding and abdomen not rigid RLQ ileostomy with moderate liquid stool connected to ritter bag to gravity, mucous fistula viable with some fibrinous slough. Prior right blayne drain site with fibrinous slough Skin: no rashes, warm and dry Results & Data ([facility]) Vital Signs (Past 12 Hours) Vital Signs Temp Pulse Pulse Resp BP BP BP 05/20/22 07:16 36.5 C 88 17 138/86 05/20/22 03:07 36.7 C 84 18 139/90 05/20/22 00:00 82 05/19/22 23:24 36.7 C 83 18 142/97 H 05/19/22 21:54 Pulse Ox O2 Del Method 05/20/22 07:16 95 Room Air 05/20/22 03:07 96 Room Air 05/20/22 00:00 05/19/22 23:24 96 Room Air 05/19/22 21:54 Room Air Laboratory Results 05/20/22 05/20/22 05/20/22 Range/Units 07:52 07:52 07:17 WBC 11.14 H (4.8-10.8) K/ul RBC 2.70 L (4.63-6.08) M/uL Hgb 8.0 L (14.0-18.0) g/dl Hct 24.1 L (40.1-51.0) % MCV 89.3 (80.0-100.0) fL MCH 29.6 (25.0-34.0) pg MCHC 33.2 (32.0-36.0) g/dL RDW Std Deviation 47.8 H (36.4-46.3) fL RDW Coeff of Tani 14.8 H (11.5-14.5) % Plt Count 486 H (130-400) K/uL MPV 9.3 L (9.4-12.4) fL Immature Gran % (Auto) 0.9 % Neut % (Auto) 90.2 % Lymph % (Auto) 4.2 % Deuel % (Auto) 3.7 % Eos % (Auto) 0.6 % Baso % (Auto) 0.4 % Neut # (Auto) 10.05 H (1.4-6.5) K/uL Lymph # (Auto) 0.47 L (1.2-3.4) K/uL Deuel # (Auto) 0.41 (0.24-0.82) K/uL Eos # (Auto) 0.07 (0-0.50) K/uL Baso # (Auto) 0.04 (0-0.2) K/uL Immature Gran # (Auto) 0.10 H (0.00-0.02) K/uL Sodium 137 (136-145) mmol/L Potassium 3.1 L (3.5-5.1) mmol/L Chloride 104 (98-107) mmol/L Carbon Dioxide 25 (21-32) mmol/L Anion Gap 8 (3-11) BUN 9 (6-23) mg/dl Creatinine 0.37 L (0.6-1.4) mg/dl Est Cr Clr Drug Dosing 227.4 ml/min Est GFR ( Amer) > 150.0 ml/min Est GFR (Non-Af Amer) 130.5 ml/min BUN/Creatinine Ratio 24.3 H (10-20) Glucose 88 (70-99(Fasting)) mg/dl POC Glucose 94 (70-99) mg/dl Calcium 8.3 L (8.5-10.1) mg/dl Phosphorus 2.9 (2.5-4.9) mg/dl Magnesium 1.8 (1.7-2.4) mg/dl 05/19/22 05/19/22 05/19/22 Range/Units 20:10 16:19 11:13 WBC (4.8-10.8) K/ul RBC (4.63-6.08) M/uL Hgb (14.0-18.0) g/dl Hct (40.1-51.0) % MCV (80.0-100.0) fL MCH (25.0-34.0) pg MCHC (32.0-36.0) g/dL RDW Std Deviation (36.4-46.3) fL RDW Coeff of Tani (11.5-14.5) % Plt Count (130-400) K/uL MPV (9.4-12.4) fL Immature Gran % (Auto) % Neut % (Auto) % Lymph % (Auto) % Deuel % (Auto) % Eos % (Auto) % Baso % (Auto) % Neut # (Auto) (1.4-6.5) K/uL Lymph # (Auto) (1.2-3.4) K/uL Deuel # (Auto) (0.24-0.82) K/uL Eos # (Auto) (0-0.50) K/uL Baso # (Auto) (0-0.2) K/uL Immature Gran # (Auto) (0.00-0.02) K/uL Sodium (136-145) mmol/L Potassium (3.5-5.1) mmol/L Chloride (98-107) mmol/L Carbon Dioxide (21-32) mmol/L Anion Gap (3-11) BUN (6-23) mg/dl Creatinine (0.6-1.4) mg/dl Est Cr Clr Drug Dosing ml/min Est GFR ( Amer) ml/min Est GFR (Non-Af Amer) ml/min BUN/Creatinine Ratio (10-20) Glucose (70-99(Fasting)) mg/dl POC Glucose 104 H 115 H 103 H (70-99) mg/dl Calcium (8.5-10.1) mg/dl Phosphorus (2.5-4.9) mg/dl Magnesium (1.7-2.4) mg/dl
--- NOTE | 2022-05-20 18:39 | Billing Data ---
Date of Service May 20, 2022 Coding Level of Care Code 95333 Subseq Hosp Care Lvl 2
[2022-05-21] MEDS: ACETAMINOPHEN 500 MG TAB PO PRN (00:46)
--- NOTE | 2022-05-21 06:43 | Hospitalist Progress Note ---
Date of Service May 21, 2022 Assessment & Plan (1) Severe sepsis with septic shock: Plan: SVT s/p adenosine conversion to SR - SVT 05/18 with rate in 170s/180s convert to sinus rhythm with 1 6mg dose adenosine. No further episodes on telemetry. - He was asymptomatic and hemodynamically stable during the episode - Continue metoprolol tartrate 50mg BID - Repeat EKG morning after event; NSR with HR= 84, no signs of ischemia - some lateral ischemia on EKG taken during SVT run->cardiology recommend f/u and possible stress test as OP - Lipid panel with ASCVD= 12-16%; total cholesterol= 141, LDL= 87, LDL= 87 -> consider stating statin and repeat lipid panel after acute illness Severe sepsis 2/2 bowel perforation - CT scan showed colonic obstruction concerning for obstructing lesion, nodular collections in sigmoid colon concerning for small abscess vs. metastatic nodules, large volume of intraperitoneal free air - emergent exploratory laparotomy was performed which resulted in right hemicolectomy; post op day 8 - The next day pt went for abdominal washout and ileostomy; post-op day 7 - Was mechanically ventilated for 5 days and needed vasopressor support; has since been able to ween off both - completed 10 day dose of Zosyn, and 7 day course of Diflucan - Surgery following; can advance diet to full liquids; YENY drain removed yesterday - currently stable on room air -PT/OT -> plan for acute rehab pending placement; medical stable waiting for bed Diverticulitis w/ abscess - diagnosed via [facility] CTAP - labs upon admission significant for WBC 16.56 w/ neutrophilic predominance on admission-> leukocytosis has since resolved - KUB showed severe constipation w/ distended colon (colonic ileus vs. LBO) - original blood cultures from 05/05 neg after 48 hr - current management as above; completed course of antibiotics Hyponatremia - resolved Hypokalemia - Continues to be hypokalemic - Continue 20meq BID standing - Will check labs every other day Anemia - 09/2021 Hgb 15.0 - upon admission, 11.0 - continues to remain stable between 7.5-8 Prostate cancer - Stage IIIA, s/p TURP in 09/2021 and Leuprolide/radiation therapy as of 02/2022 - Follows with cancer center (Dr. Le) HTN - d/t septic shock and current situation as described above, home lisinopril on hold - Blood pressures have been elevated over the past day; could consider restarting once hemodynamically stable (2) Bowel perforation: (3) Diverticulitis of intestine with abscess: (4) Diarrhea: (5) Prostate cancer: (6) Hypertension: (7) Large bowel obstruction: (8) SVT (supraventricular tachycardia): Plan DVT ppx: lovenox 40 mg daily Code: full Admission and Anticipated Discharge Date Admission Date: May 05, 2022 Supervising Physician Co-Signing Physician Notes I personally examined the patient and verified all tsang points of history and exam, discussed case, and agree with decision making with Dr Berumen. No complaints, just waiting on rehab. Vitals noted, in general he is awake pleasant no distress. HEENT normocephalic atraumatic mucous membranes moist. Breathing unlabored no accessory muscle use good effort. Skin shows no rashes no pallor or icterus. Neuro without focal deficits. Supraventricular tachycardia, status post adenosine conversion to sinus rhythm Replaced potassium, continue beta-hayden. Appreciate cardiology inputagree stress as an outpatient in near future; currently stable Severe sepsis in the setting of bowel perforation 2/2 diverticulitis w/ abscess s/p surgical repair Showing good progress/improvement overall and stable for rehab Acute on chronic anemia Low but stable Trend periodically Electrolyte abnormalities continue to replete K as needed Trend BMP periodically Additional per resident documentation Subjective Pt is doing well this morning. Was up and sitting in chair. No complaints this morning. Plan for acute rehab pending placement. Denies chest pain, dyspnea, abdominal pain. Good osteotomy output. Review of Systems Review of Systems: As per HPI Physical Exam Physical Exam: Constitutional: well-appearing, no acute distress HEENT: NCAT, no conjunctival injection CV: regular rhythm, no murmur appreciated, extremities well-perfused, no LE edema Resp: CTABL, no wheezes/rales/rhonchi appreciated, no increased work of breathing GI: soft, nondistended, nontender, BS normoactive, ostomy in place MSK: no gross deformities appreciated Skin: warm, dry, no rash appreciated Neuro: alert, oriented, no focal neurologic deficit appreciated Results & Data Results & Data ([facility]) Vital Signs (Past 12 Hours) Vital Signs Temp Pulse Pulse Resp BP BP Pulse Ox 05/21/22 03:24 36.6 C 90 18 129/92 95 05/21/22 00:19 102 H 05/20/22 23:02 05/20/22 22:58 36.6 C 97 H 18 112/91 94 05/20/22 19:09 37 C 107 H 18 127/91 95 O2 Del Method 05/21/22 03:24 Room Air 05/21/22 00:19 05/20/22 23:02 Room Air 05/20/22 22:58 Room Air 05/20/22 19:09 Room Air Resident Activity Tracking Resident Involvement: Resident Care Provided Care Provided: Adult Hospital Medicine
[2022-05-21] MEDS: INSULIN ASPART PER UNIT SC SCH ×4 (07:36→20:15)
[2022-05-21] MEDS: ENOXAPARIN INJ 40 MG/0.4 ML SYR SQ SCH (08:49)
[2022-05-21] MEDS: PANTOprazole 40 MG TAB PO SCH (08:49)
[2022-05-21] MEDS: POTASSIUM CHLORIDE CRTAB 20 MEQ TABCR PO SCH ×2 (08:49→20:28)
[2022-05-21] MEDS: METOPROLOL TARTRATE 50 MG TAB PO SCH ×2 (08:49→20:28)
--- NOTE | 2022-05-21 11:30 | Surgery Progress Note ---
Date of Service May 21, 2022 Assessment & Plan (1) Diverticulitis of intestine with abscess: Plan: POD # 13 s/p ex lap , right colon resection with washout POD # 12 s/p abdominal washout with ileostomy and mucous fistula formation -afebrile, vss - no postop pain - ostomy functioning Plan: Okay to advance diet as tolerated to soft diet pain management as needed continue current medical management continue PT/OT while inpatient case management on board Discussed with Dr. Suero who agrees with above. Admission and Anticipated Discharge Date Admission Date: May 05, 2022 Subjective feeling good tolerating diet yesterday, coffee this morning nicky were removed by nurse yesterday, retention sutures still in place ostomy still functioning Physical Exam Constitutional: WD/WN, vitals as above + obese; no acute distress and not ill appearing Neck: normal visual inspection and trachea midline Respiratory: normal respiratory effort; no respiratory distress and no labored breathing Gastrointestinal (Abdomen): Inspection/Auscultation: abdomen normal to inspection and + abdominal surgical incision (intact, nicky removed, retention sutures still in place); abdomen not distended Percussion/Palpation: abdomen soft; abdomen nontender, no guarding and abdomen not rigid RLQ ilstomy with liquid stool output incision intact , nicky removed, superior and inferior openings with fibrinous tissue present Skin: no rashes, warm and dry Psychiatric: Orientation: alert and oriented x 3 Results & Data ([facility]) Vital Signs (Past 12 Hours) Vital Signs Temp Pulse Pulse Resp BP Pulse Ox O2 Del Method 05/21/22 07:00 61 05/21/22 03:24 36.6 C 90 18 129/92 95 Room Air 05/21/22 00:19 102 H Laboratory Results 05/21/22 05/21/22 05/20/22 Range/Units 11:06 07:19 20:04 POC Glucose 109 H 108 H 117 H (70-99) mg/dl 05/20/22 05/20/22 Range/Units 16:24 11:27 POC Glucose 95 116 H (70-99) mg/dl
--- NOTE | 2022-05-21 17:34 | Billing Data ---
Date of Service May 21, 2022 Coding Level of Care Code 70483 Subseq Hosp Care Lvl 2
--- NOTE | 2022-05-22 06:36 | Hospitalist Progress Note ---
Date of Service May 22, 2022 Assessment & Plan (1) Severe sepsis with septic shock: Plan: SVT s/p adenosine conversion to SR - SVT 05/18 with rate in 170s/180s convert to sinus rhythm with 1 6mg dose adenosine. No further episodes on telemetry. - He was asymptomatic and hemodynamically stable during the episode - Continue metoprolol tartrate 50mg BID - Repeat EKG morning after event; NSR with HR= 84, no signs of ischemia - some lateral ischemia on EKG taken during SVT run->cardiology recommend f/u and possible stress test as OP - Lipid panel with ASCVD= 12-16%; total cholesterol= 141, LDL= 87, LDL= 87 -> consider stating statin and repeat lipid panel after acute illness Severe sepsis 2/2 bowel perforation - CT scan showed colonic obstruction concerning for obstructing lesion, nodular collections in sigmoid colon concerning for small abscess vs. metastatic nodules, large volume of intraperitoneal free air - emergent exploratory laparotomy was performed which resulted in right hemicolectomy; post op day 8 - The next day pt went for abdominal washout and ileostomy; post-op day 7 - Was mechanically ventilated for 5 days and needed vasopressor support; has since been able to ween off both - completed 10 day dose of Zosyn, and 7 day course of Diflucan - Surgery following; can advance diet to full liquids; YENY drain removed - currently stable on room air -PT/OT -> plan for acute rehab pending placement; medical stable waiting for bed Diverticulitis w/ abscess - diagnosed via [facility] CTAP - labs upon admission significant for WBC 16.56 w/ neutrophilic predominance on admission-> leukocytosis has since resolved - KUB showed severe constipation w/ distended colon (colonic ileus vs. LBO) - original blood cultures from 05/05 neg after 48 hr - current management as above; completed course of antibiotics Hyponatremia - resolved Hypokalemia - Continues to be hypokalemic - Continue 20meq BID standing. 3.2 this morning; repleted - Will check labs every other day Anemia - 09/2021 Hgb 15.0 - upon admission, 11.0 - continues to remain stable between 7.5-8 Prostate cancer - Stage IIIA, s/p TURP in 09/2021 and Leuprolide/radiation therapy as of 02/2022 - Follows with cancer center (Dr. Le) HTN - d/t septic shock and current situation as described above, home lisinopril on hold - Blood pressures have been elevated over the past day; could consider restarting once hemodynamically stable (2) Bowel perforation: (3) Diverticulitis of intestine with abscess: (4) Diarrhea: (5) Prostate cancer: (6) Hypertension: (7) Large bowel obstruction: (8) SVT (supraventricular tachycardia): Plan DVT ppx: lovenox 40 mg daily Code: full Admission and Anticipated Discharge Date Admission Date: May 05, 2022 Supervising Physician Co-Signing Physician Notes I personally examined the patient and verified all tsang points of history and exam, discussed case, and agree with decision making with Dr Berumen. No new issues or problems. Still waiting on rehab.. Vitals noted, in general he is awake pleasant no distress. HEENT normocephalic atraumatic mucous membranes moist. Breathing unlabored no accessory muscle use good effort. Skin shows no rashes no pallor or icterus. Neuro without focal deficits. Abdomen with healing wounds and a little bit of mucoid discharge. Supraventricular tachycardia, status post adenosine conversion to sinus rhythm Replace potassium ongoing, continue beta-hayden. Appreciate cardiology inputagree stress as an outpatient in near future; currently stable Severe sepsis in the setting of bowel perforation 2/2 diverticulitis w/ abscess s/p surgical repair Showing good progress/improvement overall and stable for rehab Acute on chronic anemia Low but stable Trend periodically Electrolyte abnormalities continue to replete K as needed Trend BMP periodically Additional per resident documentation Subjective Doing well this morning. Was sitting in chair eating breakfast when I saw him this morning. No complaints. Denies chest pain, dyspnea, abdominal pain. Appetite is good, good ostomy output. Review of Systems Review of Systems: As per HPI Physical Exam Physical Exam: Constitutional: well-appearing, no acute distress HEENT: NCAT, no conjunctival injection CV: regular rhythm, no murmur appreciated, extremities well-perfused, no LE edema Resp: CTABL, no wheezes/rales/rhonchi appreciated, no increased work of breathing GI: soft, nondistended, nontender, BS normoactive, ostomy in place MSK: no gross deformities appreciated Skin: warm, dry, no rash appreciated Neuro: alert, oriented, no focal neurologic deficit appreciated Results & Data Results & Data ([facility]) Vital Signs (Past 12 Hours) Vital Signs Temp Pulse Pulse Resp BP BP BP 05/22/22 03:20 36.5 C 88 18 113/74 05/22/22 00:00 99 H 05/21/22 23:00 36.6 C 86 18 111/73 05/21/22 20:55 05/21/22 19:14 36.6 C 99 H 18 119/74 Pulse Ox O2 Del Method 05/22/22 03:20 96 Room Air 05/22/22 00:00 05/21/22 23:00 95 Room Air 05/21/22 20:55 Room Air 05/21/22 19:14 95 Room Air Resident Activity Tracking Resident Involvement: Resident Care Provided Care Provided: Adult Hospital Medicine
[2022-05-22 07:07] LABS: Basophils # (auto) 0.02 K/uL (0-0.2); Basophils % (auto) 0.3 %; Eosinophils # (auto) 0.06 K/uL (0-0.50); Eosinophils % (auto) 0.8 %; Hematocrit (blood only) 23.8 % (40.1-51.0); Hemoglobin 7.9 g/dl (14.0-18.0); Immature Granulocytes # (auto) 0.06 K/uL (0.00-0.02); Immature Granulocytes % (auto) 0.8 %; Lymphocytes # (auto) 0.41 K/uL (1.2-3.4); Lymphocytes % (auto) 5.2 %; Mean Corpuscular Hemoglobin 29.6 pg (25.0-34.0); Mean Corpuscular Hgb Conc 33.2 g/dL (32.0-36.0); Mean Corpuscular Volume 89.1 fL (80.0-100.0); Mean Platelet Volume 9.5 fL (9.4-12.4); Monocytes # (auto) 0.53 K/uL (0.24-0.82); Monocytes % (auto) 6.7 %; Neutrophils # (auto) 6.84 K/uL (1.4-6.5); Neutrophils % (auto) 86.2 %; Platelet Count 370 K/uL (130-400); RDW Coefficient of Variation 14.7 % (11.5-14.5); RDW Standard Deviation 47.9 fL (36.4-46.3); Red Blood Count 2.67 M/uL (4.63-6.08); White Blood Count 7.92 K/ul (4.8-10.8)
[2022-05-22 07:33] LABS: Polychromasia 1+
[2022-05-22 07:41] LABS: Albumin Globulin Ratio 0.9 (0.9-2); Albumin Level 2.8 gm/dl (3.4-5.0); Bilirubin,Total 0.6 mg/dl (0.2-1.0); Calcium 8.4 mg/dl (8.5-10.1); Creatinine Clr Calc Pharmacy 205.2 ml/min; Est GFR (Non-African American) 125.1 ml/min; Globulin 3.2 gm/dl (2.5-4.0); Potassium 3.2 mmol/L (3.5-5.1)
[2022-05-22] MEDS: INSULIN ASPART PER UNIT SC SCH ×4 (07:53→20:14)
[2022-05-22] MEDS: METOPROLOL TARTRATE 50 MG TAB PO SCH ×2 (09:15→21:12)
[2022-05-22] MEDS: POTASSIUM CHLORIDE CRTAB 20 MEQ TABCR PO SCH ×2 (09:15→21:12)
[2022-05-22] MEDS: ENOXAPARIN INJ 40 MG/0.4 ML SYR SQ SCH (09:15)
[2022-05-22] MEDS: PANTOprazole 40 MG TAB PO SCH (09:15)
[2022-05-22] MEDS ORDERED: POTASSIUM CHLORIDE CRTAB 20 MEQ TABCR PO ONE (13:11)
--- NOTE | 2022-05-22 15:32 | Surgery Progress Note ---
Date of Service May 22, 2022 Assessment & Plan (1) Diverticulitis of intestine with abscess: Plan: POD # 14 s/p ex lap , right colon resection with washout POD # 13 s/p abdominal washout with ileostomy and mucous fistula formation -afebrile, vss - no postop pain - ostomy functioning Plan: continue diet as tolerated pain management as needed continue current medical management continue PT/OT while inpatient awaiting placement Admission and Anticipated Discharge Date Admission Date: May 05, 2022 Subjective doing well; tolerating diet; awaiting placement Physical Exam Physical Exam: no acute distress, on NC; A&Ox3 abdomen slightly distended, incision without erythema, nicky in place; retention bars in place ostomy pink and viable, liquid in ostomy bag; mucous fistula viable Results & Data ([facility]) Vital Signs (Past 12 Hours) Vital Signs Temp Pulse Pulse Resp BP BP Pulse Ox 05/22/22 15:16 36.5 C 89 18 128/82 96 05/22/22 11:13 36.8 C 87 22 120/75 97 05/22/22 07:50 36.8 C 98 H 20 134/84 97 05/22/22 07:19 91 H O2 Del Method 05/22/22 15:16 Room Air 05/22/22 11:13 Room Air 05/22/22 07:50 Room Air 05/22/22 07:19
--- NOTE | 2022-05-22 16:31 | Billing Data ---
Date of Service May 22, 2022 Coding Level of Care Code 31779 Subseq Hosp Care Lvl 2
[2022-05-23] MEDS: PANTOprazole 40 MG TAB PO SCH (07:44)
[2022-05-23] MEDS: ENOXAPARIN INJ 40 MG/0.4 ML SYR SQ SCH (07:44)
[2022-05-23] MEDS: POTASSIUM CHLORIDE CRTAB 20 MEQ TABCR PO SCH (07:46)
[2022-05-23] MEDS: METOPROLOL TARTRATE 50 MG TAB PO SCH (07:47)
--- NOTE | 2022-05-23 07:49 | Hospitalist Progress Note ---
Date of Service May 23, 2022 Assessment & Plan (1) Severe sepsis with septic shock: Plan: SVT s/p adenosine conversion to SR - SVT 05/18 with rate in 170s/180s convert to sinus rhythm with 1 6mg dose adenosine. No further episodes on telemetry. - He was asymptomatic and hemodynamically stable during the episode - Continue metoprolol tartrate 50mg BID - Repeat EKG morning after event; NSR with HR= 84, no signs of ischemia - some lateral ischemia on EKG taken during SVT run->cardiology recommend f/u and possible stress test as OP - Lipid panel with ASCVD= 12-16%; total cholesterol= 141, LDL= 87, LDL= 87 -> consider stating statin and repeat lipid panel after acute illness Severe sepsis 2/2 bowel perforation - CT scan showed colonic obstruction concerning for obstructing lesion, nodular collections in sigmoid colon concerning for small abscess vs. metastatic nodules, large volume of intraperitoneal free air - emergent exploratory laparotomy was performed which resulted in right hemicolectomy; post op day 8 - The next day pt went for abdominal washout and ileostomy; post-op day 7 - Was mechanically ventilated for 5 days and needed vasopressor support; has since been able to ween off both - completed 10 day dose of Zosyn, and 7 day course of Diflucan - Surgery following; can advance diet to full liquids; YENY drain removed - currently stable on room air -PT/OT -> plan for acute rehab pending placement; medical stable waiting for bed Diverticulitis w/ abscess - diagnosed via [facility] CTAP - labs upon admission significant for WBC 16.56 w/ neutrophilic predominance on admission-> leukocytosis has since resolved - KUB showed severe constipation w/ distended colon (colonic ileus vs. LBO) - original blood cultures from 05/05 neg after 48 hr - current management as above; completed course of antibiotics Hyponatremia - resolved Hypokalemia - Continues to be hypokalemic - Continue 20meq BID standing. 3.2 this morning; repleted - Will check labs every other day Anemia - 09/2021 Hgb 15.0 - upon admission, 11.0 - continues to remain stable between 7.5-8 Prostate cancer - Stage IIIA, s/p TURP in 09/2021 and Leuprolide/radiation therapy as of 02/2022 - Follows with cancer center (Dr. Le) HTN - d/t septic shock and current situation as described above, home lisinopril on hold - Blood pressures have been elevated over the past day; could consider restarting once hemodynamically stable (2) Bowel perforation: (3) Diverticulitis of intestine with abscess: (4) Diarrhea: (5) Prostate cancer: (6) Hypertension: (7) Large bowel obstruction: (8) SVT (supraventricular tachycardia): Plan DVT ppx: lovenox 40 mg daily Code: full Admission and Anticipated Discharge Date Admission Date: May 05, 2022 Review of Systems Review of Systems: As per HPI Physical Exam Physical Exam: Constitutional: well-appearing, no acute distress HEENT: NCAT, no conjunctival injection CV: regular rhythm, no murmur appreciated, extremities well-perfused, no LE edema Resp: CTABL, no wheezes/rales/rhonchi appreciated, no increased work of breathing GI: soft, nondistended, nontender, BS normoactive, ostomy in place MSK: no gross deformities appreciated Skin: warm, dry, no rash appreciated Neuro: alert, oriented, no focal neurologic deficit appreciated Results & Data Results & Data ([facility]) Vital Signs (Past 12 Hours) Vital Signs Temp Pulse Pulse Resp BP BP Pulse Ox 05/23/22 07:29 36.8 C 76 16 100/59 L 97 05/22/22 22:40 05/22/22 22:37 36.8 C 100 H 18 116/78 96 05/22/22 20:00 05/22/22 21:11 91 H 118/71 O2 Del Method 05/23/22 07:29 Room Air 05/22/22 22:40 Room Air 05/22/22 22:37 Room Air 05/22/22 20:00 Room Air 05/22/22 21:11
[2022-05-23] MEDS: INSULIN ASPART PER UNIT SC SCH ×2 (09:03→13:26)
--- NOTE | 2022-05-23 11:21 | Surgery Progress Note ---
Date of Service May 23, 2022 Assessment & Plan (1) Diverticulitis of intestine with abscess: Plan: POD # 15 s/p ex lap , right colon resection with washout POD # 14 s/p abdominal washout with ileostomy and mucous fistula formation -afebrile, vss - no postop pain - ostomy functioning Plan: continue diet as tolerated pain management as needed continue current medical management continue PT/OT while inpatient awaiting placement Will schedule for follow-up with Dr. Suero for next Thursday, retention sutures to stay in place until follow-up. [facility] surgery covering peripherally over weekend Admission and Anticipated Discharge Date Admission Date: May 05, 2022 Subjective feeling good tolerated full liquids for breakfast, unable to tolerate ensure due to taste no nausea or vomiting no abdominal pain ostomy still functioning awaiting placement to encompass Physical Exam Constitutional: + obese, + frail appearing, cooperative and comfortable; no acute distress and not ill appearing Neck: normal visual inspection and trachea midline Respiratory: normal respiratory effort; no respiratory distress and no labored breathing Gastrointestinal (Abdomen): Inspection/Auscultation: abdomen normal to inspection and + abdominal surgical incision (clean,dry, intact, retention sutures intact); abdomen not distended Percussion/Palpation: abdomen soft; abdomen nontender, no guarding and abdomen not rigid RLQ ileostomy functioning Mucous fistula viable fibrinous tissue at superior and inferior aspect of incision Skin: no rashes, warm and dry Psychiatric: Orientation: alert and oriented x 3 Affect: + flat affect Results & Data ([facility]) Vital Signs (Past 12 Hours) Vital Signs Temp Pulse Resp BP Pulse Ox O2 Del Method 05/23/22 07:29 36.8 C 76 16 100/59 L 97 Room Air Laboratory Results 05/23/22 05/22/22 05/22/22 Range/Units 07:56 20:10 16:24 POC Glucose 103 H 139 H 109 H (70-99) mg/dl
--- NOTE | 2022-05-23 14:14 | Discharge Summary ---
Date of Service May 23, 2022 Admission HPI Per Admitting Provider Jame Lincoln is a 61yo male with PMHx significant for prostate cancer (s/p TURP in 09/2021 and completion of Leuprolide/RTx in 02/2022), HTN and obesity who was transferred from [facility] as a direct admit for large bowel obstruction with complicated diverticulitis/abscess. Patient reports onset of RLQ colicky abdominal pain as well as nausea, NB/NB vomiting and diarrhea on 05/01. N/V resolved on 05/02 but diarrhea has been consistent with 6-7 BMs per day, without blood/mucus. Also has had persistent abdominal pain. Denies fever/chills, chest pain, SOB, urinary symptoms or rash. Patient has ~45 pack year smoking history and currently smokes 3/4 ppd. Denies alcohol/drug use. Lives with and is proficient in ADLs/iADLs. In OSH ED the patient was afebrile with HR in low 100s but overall h emodynamically stable on room air. Labs significant for WBC 18.88 (neutrophilic predominance and L shift)Lactate 2.0 --> 1.3, Na 130, K 2.7. CT A/P [facility] report showing likely sigmoid colon diverticulitis with abscess measuring 2.8cm in size. Also with large bowel obstructive pattern and transition point at sigmoid colon. Patient was given IV potassium repletion, 2L NSS boluses, and started on Vanco/Zosyn. Patient had blood cultures drawn at OSH as well. Was then transferred here to be evaluated by our general surgery service given complicated diverticulitis with large bowel obstruction. Of note all records were sent with the patient, in addition to disc with CT A/P.Allergies Principal Diagnosis Bowel Perforation Discharge Exam Constitutional: well-appearing, no acute distress HEENT: NCAT, no conjunctival injection CV: regular rhythm, no murmur appreciated, extremities well-perfused, no LE edema Resp: CTABL, no wheezes/rales/rhonchi appreciated, no increased work of breathing GI: soft, nondistended, nontender, BS normoactive, ostomy in place MSK: no gross deformities appreciated Skin: warm, dry, no rash appreciated Neuro: alert, oriented, no focal neurologic deficit appreciated Discharge Data Allergies Allergy/AdvReac Type Severity Reaction Status Date / Time No Known Allergies Allergy Verified 02/27/22 11:17 Consultations 05/05/22 00:24 Consult General Surgery Routine 05/19/22 06:00 Consult Cardiology Routine Procedures Performed Operation Date: 05/08/22 11:10 Actual Procedures p Exploratory Laparotomy, Bowel Resection(Not Applicable) - Jace Suero MD Operation Date: 05/09/22 07:00 Actual Procedures p Exploratory Laparotomy, Abdominal Washout and Closure with Ileostomy Creation, Mucous Fistula(Not Applicable) - Jace Suero MD Ordered Studies 05/08/22 09:00 CT abd pelvis IV con only Routine 05/08/22 13:52 US - OR guided needle placemen Routine Laboratory Results WBC 7.92 K/ul (4.8-10.8) 05/22/22 06:36 RBC 2.67 M/uL (4.63-6.08) L 05/22/22 06:36 Hgb 7.9 g/dl (14.0-18.0) L 05/22/22 06:36 POC Hgb 6.8 g/dl (14.0-18.0) L* 05/14/22 10:42 Hct 23.8 % (40.1-51.0) L 05/22/22 06:36 POC Hct 20 % (42-52) L* 05/14/22 10:42 MCV 89.1 fL (80.0-100.0) 05/22/22 06:36 MCH 29.6 pg (25.0-34.0) 05/22/22 06:36 MCHC 33.2 g/dL (32.0-36.0) 05/22/22 06:36 RDW Std Deviation 47.9 fL (36.4-46.3) H 05/22/22 06:36 RDW Coeff of Tani 14.7 % (11.5-14.5) H 05/22/22 06:36 Plt Count 370 K/uL (130-400) 05/22/22 06:36 MPV 9.5 fL (9.4-12.4) 05/22/22 06:36 Immature Gran % (Auto) 0.8 % 05/22/22 06:36 Neut % (Auto) 86.2 % 05/22/22 06:36 Lymph % (Auto) 5.2 % 05/22/22 06:36 Blanco % (Auto) 6.7 % 05/22/22 06:36 Eos % (Auto) 0.8 % 05/22/22 06:36 Baso % (Auto) 0.3 % 05/22/22 06:36 Neut # (Auto) 6.84 K/uL (1.4-6.5) H 05/22/22 06:36 Lymph # (Auto) 0.41 K/uL (1.2-3.4) L 05/22/22 06:36 Blanco # (Auto) 0.53 K/uL (0.24-0.82) 05/22/22 06:36 Eos # (Auto) 0.06 K/uL (0-0.50) 05/22/22 06:36 Baso # (Auto) 0.02 K/uL (0-0.2) 05/22/22 06:36 Immature Gran # (Auto) 0.06 K/uL (0.00-0.02) H 05/22/22 06:36 Absolute Nucleated RBC 0.02 K/uL (0-0) H 05/17/22 05:35 Nucleated RBC % (auto) 0.2 % 05/17/22 05:35 Toxic Granulation 1+ 05/13/22 04:02 Toxic Vacuolation 1+ 05/10/22 03:29 Dohle Bodies 1+ 05/13/22 04:02 RBC Morphology Unremarkable 05/19/22 06:01 Polychromasia 1+ 05/22/22 06:36 Hypochromasia Present 05/13/22 04:02 Target Cells 1+ 05/13/22 04:02 Echinocytes 2+ 05/10/22 03:29 Sample Site R Radial 05/14/22 10:42 POC pH 7.54 (7.35-7.45) H* 05/14/22 10:42 POC pCO2 33 mmHg (35-46) L 05/14/22 10:42 POC pO2 67 mmHg (80-95) L 05/14/22 10:42 POC HCO3 28 alonzo/L (19-24) H 05/14/22 10:42 POC Total CO2 29 mmol/L (24-31) 05/14/22 10:42 POC Base Excess 5.0 alonzo/L (-9-1.8) H 05/14/22 10:42 ABG pH 7.29 (7.35-7.45) L 05/09/22 14:16 ABG pH (Temp Correct) 7.540 (7.35-7.45) H* 05/14/22 10:42 ABG pCO2 48 mmHg (35-46) H 05/09/22 14:16 ABG pCO2 (Temp Corrct 32 mmHg (35-46) L 05/14/22 10:42 ABG pO2 75 mmHg (80-95) L 05/09/22 14:16 POC ABG pO2 at Pt Temp 67 05/14/22 10:42 ABG HCO3 23 mmol/L (19-24) 05/09/22 14:16 POC ABG O2 Sat 95.0 % (90-95) 05/14/22 10:42 ABG O2 Saturation 96.5 % (90-95) H 05/09/22 14:16 ABG Base Excess -3.8 mEq/L (-9-1.8) 05/09/22 14:16 Vidal Test Pass 05/14/22 10:42 Oxygen Given 85% 05/09/22 14:16 O2 Delivery Device Cannula 05/14/22 10:42 POC O2 Rate 26 05/12/22 06:31 Minute Ventilation 8.9 05/08/22 22:30 POC FiO2 40 % 05/12/22 06:31 Tidal Volume 400 05/12/22 06:31 PEEP 5 05/12/22 06:31 POC Sodium 136 mmol/L (135-144) 05/14/22 10:42 Sodium 134 mmol/L (136-145) L 05/22/22 06:36 POC Potassium 3.2 mmol/L (3.3-5.0) L 05/14/22 10:42 Potassium 3.2 mmol/L (3.5-5.1) L 05/22/22 06:36 Chloride 101 mmol/L (98-107) 05/22/22 06:36 Carbon Dioxide 24 mmol/L (21-32) 05/22/22 06:36 Anion Gap 9 (3-11) 05/22/22 06:36 BUN 9 mg/dl (6-23) 05/22/22 06:36 Creatinine 0.41 mg/dl (0.6-1.4) L 05/22/22 06:36 Est Cr Clr Drug Dosing 205.2 ml/min 05/22/22 06:36 Est GFR ( Amer) 145.0 ml/min 05/22/22 06:36 Est GFR (Non-Af Amer) 125.1 ml/min 05/22/22 06:36 BUN/Creatinine Ratio 22.0 (10-20) H 05/22/22 06:36 Glucose 92 mg/dl (70-99(Fasting)) 05/22/22 06:36 POC Glucose 102 mg/dl (70-99) H 05/23/22 11:51 POC Glucose (other) 70 mg/dl (70-99) 05/12/22 00:25 Lactate 1.4 mmol/L (0.4-2.0) 05/08/22 22:29 Calcium 8.4 mg/dl (8.5-10.1) L 05/22/22 06:36 Phosphorus 2.9 mg/dl (2.5-4.9) 05/20/22 07:52 Magnesium 1.8 mg/dl (1.7-2.4) 05/20/22 07:52 Total Bilirubin 0.6 mg/dl (0.2-1.0) 05/22/22 06:36 Direct Bilirubin 0.9 mg/dl (0-0.2) H 05/14/22 04:41 AST 16 U/L (13-39) 05/22/22 06:36 ALT 17 U/L (7-52) 05/22/22 06:36 Alkaline Phosphatase 81 U/L (34-104) 05/22/22 06:36 Total Protein 6.0 gm/dl (6.0-8.3) 05/22/22 06:36 Albumin 2.8 gm/dl (3.4-5.0) L 05/22/22 06:36 Globulin 3.2 gm/dl (2.5-4.0) 05/22/22 06:36 Albumin/Globulin Ratio 0.9 (0.9-2) 05/22/22 06:36 Triglycerides 175 mg/dl (0-150) H 05/18/22 06:29 Cholesterol 141 mg/dl (0-200) 05/18/22 06:29 LDL Cholesterol, Calc 87 mg/dl 05/18/22 06:29 VLDL Cholesterol, Calc 35 mg/dl (0-30) H 05/18/22 06:29 HDL Cholesterol 19 mg/dl 05/18/22 06:29 Cholesterol/HDL Ratio 7.4 (0-5) H 05/18/22 06:29 Procalcitonin 0.63 ng/ml (0-0.5) H 05/08/22 15:19 Random Cortisol 33.12 mcg/dl 05/08/22 15:19 Nasal Screen MRSA (PCR) Negative (Negative) 05/08/22 16:46 Stl C. cayetanensis PCR Not Detected (NotDetected) 05/05/22 07:55 Stool Rotavirus A PCR Not Detected (NotDetected) 05/05/22 07:55 Stl Adenov F 40/41 PCR Not Detected (NotDetected) 05/05/22 07:55 Stool Astrovirus (PCR) Not Detected (NotDetected) 05/05/22 07:55 Stool Campylobacter PCR Not Detected (NotDetected) 05/05/22 07:55 Stl C. diff Tox B Gene Negative Cdiff Gene (Neg) 05/05/22 07:55 Stool Cryptosporidium PCR Not Detected (NotDetected) 05/05/22 07:55 Stl E.coli Shiga Tox PCR Not Detected (NotDetected) 05/05/22 07:55 Stl Enterotoxigenic E PCR Not Detected (NotDetected) 05/05/22 07:55 Stool EPEC (PCR) DETECTED (NotDetected) A* 05/05/22 07:55 Stool EAEC (PCR) Not Detected (NotDetected) 05/05/22 07:55 Stl E. histolytica PCR Not Detected (NotDetected) 05/05/22 07:55 Stool Giardia Lamblia PCR Not Detected (NotDetected) 05/05/22 07:55 Stool Salmonella PCR Not Detected (NotDetected) 05/05/22 07:55 Stool Sapovirus (PCR) Not Detected (NotDetected) 05/05/22 07:55 Stl P. shigelloides PCR Not Detected (NotDetected) 05/05/22 07:55 Stl Shigella/EIEC PCR Not Detected (NotDetected) 05/05/22 07:55 St Y.enterocolitica PCR Not Detected (NotDetected) 05/05/22 07:55 Stool Vibrio (PCR) Not Detected (NotDetected) 05/05/22 07:55 Stl Vibrio cholerae PCR Not Detected (NotDetected) 05/05/22 07:55 Stl Norovirus GI/GII PCR Not Detected (NotDetected) 05/05/22 07:55 Blood Type A Positive 05/11/22 07:24 Blood Type Recheck A Positive 05/11/22 04:21 Antibody Screen NEGATIVE 05/11/22 07:24 Impressions KUB X-Ray 05/05/22 01:18 KUB CLINICAL HISTORY: Large bowel obstruction. FINDINGS: 3 AP, portable, supine abdominal radiographs are correlated with abdominal CT dated 05/04/2022. There is severe fecal retention seen in the right colon. The right colon is markedly distended, measuring up to 11 cm in diameter. There is milder distention of the left colon, with minimal gas present in the sigmoid. There is only mild distention of the small bowel loops. No evidence of intraperitoneal free air is seen on the supine images. There are no abnormal abdominal calcifications. The skeletal structures are osteopenic but intact. There is moderate to advanced lumbosacral spondylosis and scoliosis. Metallic implants are noted in the prostate. IMPRESSION: Severe constipation and marked distention of the colon as above. Although this could representing colonic ileus, a distal colonic obstruction is not excluded. Clinical correlation will be essential. Electronically signed by: Sergio Petty M.D. 05/05/2022 1:33 PM Abdomen/Pelvis CT 05/08/22 09:00 CT SCAN OF THE ABDOMEN AND PELVIS WITH IV CONTRAST CLINICAL HISTORY: Follow-up diverticulitis. COMPARISON STUDY: Abdominal CT dated 05/04/2022. PET/CT dated 11/20/2021. TECHNIQUE: Following the IV administration of 85 cc of Optiray 320, CT scan of the abdomen and pelvis is performed from the lung bases to the proximal femora. Images are reviewed in the axial, sagittal, and coronal planes. IV contrast was administered without complication. A dose lowering technique was utilized adhering to the principles of ALARA. The examination is compromised by motion artifact. CT DOSE: 1569.35 mGy.cm FINDINGS: Lung bases: The heart is normal in size and without pericardial effusion. The co ronary arteries are densely calcified. There is a small hiatal hernia. Segmental atelectasis is seen at both lung bases. There is no airspace consolidation typical for pneumonia. Trace left pleural effusion is noted. Liver: The contrast-enhanced liver is normal and size and contour. The liver demonstrates diffusely diminished attenuation indicating severe hepatic steatosis. There is no intrahepatic biliary ductal dilatation. The hepatic veins and portal veins are patent. Gallbladder: Unremarkable. Spleen: Normal in size and attenuation. Pancreas: Unremarkable. Adrenal glands: Unremarkable. Kidneys: The contrast enhanced kidneys demonstrate cortical atrophy and are without hydronephrosis. The kidneys enhance symmetrically. Scattered subcentimeter cortical hypodensities likely represent cysts but are too small for definitive characterization. Bilateral renal artery aneurysms measure up to 12 mm. Abdominal vasculature: There is mild atherosclerotic calcification of the abdom inal aorta. A saccular aneurysm of the infrarenal abdominal aorta seen on image #244 measures up to 2.3 cm. Bowel: There is moderate diverticulosis of the sigmoid colon. Irregular wall thickening and focal narrowing is seen in the sigmoid on image #405. This measures at least 6 cm in length. The upstream colon is significantly distended and filled with stool, with the right colon measuring up to 8.8 cm in diameter. There is wall thickening and inflammation seen around the right colon, and the right colon is favored as a site of perforation. Residual enteric contrast is noted in the right colon. The small bowel loops are normal in caliber and fluid- filled. Mildly thick-walled loops of small bowel are seen in the lower abdomen on image #351. There are several low-attenuation nodular foci versus tiny collections adjacent to the sigmoid colon. The largest measures 2.5 x 1.4 cm seen on image #389. Additional foci are seen on images of #389 and #394. The appendix is well-visualized and normal. Peritoneum: There is a large volume of intraperitoneal free air. There is a small volume of perisplenic and perihepatic ascites, as well as fluid in the paracolic gutters and upper pelvis. Lymphadenopathy: None. Pelvic viscera: The prostate gland is diminutive and heterogeneous with metallic implants in place. The bladder wall is thickened/trabeculated indicating chronic outlet obstruction. Skeletal structures: The skeletal structures are osteopenic. There is moderate to advanced lumbosacral spondylosis. No lytic or blastic lesions are seen. IMPRESSION: 1. Again seen is evidence of a colonic obstruction at the level of the sigmoid colon. Although this could be related to stricture or diverticular disease, the appearance is more concerning for an obstructing mass lesion. 2. There is a large volume of intraperitoneal free air which is new from 05/04/2022. This indicates visceral perforation, and the significantly distended and abnormal appearing right colon (possible stercoral colitis) is favored as the site of perforation. Given the underlying abnormality, the sigmoid is also a consideration. 3. Low-attenuation nodular foci/collections adjacent sigmoid colon comparison small abscesses from a sigmoid diverticulitis versus metastatic nodules if there is an underlying colonic neoplasm. 4. Mildly thick-walled loops of small bowel in the pelvis are nonspecific and this may be related to regional inflammation. The small bowel loops are normal in caliber and fluid filled. This may represent ileus. 5. Small volume abdominopelvic ascites. This has increased from previous. 6. Trace left pleural effusion. 7. 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 8. Bilateral renal artery aneurysms. 9. Additional findings as above. Findings were discussed with Dr. Suero from surgery at the time of interpretation. ACT 112: Negative or not required by law. Electronically signed by: Sergio Petty M.D. 05/08/2022 10:33 AM Chest X-Ray 05/17/22 13:30 SINGLE VIEW CHEST CLINICAL HISTORY: Fluid overload. FINDINGS: An AP, portable, upright chest radiograph is compared to study dated 05/14/2022. The cardiomediastinal silhouette is top normal for projection. There is prominence of the pulmonary vasculature. There are low lung volumes with bibasilar atelectasis. No large pleural effusion or pneumothorax is seen. The bony thorax is grossly intact. IMPRESSION: 1. There is prominence of the pulmonary vasculature which could represent fluid overload. 2. Low lung volumes and bibasilar atelectasis. ACT 112: Negative or not required by law. Electronically signed by: Sergio Petty M.D. 05/17/2022 2:14 PM Hospital Course (1) Severe sepsis with septic shock: (2) Bowel perforation: (3) Diverticulitis of intestine with abscess: (4) Diarrhea: (5) Prostate cancer: (6) Hypertension: (7) Large bowel obstruction: (8) SVT (supraventricular tachycardia): Plan Severe sepsis 2/2 bowel perforation - Upon presentation CT scan showed colonic obstruction concerning for o bstructing lesion, nodular collections in sigmoid colon concerning for small abscess with a large volume of intraperitoneal free air. Emergent exploratory laparotomy was performed which resulted in right hemicolectomy on 05/09/22. The next day pt went for abdominal washout and ileostomy. - Was mechanically ventilated for 5 days post operatively and needed vasopressor support; has since been able to ween off both - completed 10 day dose of Zosyn, and 7 day course of Diflucan - He has an ileostomy in place. Will follow up with surgery as an OP. SVT s/p adenosine conversion to SR - SVT 05/18 with rate in 170s/180s convert to sinus rhythm with 1 6mg dose adenosine. No further episodes on telemetry. - He was asymptomatic and hemodynamically stable during the episode - He was started on metoprolol tartrate 50mg BID, and will continue as an OP. - Some lateral ischemia was noted on EKG taken during SVT run->cardiology recommend f/u and possible stress test as OP - Lipid panel with ASCVD= 12-16%; total cholesterol= 141, LDL= 87, LDL= 87 -> consider stating statin and repeat lipid panel after acute illness Diverticulitis w/ abscess - diagnosed via [facility] CTA - labs upon admission significant for WBC 16.56 w/ neutrophilic predominance on admission-> leukocytosis has since resolved - KUB showed severe constipation w/ distended colon (colonic ileus vs. LBO) - original blood cultures from 05/05 neg after 48 hr - current management as above; completed course of antibiotics Hyponatremia - resolved Hypokalemia - Was hypokalemic throughout admission and was repeatedly repleted - Started on 20meq daily; should have repeat BMP in 3-4 days Anemia - 09/2021 Hgb 15.0 - upon admission, 11.0 - continues to remain stable between 7.5-8; likely secondary to blood loss. Will need repeat CBC in 3-4 days Prostate cancer - Stage IIIA, s/p TURP in 09/2021 and Leuprolide/radiation therapy as of 02/2022 - Follows with cancer center (Dr. Le) HTN - Home lisinopril held, as he was hypotensive. Could consider restarted if blood pressures can tolerate it with the addition of metoprolol. Total Time Total Time Spent Total Time Spent (In Minutes): <30 Discharge Plan Discharge Items Patient Disposition: Transfer Inpatient Rehab Fac Reason For Visit: LARGE BOWEL OBSTRUCTION, COMPLICATED DIVERTICULIT Discharge Diagnosis: Bowel Perforation Activity: Resume your previous activity Non-emergency contact: Primary Care Provider and Surgeon Call non-emergency contact if: you have any medication questions, your pain is not controlled and you have a fever Follow-up/Referrals: [facility] [place] [facility] [Provider Group] Jace Suero MD [Physician] - Mitzi Dutta DO [Primary Care Provider] - Diet: Regular and Full liquid Diet Comment: Currerntly on full liquid, can continue to advance as tolerated. Addtl Attending Provider Instructions: Severe sepsis 2/2 bowel perforation - Upon presentation CT scan showed colonic obstruction concerning for obstructing lesion, nodular collections in sigmoid colon concerning for small abscess with a large volume of intraperitoneal free air. Emergent exploratory laparotomy was performed which resulted in right hemicolectomy on 05/09/22. The next day pt went for abdominal washout and ileostomy. - Was mechanically ventilated for 5 days post operatively and needed vasopressor support; has since been able to ween off both - completed 10 day dose of Zosyn, and 7 day course of Diflucan - He has an ileostomy in place. Will follow up with surgery as an OP. SVT s/p adenosine conversion to SR - SVT 05/18 with rate in 170s/180s convert to sinus rhythm with 1 6mg dose adenosine. No further episodes on telemetry. - He was asymptomatic and hemodynamically stable during the episode - He was started on metoprolol tartrate 50mg BID, and will continue as an OP. - Some lateral ischemia was noted on EKG taken during SVT run->cardiology recommend f/u and possible stress test as OP - Lipid panel with ASCVD= 12-16%; total cholesterol= 141, LDL= 87, LDL= 87 -> consider stating statin and repeat lipid panel after acute illness Diverticulitis w/ abscess - diagnosed via [facility] - labs upon admission significant for WBC 16.56 w/ neutrophilic predominance on admission-> leukocytosis has since resolved - KUB showed severe constipation w/ distended colon (colonic ileus vs. LBO) - original blood cultures from 05/05 neg after 48 hr - current management as above; completed course of antibiotics Hyponatremia - resolved Hypokalemia - Was hypokalemic throughout admission and was repeatedly repleted - Started on 20meqdaily; should have repeat BMP in 3-4 days Anemia - 09/2021 Hgb 15.0 - upon admission, 11.0 - continues to remain stable between 7.5-8; likely secondary to blood loss. Will need repeat CBC in 3-4 days Prostate cancer - Stage IIIA, s/p TURP in 09/2021 and Leuprolide/radiation therapy as of 02/2022 - Follows with cancer center (Dr. Le) HTN - Home lisinopril held, as he was hypotensive. Could consider restarted if blood pressures can tolerate it with the addition of metoprolol. Addtl Clinical Trials Assistant Provider Instructions: Post-Surgical ~Discharge Instructions Activity Recommendations: - lifting limitation: (10 pounds for at least 6 weeks), - exercise/sex/sports limit: (nonstrenuous for 6 weeks), - driving or machine use limit: (none for 1 week), - Shower/bathe limit: (may shower) Diet: - Resume previous diet SPECIAL CARE INSTRUCTIONS: - May shower. Let water run over area and pat dry. - Keep dressing over the mucous fistula and midline incision and chagne daily or as needed to keep clean and dry. - Ostomy care as needed. - Retention sutures and bars will be removed in office. - Call the surgeon's office with any questions or concerns - - (ex. temperature higher than 101 degrees F, excessive bleeding or pain). MEDICATIONS: - Resume previous medications unless instructed otherwise by your surgeon. FOLLOW UP VISIT: - Follow-up appointment scheduled for 05/30/2022 at 10:[address] Suero. Office number Pending Studies at Discharge: No Stand-Alone Forms: My [facility] [employer] Skilled Items Patient informed of condition?: Yes DNR: No Discharge Level of Care: Acute rehab Communicable Disease: No Discharge Prognosis: Improving Lines: None Urinary Catheter: No Medications and DC Order Prescriptions: New potassium chloride 20 mEq Tablet,Er Particles/Crystals 20 meq PO DAILY 30 Days Qty: 30 0RF metoprolol tartrate 50 mg Tablet 50 mg PO BID 30 Days Qty: 60 0RF Continued Probiotic 3 billion cell capsule 3,000 mmu cells PO DAILY Rx Instructions: administer with a meal acetaminophen [Tylenol Extra Strength] 500 mg tablet 1,000 mg PO Q6H PRN Eligard (3 month) 22.5 mg syringe 22.5 mg subcut ONCE Qty: 1 0RF Rx Instructions: ICD: 61 Patient is coming 12/04/21 cholecalciferol (vitamin D3) 50 mcg (2,000 unit) capsule 50 mcg PO DAILY calcium carbonate-vitamin D3 600 mg-10 mcg (400 unit) capsule 1 cap PO DAILY Metamucil 3.4 gram/5.4 gram powder 1 tbsp PO DAILY Rx Instructions: mix into at least 8 oz of water or juice before administering Eligard (3 month) 22.5 mg syringe 22.5 mg subcut ONCE Qty: 1 0RF Rx Instructions: ICD: C61 Patient coming 03/06/22 Discontinued lisinopril 20 mg tablet 20 mg PO DAILY Discharge Orders: Discharge Order (Routine); Ordered 05/23/22 Ordered By: Angie Esparza/Other Patient Handouts: Large Bowel Obstruction, Anatomy of the Digestive System, How the Colon Works, Understanding Tachycardia Admission Data Admit Date/Time: 05/05/22 01:46 Attending Provider: Juliocesar Summers Admit Provider: Bernabe Suero Primary Care Provider: Mitzi Dutta Other Providers: Candelario Mckeon ; [facility] ; Jason Mendoza Matthew D. ; Jose Armando Samuel Other Interventions: Discharge Summary Assessment (RN) Last Done: 05/23/22 15:59 Supervising Physician Co-Signing Physician Notes I personally examined the patient and verified all tsang points of history and exam, discussed case, and agree with decision making with Dr Berumen. No new issues or problems. For rehab today Vitals noted, in general he is awake pleasant no distress. HEENT normocephalic atraumatic mucous membranes moist. Breathing unlabored no accessory muscle use good effort. Skin shows no rashes no pallor or icterus. Neuro without focal deficits. Abdomen with healing wounds and a little bit of mucoid discharge. Supraventricular tachycardia, status post adenosine conversion to sinus rhythm Replace potassium ongoing, continue beta-hayden. Appreciate cardiology inputagree stress as an outpatient in near future; currently stable for rehab Severe sepsis in the setting of bowel perforation 2/2 diverticulitis w/ abscess s/p surgical repair Showing good progress/improvement overall and stable for rehab Acute on chronic anemia Low but stable Trend periodically Electrolyte abnormalities continue to replete K as needed Trend BMP periodically Additional per resident documentation, stable for rehab
[2022-05-23 15:22] VITALS: PULSE 89; TEMP 97.9; O2SAT 95
[2022-05-23 16:00] VITALS: BP 118/71
--- NOTE | 2022-05-23 20:17 | Billing Data ---
Date of Service May 23, 2022 Coding Level of Care Code D/C DAY MANAGEMENT <30 MINS
== END 2022-05-23 16:52 | DRG 853 ==
LOC: SUATTDRO 05-05 01:46 → 2E 05-05 01:46 → 1E 05-08 14:49 → 2E 05-16 14:37 → 3W 05-22 22:37